=== PATIENT | male | born 1940 | race Caucasian/White ===

== ENCOUNTER 2016-06-05 12:08 | Emergency (ER) | payer MEDICARE, OTHER ==
--- NOTE | 2016-06-05 12:50 | ED ---
General Adult HPI - General Chief complaint: Extremity Injury, Lower Stated complaint: left foot pain Time Seen by Provider: 06/05/16 12:38 Source: patient, RN notes reviewed Mode of arrival: wheelchair Limitations: no limitations - History of Present Illness Initial comments: Patient 76-year-old male who presents emergency room today with a chief complaint of pain to the left foot 10 days. Sensation states pain seems come and go. He does admit that it's located in the arch of his left foot. He does admit seems to be worse when he is ambulating bearing weight. States this time is not having any pain or discomfort. Patient states tried aspirin for the pain with little relief. He denies any specific injury or trauma. States that at times has pain to the right great toe which again states not having any pain or discomfort at this time. Patient denies any other symptoms. Patient denies any recent fever, chills, shortness of breath, chest pain, back pain, abdominal pain, nausea or vomiting, numbness or tingling, dysuria or hematuria, constipation or diarrhea, headaches or visual changes, or any other complaints. - Related Data Home Medications Medication Instructions Recorded Confirmed Gemfibrozil [Lopid] 600 mg PO BID 12/30/14 06/05/16 Tamsulosin [Flomax] 0.4 mg PO DAILY 01/17/15 06/05/16 Pantoprazole Sodium [Protonix] 40 mg PO AC-BID 02/09/15 06/05/16 Ascorbic Acid [Vitamin C] 500 mg PO DAILY 06/18/15 06/05/16 Atorvastatin Calcium [Lipitor] 40 mg PO HS 11/07/15 06/05/16 Multivitamins, Thera [Multivitamin] 1 tab PO DAILY 11/07/15 06/05/16 Pioglitazone [Actos] 30 mg PO DAILY 11/07/15 06/05/16 Primidone [Mysoline] 125 mg PO BID-W/MEALS 11/07/15 06/05/16 metFORMIN HCL [Glucophage] 500 mg PO AC-BID 11/07/15 06/05/16 Lisinopril [Zestril] 2.5 mg PO QAM 01/19/16 06/05/16 Previous Rx's Medication Instructions Recorded Carvedilol [Coreg] 3.125 mg PO BID-W/MEALS #60 tab 06/21/15 Allergies Allergy/AdvReac Type Severity Reaction Status Date / Time Penicillins Allergy Nausea & Verified 06/05/16 13:36 Vomiting Review of Systems ROS Statement: Those systems with pertinent positive or pertinent negative responses have been documented in the HPI. ROS Other: All systems not noted in ROS Statement are negative. 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 , Diarrhea for the last 9 months, Back Pain, Enlarged Prostate., Has difficulty holding his head up-states it wants to fall forward- he has a brace he wears History of Any Multi-Drug Resistant Organisms: None Reported Past Surgical History: Adenoidectomy, Bowel Resection, Hernia Repair, Orthopedic Surgery, Tonsillectomy Additional Past Surgical History / Comment(s): LT CAROTID ENDARTERECTOMY, UMBILICAL HERNIA REPAIR, LEFT EYE SURGERY (industrial accident), LEFT SHOULDER RCR , Lap elder fundoplication, EXPLORATORY LAPAROTOMY/ILEOCOLECTOMY, BMA with bx, 02/15/15 port-a-cath. Past Anesthesia/Blood Transfusion Reactions: No Reported Reaction Additional Past Anesthesia/Blood Transfusion Reaction / Comment(s): HX OF BLOOD TRANSFUSION-NO REACTION. Past Psychological History: No Psychological Hx Reported Additional Psychological History / Comment(s): . Smoking Status: Former smoker Past Alcohol Use History: None Reported Additional Past Alcohol Use History / Comment(s): STARTED SMOKING IN 1950 QUIT 1970 SMOKED 2 PPD Past Drug Use History: None Reported - Past Family History Daughter(s) Family Medical History: Cancer Additional Family Medical History / Comment(s): BREAST , LIVER AND LUNG CANCER Father Family Medical History: Myocardial Infarction ([place]) Additional Family Medical History / Comment(s): Father at age 65yrs. Mother Family Medical History: Dementia Additional Family Medical History / Comment(s): Mother at about age 82yrs. Brother(s) Family Medical History: Cancer Additional Family Medical History / Comment(s): (2 BROTHERS) Sister(s) Family Medical History: Cancer General Exam - General Exam Comments Initial Comments: General: The patient is awake and alert, in no distress, and does not appear acutely ill. Neck: The neck is supple, there is no tenderness or JVD. Cardiovascular: There is a regular rate and rhythm. No murmur, rub or gallop is appreciated. Respiratory: Lungs are clear to auscultation, respirations are non-labored, breath sounds are equal. No wheezes, stridor, rales, or rhonchi. Musculoskeletal: Patient has mild swelling down to the left foot. There is no redness. No sign of infection. Tender palpation in the arch of the left foot. No specific bony tenderness on exam. Shows good range of motion. Sensations are intact pulses equal bilaterally 2+. Strength is 5/5. Neurological: A&O x 3. CN II-XII intact, There are no obvious motor or sensory deficits. Coordination appears grossly intact. Speech is normal. Skin: Skin is warm and dry and no rashes or lesions are noted. Psychiatric: Normal mood and affect. Limitations: no limitations Course Vital Signs 06/05/16 12:33 Temperature 98 F Pulse Rate 66 Respiratory 20 Rate Blood Pressure 148/66 O2 Sat by Pulse 99 Oximetry Medical Decision Making - Medical Decision Making Patient reexamined at this time shows no signs or sensory was x-ray reviewed and is unremarkable. Was discussed with patient about plaques fasciitis. Advised to follow-up with with her family doctor. Advised to perform certain exercises for her symptoms. Patient is advised to continue to ice elevate affected area use heat if needed. Advised to use Tylenol for pain. Advised return for any other concerns. Disposition Clinical Impression: Foot pain Disposition: HOME SELF-CARE Condition: Good Instructions: Plantar Fasciitis (ED) Additional Instructions: Please use Tylenol for pain as needed. Please follow-up with family doctor/ orthopedics in the next 2 days. Please use can good to roll under your foot as discussed. Please return to emergency room if the symptoms increase or worsen or for any other concerns. Time of Disposition: 13:56
--- NOTE | 2016-06-05 13:30 | XR ---
EXAMINATION TYPE: XR foot complete LT DATE OF EXAM: 06/05/2016 1:22 PM COMPARISON: NONE HISTORY: Pain TECHNIQUE: Three views are submitted. FINDINGS: The osseous structures are intact. There is no acute fracture or dislocation. There is diffuse osteo penia and arthropathy of the MTP joints. Hammertoe deformities noted. IMPRESSION: 1. No acute fracture or dislocation. If symptoms persist, follow-up exam in 7 to 10 days could be ob tained.
[2016-06-05 14:09] VITALS: BP 164/72; PULSE 63; RESP 16; TEMP 96.9
== END 2016-06-05 14:08 | disposition home or self-care (01) ==
LOC: EC 12:08
DX: M79.672 Pain in left foot (principal); E11.9 Type 2 diabetes mellitus without complications; K21.9 Gastro-esophageal reflux disease without esophagitis; M19.90 Unspecified osteoarthritis, unspecified site; E78.5 Hyperlipidemia, unspecified; I11.0 Hypertensive heart disease with heart failure; I50.9 Heart failure, unspecified; N42.9 Disorder of prostate, unspecified; Z87.891 Personal history of nicotine dependence; Z85.72 Personal history of non-Hodgkin lymphomas; Z79.84 Long term (current) use of oral hypoglycemic drugs; Z79.899 Other long term (current) drug therapy; Z88.0 Allergy status to penicillin
CPT/HCPCS: 99283

== ENCOUNTER → 2017-04-12 | Outpatient (CLI) | payer MEDICARE, OTHER ==
--- NOTE | 2017-04-12 12:08 | US ---
EXAMINATION TYPE: US abdomen complete DATE OF EXAM: 04/12/2017 COMPARISON: PET/CT August 06, 2015. CT chest abdomen and pelvis January 25, 2015 CLINICAL HISTORY: Abnormal Renal Function R94.4. EXAM MEASUREMENTS: Liver Length: 13.1 cm Gallbladder Wall: 0.2 cm CBD: 0.4 cm Spleen: 11.6 cm Right Kidney: 11.0 x 5.3 x 4.8 cm Left Kidney: 10.9 x 5.3 x 5.0 cm Extensive midline bowel gas. Pancreas: Portions visualized wnl, partially obscured by bowel gas Liver: no masses seen Gallbladder: fundal portions obscured by bowel gas, stones with no wall thickening Evidence for sonographic Haas's sign: no CBD: wnl Spleen: wnl Right Kidney: small cyst noted measuring 0.6 x 0.7 x 0.6cm Left Kidney: No hydronephrosis or masses seen Upper IVC: wnl Abd Aorta: Portions visualized wnl, partially obscured by overlying bowel gas The visualized liver is homogenous. The intrahepatic portion of the IVC and visualized abdominal aor ta are within normal limits. There is no evidence of cholelithiasis. Common bile duct is unremarkab le. The visualized portions of the pancreas are homogenous. The spleen is unremarkable. Kidneys ar e symmetric and free of hydronephrosis. No renal lesions are seen. IMPRESSION: No hydronephrosis is evident bilaterally.
== END | disposition home or self-care (01) ==
LOC: RADUSWWP 09:07
PROVIDERS: ATTEND Internal Medicine Hematology & Oncology
DX: R94.4 Abnormal results of kidney function studies (principal); Z88.0 Allergy status to penicillin
CPT/HCPCS: 76700

== ENCOUNTER → 2017-06-08 | Outpatient (CLI) | payer MEDICARE, OTHER ==
--- NOTE | 2017-06-10 10:15 | PE ---
Nuclear medicine PET/CT HISTORY: Lymphoma, C 83.33, subsequent Patient received 14.9 mCi F-18 FDG intravenously in delayed scanning was performed from the skull bas e to the mid thighs. Localization and attenuation correction CT scan was performed. Exam correlated to prior nuclear medicine PET/CT 08/06/2015 FINDINGS: Neck and chest: Unremarkable, no suspicious hypermetabolic uptake, no evident adenopathy. Emphysemato us changes are present within the lungs, no evident lung mass. The heart is enlarged. 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 There are coronary artery calcifications. Pulmonary artery is prominent, co rrelate for possible pulmonary artery hypertension Abdomen pelvis: Gallstones are present in the dependent portion of the gallbladder. Colonic interposi tion noted anterior to the liver. No retroperitoneal or abdominal adenopathy. Postop changes are note d to the bowel. Uptake along the bowel is felt likely to be physiologic. Calcification present within the mesenteric fat. No suspicious hypermetabolic uptake. Osseous structures: Stable. No suspicious hypermetabolic uptake. IMPRESSION: Recurrence is not evident. Additional findings above.
== END | disposition home or self-care (01) ==
LOC: RADPETMAIN 11:34
PROVIDERS: ATTEND Internal Medicine Hematology & Oncology
DX: C83.33 Diffuse large B-cell lymphoma, intra-abdominal lymph nodes (principal); J43.9 Emphysema, unspecified; I51.7 Cardiomegaly; I25.10 Atherosclerotic heart disease of native coronary artery without angina pectoris; I71.2 Thoracic aortic aneurysm, without rupture; K80.20 Calculus of gallbladder without cholecystitis without obstruction; Z98.890 Other specified postprocedural states
CPT/HCPCS: 78815; A9552

== ENCOUNTER 2017-07-19 15:40 | Inpatient (IN) | payer MEDICARE, OTHER ==
[2017-07-19] MEDS ORDERED: SODIUM CHLORIDE 0.9% 500 ML IV STA (16:10)
[2017-07-19] MEDS ORDERED: SODIUM CHLORIDE 0.9% 1,000 ML IV STA (16:10)
[2017-07-19 16:47] LABS: Basophils % (A) 0 %; Eosinophils # (A) 0.2 k/uL (0-0.7); Eosinophils % (A) 2 %; HGB 10.4 gm/dL (13.0-17.5); Lymphocytes # (A) 0.9 k/uL (1.0-4.8); Lymphocytes % (A) 12 %; MCH 30.6 pg (25.0-35.0); MCHC 33.5 g/dL (31.0-37.0); MCV 91.2 fL (80.0-100.0); Mean Platelet Volume 9.1; Monocytes # (A) 0.3 k/uL (0-1.0); Monocytes % (A) 4 %; Neutrophils # (A) 5.6 k/uL (1.3-7.7); Neutrophils % (A) 80 %; Platelet Count 216 k/uL (150-450); RDW 14.2 % (11.5-15.5); WBC 7.1 k/uL (3.8-10.6)
[2017-07-19 16:55] LABS: INR 1.2 (<1.2); Partial Thromboplastin Time 25.2 sec (22.0-30.0); Prothrombin Time 11.1 sec (9.0-12.0)
[2017-07-19 16:59] LABS: ALT 14 U/L (21-72); AST 15 U/L (17-59); Alkaline Phosphatase 253 U/L (38-126); Anion Gap 18 mmol/L; Blood Urea Nitrogen 22 mg/dL (9-20); Calcium 8.3 mg/dL (8.4-10.2); Carbon Dioxide 22 mmol/L (22-30); Chloride 102 mmol/L (98-107); Glucose 341 mg/dL (74-99); Magnesium 1.3 mg/dL (1.6-2.3); Phosphorus 2.7 mg/dL (2.5-4.5); Sodium 142 mmol/L (137-145); Total Bilirubin 0.3 mg/dL (0.2-1.3); Total Protein 6.3 g/dL (6.3-8.2)
--- NOTE | 2017-07-19 17:11 | ED ---
General Adult HPI - General Chief complaint: Fall Stated complaint: Confusion Time Seen by Provider: 07/19/17 15:43 Source: patient, family, RN notes reviewed, old records reviewed Mode of arrival: EMS Limitations: altered mental status, physical limitation - History of Present Illness Initial comments: This is a 77-year-old male the ER for evaluation. Patient poor historian unable to give accurate history, history obtained from family EMS and patient's chart. Patient has multiple recent falls, multiple injuries from prior fall, fall earlier in the week and hence was discharged home, symptoms have progressed since with no new acute injury - Related Data Home Medications Medication Instructions Recorded Confirmed Gemfibrozil [Lopid] 600 mg PO BID 12/30/14 07/19/17 Tamsulosin [Flomax] 0.4 mg PO DAILY 01/17/15 07/19/17 Pantoprazole Sodium [Protonix] 40 mg PO AC-BID 02/09/15 07/19/17 Atorvastatin Calcium [Lipitor] 80 mg PO HS 11/07/15 07/19/17 Multivitamins, Thera [Multivitamin] 1 tab PO DAILY 11/07/15 07/19/17 Pioglitazone [Actos] 30 mg PO DAILY 11/07/15 07/19/17 Primidone [Mysoline] 125 mg PO BID-W/MEALS 11/07/15 07/19/17 Lisinopril [Zestril] 2.5 mg PO QAM 01/19/16 07/19/17 Donepezil [Aricept] 10 mg PO HS 07/19/17 07/19/17 Ferrous Sulfate [Feosol] 325 mg PO DAILY 07/19/17 07/19/17 Gabapentin [Neurontin] 300 mg PO BID 07/19/17 07/19/17 HYDROcodone/APAP 7.5-325MG [[place] 1 tab PO Q4H PRN 07/19/17 07/19/17 7.5-325] Milk Of Magnesia Chewables 400 mg PO DAILY 07/19/17 07/19/17 Sodium Bicarbonate Tab 650 mg PO BID 07/19/17 07/19/17 metFORMIN HCL 1,000 mg PO BID 07/19/17 07/19/17 traMADol HCL [Ultram] 50 mg PO Q12H PRN 07/19/17 07/19/17 Previous Rx's Medication Instructions Recorded Carvedilol [Coreg] 3.125 mg PO BID-W/MEALS #60 tab 06/21/15 Allergies Allergy/AdvReac Type Severity Reaction Status Date / Time Penicillins Allergy Nausea & Verified 07/19/17 16:34 Vomiting Review of Systems ROS Statement: Those systems with pertinent positive or pertinent negative responses have been documented in the HPI. ROS Other: All systems not noted in ROS Statement are negative. 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 , Diarrhea for the last 9 months, Back Pain, Enlarged Prostate., Has difficulty holding his head up-states it wants to fall forward- he has a brace he wears History of Any Multi-Drug Resistant Organisms: None Reported Past Surgical History: Adenoidectomy, Bowel Resection, Hernia Repair, Orthopedic Surgery, Tonsillectomy Additional Past Surgical History / Comment(s): LT CAROTID ENDARTERECTOMY, UMBILICAL HERNIA REPAIR, LEFT EYE SURGERY (industrial accident), LEFT SHOULDER RCR , Lap elder fundoplication, EXPLORATORY LAPAROTOMY/ILEOCOLECTOMY, BMA with bx, 02/15/15 port-a-cath. Past Anesthesia/Blood Transfusion Reactions: No Reported Reaction Additional Past Anesthesia/Blood Transfusion Reaction / Comment(s): HX OF BLOOD TRANSFUSION-NO REACTION. Past Psychological History: No Psychological Hx Reported Smoking Status: Former smoker Past Alcohol Use History: None Reported Past Drug Use History: None Reported - Past Family History Daughter(s) Family Medical History: Cancer Additional Family Medical History / Comment(s): BREAST , LIVER AND LUNG CANCER Father Family Medical History: Myocardial Infarction ([place]) Additional Family Medical History / Comment(s): Father at age 65yrs. Mother Family Medical History: Dementia Additional Family Medical History / Comment(s): Mother at about age 82yrs. Brother(s) Family Medical History: Cancer Additional Family Medical History / Comment(s): (2 BROTHERS) Sister(s) Family Medical History: Cancer General Exam - General Exam Comments Initial Comments: Left arm brace and edema Limitations: altered mental status, physical limitation General appearance: alert, in no apparent distress Head exam: Present: atraumatic, normocephalic, normal inspection Eye exam: Present: normal appearance, PERRL, EOMI. Absent: scleral icterus, conjunctival injection, periorbital swelling ENT exam: Present: normal exam, mucous membranes moist Neck exam: Present: normal inspection. Absent: tenderness, meningismus, lymphadenopathy Respiratory exam: Present: normal lung sounds bilaterally. Absent: respiratory distress, wheezes, rales, rhonchi, stridor Cardiovascular Exam: Present: regular rate, normal rhythm, normal heart sounds. Absent: systolic murmur, diastolic murmur, rubs, gallop, clicks GI/Abdominal exam: Present: soft, normal bowel sounds. Absent: distended, tenderness, guarding, rebound, rigid Extremities exam: Present: normal inspection, full ROM, normal capillary refill. Absent: tenderness, pedal edema, joint swelling, calf tenderness Back exam: Present: normal inspection Neurological exam: Present: alert, oriented X3, CN II-XII intact Psychiatric exam: Present: normal affect, normal mood Skin exam: Present: warm, dry, intact, normal color. Absent: rash Course Vital Signs 07/19/17 07/19/17 07/19/17 15:56 16:30 17:30 Temperature 98.3 F Pulse Rate 92 86 91 Respiratory 20 20 20 Rate Blood Pressure 186/89 171/77 135/65 O2 Sat by Pulse 99 100 99 Oximetry - Reevaluation(s) Reevaluation #1: 07/19/17 17:50 Patient was still pain with breathing, difficulty breathing Reevaluation #2: 07/19/17 17:50 Prior ER records are reviewed EKG Findings - EKG Comments: EKG Findings:: EKG shows sinus rhythm rate of 89, NH 144, QRS 88, QTC 452 Medical Decision Making - Medical Decision Making 77 male the ER for evaluation regarding recent acute falls, patient does have left-sided rib fractures, pain breathing is worse since she's been at home, patient will be admitted for pain control - Lab Data Result diagrams: 07/19/17 16:30 07/19/17 16:30 Lab Results 07/19/17 07/19/1707/19/18 Range/Units 16:30 16:30 16:30 WBC 7.1 (3.8-10.6) k/uL RBC 3.40 L (4.30-5.90) m/uL Hgb 10.4 L (13.0-17.5) gm/dL Hct 31.0 L (39.0-53.0) % MCV 91.2 (80.0-100.0) fL MCH 30.6 (25.0-35.0) pg MCHC 33.5 (31.0-37.0) g/dL RDW 14.2 (11.5-15.5) % Plt Count 216 (150-450) k/uL Neutrophils % 80 % Lymphocytes % 12 % Monocytes % 4 % Eosinophils % 2 % Basophils % 0 % Neutrophils # 5.6 (1.3-7.7) k/uL Lymphocytes # 0.9 L (1.0-4.8) k/uL Monocytes # 0.3 (0-1.0) k/uL Eosinophils # 0.2 (0-0.7) k/uL Basophils # 0.0 (0-0.2) k/uL PT (9.0-12.0) sec INR (<1.2) APTT (22.0-30.0) sec Sodium 142 (137-145) mmol/L Potassium 4.0 (3.5-5.1) mmol/L Chloride 102 (98-107) mmol/L Carbon Dioxide 22 (22-30) mmol/L Anion Gap 18 mmol/L BUN 22 H (9-20) mg/dL Creatinine 0.90 (0.66-1.25) mg/dL Est GFR (CKD-EPI)AfAm >90 (>60 ml/min/1.73 sqM) Est GFR (CKD-EPI)NonAf 83 (>60 ml/min/1.73 sqM) Glucose 341 H (74-99) mg/dL Plasma Lactic Acid Jhon (0.7-2.0) mmol/L Calcium 8.3 L (8.4-10.2) mg/dL Phosphorus 2.7 (2.5-4.5) mg/dL Magnesium 1.3 L (1.6-2.3) mg/dL Total Bilirubin 0.3 (0.2-1.3) mg/dL AST 15 L (17-59) U/L ALT 14 L (21-72) U/L Alkaline Phosphatase 253 H (38-126) U/L Total Creatine Kinase 112 (55-170) U/L CK-MB (CK-2) 2.2 (0.0-2.4) ng/mL CK-MB (CK-2) Rel Index 2.0 Troponin I 0.016 (0.000-0.034) ng/mL Total Protein 6.3 (6.3-8.2) g/dL Albumin 4.0 (3.5-5.0) g/dL Urine Color Urine Appearance (Clear) Urine pH (5.0-8.0) Ur Specific [place] (1.001-1.035) Urine Protein (Negative) Urine Glucose (UA) (Negative) Urine Ketones (Negative) Urine Blood (Negative) Urine Nitrite (Negative) Urine Bilirubin (Negative) Urine Urobilinogen (<2.0) mg/dL Ur Leukocyte Esterase (Negative) Urine RBC (0-5) /hpf Urine WBC (0-5) /hpf Urine Bacteria (None) /hpf Urine Mucus (None) /hpf 07/19/17 07/19/17 07/19/17 Range/Units 16:30 16:30 17:15 WBC (3.8-10.6) k/uL RBC (4.30-5.90) m/uL Hgb (13.0-17.5) gm/dL Hct (39.0-53.0) % MCV (80.0-100.0) fL MCH (25.0-35.0) pg MCHC (31.0-37.0) g/dL RDW (11.5-15.5) % Plt Count (150-450) k/uL Neutrophils % % Lymphocytes % % Monocytes % % Eosinophils % % Basophils % % Neutrophils # (1.3-7.7) k/uL Lymphocytes # (1.0-4.8) k/uL Monocytes # (0-1.0) k/uL Eosinophils # (0-0.7) k/uL Basophils # (0-0.2) k/uL PT 11.1 (9.0-12.0) sec INR 1.2 H (<1.2) APTT 25.2 (22.0-30.0) sec Sodium (137-145) mmol/L Potassium (3.5-5.1) mmol/L Chloride (98-107) mmol/L Carbon Dioxide (22-30) mmol/L Anion Gap mmol/L BUN (9-20) mg/dL Creatinine (0.66-1.25) mg/dL Est GFR (CKD-EPI)AfAm (>60 ml/min/1.73 sqM) Est GFR (CKD-EPI)NonAf (>60 ml/min/1.73 sqM) Glucose (74-99) mg/dL Plasma Lactic Acid Jhon 0.9 (0.7-2.0) mmol/L Calcium (8.4-10.2) mg/dL Phosphorus (2.5-4.5) mg/dL Magnesium (1.6-2.3) mg/dL Total Bilirubin (0.2-1.3) mg/dL AST (17-59) U/L ALT (21-72) U/L Alkaline Phosphatase (38-126) U/L Total Creatine Kinase (55-170) U/L CK-MB (CK-2) (0.0-2.4) ng/mL CK-MB (CK-2) Rel Index Troponin I (0.000-0.034) ng/mL Total Protein (6.3-8.2) g/dL Albumin (3.5-5.0) g/dL Urine Color Yellow Urine Appearance Clear (Clear) Urine pH 5.5 (5.0-8.0) Ur Specific [place] 1.022 (1.001-1.035) Urine Protein 1+ H (Negative) Urine Glucose (UA) 4+ H (Negative) Urine Ketones 1+ H (Negative) Urine Blood Trace H (Negative) Urine Nitrite Negative (Negative) Urine Bilirubin Negative (Negative) Urine Urobilinogen <2.0 (<2.0) mg/dL Ur Leukocyte Esterase Negative (Negative) Urine RBC 1 (0-5) /hpf Urine WBC <1 (0-5) /hpf Urine Bacteria Rare H (None) /hpf Urine Mucus Rare H (None) /hpf - Radiology Data Radiology results: report reviewed (Chest x-ray x-ray left forearm positive fractures positive rib fractures), image reviewed Disposition Clinical Impression: Fall, Weakness generalized, Malnutrition Disposition: ADMITTED IP TO THIS HOSP Condition: Fair Is patient prescribed a controlled substance at d/c from ED?: No Referrals: Adelfo Tee MD [Primary Care Provider] - 1-2 days
[2017-07-19 17:24] LABS: Creatine Kinase MB 2.2 ng/mL (0.0-2.4); Troponin I 0.016 ng/mL (0.000-0.034)
[2017-07-19 17:36] LABS: Appearance,Urine Clear (Clear); Bacteria,Urine Rare /hpf; Bilirubin,Urine Negative (Negative); Blood,Urine Trace (Negative); Color,Urine Yellow; Glucose,Urine (UA) 4+ (Negative); Ketones,Urine 1+ (Negative); Leukocyte Esterase,Urine Negative (Negative); Mucus,Urine Rare /hpf; Nitrite,Urine Negative (Negative); PH, Urine 5.5 (5.0-8.0); Protein,Urine 1+ (Negative); RBC,Urine 1 /hpf (0-5); Specific Gravity,Urine 1.022 (1.001-1.035); Urobilinogen,Urine <2.0 mg/dL (<2.0); WBC,Urine <1 /hpf (0-5)
[2017-07-19] MEDS ORDERED: MORPHINE SULFATE 4 MG/ML SYRINGE IVP PRN (17:51)
[2017-07-19] MEDS ORDERED: MORPHINE SULFATE 4 MG/ML SYRINGE IVP STA (17:51)
--- NOTE | 2017-07-19 18:11 | XR ---
EXAMINATION: XR chest 2V DATE AND TIME: 07/19/2017 5:10 PM ORDERING PROVIDER: [employer] DO CLINICAL INDICATION: Weakness TECHNIQUE: PA and lateral COMPARISON: 06/20/2015 DESCRIPTION: The hemidiaphragms are elevated consistent with relatively low lung inflation at the mom ent of the x-ray exposure. The lungs are clear. The pleural spaces are negative. The cardiac silhouette is not enlarged. The mediastinal and pleural silhouettes are unremarkable. The skeletal structures are intact without focal findings. The soft tissues are unremarkable. IMPRESSION: NO ACUTE PROCESS.
[2017-07-19] MEDS: MAGNESIUM SULFATE-D5W PMX 1 GM in DEXTROSE/WATER 1 100ML.BAG IVPB SCH ×2 (18:20→19:16)
--- NOTE | 2017-07-19 19:23 | XR ---
PROCEDURE: XR forearm LT, 2 views DATE AND TIME: 07/19/2017 6:19 PM REFERRING PHYSICIAN: [employer] DO CLINICAL INDICATION: PH[facility], Pain TECHNIQUE: Department protocol. COMPARISON: None FINDINGS: There is no fracture or malalignment. The soft tissues are unremarkable. IMPRESSION: NO ACUTE PROCESS.
[2017-07-19] MEDS ORDERED: HYDROcodone/APAP 7.5-325MG 1 EACH TAB PO PRN (23:12)
[2017-07-19] MEDS ORDERED: DOCUSATE 100 MG CAP PO PRN (23:45)
--- NOTE | 2017-07-19 23:46 | P.HPIM ---
History of Present Illness H&P Date: 07/19/17 Chief Complaint: Left wrist pain Patient is a 77-year-old male with a known history of hypertension, diabetes type 2 [id number], GERD, hearing disorder and large B-cell lymphoma last chemotherapy in 2015 and multiple other medical problems was admitted to the hospital with complaints of pain. Patient does have a history of multiple falls and patient fell about 5 days back and fractured his rib, left wrist, currently on left wrists splint. Patient lives with his who is currently undergoing chemotherapy and unable to take care of him at home. Patient was brought to the hospital by his son for rehab evaluation. Otherwise patient is a poor historian.. no complaints of chest pain or shortness of breath. No fever no chills. No nausea vomiting or abdominal pain. No diarrhea. Left forearm x-ray showed no acute process Chest x-ray showed no acute process EKG showed sinus rhythm with PACs. Blood sugar is elevated 340 on admission Review of Systems Constitutional: Patient denies any fever or chills . No generalized weakness or weight loss. Abdomen: Patient denied nausea vomiting and diarrhea and abdominal pain. Cardiovascular: Patient denies any chest pain or short of breath no palpitations. Respiratory: patient denied any cough is from production. No shortness of breath Neurologic: Patient denied any numbness or tingling headache. Musculoskeletal: Patient denies any complaints of joint swelling or deformity. Complete review of systems could not be obtained from the patient. 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 Past Anesthesia/Blood Transfusion Reactions: No Reported Reaction Additional Past Anesthesia/Blood Transfusion Reaction / Comment(s): HX OF BLOOD TRANSFUSION-NO REACTION. Smoking Status: Former smoker - Past Family History Daughter(s) Family Medical History: Cancer Additional Family Medical History / Comment(s): BREAST , LIVER AND LUNG CANCER Father Family Medical History: Myocardial Infarction ([place]) Additional Family Medical History / Comment(s): Father at age 65yrs. Mother Family Medical History: Dementia Additional Family Medical History / Comment(s): Mother at about age 82yrs. Brother(s) Family Medical History: Cancer Additional Family Medical History / Comment(s): (2 BROTHERS) Sister(s) Family Medical History: Cancer Medications and Allergies Home Medications Medication Instructions Recorded Confirmed Type Gemfibrozil [Lopid] 600 mg PO BID 12/30/14 07/19/17 History Tamsulosin [Flomax] 0.4 mg PO DAILY 01/17/15 07/19/17 History Pantoprazole Sodium [Protonix] 40 mg PO AC-BID 02/09/15 07/19/17 History Carvedilol [Coreg] 3.125 mg PO BID-W/MEALS #60 tab 06/21/15 07/19/17 Rx Atorvastatin Calcium [Lipitor] 80 mg PO HS 11/07/15 07/19/17 History Multivitamins, Thera [Multivitamin] 1 tab PO DAILY 11/07/15 07/19/17 History Pioglitazone [Actos] 30 mg PO DAILY 11/07/15 07/19/17 History Primidone [Mysoline] 125 mg PO BID-W/MEALS 11/07/15 07/19/17 History Lisinopril [Zestril] 2.5 mg PO QAM 01/19/16 07/19/17 History Donepezil [Aricept] 10 mg PO HS 07/19/17 07/19/17 History Ferrous Sulfate [Feosol] 325 mg PO DAILY 07/19/17 07/19/17 History Gabapentin [Neurontin] 300 mg PO BID 07/19/17 07/19/17 History HYDROcodone/APAP 7.5-325MG [[place] 1 tab PO Q4H PRN 07/19/17 07/19/17 History 7.5-325] Milk Of Magnesia Chewables 400 mg PO DAILY 07/19/17 07/19/17 History Sodium Bicarbonate Tab 650 mg PO BID 07/19/17 07/19/17 History metFORMIN HCL 1,000 mg PO BID 07/19/17 07/19/17 History traMADol HCL [Ultram] 50 mg PO Q12H PRN 07/19/17 07/19/17 History Allergies Allergy/AdvReac Type Severity Reaction Status Date / Time Penicillins Allergy Nausea & Verified 07/19/17 16:34 Vomiting Physical Exam Vitals: Vital Signs Temp Pulse Pulse Resp BP BP Pulse Ox 07/19/17 22:51 80 161/74 07/19/17 21:27 98.7 F 81 16 175/74 100 07/19/17 19:00 83 20 142/66 100 07/19/17 17:30 91 20 135/65 99 07/19/17 16:30 86 20 171/77 100 07/19/17 15:56 98.3 F 92 20 186/89 99 Intake and Output 07/19/17 07/19/17 07/20/17 14:59 22:59 06:59 Intake Total 500 Balance 500 Intake: Intake, IV Titration 500 Amount Magnesium Sulfate-D5w Pmx 200 1 gm In Dextrose/Water 1 100ml.bag @ 100 mls/hr IVPB Q1H ZEE Rx#: [id number] Sodium Chloride 0.9% 1, 300 000 ml @ 100 mls/hr IV . Q10H STA Rx#:[id number] Other: Weight 74.843 kg PHYSICAL EXAMINATION: Patient is lying in the bed comfortably, no acute distress, awake alert and oriented.x1-2. HEENT: Normocephalic. Neck is supple. Pupils reactive. Nostrils clear. Oral cavity is moist. Ears reveal no drainage. Neck reveals no JVD, carotid bruits, or thyromegaly. CHEST EXAMINATION: Trachea is central. Symmetrical expansion. Bibasilar diminished air entry. No wheezing or rhonchi. CARDIAC: Normal S1, S2 with no gallops. No murmurs ABDOMEN: Soft. Bowel sounds normal. No organomegaly. No abdominal bruits. Extremities: reveal no edema. No clubbing or cyanosis Neurologically awake, alert, oriented x1-2 with well-coordinated movements. No focal deficits noted Skin: No rash or skin lesions. Psychiatric: Coperative. Nonsuicidal Musculoskeletal: Patient does have left wrist splint in place. No other joint swelling. Results CBC & Chem 7: 07/19/17 16:30 07/19/17 16:30 Labs: Abnormal Lab Results - Last 24 Hours (Table) 07/19/17 07/19/17 07/19/17 Range/Units 16:30 16:30 16:30 RBC 3.40 L (4.30-5.90) m/uL Hgb 10.4 L (13.0-17.5) gm/dL Hct 31.0 L (39.0-53.0) % Lymphocytes # 0.9 L (1.0-4.8) k/uL INR 1.2 H (<1.2) BUN 22 H (9-20) mg/dL Glucose 341 H (74-99) mg/dL Calcium 8.3 L (8.4-10.2) mg/dL Magnesium 1.3 L (1.6-2.3) mg/dL AST 15 L (17-59) U/L ALT 14 L (21-72) U/L Alkaline Phosphatase 253 H (38-126) U/L Urine Protein (Negative) Urine Glucose (UA) (Negative) Urine Ketones (Negative) Urine Blood (Negative) Urine Bacteria (None) /hpf Urine Mucus (None) /hpf 07/19/17 Range/Units 17:15 RBC (4.30-5.90) m/uL Hgb (13.0-17.5) gm/dL Hct (39.0-53.0) % Lymphocytes # (1.0-4.8) k/uL INR (<1.2) BUN (9-20) mg/dL Glucose (74-99) mg/dL Calcium (8.4-10.2) mg/dL Magnesium (1.6-2.3) mg/dL AST (17-59) U/L ALT (21-72) U/L Alkaline Phosphatase (38-126) U/L Urine Protein 1+ H (Negative) Urine Glucose (UA) 4+ H (Negative) Urine Ketones 1+ H (Negative) Urine Blood Trace H (Negative) Urine Bacteria Rare H (None) /hpf Urine Mucus Rare H (None) /hpf Thrombosis Risk Factor Assmnt - DVT/VTE Prophylaxis DVT/VTE Prophylaxis: Pharmacologic Prophylaxis ordered - Choose All That Apply Any of the Below Risk Factors Present?: No Other Risk Factors: Yes Each Risk Factor Represents 2 Points: Patient confined to bed Each Risk Factor Represents 3 Points: Age 75 years or older Thrombosis Risk Factor Assessment Total Risk Factor Score: 5 Thrombosis Risk Factor Assessment Level: High Risk Assessment and Plan Assessment: History of fall 5 days ago with a left wrist fracture History of multiple falls Hyperglycemia with uncontrolled diabetes type 2 Hypomagnesemia. Replaced Large B-cell lymphoma with history of chemotherapy and 2016 History of smoking Hearing disorder/deafness Hyperlipidemia Hypertension and osteoarthritis History of expiratory laparotomy/ileocolectomy History of Elder fundoplication DVT prophylaxis with heparin subcu Plan: Patient was started on morphine IV. Continue with home pain medications including Neurontin and [place]. Insulin sliding scale and gentle hydration. Bowel regimen. Continue the blood pressure medications and follow up closely. Further recommendations based on the clinical course. PTOT be consulted and possible transfer to rehab. Time with Patient: Greater than 30
[2017-07-20] MEDS: DONEPEZIL 10 MG TAB PO SCH ×2 (01:41→21:45)
[2017-07-20] MEDS: MAGNESIUM SULFATE-D5W PMX 1 GM in DEXTROSE/WATER 1 100ML.BAG IVPB SCH ×2 (01:41→03:51)
[2017-07-20 07:29] LABS: Basophils % (A) 0 %; Eosinophils # (A) 0.1 k/uL (0-0.7); Eosinophils % (A) 2 %; HCT 28.9 % (39.0-53.0); HGB 9.9 gm/dL (13.0-17.5); Lymphocytes # (A) 0.8 k/uL (1.0-4.8); Lymphocytes % (A) 16 %; MCH 31.4 pg (25.0-35.0); MCHC 34.1 g/dL (31.0-37.0); Mean Platelet Volume 7.6; Monocytes # (A) 0.4 k/uL (0-1.0); Monocytes % (A) 8 %; Neutrophils # (A) 3.9 k/uL (1.3-7.7); Neutrophils % (A) 73 %; Platelet Count 211 k/uL (150-450); Poikilocytosis Slight; RBC 3.15 m/uL (4.30-5.90); RDW 14.4 % (11.5-15.5); WBC 5.4 k/uL (3.8-10.6)
[2017-07-20 07:52] LABS: Anion Gap 17 mmol/L; Blood Urea Nitrogen 18 mg/dL (9-20); Calcium 8.1 mg/dL (8.4-10.2); Carbon Dioxide 18 mmol/L (22-30); Chloride 104 mmol/L (98-107); Glucose 260 mg/dL (74-99); Potassium 3.8 mmol/L (3.5-5.1); Sodium 139 mmol/L (137-145)
[2017-07-20] MEDS: SODIUM BICARBONATE TAB 650 MG TAB PO SCH ×2 (08:09→21:45)
[2017-07-20] MEDS: PANTOPRAZOLE 40 MG TABLET PO SCH ×2 (08:09→17:43)
[2017-07-20] MEDS: GABAPENTIN 300 MG CAP PO SCH ×2 (08:09→21:45)
[2017-07-20] MEDS: CARVEDILOL 3.125 MG TAB PO SCH ×2 (08:09→17:43)
[2017-07-20] MEDS: LISINOPRIL 2.5 MG TAB PO SCH (08:09)
[2017-07-20] MEDS: MULTIVITAMINS, THERA 1 EACH TAB PO SCH (08:09)
[2017-07-20] MEDS: HEPARIN SODIUM,PORCINE 5,000 UNIT/ML 1 ML VIAL SQ SCH ×2 (08:09→21:45)
[2017-07-20] MEDS: TAMSULOSIN 0.4 MG CAP.ER.24H PO SCH (08:09)
[2017-07-20] MEDS: MAGNESIUM HYDROXIDE 2,400 MG/10 ML CUP PO SCH (08:17)
[2017-07-20 12:16] LABS: Glucose,Whole Blood 371 mg/dL (75-99)
[2017-07-20] MEDS: INSULIN ASPART 100 UNIT/ML 1 ML 10 ML VIAL SQ SCH ×3 (12:46→21:51)
[2017-07-20 14:47] LABS: Hemoglobin A1C 9.6 % (4.0-6.0)
[2017-07-20 16:35] LABS: Glucose,Whole Blood 288 mg/dL (75-99)
[2017-07-20] MEDS: ATORVASTATIN 80 MG TAB PO SCH (21:45)
[2017-07-20] MEDS: metFORMIN 500 MG TAB PO SCH (21:46)
[2017-07-20 21:50] LABS: Glucose,Whole Blood 363 mg/dL (75-99)
--- NOTE | 2017-07-20 22:44 | P.PN ---
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 Patient does have a history of multiple falls and patient fell about 5 days back and fractured his rib, left wrist, currently on left wrists splint. Patient lives with his who is currently undergoing chemotherapy and unable to take care of him at home. Patient was brought to the hospital by his son for rehab evaluation. Otherwise patient is a poor historian.. no complaints of chest pain or shortness of breath. No fever no chills. No nausea vomiting or abdominal pain. No diarrhea. Left forearm x-ray showed no acute process Chest x-ray showed no acute process EKG showed sinus rhythm with PACs. Blood sugar is elevated 340 on admission 07/20/2017 Patient says that his pain is much better now. Able to tolerate oral diet. Otherwise pressure is elevated and started back on home hypoglycemic medications and insulin sliding scale. No fever no chills. PT OT and possible transfer to REHAB ON SATURDAY. All other review of systems negative except the above Current medications reviewed Objective - Vital Signs Vital signs: Vital Signs Temp 97.8 F 07/20/17 15:00 Pulse 77 07/20/17 15:00 Resp 16 07/20/17 15:00 BP 157/73 07/20/17 15:00 Pulse Ox 95 07/20/17 15:00 Intake & Output 07/19/17 07/20/17 07/20/17 18:59 06:59 18:59 Intake Total 1500 800 Output Total 675 425 Balance 825 375 Weight 74.843 kg Intake: Intake, IV Titration 1500 800 Amount Magnesium Sulfate-D5w Pmx 200 1 gm In Dextrose/Water 1 100ml.bag @ 100 mls/hr IVPB Q1H ZEE Rx#: [id number] Magnesium Sulfate-D5w Pmx 200 1 gm In Dextrose/Water 1 100ml.bag @ 100 mls/hr IVPB Q1H ZEE Rx#: [id number] Sodium Chloride 0.9% 1, 1100 800 000 ml @ 100 mls/hr IV . Q10H STA Rx#:[id number] Output: Urine 675 425 Other: # Voids 2 3 - Exam Patient is lying in the bed comfortably, no acute distress, awake alert and oriented.x1-2. HEENT: Normocephalic. Neck is supple. Pupils reactive. Nostrils clear. Oral cavity is moist. Ears reveal no drainage. Neck reveals no JVD, carotid bruits, or thyromegaly. CHEST EXAMINATION: Trachea is central. Symmetrical expansion. Bibasilar diminished air entry. No wheezing or rhonchi. CARDIAC: Normal S1, S2 with no gallops. No murmurs ABDOMEN: Soft. Bowel sounds normal. No organomegaly. No abdominal bruits. Extremities: reveal no edema. No clubbing or cyanosis Neurologically awake, alert, oriented x1-2 with well-coordinated movements. No focal deficits noted Skin: No rash or skin lesions. Psychiatric: Coperative. Nonsuicidal Musculoskeletal: Patient does have left wrist splint in place. No other joint swelling. - Labs CBC & Chem 7: 07/20/17 06:48 07/20/17 06:48 Labs: Abnormal Lab Results - Last 24 Hours (Table) 07/19/17 07/19/17 07/19/17 Range/Units 16:30 16:30 17:15 RBC (4.30-5.90) m/uL Hgb (13.0-17.5) gm/dL Hct (39.0-53.0) % Lymphocytes # (1.0-4.8) k/uL INR 1.2 H (<1.2) Carbon Dioxide (22-30) mmol/L BUN 22 H (9-20) mg/dL Glucose 341 H (74-99) mg/dL POC Glucose (mg/dL) (75-99) mg/dL Hemoglobin A1c (4.0-6.0) % Calcium 8.3 L (8.4-10.2) mg/dL Magnesium 1.3 L (1.6-2.3) mg/dL AST 15 L (17-59) U/L ALT 14 L (21-72) U/L Alkaline Phosphatase 253 H (38-126) U/L Urine Protein 1+ H (Negative) Urine Glucose (UA) 4+ H (Negative) Urine Ketones 1+ H (Negative) Urine Blood Trace H (Negative) Urine Bacteria Rare H (None) /hpf Urine Mucus Rare H (None) /hpf 07/20/17 07/20/17 07/20/17 Range/Units 06:48 06:48 06:48 RBC 3.15 L (4.30-5.90) m/uL Hgb 9.9 L (13.0-17.5) gm/dL Hct 28.9 L (39.0-53.0) % Lymphocytes # 0.8 L (1.0-4.8) k/uL INR (<1.2) Carbon Dioxide 18 L (22-30) mmol/L BUN (9-20) mg/dL Glucose 260 H (74-99) mg/dL POC Glucose (mg/dL) (75-99) mg/dL Hemoglobin A1c 9.6 H (4.0-6.0) % Calcium 8.1 L (8.4-10.2) mg/dL Magnesium (1.6-2.3) mg/dL AST (17-59) U/L ALT (21-72) U/L Alkaline Phosphatase (38-126) U/L Urine Protein (Negative) Urine Glucose (UA) (Negative) Urine Ketones (Negative) Urine Blood (Negative) Urine Bacteria (None) /hpf Urine Mucus (None) /hpf 07/20/17 07/20/17 Range/Units 12:02 16:32 RBC (4.30-5.90) m/uL Hgb (13.0-17.5) gm/dL Hct (39.0-53.0) % Lymphocytes # (1.0-4.8) k/uL INR (<1.2) Carbon Dioxide (22-30) mmol/L BUN (9-20) mg/dL Glucose (74-99) mg/dL POC Glucose (mg/dL) 371 H 288 H (75-99) mg/dL Hemoglobin A1c (4.0-6.0) % Calcium (8.4-10.2) mg/dL Magnesium (1.6-2.3) mg/dL AST (17-59) U/L ALT (21-72) U/L Alkaline Phosphatase (38-126) U/L Urine Protein (Negative) Urine Glucose (UA) (Negative) Urine Ketones (Negative) Urine Blood (Negative) Urine Bacteria (None) /hpf Urine Mucus (None) /hpf Microbiology - Last 24 Hours (Table) 07/19/17 17:15 Urine Culture - Preliminary Urine,Voided Assessment and Plan Assessment: History of fall 5 days ago with a left wrist fracture History of multiple falls Hyperglycemia with uncontrolled diabetes type 2. A1c 9.6 Hypomagnesemia. Replaced Large B-cell lymphoma with history of chemotherapy and 2016 History of smoking Hearing disorder/deafness Hyperlipidemia Hypertension and osteoarthritis History of expiratory laparotomy/ileocolectomy History of Yassine fundoplication DVT prophylaxis with heparin subcu Plan: Patient was started on morphine IV. Discontinue morphine. Continue with home pain medications including Neurontin and [place]. Insulin sliding scale and gentle hydration. Bowel regimen. Continue the blood pressure medications and follow up closely. Further recommendations based on the clinical course. PTOT be consulted and possible transfer to rehab. Time with Patient: Greater than 30
[2017-07-21 06:48] LABS: Glucose,Whole Blood 248 mg/dL (75-99)
[2017-07-21] MEDS: SODIUM BICARBONATE TAB 650 MG TAB PO SCH ×2 (08:34→20:17)
[2017-07-21] MEDS: LISINOPRIL 2.5 MG TAB PO SCH (08:34)
[2017-07-21] MEDS: PIOGLITAZONE 30 MG TAB PO SCH (08:34)
[2017-07-21] MEDS: GABAPENTIN 300 MG CAP PO SCH ×2 (08:35→20:12)
[2017-07-21] MEDS: MAGNESIUM HYDROXIDE 2,400 MG/10 ML CUP PO SCH (08:35)
[2017-07-21] MEDS: PANTOPRAZOLE 40 MG TABLET PO SCH ×2 (08:35→17:47)
[2017-07-21] MEDS: TAMSULOSIN 0.4 MG CAP.ER.24H PO SCH (08:35)
[2017-07-21] MEDS: metFORMIN 500 MG TAB PO SCH ×2 (08:35→20:12)
[2017-07-21] MEDS: CARVEDILOL 3.125 MG TAB PO SCH ×2 (08:35→17:47)
[2017-07-21] MEDS: HEPARIN SODIUM,PORCINE 5,000 UNIT/ML 1 ML VIAL SQ SCH ×2 (08:39→20:11)
[2017-07-21] MEDS: INSULIN ASPART 100 UNIT/ML 1 ML 10 ML VIAL SQ SCH ×4 (08:39→20:11)
[2017-07-21 11:56] LABS: Glucose,Whole Blood 325 mg/dL (75-99)
[2017-07-21 16:30] LABS: Glucose,Whole Blood 300 mg/dL (75-99)
[2017-07-21] MEDS: MULTIVITAMINS, THERA 1 EACH TAB PO SCH (17:47)
[2017-07-21 19:59] LABS: Glucose,Whole Blood 242 mg/dL (75-99)
[2017-07-21] MEDS: ATORVASTATIN 80 MG TAB PO SCH (20:11)
[2017-07-21] MEDS: INSULIN DETEMIR 100 UNIT/ML 10 ML VIAL SQ SCH (20:11)
[2017-07-21] MEDS: DONEPEZIL 10 MG TAB PO SCH (20:11)
--- NOTE | 2017-07-22 00:14 | P.PN ---
Subjective Progress Note Date: 07/21/17 Principal diagnosis: Multiple falls and medical debility Patient is a 77-year-old male with a known history of hypertension, diabetes type 2 [id number], GERD, hearing disorder and large B-cell lymphoma last chemotherapy in 2016 and multiple other medical problems was admitted to the hospital with complaints of pain. Patient does have a history of multiple falls and patient fell about 5 days back and fractured his rib, left wrist, currently on left wrists splint. Patient lives with his who is currently undergoing chemotherapy and unable to take care of him at home. Patient was brought to the hospital by his son for rehab evaluation. Otherwise patient is a poor historian.. no complaints of chest pain or shortness of breath. No fever no chills. No nausea vomiting or abdominal pain. No diarrhea. Left forearm x-ray showed no acute process Chest x-ray showed no acute process EKG showed sinus rhythm with PACs. Blood sugar is elevated 340 on admission 07/20/2017 Patient says that his pain is much better now. Able to tolerate oral diet. Otherwise pressure is elevated and started back on home hypoglycemic medications and insulin sliding scale. No fever no chills. PT OT and possible transfer to REHAB ON SATURDAY. 07/21/2017 Patient says that is feeling better. Part sweating in physical therapy. Otherwise blood sugar is still elevated. Patient was started on Lantus 10 units daily at bedtime along with his hypoglycemic medications. Otherwise no acute overnight issues. All other review of systems negative except the above Current medications reviewed Objective - Vital Signs Vital signs: Vital Signs Temp 98.7 F 07/21/17 07:00 Pulse 75 07/21/17 07:00 Resp 14 07/21/17 07:00 BP 157/78 07/21/17 07:00 Pulse Ox 95 07/21/17 07:00 Intake & Output 07/20/17 07/21/17 07/21/17 18:59 06:59 18:59 Intake Total 800 Output Total 425 400 Balance 375 -400 Weight 74.843 kg Intake: Intake, IV Titration 800 Amount Sodium Chloride 0.9% 1, 800 000 ml @ 100 mls/hr IV . Q10H STA Rx#:[id number] Output: Urine 425 400 Other: # Voids 3 2 3 - Exam Patient is lying in the bed comfortably, no acute distress, awake alert and oriented.x1-2. HEENT: Normocephalic. Neck is supple. Pupils reactive. Nostrils clear. Oral cavity is moist. Ears reveal no drainage. Neck reveals no JVD, carotid bruits, or thyromegaly. CHEST EXAMINATION: Trachea is central. Symmetrical expansion. Bibasilar diminished air entry. No wheezing or rhonchi. CARDIAC: Normal S1, S2 with no gallops. No murmurs ABDOMEN: Soft. Bowel sounds normal. No organomegaly. No abdominal bruits. Extremities: reveal no edema. No clubbing or cyanosis Neurologically awake, alert, oriented x1-2 with well-coordinated movements. No focal deficits noted Skin: No rash or skin lesions. Psychiatric: Coperative. Nonsuicidal Musculoskeletal: Patient does have left wrist splint in place. No other joint swelling. - Labs CBC & Chem 7: 07/20/17 06:48 07/20/17 06:48 Labs: Abnormal Lab Results - Last 24 Hours (Table) 07/20/17 07/20/17 07/20/17 Range/Units 06:48 16:32 21:48 POC Glucose (mg/dL) 288 H 363 H (75-99) mg/dL Hemoglobin A1c 9.6 H (4.0-6.0) % 07/21/17 07/21/17 Range/Units 06:46 11:52 POC Glucose (mg/dL) 248 H 325 H (75-99) mg/dL Hemoglobin A1c (4.0-6.0) % Microbiology - Last 24 Hours (Table) 07/19/17 17:15 Urine Culture - Final Urine,Voided Assessment and Plan Assessment: History of fall 5 days ago with a left wrist fracture History of multiple falls Hyperglycemia with uncontrolled diabetes type 2. A1c 9.6 Hypomagnesemia. Replaced Large B-cell lymphoma with history of chemotherapy and 2016 History of smoking Hearing disorder/deafness Hyperlipidemia Hypertension and osteoarthritis History of expiratory laparotomy/ileocolectomy History of Yassine fundoplication DVT prophylaxis with heparin subcu Plan: Patient was started on morphine IV. Discontinue morphine. Continue with home pain medications including Neurontin and [place]. Insulin sliding scale and gentle hydration. Bowel regimen. Continue the blood pressure medications and follow up closely. Further recommendations based on the clinical course. PTOT be consulted and possible transfer to rehab. Time with Patient: Greater than 30
[2017-07-22 07:02] LABS: Glucose,Whole Blood 120 mg/dL (75-99)
[2017-07-22] MEDS: INSULIN ASPART 100 UNIT/ML 1 ML 10 ML VIAL SQ SCH ×4 (08:24→20:51)
[2017-07-22] MEDS: PANTOPRAZOLE 40 MG TABLET PO SCH ×2 (10:06→17:23)
[2017-07-22] MEDS: CARVEDILOL 3.125 MG TAB PO SCH ×2 (10:06→17:23)
[2017-07-22] MEDS: HEPARIN SODIUM,PORCINE 5,000 UNIT/ML 1 ML VIAL SQ SCH ×2 (10:07→20:09)
[2017-07-22] MEDS: metFORMIN 500 MG TAB PO SCH ×2 (10:07→20:10)
[2017-07-22] MEDS: GABAPENTIN 300 MG CAP PO SCH ×2 (10:07→20:10)
[2017-07-22] MEDS: LISINOPRIL 2.5 MG TAB PO SCH (10:07)
[2017-07-22] MEDS: PIOGLITAZONE 30 MG TAB PO SCH (10:08)
[2017-07-22] MEDS: SODIUM BICARBONATE TAB 650 MG TAB PO SCH ×2 (10:08→20:10)
[2017-07-22] MEDS: TAMSULOSIN 0.4 MG CAP.ER.24H PO SCH (10:08)
[2017-07-22] MEDS: MAGNESIUM HYDROXIDE 2,400 MG/10 ML CUP PO SCH (10:12)
[2017-07-22 10:29] VITALS: BMI 24.3
[2017-07-22 11:16] LABS: Glucose,Whole Blood 218 mg/dL (75-99)
[2017-07-22] MEDS: PRIMIDONE 250 MG TAB PO SCH ×2 (13:18→17:22)
[2017-07-22] MEDS: MULTIVITAMINS, THERA 1 EACH TAB PO SCH (13:21)
[2017-07-22 16:59] LABS: Glucose,Whole Blood 191 mg/dL (75-99)
[2017-07-22] MEDS: DONEPEZIL 10 MG TAB PO SCH (20:10)
[2017-07-22 20:12] LABS: Glucose,Whole Blood 236 mg/dL (75-99)
[2017-07-22] MEDS: LOPERAMIDE 2 MG CAP PO PRN (20:16)
[2017-07-22] MEDS: ATORVASTATIN 80 MG TAB PO SCH (20:51)
[2017-07-22] MEDS: INSULIN DETEMIR 100 UNIT/ML 10 ML VIAL SQ SCH (20:52)
--- NOTE | 2017-07-23 01:26 | P.PN ---
Subjective Progress Note Date: 07/22/17 Principal diagnosis: Multiple falls and medical debility Patient is a 77-year-old male with a known history of hypertension, diabetes type 2 zwi-dnuwreh-[id number], GERD, hearing disorder and large B-cell lymphoma last chemotherapy in 2016 and multiple other medical problems was admitted to the hospital with complaints of pain. Patient does have a history of multiple falls and patient fell about 5 days back and fractured his rib, left wrist, currently on left wrists splint. Patient lives with his who is currently undergoing chemotherapy and unable to take care of him at home. Patient was brought to the hospital by his son for rehab evaluation. Otherwise patient is a poor historian.. no complaints of chest pain or shortness of breath. No fever no chills. No nausea vomiting or abdominal pain. No diarrhea. Left forearm x-ray showed no acute process Chest x-ray showed no acute process EKG showed sinus rhythm with PACs. Blood sugar is elevated 340 on admission 07/20/2017 Patient says that his pain is much better now. Able to tolerate oral diet. Otherwise pressure is elevated and started back on home hypoglycemic medications and insulin sliding scale. No fever no chills. PT OT and possible transfer to REHAB ON SATURDAY. 07/21/2017 Patient says that is feeling better. Participating in physical therapy. Otherwise blood sugar is still elevated. Patient was started on Lantus 10 units daily at bedtime along with his hypoglycemic medications. Otherwise no acute overnight issues. 07/22/2017 Patient denied any complaints of chest pain or shortness of breath. Blood sugar is better controlled now. No fever no chills. No acute overnight issues. All other review of systems negative except the above Current medications reviewed Objective - Vital Signs Vital signs: Vital Signs Temp 97.7 F 07/22/17 18:03 Pulse 71 07/22/17 18:03 Resp 16 07/22/17 18:03 BP 179/76 07/22/17 18:03 Pulse Ox 100 07/22/17 18:03 Intake & Output 07/22/17 07/22/17 07/23/17 06:59 18:59 06:59 Intake Total 987 Output Total 0 700 Balance 0 287 Weight 74.843 kg Intake: Oral 987 Output: Urine 700 Stool 0 Other: # Voids 1 1 # Bowel Movements 2 - Exam Patient is lying in the bed comfortably, no acute distress, awake alert and oriented.x1-2. HEENT: Normocephalic. Neck is supple. Pupils reactive. Nostrils clear. Oral cavity is moist. Ears reveal no drainage. Neck reveals no JVD, carotid bruits, or thyromegaly. CHEST EXAMINATION: Trachea is central. Symmetrical expansion. Bibasilar diminished air entry. No wheezing or rhonchi. CARDIAC: Normal S1, S2 with no gallops. No murmurs ABDOMEN: Soft. Bowel sounds normal. No organomegaly. No abdominal bruits. Extremities: reveal no edema. No clubbing or cyanosis Neurologically awake, alert, oriented x1-2 with well-coordinated movements. No focal deficits noted Skin: No rash or skin lesions. Psychiatric: Coperative. Nonsuicidal Musculoskeletal: Patient does have left wrist splint in place. No other joint swelling. - Labs CBC & Chem 7: 07/20/17 06:48 07/20/17 06:48 Labs: Abnormal Lab Results - Last 24 Hours (Table) 07/22/17 07/22/17 07/22/17 Range/Units 07:00 11:13 16:54 POC Glucose (mg/dL) 120 H 218 H 191 H (75-99) mg/dL 07/22/17 Range/Units 20:11 POC Glucose (mg/dL) 236 H (75-99) mg/dL Assessment and Plan Assessment: History of fall 5 days ago with a left wrist fracture. Currently on splint. History of multiple falls Hyperglycemia with uncontrolled diabetes type 2. A1c 9.6 Hypomagnesemia. Replaced Large B-cell lymphoma with history of chemotherapy and 2016 History of smoking Hearing disorder/deafness Hyperlipidemia Hypertension and osteoarthritis History of expiratory laparotomy/ileocolectomy History of Yassnie fundoplication DVT prophylaxis with heparin subcu Plan: Patient was started on morphine IV. Discontinue morphine. Continue with home pain medications including Neurontin and [place]. Insulin sliding scale and gentle hydration. Started on Lantus 10 units daily at bedtime. Bowel regimen. Continue the blood pressure medications and follow up closely. Further recommendations based on the clinical course. PTOT be consulted and possible transfer to rehab.
[2017-07-23 07:05] LABS: Glucose,Whole Blood 197 mg/dL (75-99)
[2017-07-23] MEDS: INSULIN ASPART 100 UNIT/ML 1 ML 10 ML VIAL SQ SCH ×4 (08:07→21:33)
[2017-07-23] MEDS: PANTOPRAZOLE 40 MG TABLET PO SCH ×2 (08:09→17:35)
[2017-07-23] MEDS: CARVEDILOL 3.125 MG TAB PO SCH ×2 (08:09→17:33)
[2017-07-23] MEDS: GABAPENTIN 300 MG CAP PO SCH ×2 (08:09→21:33)
[2017-07-23] MEDS: metFORMIN 500 MG TAB PO SCH ×2 (08:09→17:35)
[2017-07-23] MEDS: LISINOPRIL 2.5 MG TAB PO SCH (08:10)
[2017-07-23] MEDS: HEPARIN SODIUM,PORCINE 5,000 UNIT/ML 1 ML VIAL SQ SCH ×2 (08:10→21:33)
[2017-07-23] MEDS: TAMSULOSIN 0.4 MG CAP.ER.24H PO SCH (08:10)
[2017-07-23] MEDS: PRIMIDONE 250 MG TAB PO SCH ×2 (08:10→17:35)
[2017-07-23] MEDS: MAGNESIUM HYDROXIDE 2,400 MG/10 ML CUP PO SCH (08:11)
[2017-07-23] MEDS: PIOGLITAZONE 30 MG TAB PO SCH (08:11)
[2017-07-23] MEDS: SODIUM BICARBONATE TAB 650 MG TAB PO SCH ×2 (08:13→21:33)
[2017-07-23] MEDS: MULTIVITAMINS, THERA 1 EACH TAB PO SCH (08:14)
[2017-07-23] MEDS: LOPERAMIDE 2 MG CAP PO PRN ×3 (08:16→21:33)
[2017-07-23 10:53] LABS: Glucose,Whole Blood 215 mg/dL (75-99)
--- NOTE | 2017-07-23 12:48 | P.CNOR ---
History of Present Illness - [facility] Consult date: 07/23/17 Consult reason: other History of present illness: This is a 77-year-old male who was admitted to [facility] on 07/19/2017 with regards to increasing pain, difficulty ambulating and recent falls. Patient initially had a fall last week involving his left wrist and hand, he was evaluated by Dr. Farrell in the outpatient setting. He was diagnosed with a fracture involving the fifth metacarpal, he was placed in a splint. At the time of the fall, the patient also had multiple rib fractures. He states that he's been falling quite a bit over the last few months. Patient has a known medical history of high blood pressure, diabetes and lymphoma. Upon admission to the hospital, he mentioned a few slivers on the left hand, volar aspect near the fifth metacarpal. He states that the railing in his house he uses when going from upstairs to downstairs has given him splinters before. He states he noticed these over the last few days, he states his usually remove some for him. Internal medicine consultwith regards to the left hand, patient was seen at bedside today. Patient has no acute distress. He notes minimal discomfort involving the left hand. The wrist splint is intact. He denies any fevers or chills. He denies any drainage or open lesions on the left hand. 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 Past Anesthesia/Blood Transfusion Reactions: No Reported Reaction Additional Past Anesthesia/Blood Transfusion Reaction / Comm: HX OF BLOOD TRANSFUSION-NO REACTION. Smoking Status: Former smoker - Past Family History Daughter(s) Family Medical History: Cancer Additional Family Medical History / Comment(s): BREAST , LIVER AND LUNG CANCER Father Family Medical History: Myocardial Infarction ([place]) Additional Family Medical History / Comment(s): Father at age 65yrs. Mother Family Medical History: Dementia Additional Family Medical History / Comment(s): Mother at about age 82yrs. Brother(s) Family Medical History: Cancer Additional Family Medical History / Comment(s): (2 BROTHERS) Sister(s) Family Medical History: Cancer Medications and Allergies Home Medications Medication Instructions Recorded Confirmed Type Gemfibrozil [Lopid] 600 mg PO BID 12/30/14 07/19/17 History Tamsulosin [Flomax] 0.4 mg PO DAILY 01/17/15 07/19/17 History Pantoprazole Sodium [Protonix] 40 mg PO AC-BID 02/09/15 07/19/17 History Carvedilol [Coreg] 3.125 mg PO BID-W/MEALS #60 tab 06/21/15 07/19/17 Rx Atorvastatin Calcium [Lipitor] 80 mg PO HS 11/07/15 07/19/17 History Multivitamins, Thera [Multivitamin] 1 tab PO DAILY 11/07/15 07/19/17 History Pioglitazone [Actos] 30 mg PO DAILY 11/07/15 07/19/17 History Primidone [Mysoline] 125 mg PO BID-W/MEALS 11/07/15 07/19/17 History Lisinopril [Zestril] 2.5 mg PO QAM 01/19/16 07/19/17 History Donepezil [Aricept] 10 mg PO HS 07/19/17 07/19/17 History Ferrous Sulfate [Feosol] 325 mg PO DAILY 07/19/17 07/19/17 History Gabapentin [Neurontin] 300 mg PO BID 07/19/17 07/19/17 History HYDROcodone/APAP 7.5-325MG [Critz 1 tab PO Q4H PRN 07/19/17 07/19/17 History 7.5-325] Milk Of Magnesia Chewables 400 mg PO DAILY 07/19/17 07/19/17 History Sodium Bicarbonate Tab 650 mg PO BID 07/19/17 07/19/17 History metFORMIN HCL 1,000 mg PO BID 07/19/17 07/19/17 History traMADol HCL [Ultram] 50 mg PO Q12H PRN 07/19/17 07/19/17 History Allergies Allergy/AdvReac Type Severity Reaction Status Date / Time Penicillins Allergy Nausea & Verified 07/19/17 16:34 Vomiting Physical Examination Left upper extremity: Left wrist splint is in good position and condition Exam of the volar and dorsal aspect of the hand, there is no lesions or sores There is no significant areas of erythema or soft tissue swelling There are a few small splinters noted on the volar aspect of the left hand involving the distal aspect of the fifth metacarpal He is able to wiggle all the fingers with no difficulty His sensation to light touch is intact, his radial pulses 2+ Results - Labs Labs: Abnormal Lab Results - Last 24 Hours (Table) 07/22/17 07/22/17 07/23/17 Range/Units 16:54 20:11 07:04 POC Glucose (mg/dL) 191 H 236 H 197 H (75-99) mg/dL 07/23/17 Range/Units 10:52 POC Glucose (mg/dL) 215 H (75-99) mg/dL H & H 07/19/17 07/20/17 Range/Units 16:30 06:48 Hgb 10.4 L 9.9 L (13.0-17.5) gm/dL Hct 31.0 L 28.9 L (39.0-53.0) % Coagulation 07/19/17 Range/Units 16:30 INR 1.2 H (<1.2) Result Diagrams: 07/20/17 06:48 07/20/17 06:48 Assessment and Plan Plan: Assessment: 1. Multiple splinters volar aspect left hand 2. Recent history of left fifth metacarpal fracture 3. History of recent falls 4. Other medical comorbidities Plan: I was able to discuss the case, including physical exam findings with Dr. Farrell my attending. No orthopedic surgical intervention needed at this time. No signs of cellulitis or abscess formation I utilized a sterile suture removal kit, the tweezers were used to remove 3 small with splinters from the volar aspect of the left hand. No blood was noted during the process. Wound care instructions discussed Advised to continue use of the splint on the left hand and wrist Patient stable via the orthopedic standpoint for discharge, advised follow up with Dr. Farrell the outpatient setting Time with Patient: Less than 30
[2017-07-23 17:31] LABS: Glucose,Whole Blood 185 mg/dL (75-99)
[2017-07-23 20:10] LABS: Glucose,Whole Blood 194 mg/dL (75-99)
[2017-07-23] MEDS: DONEPEZIL 10 MG TAB PO SCH (21:33)
[2017-07-23] MEDS: ATORVASTATIN 80 MG TAB PO SCH (21:33)
[2017-07-23] MEDS: INSULIN DETEMIR 100 UNIT/ML 10 ML VIAL SQ SCH (21:33)
--- NOTE | 2017-07-23 22:06 | PN ---
PROGRESS NOTE DATE OF SERVICE: 07/23/2017. INTERVAL HISTORY: This 73-year-old woman was admitted with multiple falls, had a left wrist fracture. Patient also complaining of left-sided chest pain, possible secondary to bruise. Orthopedic Surgery is following the patient closely. No orthopedic surgical evaluation is pending at this time. No chest pain or palpitations. No fever. PHYSICAL EXAM: Alert and oriented x3. Pulse 80, blood pressure 146/70, respirations 16, temperature 97.2, pulse ox 94% on room air. HEENT: Conjunctivae normal. NECK: No jugular venous distention. CARDIOVASCULAR: S1, S2 muffled. RESPIRATORY: Breath sounds diminished in the bases. No rhonchi. No crackles. ABDOMEN: Soft. LEGS: No edema. CENTRAL NERVOUS SYSTEM: No focal deficits. ARMS: Left wrist fracture. LABS: Magnesium is 1.3. ASSESSMENT: 1. Recurrent falls. 2. Left wrist fracture in a splint. 3. Diabetes mellitus type 2, uncontrolled with hemoglobin A1c 9.6. 4. Hypomagnesemia. 5. Large B-cell lymphoma. 6. History of nicotine dependence. 7. Hyperlipidemia. RECOMMENDATIONS AND DISCUSSION: Recommend to continue current medical management and continue symptomatic treatment. Otherwise at this time, I recommend PT/OT evaluation and possible ECF rehab. Continue the rest of the medications. Repeat labs, including a repeat magnesium has been recommended. Further recommendations to follow. MMODL / IJN: [id number] /
[2017-07-24] MEDS: LOPERAMIDE 2 MG CAP PO PRN (05:59)
[2017-07-24 07:04] LABS: Glucose,Whole Blood 196 mg/dL (75-99)
[2017-07-24] MEDS: INSULIN ASPART 100 UNIT/ML 1 ML 10 ML VIAL SQ SCH ×4 (07:55→22:18)
[2017-07-24] MEDS: LISINOPRIL 2.5 MG TAB PO SCH (08:33)
[2017-07-24] MEDS: metFORMIN 500 MG TAB PO SCH ×2 (08:33→22:11)
[2017-07-24] MEDS: CARVEDILOL 3.125 MG TAB PO SCH ×2 (08:33→17:20)
[2017-07-24] MEDS: GABAPENTIN 300 MG CAP PO SCH ×2 (08:33→22:11)
[2017-07-24] MEDS: TAMSULOSIN 0.4 MG CAP.ER.24H PO SCH (08:33)
[2017-07-24] MEDS: HEPARIN SODIUM,PORCINE 5,000 UNIT/ML 1 ML VIAL SQ SCH ×2 (08:34→22:11)
[2017-07-24] MEDS: PRIMIDONE 250 MG TAB PO SCH ×2 (08:34→17:20)
[2017-07-24] MEDS: PANTOPRAZOLE 40 MG TABLET PO SCH ×2 (08:34→17:20)
[2017-07-24] MEDS: PIOGLITAZONE 30 MG TAB PO SCH (08:34)
[2017-07-24] MEDS: SODIUM BICARBONATE TAB 650 MG TAB PO SCH ×2 (08:34→22:11)
[2017-07-24] MEDS: traMADol 50 MG TAB PO PRN (08:40)
[2017-07-24] MEDS: MAGNESIUM HYDROXIDE 2,400 MG/10 ML CUP PO SCH (08:57)
[2017-07-24 09:43] LABS: Anion Gap 16 mmol/L; Blood Urea Nitrogen 12 mg/dL (9-20); Calcium 8.4 mg/dL (8.4-10.2); Carbon Dioxide 22 mmol/L (22-30); Chloride 102 mmol/L (98-107); Glucose 211 mg/dL (74-99); Magnesium 1.2 mg/dL (1.6-2.3); Potassium 3.8 mmol/L (3.5-5.1); Sodium 140 mmol/L (137-145)
[2017-07-24 09:48] LABS: Basophils % (A) 0 %; Eosinophils # (A) 0.1 k/uL (0-0.7); Eosinophils % (A) 2 %; HCT 27.5 % (39.0-53.0); HGB 9.3 gm/dL (13.0-17.5); Lymphocytes # (A) 1.8 k/uL (1.0-4.8); Lymphocytes % (A) 29 %; MCH 30.8 pg (25.0-35.0); MCV 90.5 fL (80.0-100.0); Monocytes # (A) 0.4 k/uL (0-1.0); Monocytes % (A) 6 %; Neutrophils # (A) 3.8 k/uL (1.3-7.7); Neutrophils % (A) 61 %; Platelet Count 234 k/uL (150-450); Poikilocytosis Slight; RBC 3.04 m/uL (4.30-5.90); RDW 14.4 % (11.5-15.5); WBC 6.2 k/uL (3.8-10.6)
[2017-07-24 11:08] LABS: Glucose,Whole Blood 319 mg/dL (75-99)
[2017-07-24] MEDS: MULTIVITAMINS, THERA 1 EACH TAB PO SCH (12:38)
--- NOTE | 2017-07-24 15:42 | CT ---
EXAMINATION TYPE: CT brain wo con DATE OF EXAM: 07/24/2017 HISTORY: Multiple falls with possible injury CT DLP: 1054.2 mGycm. Automated Exposure Control for Dose Reduction was Utilized. TECHNIQUE: CT scan of the head is performed without contrast. COMPARISON: None. FINDINGS: There is no acute intracranial hemorrhage or midline shift identified. There is diffuse v entricular and sulcal prominence consistent with diffuse age-related cerebral atrophy. There is low- attenuation in the periventricular white matter consistent with chronic small vessel ischemic change. Left globe prosthesis is present. Right ear hearing aid is noted. The calvarium is intact. IMPRESSION: No acute intracranial hemorrhage or midline shift. There is mild to moderate diffuse ag e-related cerebral atrophy and mild chronic small vessel ischemic change noted.
[2017-07-24] MEDS: MAGNESIUM OXIDE 400 MG TAB PO SCH (15:43)
[2017-07-24] MEDS: MAGNESIUM SULFATE-D5W PMX 1 GM in DEXTROSE/WATER 1 100ML.BAG IVPB SCH ×3 (15:43→18:36)
[2017-07-24 16:57] LABS: Glucose,Whole Blood 193 mg/dL (75-99)
--- NOTE | 2017-07-24 17:22 | PN ---
PROGRESS NOTE DATE OF SERVICE: 07/24/2017. This 73-year-old woman who was admitted with multiple falls, also had gait instability at this time. The patient also complaining of left-sided chest pain also. No chest pain. No palpitations. No fever. EXAM: Alert, and oriented x3. Pulse 69, blood pressure 155/66, respirations 16, temperature 98 degrees, pulse ox 97% on room air. HEENT: Conjunctivae normal. NECK: No jugular venous distention. CARDIOVASCULAR: S1, S2 muffled. RESPIRATORY: Breath sounds diminished in the bases. A few scattered rhonchi. ABDOMEN: Soft, nontender. LEGS: No edema. NERVOUS SYSTEM: No focal deficits. LABS: Hemoglobin 9.3. Magnesium 1.2. ASSESSMENT: 1. Recurrent falls. 2. Left wrist fracture within the splint. 3. Diabetes mellitus type 2, uncontrolled with hemoglobin A1c of 9.6. 4. Hypomagnesemia. RECOMMENDATIONS AND DISCUSSION: I recommend to continue current management and treatment. Supplement magnesium. Monitor electrolytes closely. PT/OT evaluation. CT scan of the brain. Neurology evaluation. Guarded prognosis. Further recommendations to follow. MMODL / IJN: [id number] /
[2017-07-24 20:32] LABS: Glucose,Whole Blood 244 mg/dL (75-99)
[2017-07-24] MEDS: DONEPEZIL 10 MG TAB PO SCH (22:11)
[2017-07-24] MEDS: ATORVASTATIN 80 MG TAB PO SCH (22:11)
[2017-07-24] MEDS: INSULIN DETEMIR 100 UNIT/ML 10 ML VIAL SQ SCH (22:12)
[2017-07-25 06:53] LABS: Glucose,Whole Blood 178 mg/dL (75-99)
[2017-07-25] MEDS: INSULIN ASPART 100 UNIT/ML 1 ML 10 ML VIAL SQ SCH ×3 (07:41→17:29)
[2017-07-25 08:01] VITALS: BP 130/60; PULSE 70; RESP 18; TEMP 98.1
[2017-07-25 08:04] LABS: Basophils % (A) 0 %; Eosinophils # (A) 0.2 k/uL (0-0.7); Eosinophils % (A) 3 %; HCT 24.9 % (39.0-53.0); HGB 8.3 gm/dL (13.0-17.5); Lymphocytes # (A) 1.7 k/uL (1.0-4.8); Lymphocytes % (A) 30 %; MCHC 33.4 g/dL (31.0-37.0); MCV 89.8 fL (80.0-100.0); Mean Platelet Volume 8.7; Monocytes # (A) 0.4 k/uL (0-1.0); Monocytes % (A) 7 %; Neutrophils # (A) 3.3 k/uL (1.3-7.7); Neutrophils % (A) 58 %; Platelet Count 221 k/uL (150-450); Poikilocytosis Slight; RBC 2.78 m/uL (4.30-5.90); RDW 14.6 % (11.5-15.5); WBC 5.6 k/uL (3.8-10.6)
[2017-07-25 08:14] LABS: Anion Gap 13 mmol/L; Blood Urea Nitrogen 15 mg/dL (9-20); Calcium 7.9 mg/dL (8.4-10.2); Carbon Dioxide 24 mmol/L (22-30); Chloride 102 mmol/L (98-107); Glucose 154 mg/dL (74-99); Magnesium 1.9 mg/dL (1.6-2.3); Sodium 139 mmol/L (137-145)
[2017-07-25] MEDS: CARVEDILOL 3.125 MG TAB PO SCH ×2 (08:16→17:26)
[2017-07-25] MEDS: PANTOPRAZOLE 40 MG TABLET PO SCH ×2 (08:16→17:26)
[2017-07-25] MEDS: PRIMIDONE 250 MG TAB PO SCH ×2 (08:16→17:26)
[2017-07-25] MEDS: MAGNESIUM OXIDE 400 MG TAB PO SCH ×2 (08:16→08:17)
[2017-07-25] MEDS: GABAPENTIN 300 MG CAP PO SCH (08:16)
[2017-07-25] MEDS: TAMSULOSIN 0.4 MG CAP.ER.24H PO SCH (08:17)
[2017-07-25] MEDS: HEPARIN SODIUM,PORCINE 5,000 UNIT/ML 1 ML VIAL SQ SCH (08:17)
[2017-07-25] MEDS: SODIUM BICARBONATE TAB 650 MG TAB PO SCH (08:17)
[2017-07-25] MEDS: LISINOPRIL 2.5 MG TAB PO SCH (08:17)
[2017-07-25] MEDS: metFORMIN 500 MG TAB PO SCH (08:17)
[2017-07-25] MEDS: PIOGLITAZONE 30 MG TAB PO SCH (08:17)
[2017-07-25] MEDS: traMADol 50 MG TAB PO PRN (08:26)
[2017-07-25 11:10] LABS: Glucose,Whole Blood 183 mg/dL (75-99)
[2017-07-25] MEDS: MULTIVITAMINS, THERA 1 EACH TAB PO SCH (12:55)
[2017-07-25 17:02] LABS: Glucose,Whole Blood 235 mg/dL (75-99)
--- NOTE | 2017-07-25 23:05 | DS ---
DISCHARGE SUMMARY FINAL DIAGNOSES: 1. Recurrent falls. 2. Left wrist fracture with splint. 3. Diabetes type 2, uncontrolled. Hemoglobin A1c 9.6. 4. Hypomagnesemia. DISCHARGE DISPOSITION: The patient is being discharged in stable condition with guarded prognosis. HISTORY: This 73-year-old gentleman with past medical history of multiple medical problems was admitted with recurrent falls and left wrist fracture. Treated symptomatically. Patient improved significantly. The brain CT scan did not show any acute abnormality and the patient would like to go home rather than rehab at this time. Patient will be discharged home in stable condition with guarded prognosis. PHYSICAL EXAMINATION: On exam vitals are stable. Abdomen soft. Nervous system: Mild diffuse weakness. DISCHARGE ADVICE AND MEDICATIONS: 1. Diet is cardiac diet. 2. Activity limited until follow up. 3. Follow up with Dr. Tee as mentioned. 4. Follow up with primary physician as mentioned. MEDICATIONS ARE: 1. Lipitor 80 mg q.h.s. 2. Coreg 3.1 mg p.o. b.i.d. 3. Aricept 10 mg q.h.s. 4. Iron sulfate 320 mg p.o. daily. 5. Neurontin 300 mg p.o. b.i.d. 6. Lopid 600 mg p.o. b.i.d. 7. [place] 7.5 q.4h p.r.n. 8. Levemir 10 units subcu q.h.s. 9. Zestril 2.5 mg q.a.m. 10.Magnesium oxide 400 mg p.o. daily. 11.Metformin 1000 mg p.o. b.i.d. 12.Milk of magnesia 400 daily. 13.Multivitamins 1 p.o. daily. 14.Protonix 40 mg a.c. b.i.d. 15.Actos 30 mg p.o. daily. 16.Mysoline 125 mg p.o. b.i.d. 17.Sodium bicarb 650 p.o. b.i.d. 18.Flomax 0.4 daily. 19.Ultram 50 mg p.o. b.i.d. Once again the patient is being discharged in stable condition. Guarded prognosis. MMODL / IJN: [id number] /
== END 2017-07-25 18:15 | disposition home health service (06) | DRG 641 ==
LOC: EC 15:40 → 3SUR 17:51 → OBSVTOIN 07-22 10:03 → 5MS5E 07-22 18:43
PROVIDERS: ADMIT Hospitalist; ATTEND Hospitalist
DX: E83.42 Hypomagnesemia (principal); C83.30 Diffuse large B-cell lymphoma, unspecified site; S22.42XA Multiple fractures of ribs, left side, initial encounter for closed fracture; E11.65 Type 2 diabetes mellitus with hyperglycemia; E78.5 Hyperlipidemia, unspecified; R07.89 Other chest pain; S62.307A Unspecified fracture of fifth metacarpal bone, left hand, initial encounter for closed fracture; G25.0 Essential tremor; H54.62 Unqualified visual loss, left eye, normal vision right eye; I11.0 Hypertensive heart disease with heart failure; I50.9 Heart failure, unspecified; K21.9 Gastro-esophageal reflux disease without esophagitis; M19.90 Unspecified osteoarthritis, unspecified site; N40.0 Benign prostatic hyperplasia without lower urinary tract symptoms; R29.6 Repeated falls; H91.93 Unspecified hearing loss, bilateral; R26.9 Unspecified abnormalities of gait and mobility; Z79.899 Other long term (current) drug therapy; Z79.84 Long term (current) use of oral hypoglycemic drugs; Z88.0 Allergy status to penicillin; Z87.891 Personal history of nicotine dependence; Z92.21 Personal history of antineoplastic chemotherapy; Z90.49 Acquired absence of other specified parts of digestive tract; Z80.1 Family history of malignant neoplasm of trachea, bronchus and lung; Z82.49 Family history of ischemic heart disease and other diseases of the circulatory system; Z82.0 Family history of epilepsy and other diseases of the nervous system; W19.XXXA Unspecified fall, initial encounter
CPT/HCPCS: 36415; 70450; 71046; 80048; 80053; 81001; 82550; 82553; 82607; 83036; 83605; 83735; 84100; 84443; 84484; 85025; 85610; 85730; 87086; 93005; 94760; 96361; 96374; 99285

== ENCOUNTER 2017-10-22 06:16 | Emergency (ER) | payer MEDICARE, OTHER ==
[2017-10-22] MEDS ORDERED: SODIUM CHLORIDE 0.9% 1,000 ML IV STA ×2 (06:23)
--- NOTE | 2017-10-22 06:27 | ED ---
Syncope HPI <Ryan Arriaga - Last Filed: 10/22/17 07:46> - General Source: RN notes reviewed, old records reviewed <Lesia Cutler - Last Filed: 10/22/17 08:42> - General Stated Complaint: fall Time Seen by Provider: 10/22/17 06:23 - History of Present Illness Initial Comments: This Patient is a 77-year-old male presents emergency Department via EMS. Patient had a questionable syncopal episode. Patient reports that some 30 tonight he was standing and then remembers falling on the ground hitting his head on the floor. Patient is a poor historian. Patient reports that he is currently living at home alone. He does have chronic neck pain. He called EMS this morning due to increased neck pain. His placed in a c-collar on their arrival. Patient states that he is mainly having neck pain. Denies any extremity, chest pain or shortness of breath. Denies a significant headache. Patient states that he has a history of cancer, but she is receiving chemotherapy for. 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 (Lesia Cutler) - Related Data Home Medications Medication Instructions Recorded Confirmed Gemfibrozil [Lopid] 600 mg PO BID 12/30/14 07/19/17 Tamsulosin [Flomax] 0.4 mg PO DAILY 01/17/15 07/19/17 Pantoprazole Sodium [Protonix] 40 mg PO AC-BID 02/09/15 07/19/17 Atorvastatin Calcium [Lipitor] 80 mg PO HS 11/07/15 07/19/17 Multivitamins, Thera [Multivitamin 1 tab PO DAILY 11/07/15 07/19/17 (formulary)] Pioglitazone [Actos] 30 mg PO DAILY 11/07/15 07/19/17 Primidone [Mysoline] 125 mg PO BID-W/MEALS 11/07/15 07/19/17 Lisinopril [Zestril] 2.5 mg PO QAM 01/19/16 07/19/17 Donepezil [Aricept] 10 mg PO HS 07/19/17 07/19/17 Ferrous Sulfate [Iron (65 MG 325 mg PO DAILY 07/19/17 07/19/17 Elemental)] Gabapentin [Neurontin] 300 mg PO BID 07/19/17 07/19/17 HYDROcodone/APAP 7.5-325MG [[place] 1 tab PO Q4H PRN 07/19/17 07/19/17 7.5-325] Milk Of Magnesia Chewables 400 mg PO DAILY 07/19/17 07/19/17 Sodium Bicarbonate Tab 650 mg PO BID 07/19/17 07/19/17 metFORMIN HCL 1,000 mg PO BID 07/19/17 07/19/17 traMADol HCL [Ultram] 50 mg PO Q12H PRN 07/19/17 07/19/17 Previous Rx's Medication Instructions Recorded Carvedilol [Coreg] 3.125 mg PO BID-W/MEALS #60 tab 06/21/15 Insulin Detemir [Levemir] 10 unit SQ HS #1 bottle 07/25/17 Magnesium Oxide [Mag-Ox] 400 mg PO DAILY #30 tab 07/25/17 Allergies Allergy/AdvReac Type Severity Reaction Status Date / Time Penicillins Allergy Nausea & Verified 10/22/17 06:44 Vomiting Review of Systems ROS Other: All systems not noted in ROS Statement are negative. <Ryan Arriaga - Last Filed: 10/22/17 07:46> ROS Other: All systems not noted in ROS Statement are negative. <Lesia Cutler - Last Filed: 10/22/17 08:42> ROS Statement: Those systems with pertinent positive or pertinent negative responses have been documented in the HPI. 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 Past Anesthesia/Blood Transfusion Reactions: No Reported Reaction Additional Past Anesthesia/Blood Transfusion Reaction / Comment(s): HX OF BLOOD TRANSFUSION-NO REACTION. Smoking Status: Former smoker - Past Family History Daughter(s) Family Medical History: Cancer Additional Family Medical History / Comment(s): BREAST , LIVER AND LUNG CANCER Father Family Medical History: Myocardial Infarction ([place]) Additional Family Medical History / Comment(s): Father at age 65yrs. Mother Family Medical History: Dementia Additional Family Medical History / Comment(s): Mother at about age 82yrs. Brother(s) Family Medical History: Cancer Additional Family Medical History / Comment(s): (2 BROTHERS) Sister(s) Family Medical History: Cancer <Lesia Cutler - Last Filed: 10/22/17 08:42> General Exam <Ryan Arriaga - Last Filed: 10/22/17 07:46> General appearance: alert, in no apparent distress Head exam: Present: atraumatic, normocephalic, normal inspection Eye exam: Present: normal appearance, EOMI. Absent: PERRL (Left eye is nonreactive. Patient presents that is blood within her left eye.), scleral icterus, conjunctival injection, periorbital swelling ENT exam: Present: normal exam, mucous membranes moist Neck exam: Present: normal inspection, other (Patient currently in c-collar.). Absent: tenderness, meningismus, lymphadenopathy Respiratory exam: Present: normal lung sounds bilaterally. Absent: respiratory distress, wheezes, rales, rhonchi, stridor Cardiovascular Exam: Present: regular rate, normal rhythm, normal heart sounds. Absent: systolic murmur, diastolic murmur, rubs, gallop, clicks GI/Abdominal exam: Present: soft, normal bowel sounds, other (Evidence of scar.) . Absent: distended, tenderness, guarding, rebound, rigid Extremities exam: Present: normal inspection, full ROM, normal capillary refill. Absent: tenderness, pedal edema, joint swelling, calf tenderness Back exam: Present: normal inspection Neurological exam: Present: alert, oriented X3, CN II-XII intact Psychiatric exam: Present: normal affect, normal mood Skin exam: Present: warm, dry, intact, normal color. Absent: rash <Lesia Cutler - Last Filed: 10/22/17 08:42> - General Exam Comments Initial Comments: 77-year-old male. He is alert and oriented 3. He is somewhat of a poor historian, unable to tell details of types of cancer or his medication. ( Lesia Cutler) Course <Ryan Arriaga - Last Filed: 10/22/17 07:46> <Lesia Cutler - Last Filed: 10/22/17 08:42> Vital Signs 10/22/17 10/22/17 06:41 08:06 Temperature 96.9 F L Pulse Rate 66 60 Respiratory 17 16 Rate Blood Pressure 173/87 169/74 O2 Sat by Pulse 96 99 Oximetry - Reevaluation(s) Reevaluation #1: 10/22/17 07:46 PA supervision I personally saw and examined the patient. I reviewed and agree with the PA findings including all diagnostic interpretation and treatment plans is return unless otherwise stated. He also did discuss the findings with the patient and family members who were present. Patient currently demonstrates no neurological deficits. He is somewhat of a poor historian however 10/22/17 07:47 I did discuss the case with Dr. Haas who did recommend transferred to a tertiary care center for higher level of care/neurosurgery. (Ryan Arriaga) Reevaluation #2: 10/22/17 07:49 At this time I discussed the case with physician coding specialist Dr. Portillo at [facility]. He states that he is going to talk to the spinal specialist and neurosurgery due to the nature patient's fracture. Currently waiting for their call back at this time. (Lesia Cutler) Reevaluation #3: 10/22/17 08:19 Discussed the case with Dr. Maguire from the emergency room from [facility]. They are contacting the neurosurgeon at this time. (Lesia Cutler) Reevaluation #4: 10/22/17 08:39 At this time we called the emergency department back 2-90 hearing from the neurosurgeon. Dr. Khan accepts the admission and transfer for the Patient. ( Lesia Cutler) Medical Decision Making - Lab Data Result diagrams: 10/22/17 06:39 10/22/17 06:39 <Ryan Arriaga - Last Filed: 10/22/17 07:46> - Lab Data Result diagrams: 10/22/17 06:39 10/22/17 06:39 - Radiology Data Radiology results: report reviewed <Lesia Cutler - Last Filed: 10/22/17 08:42> - Medical Decision Making This is a 77-year-old male presents emergency department today after sustaining a fall at 10:30 PM last night. He complained of increased neck pain and called EMS this morning. Patient's family states that he is not on blood thinners. Patient was placed in a c-collar and at this time has no neuro deficits in any of his extremities. Patient's lab work was obtained. Critical CT report was given to me by radiologist at 7:30 AM. Patient has evidence of the C2 fracture. We discussed the case with on-call orthopedics Dr. Wilson,who recommends transfer to a higher level of care. Patient will be remaining in a c -collar. White blood cell count 6.0. RBC 2.9. Hemoglobin 8.5. This is slightly increased compared to his last hemoglobin of 8.3 in July. BUN is 31, creatinine 1.13. Calcium is 8.0. Magnesium is 1.2. I did order magnesium sulfate 1 g replacement. Troponin is negative. Patient's case [facility] with [facility] Khan, [facility]. He accepts the transfer. He is contacting the neurosurgeon at this time. While in emergency Department Patient was given 2mg of morphine and Norflex. Pain is controlled at this time. He is resting comfortably with c-collar in place. (Lesia Cutler) - Lab Data Lab Results 10/22/17 10/22/17 10/22/17 Range/Units 06:39 06:39 06:39 WBC 6.0 (3.8-10.6) k/uL RBC 2.93 L (4.30-5.90) m/uL Hgb 8.5 L (13.0-17.5) gm/dL Hct 26.8 L (39.0-53.0) % MCV 91.3 (80.0-100.0) fL MCH 28.9 (25.0-35.0) pg MCHC 31.6 (31.0-37.0) g/dL RDW 15.2 (11.5-15.5) % Plt Count 191 (150-450) k/uL Neutrophils % 68 % Lymphocytes % 25 % Monocytes % 5 % Eosinophils % 1 % Basophils % 0 % Neutrophils # 4.1 (1.3-7.7) k/uL Lymphocytes # 1.5 (1.0-4.8) k/uL Monocytes # 0.3 (0-1.0) k/uL Eosinophils # 0.0 (0-0.7) k/uL Basophils # 0.0 (0-0.2) k/uL PT (9.0-12.0) sec INR (<1.2) APTT (22.0-30.0) sec Sodium 143 (137-145) mmol/L Potassium 4.3 (3.5-5.1) mmol/L Chloride 116 H (98-107) mmol/L Carbon Dioxide 14 L (22-30) mmol/L Anion Gap 13 mmol/L BUN 31 H (9-20) mg/dL Creatinine 1.13 (0.66-1.25) mg/dL Est GFR (CKD-EPI)AfAm 73 (>60 ml/min/1.73 sqM) Est GFR (CKD-EPI)NonAf 63 (>60 ml/min/1.73 sqM) Glucose 157 H (74-99) mg/dL Calcium 8.0 L (8.4-10.2) mg/dL Magnesium 1.2 L (1.6-2.3) mg/dL Total Bilirubin 0.2 (0.2-1.3) mg/dL AST 18 (17-59) U/L ALT 25 (21-72) U/L Alkaline Phosphatase 199 H (38-126) U/L Total Creatine Kinase 65 (55-170) U/L CK-MB (CK-2) 2.3 (0.0-2.4) ng/mL CK-MB (CK-2) Rel Index 3.5 Troponin I <0.012 (0.000-0.034) ng/mL Total Protein 6.1 L (6.3-8.2) g/dL Albumin 3.8 (3.5-5.0) g/dL 10/22/17 Range/Units 06:39 WBC (3.8-10.6) k/uL RBC (4.30-5.90) m/uL Hgb (13.0-17.5) gm/dL Hct (39.0-53.0) % MCV (80.0-100.0) fL MCH (25.0-35.0) pg MCHC (31.0-37.0) g/dL RDW (11.5-15.5) % Plt Count (150-450) k/uL Neutrophils % % Lymphocytes % % Monocytes % % Eosinophils % % Basophils % % Neutrophils # (1.3-7.7) k/uL Lymphocytes # (1.0-4.8) k/uL Monocytes # (0-1.0) k/uL Eosinophils # (0-0.7) k/uL Basophils # (0-0.2) k/uL PT 12.8 H (9.0-12.0) sec INR 1.4 H (<1.2) APTT 27.1 (22.0-30.0) sec Sodium (137-145) mmol/L Potassium (3.5-5.1) mmol/L Chloride (98-107) mmol/L Carbon Dioxide (22-30) mmol/L Anion Gap mmol/L BUN (9-20) mg/dL Creatinine (0.66-1.25) mg/dL Est GFR (CKD-EPI)AfAm (>60 ml/min/1.73 sqM) Est GFR (CKD-EPI)NonAf (>60 ml/min/1.73 sqM) Glucose (74-99) mg/dL Calcium (8.4-10.2) mg/dL Magnesium (1.6-2.3) mg/dL Total Bilirubin (0.2-1.3) mg/dL AST (17-59) U/L ALT (21-72) U/L Alkaline Phosphatase (38-126) U/L Total Creatine Kinase (55-170) U/L CK-MB (CK-2) (0.0-2.4) ng/mL CK-MB (CK-2) Rel Index Troponin I (0.000-0.034) ng/mL Total Protein (6.3-8.2) g/dL Albumin (3.5-5.0) g/dL 10/22/17 06:37 EKG shows sinus rhythm first-degree AV block. Incomplete right bundle martin block noted. Borderline EKG noted. Ventricular rate 63 bpm. WV 214 ms. QRS duration 106. QT QTc is 4:30/440 ms. No evidence of ST elevation or T-wave inversion. No evidence of atrial or ventricular arrhythmias. (Lesia Cutler) - Radiology Data CT brain shows evidence of cerebral atrophy. No acute intracranial abnormality. There is a C2 vertebral fracture of the left side pedicle and right sided lamina. Should be considered an unstable fracture. (Lesia Cutler ) Disposition <Ryan Arriaga - Last Filed: 10/22/17 07:46> Is patient prescribed a controlled substance at d/c from ED?: No Time of Disposition: 08:40 - Out of Hospital Transfer - Req. Specs Out of Hospital Transfer - Requested Specifics: Other Emergency Center ([facility]) <Lesia Cutler - Last Filed: 10/22/17 08:42> Clinical Impression: C2 cervical fracture, Hypomagnesemia, Diabetes, Fall Disposition: DC/TRNS INTERMEDIATE CARE FAC Condition: Stable Referrals: Nonstaff,Physician [REFERRING] - 1-2 days
[2017-10-22 06:54] LABS: Basophils % (A) 0 %; Eosinophils % (A) 1 %; HCT 26.8 % (39.0-53.0); HGB 8.5 gm/dL (13.0-17.5); Lymphocytes # (A) 1.5 k/uL (1.0-4.8); Lymphocytes % (A) 25 %; MCH 28.9 pg (25.0-35.0); MCHC 31.6 g/dL (31.0-37.0); MCV 91.3 fL (80.0-100.0); Mean Platelet Volume 9.2; Monocytes # (A) 0.3 k/uL (0-1.0); Monocytes % (A) 5 %; Neutrophils # (A) 4.1 k/uL (1.3-7.7); Neutrophils % (A) 68 %; Platelet Count 191 k/uL (150-450); RBC 2.93 m/uL (4.30-5.90); RDW 15.2 % (11.5-15.5)
[2017-10-22] MEDS ORDERED: MORPHINE SULFATE 2 MG/ML SYRINGE IVP ONE (07:01)
[2017-10-22] MEDS ORDERED: ORPHENADRINE 30 MG/ML 2 ML VIAL IVP STA (07:01)
[2017-10-22 07:02] LABS: INR 1.4 (<1.2); Partial Thromboplastin Time 27.1 sec (22.0-30.0); Prothrombin Time 12.8 sec (9.0-12.0)
[2017-10-22 07:09] LABS: Albumin 3.8 g/dL (3.5-5.0); Magnesium 1.2 mg/dL (1.6-2.3); Potassium 4.3 mmol/L (3.5-5.1); Total Bilirubin 0.2 mg/dL (0.2-1.3); Total Protein 6.1 g/dL (6.3-8.2)
[2017-10-22 07:28] LABS: Creatine Kinase 65 U/L (55-170)
[2017-10-22] MEDS ORDERED: MAGNESIUM SULFATE-D5W PMX 1 GM in DEXTROSE/WATER 1 100ML.BAG IVPB ONE (07:28)
--- NOTE | 2017-10-22 07:34 | CT ---
EXAMINATION TYPE: CT brain shengine wo con DATE OF EXAM: 10/22/2017 COMPARISON: CT brain 07/24/2017 HISTORY: syncopeal fall CT DLP: 1143.7 mGycm Automated exposure control for dose reduction was used. TECHNIQUE: CT scan of the head and cervical spine are performed without contrast. FINDINGS: There is mild cerebral cortical atrophy. There is no mass effect nor midline shift. There is no sign of intracranial hemorrhage. The calvarium is intact. There is left eye prosthesis. There is narrowing of the left external auditory canal. Cervical vertebra have fairly normal spacing and alignment. There is minor anterior spurring at C7-T1 . There is a nondisplaced fracture in the coronal plane through the pedicle and body of C2 vertebra on the left side. There is corresponding nondisplaced fracture of the lamina of C2 on the right side. Th e odontoid process is intact. C1 is intact. The skull base is intact. Remainder of exam is unremarkab le. IMPRESSION: Cerebral atrophy. No acute intracranial abnormality. There is C2 vertebra fracture of the left side pedicle and right-sided lamina. This should be conside red an unstable fracture. This exam was discussed with ER physician at 7:30 AM.
[2017-10-22 07:40] LABS: Creatine Kinase MB 2.3 ng/mL (0.0-2.4); Troponin I <0.012 ng/mL (0.000-0.034)
--- NOTE | 2017-10-22 08:40 | XR ---
EXAMINATION TYPE: XR chest 1V portable DATE OF EXAM: 10/22/2017 COMPARISON: Prior chest 07/19/2017 HISTORY: Syncope, cervical spine fracture TECHNIQUE: Single frontal view of the chest is obtained. FINDINGS: Patient is rotated. There is prominence of the aorticopulmonary window region, central vas cularity. No evident pneumothorax or pleural effusion. Lung volumes are low. There are overlying card iac leads. IMPRESSION: Findings may be related to technique, difficult to exclude mediastinal adenopathy. Expir atory rotated exam, correlate for possible pulmonary artery hypertension, pulmonary venous hypertensi on and early interstitial edema. Follow-up PA and lateral chest x-ray may be of benefit.
[2017-10-22 08:48] LABS: Appearance,Urine Clear (Clear); Bilirubin,Urine Negative (Negative); Blood,Urine Negative (Negative); Color,Urine Yellow; Glucose,Urine (UA) Negative (Negative); Ketones,Urine Negative (Negative); Leukocyte Esterase,Urine Negative (Negative); Mucus,Urine Rare /hpf; Nitrite,Urine Negative (Negative); PH, Urine 5.5 (5.0-8.0); Protein,Urine 1+ (Negative); RBC,Urine 1 /hpf (0-5); Specific Gravity,Urine 1.015 (1.001-1.035); Sperm,Urine Rare /hpf; Squamous Epithelial Cell,Urine <1 /hpf (0-4); Urobilinogen,Urine <2.0 mg/dL (<2.0)
[2017-10-22 08:49] VITALS: RESP 18
[2017-10-22 10:27] VITALS: BP 153/69; PULSE 58; TEMP 97.2
== END 2017-10-22 10:25 ==
LOC: EC 06:16
DX: S12.100A Unspecified displaced fracture of second cervical vertebra, initial encounter for closed fracture (principal); E83.42 Hypomagnesemia; E11.9 Type 2 diabetes mellitus without complications; I11.0 Hypertensive heart disease with heart failure; I50.9 Heart failure, unspecified; K21.9 Gastro-esophageal reflux disease without esophagitis; E78.5 Hyperlipidemia, unspecified; N40.0 Benign prostatic hyperplasia without lower urinary tract symptoms; H54.62 Unqualified visual loss, left eye, normal vision right eye; Z85.72 Personal history of non-Hodgkin lymphomas; Z92.21 Personal history of antineoplastic chemotherapy; Z87.891 Personal history of nicotine dependence; Z79.84 Long term (current) use of oral hypoglycemic drugs; Z79.899 Other long term (current) drug therapy; Z88.0 Allergy status to penicillin; W19.XXXA Unspecified fall, initial encounter; Y92.009 Unspecified place in unspecified non-institutional (private) residence as the place of occurrence of the external cause
CPT/HCPCS: 36415; 93005; 80053; 82550; 82553; 83735; 84484; 85025; 85610; 85730; 81001; 71045; 72125; 70450; 99285; 96365; 96375 ×2; 96361 ×2; J2360; J2270; J3475

== ENCOUNTER 2018-07-14 06:33 | Inpatient (IN) | payer MEDICARE, OTHER ==
[2018-07-14] MEDS ORDERED: MORPHINE SULFATE 2 MG/ML SYRINGE IVP ONE (07:08)
[2018-07-14] MEDS ORDERED: ONDANSETRON 4 MG/2 ML VIAL IVP STA (07:08)
--- NOTE | 2018-07-14 07:21 | ED ---
Fall HPI - General Chief Complaint: Fall Stated Complaint: Fall Time Seen by Provider: 07/14/18 07:03 Source: patient, EMS, RN notes reviewed Mode of arrival: EMS Limitations: no limitations - History of Present Illness Initial Comments: 78-year-old male presents emergency department via EMS chief complaint fall. Patient states that he tripped. Patient states that he fell directly onto his buttocks, slightly into his left side. Patient went to left hip pain. Denies any head injury no loss conscious. Denies any back, neck pain. Patient denies any upper extremity injury. No prior left hip surgery. Patient states that he feels shooting pain or numbness down his leg. - Related Data Home Medications Medication Instructions Recorded Confirmed Gemfibrozil [Lopid] 600 mg PO BID 12/30/14 07/14/18 Multivitamins, Thera [Multivitamin 1 tab PO DAILY 11/07/15 07/14/18 (formulary)] Primidone [Mysoline] 125 mg PO BID-W/MEALS 11/07/15 07/14/18 metFORMIN HCL 1,000 mg PO QID 07/19/17 07/14/18 Carvedilol [Coreg] 3.125 mg PO DAILY 10/22/17 07/14/18 Atorvastatin [Lipitor] 40 mg PO DAILY 07/14/18 07/14/18 Calcium Carbonate 500 mg PO DAILY 07/14/18 07/14/18 Lisinopril [Zestril] 2.5 mg PO DAILY 07/14/18 07/14/18 Magnesium Gluconate [Magonate] 500 mg PO DAILY 07/14/18 07/14/18 Pioglitazone [Actos] 15 mg PO DAILY 07/14/18 07/14/18 Sodium Bicarbonate 325 mg PO DAILY 07/14/18 07/14/18 Allergies Allergy/AdvReac Type Severity Reaction Status Date / Time Penicillins Allergy Nausea & Verified 07/14/18 09:20 Vomiting Review of Systems ROS Statement: Those systems with pertinent positive or pertinent negative responses have been documented in the HPI. ROS Other: All systems not noted in ROS Statement are negative. 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 Past Anesthesia/Blood Transfusion Reactions: No Reported Reaction Additional Past Anesthesia/Blood Transfusion Reaction / Comment(s): HX OF BLOOD TRANSFUSION-NO REACTION. Past Psychological History: No Psychological Hx Reported Smoking Status: Former smoker Past Alcohol Use History: None Reported - Past Family History Daughter(s) Family Medical History: Cancer Additional Family Medical History / Comment(s): BREAST , LIVER AND LUNG CANCER Father Family Medical History: Myocardial Infarction ([place]) Additional Family Medical History / Comment(s): Father at age 65yrs. Mother Family Medical History: Dementia Additional Family Medical History / Comment(s): Mother at about age 82yrs. Brother(s) Family Medical History: Cancer Additional Family Medical History / Comment(s): (2 BROTHERS) Sister(s) Family Medical History: Cancer General Exam Limitations: no limitations General appearance: alert, in no apparent distress Head exam: Present: atraumatic, normocephalic, normal inspection Eye exam: Present: normal appearance, PERRL, EOMI. Absent: scleral icterus, conjunctival injection, periorbital swelling ENT exam: Present: normal exam, normal oropharynx, mucous membranes moist, TM's normal bilaterally Neck exam: Present: normal inspection, full ROM. Absent: tenderness, meningismus, lymphadenopathy Respiratory exam: Present: normal lung sounds bilaterally. Absent: respiratory distress, wheezes, rales, rhonchi, stridor Cardiovascular Exam: Present: regular rate, normal rhythm, normal heart sounds. Absent: systolic murmur, diastolic murmur, rubs, gallop, clicks GI/Abdominal exam: Present: soft, normal bowel sounds. Absent: distended, tenderness, guarding, rebound, rigid Extremities exam: Present: other (Left hip there is pain with range of motion, neurovascular intact lower extremities, mild palpable tenderness to left hip no rotation noted shortening) Neurological exam: Present: alert, oriented X3, CN II-XII intact, reflexes normal. Absent: motor sensory deficit Skin exam: Present: warm, dry, intact, normal color. Absent: rash Course Vital Signs 07/14/18 06:40 Temperature 98.7 F Pulse Rate 66 Respiratory 16 Rate Blood Pressure 146/96 O2 Sat by Pulse 100 Oximetry Medical Decision Making - Medical Decision Making 78-year-old male presents emergency from for fall, left hip pain. X-ray showed possible fracture CT was obtained which shows evidence of left hip fracture. Patient case discussed with calcium orthopedics associate. Patient will be admitted. Patient does have comorbidities though given fall patient is a trauma patient will be admitted to orthopedics and consult to medicine. Disposition Clinical Impression: Fall, Closed left hip fracture Disposition: ADMITTED IP TO THIS HOSP Condition: Stable Referrals: Figueroa Tee MD [Primary Care Provider] - 1-2 days Decision Time: 09:32
--- NOTE | 2018-07-14 08:04 | XR ---
EXAMINATION TYPE: AP view pelvis and 2 views left hip DATE OF EXAM: 07/14/2018 COMPARISON: NONE HISTORY: 78-year-old male with pain after fall FINDINGS: Diffuse osteopenia. No displaced fracture seen. The femoral head neck junction appears slightly offse t is compared to the contralateral side though a discrete fracture lucency is not identified. Bowel c ontent obscures portions of the sacrum. IMPRESSION: Diffuse osteopenia limits assessment. While no discrete fracture line is seen, there is slight offset at the femoral head neck junction on the left. A subtle subcapital femoral neck fracture is difficul t to exclude. Correlate for nonweightbearing status.
[2018-07-14] MEDS ORDERED: MORPHINE SULFATE 4 MG/ML SYRINGE IVP STA (09:30)
[2018-07-14] MEDS ORDERED: NALOXONE 0.4 MG/ML 1 ML VIAL IV PRN (09:39)
[2018-07-14] MEDS ORDERED: ONDANSETRON 4 MG/2 ML VIAL IVP PRN (09:39)
--- NOTE | 2018-07-14 10:04 | CT ---
EXAMINATION TYPE: CT hip LT wo con DATE OF EXAM: 07/14/2018 COMPARISON: 07/14/2018 HISTORY: Lt hip pain CT DLP: 349.2 mGycm Automated exposure control for dose reduction was used. FINDINGS: There is a basicervical nondisplaced left hip fracture. Diffuse osseous demineralization is seen. Florian e sclerosis of the left femoral head may relate to contusion or degenerative change. Subchondral cyst s are seen of the acetabulum and femoral head with joint space narrowing. Extensive atherosclerosis i s noted. No additional fracture is seen in the left visualized hemipelvis. Small fat filled left ingu inal hernia and small hydroceles are additionally noted. Intramuscular edema surrounds the left hip f racture. IMPRESSION: ACUTE NONDISPLACED NONCOMMINUTED LEFT BASICERVICAL HIP FRACTURE WITH SURROUNDING INTRAMUSCULAR EDEMA.
--- NOTE | 2018-07-14 10:06 | XR ---
EXAMINATION TYPE: XR chest 1V DATE OF EXAM: 07/14/2018 COMPARISON: 10/22/2017 HISTORY: Pain TECHNIQUE: Single frontal view of the chest is obtained. FINDINGS: Heart is enlarged and there is hyperinflation. Arthropathy of the shoulders. No overt fail ure. Subsegmental consolidation most typical of atelectasis. IMPRESSION: 1. There is a lucency along the trachea. Recommend CT of the neck to exclude minimal mediastinum or s oft tissue emphysema. 2. Cardiomegaly with left basilar atelectasis.
[2018-07-14 10:19] LABS: Basophils % (A) 0 %; Eosinophils # (A) 0.1 k/uL (0-0.7); Eosinophils % (A) 1 %; HCT 27.7 % (39.0-53.0); Hypochromasia Slight; Lymphocytes # (A) 1.3 k/uL (1.0-4.8); Lymphocytes % (A) 15 %; MCH 31.4 pg (25.0-35.0); MCHC 32.5 g/dL (31.0-37.0); MCV 96.7 fL (80.0-100.0); Mean Platelet Volume 8.1; Monocytes # (A) 0.4 k/uL (0-1.0); Monocytes % (A) 4 %; Neutrophils # (A) 6.9 k/uL (1.3-7.7); Neutrophils % (A) 79 %; Platelet Count 191 k/uL (150-450); RBC 2.87 m/uL (4.30-5.90); RDW 14.7 % (11.5-15.5); WBC 8.8 k/uL (3.8-10.6)
[2018-07-14 10:27] LABS: INR 1.2 (<1.2); Prothrombin Time 12.1 sec (9.0-12.0)
[2018-07-14 10:31] LABS: Albumin 3.9 g/dL (3.5-5.0); Calcium 8.7 mg/dL (8.4-10.2); Potassium 5.8 mmol/L (3.5-5.1); Total Bilirubin 0.3 mg/dL (0.2-1.3); Total Protein 6.4 g/dL (6.3-8.2)
[2018-07-14 11:03] LABS: Appearance,Urine Clear (Clear); Bacteria,Urine Rare /hpf; Bilirubin,Urine Negative (Negative); Blood,Urine Trace (Negative); Color,Urine Light Yellow; Glucose,Urine (UA) 1+ (Negative); Ketones,Urine Negative (Negative); Leukocyte Esterase,Urine Negative (Negative); Mucus,Urine Rare /hpf; Nitrite,Urine Negative (Negative); PH, Urine 5.5 (5.0-8.0); Protein,Urine 1+ (Negative); RBC,Urine <1 /hpf (0-5); Specific Gravity,Urine 1.017 (1.001-1.035); Urobilinogen,Urine <2.0 mg/dL (<2.0)
[2018-07-14] MEDS ORDERED: SODIUM POLYSTYRENE SULFONATE 15 GM/60 ML BOTTLE PO STA (13:08)
--- NOTE | 2018-07-14 13:20 | P.HPIM ---
History of Present Illness H&P Date: 07/14/18 this is a 78 year old male patient of Dr. Tee. Patient reports that he tripped and fell directly onto his buttocks and immediately had left hip pain. Patient's is at bedside. Does report that patient is chronically weak but accurately tripped during this occurrence. Patient and denied any loss of consciousness or hitting of head. CT completed showing acute nondisplaced noncomminuted left basocervical hip fracture with surrounding intramuscular edema. Patient has past medical history of B-cell lymphoma in which she received chemo and in May 2015. Additional medical history includes CHF, last 2-D echo was in 2016 showing EF of 25-30%. Patient and report that he follows with cardiology services. Additional medical history includes GERD, diabetes mellitus, high disorder, hearing disorder, hyperlipidemia, essential hypertension, osteoarthritis, prostate disorder and renal disease in which he follows with Dr. diaz. EKG, chest x-ray and cardiology services consulted for preop clearance. At that time patient denies chest pain or shortness breath. Patient denies nausea vomiting or diarrhea. Patient denies any urinary burning or frequency. Patient denies any history of myocardial infarction or heart sounds. Patient denies any history of blood clots. Patient doesn't a past medical history of heart failure with low ejection fraction. 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 Diaz, BPH, has difficulty holding his head up-states it wants to fall forward- he has a brace he wears at times and currently going to PT, past L wrist fracture History of Any Multi-Drug Resistant Organisms: None Reported Past Surgical History: Adenoidectomy, Bowel Resection, Hernia Repair, Orthopedic Surgery, Tonsillectomy Additional Past Surgical History / Comment(s): LT CAROTID ENDARTERECTOMY, UMBILICAL HERNIA REPAIR, LEFT EYE ENUCLEATION/PROSTHESIS (industrial accident), LEFT SHOULDER RCR , Lap elder fundoplication, EXPLORATORY LAPAROTOMY/ILEOCO LECTOMY D/T TUMOR, BMA with bx, 02/15/15 [id number] removed. Past Anesthesia/Blood Transfusion Reactions: No Reported Reaction Additional Past Anesthesia/Blood Transfusion Reaction / Comment(s): HX OF BLOOD TRANSFUSION-NO REACTION. Smoking Status: Former smoker - Past Family History Daughter(s) Family Medical History: Cancer Additional Family Medical History / Comment(s): BREAST , LIVER AND LUNG CANCER Father Family Medical History: Myocardial Infarction ([place]) Additional Family Medical History / Comment(s): Father at age 65yrs. Mother Family Medical History: Dementia Additional Family Medical History / Comment(s): Mother at about age 82yrs. Brother(s) Family Medical History: Cancer Additional Family Medical History / Comment(s): (2 BROTHERS) Sister(s) Family Medical History: Cancer Medications and Allergies Home Medications Medication Instructions Recorded Confirmed Type Gemfibrozil [Lopid] 600 mg PO BID 12/30/14 07/14/18 History Multivitamins, Thera [Multivitamin 1 tab PO DAILY 11/07/15 07/14/18 History (formulary)] Primidone [Mysoline] 125 mg PO BID-W/MEALS 11/07/15 07/14/18 History metFORMIN HCL 1,000 mg PO QID 07/19/17 07/14/18 History Carvedilol [Coreg] 3.125 mg PO DAILY 10/22/17 07/14/18 History Atorvastatin [Lipitor] 40 mg PO DAILY 07/14/18 07/14/18 History Calcium Carbonate 500 mg PO DAILY 07/14/18 07/14/18 History Lisinopril [Zestril] 2.5 mg PO DAILY 07/14/18 07/14/18 History Magnesium Gluconate [Magonate] 500 mg PO DAILY 07/14/18 07/14/18 History Pioglitazone [Actos] 15 mg PO DAILY 07/14/18 07/14/18 History Sodium Bicarbonate 325 mg PO DAILY 07/14/18 07/14/18 History Allergies Allergy/AdvReac Type Severity Reaction Status Date / Time Penicillins Allergy Nausea & Verified 07/14/18 09:20 Vomiting Physical Exam Vitals: Vital Signs Temp Pulse Resp BP Pulse Ox 07/14/18 11:00 67 17 140/66 91 L 07/14/18 10:30 75 16 143/68 94 L 07/14/18 10:00 75 19 139/62 98 07/14/18 09:30 70 18 128/59 07/14/18 09:00 67 17 140/63 96 07/14/18 08:30 70 16 133/66 99 07/14/18 08:00 70 15 141/66 100 07/14/18 07:30 70 15 137/64 100 07/14/18 06:40 98.7 F 66 16 146/96 100 Intake and Output 07/13/18 07/14/18 07/14/18 22:59 06:59 14:59 Other: Weight 78.925 kg Head normocephalic Neck supple Lungs clear to auscultation bilaterally no wheezing or crackles Heart regular rate and rhythm S1-S2, no rub or gallop Abdomen is soft nontender nondistended positive bowel sounds no hepatosplenomegaly Extremities no edema. Left hip tender to palpation Neuro alert and orientated to 3 Results CBC & Chem 7: 07/14/18 10:02 07/14/18 10:02 Labs: Abnormal Lab Results - Last 24 Hours (Table) 07/14/18 07/14/18 07/14/18 Range/Units 10:02 10:02 10:02 RBC 2.87 L (4.30-5.90) m/uL Hgb 9.0 L (13.0-17.5) gm/dL Hct 27.7 L (39.0-53.0) % PT 12.1 H (9.0-12.0) sec INR 1.2 H (<1.2) Potassium 5.8 H (3.5-5.1) mmol/L Chloride 111 H (98-107) mmol/L Carbon Dioxide 19 L (22-30) mmol/L BUN 40 H (9-20) mg/dL Glucose 169 H (74-99) mg/dL Alkaline Phosphatase 148 H (38-126) U/L Urine Protein (Negative) Urine Glucose (UA) (Negative) Urine Blood (Negative) Urine Bacteria (None) /hpf Urine Mucus (None) /hpf 07/14/18 Range/Units 10:50 RBC (4.30-5.90) m/uL Hgb (13.0-17.5) gm/dL Hct (39.0-53.0) % PT (9.0-12.0) sec INR (<1.2) Potassium (3.5-5.1) mmol/L Chloride (98-107) mmol/L Carbon Dioxide (22-30) mmol/L BUN (9-20) mg/dL Glucose (74-99) mg/dL Alkaline Phosphatase (38-126) U/L Urine Protein 1+ H (Negative) Urine Glucose (UA) 1+ H (Negative) Urine Blood Trace H (Negative) Urine Bacteria Rare H (None) /hpf Urine Mucus Rare H (None) /hpf Thrombosis Risk Factor Assmnt - Choose All That Apply Any of the Below Risk Factors Present?: Yes Each Factor Represents 1 point: Obesity (BMI >25) Other Risk Factors: Yes Each Risk Factor Represents 2 Points: Malignancy Each Risk Factor Represents 3 Points: Age 75 years or older Other congenital or acquired thrombophilia - If yes, enter type in comment: No Each Risk Factor Represents 5 Points: Hip, pelvis, or leg fracture (< 1 month) Thrombosis Risk Factor Assessment Total Risk Factor Score: 11 Thrombosis Risk Factor Assessment Level: High Risk Assessment and Plan Assessment: 1. Left hip fracture status post fall. CT of hip completed showing acute nondisplaced noncommunicable left basocervical hip fracture with surrounding intramuscular edema. Dr. Chavez consulted 2. History of B-cell lymphoma. Patient completed chemo in May 2015 3. Chronic systolic heart failure. Last 2-D echo completed in 2015 showing an EF of 25-30%. Patient does follow with cardiology services. Cardiology services have been consulted for cardiac clearance 4. Hyperkalemia. Potassium 5.8. Patient. On hold. We will be given recheck ordered for today 5. Diabetes mellitus. Sliding scale insulin ordered 6. History of multiple falls. Will consult physical therapy for Post surgical rehab 7. History of smoking 8. History of hearing disorder 9. History of hyperlipidemia 10. History of essential hypertension. Home meds resumed. This problem hold due to hyperkalemia 11. History of Elder fundoplication 12. anemia. Iron studies ordered 13. Chronic kidney disease stage III patient reports he does follow with nephrology services thank your for this consultation we'll continue to follow patient closely throughout stay Chest x-ray, EKG and repeat potassium level ordered. Cardiology consulted for cardiac clearance Time with Patient: Greater than 30 (Greater than 60% of the total time spent in counseling and coordination of care. I performed an examination of the patient and discussed their management with the Nurse Practitioner. I have reviewed the Nurse Practitioner's notes and agree with the documented findings and plan of care)
[2018-07-14] MEDS: HYDROmorphone 1 MG/ML 1 ML SYRINGE IVP PRN ×3 (14:16→23:00)
--- NOTE | 2018-07-14 15:20 | CT ---
EXAMINATION TYPE: CT soft tissue neck wo con DATE OF EXAM: 07/14/2018 HISTORY: pre operative. COMPARISON: CT brain and C-spine dated 10/22/2017 CT DLP: 229.3 mGycm. Automated Exposure Control for Dose Reduction was Utilized. TECHNIQUE: CT scan of the neck is performed without contrast, coronal and sagittal reformatted image s are reviewed. FINDINGS: Airway: No gross abnormality seen. Parotid/submandibular glands: Symmetric likely age-related atrophy. Carotid/Vascular Structures: Atherosclerosis of the right carotid bulb is greater than the left. Osti al atherosclerosis of the great vessels is also partially visualized. Vasculature is suboptimally vis ualized without contrast. Osseous Structures: Posterior pedicular screws and fixation rods traverse the the 1 through 4 vertebr al bodies from a posterior approach with surrounding heterotopic ossification. There is reversal usua l cervical lordosis present. Multilevel anterior osteophyte are seen with uncovertebral hypertrophy a nd facet arthropathy. Slight vertebral body height loss of the C6 vertebral body is unchanged from 20 18. No prevertebral soft tissue swelling is noted. Evaluation of the spinal canal is limited on today 's CT, however no high-grade stenosis is present. Postsurgical change in the interspinous ligament an d subcutaneous soft tissues are seen at the site of prior surgical intervention. Old C2 fracture has healed in the interim. 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 Atrophy of the right masseter muscles is noted. The upper lungs demonstrate centrilobular and paraseptal emphysematous change. Although the axial images appear as a small pneumothorax this relates to paraseptal blebs on the coronal images. This is also confirm ed on sagittal images. IMPRESSION: 1. No evidence of pneumomediastinum in the superior visualized portions of the mediastinum the lucenc y surrounding the trachea on the prior chest x-ray dated 07/14/2018 represents prominent piriform sinu ses. 2. Numerous paraseptal blebs with moderate emphysematous changes of the visualized lung apices. 3. Surgical fixation of a prior C2 fracture seen in 2018. No high-grade spinal canal stenosis is note d.
[2018-07-14] MEDS ORDERED: IPRATROPIUM-ALBUTEROL 3 ML NEB INHALATION PRN (16:02)
--- NOTE | 2018-07-14 16:02 | P.CNPUL ---
History of Present Illness Consult date: 07/14/18 Requesting physician: Zunilda Tillman Reason for consult: other Chief complaint: Left hip fracture History of present illness: This is a 78-year-old white male patient of Dr. Tillman with past medical history of B cell lymphoma, chronic congestive heart failure with systolic dysfunction, with a baseline ejection fraction of 25-30%, diabetes mellitus type 2, GERD/reflux, hearing disorder, hypertension, hyperlipidemia, chronic kidney disease, that apparently has been functionally declining at home, and patient has been having issues with his gait, balance. Patient has been unsteady on his feet, weak, and apparently his knees gave out and he has been experiencing falls. On 07/14/2018 patient sustained a fall at home, he tripped and fell directly onto his buttocks and felt immediate pain in the left hip area. His was at the bedside, the patient did not experience loss of consciousness. Advanced emergency department for evaluation, and x-ray of the pelvis and left hip revealed subtle subcapital femoral neck fracture that was difficult to exclude. Left hip CT was completed, and showed acute nondisplaced non- comminuted left basocervical hip fracture with surrounding intramuscular edema. Chest x-ray showed lucency along the trachea, cardiomegaly with left basilar atelectasis. CT of the neck was completed and showed no evidence of pneumomediastinum in the superior visualized portions of the mediastinum, the lucency surrounding the trachea on the prior chest x-ray dated 07/14/2018 represent prominent. There were numerous paraseptal blebs with moderate emphysematous changes of the visualized lung apices. EKG showed sinus rhythm with occasional PACs. From pulmonary perspective patient denies any difficulty breathing, room air pulse ox is 96%, vital signs are stable, we were asked to see the patient in evaluation for pulmonary clearance for the left hip surgery Review of Systems All systems: negative Constitutional: Reports weakness, Denies chills, Denies fever Eyes: denies blurred vision, denies pain Ears, nose, mouth and throat: Denies headache, Denies sore throat Cardiovascular: Denies chest pain, Denies shortness of breath Respiratory: Denies cough Gastrointestinal: Denies abdominal pain, Denies diarrhea, Denies nausea, Denies vomiting Musculoskeletal: Denies myalgias Integumentary: Denies pruritus, Denies rash Neurological: Denies numbness, Denies weakness Psychiatric: Denies anxiety, Denies depression Endocrine: Denies fatigue, Denies weight change Past Medical History Past Medical History: Cancer, Heart Failure, Diabetes Mellitus, Eye Disorder, GERD/Reflux, Hearing Disorder / Deafness, Hyperlipidemia, Hypertension, Osteoarthritis (OA), Prostate Disorder, Renal Disease Additional Past Medical History / Comment(s): Large B-cell lymphoma- pt thinks his last chemo was in may 2015?, anemia, HX OF sacral decubs-healed, essential tremors bilateral hands, [place] bilaterally/aides, 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 Burrows, BPH, has difficulty holding his head up-states it wants to fall forward- he has a brace he wears at times and currently going to PT, past L wrist fracture History of Any Multi-Drug Resistant Organisms: None Reported Past Surgical History: Adenoidectomy, Bowel Resection, Hernia Repair, Orthopedic Surgery, Tonsillectomy Additional Past Surgical History / Comment(s): LT CAROTID ENDARTERECTOMY, UMBILICAL HERNIA REPAIR, LEFT EYE ENUCLEATION/PROSTHESIS (industrial accident), LEFT SHOULDER RCR , Lap elder fundoplication, EXPLORATORY L APAROTOMY/ILEOCOLECTOMY D/T TUMOR, BMA with bx, 02/15/15 [id number]-since removed. Past Anesthesia/Blood Transfusion Reactions: No Reported Reaction Additional Past Anesthesia/Blood Transfusion Reaction / Comment(s): HX OF BLOOD TRANSFUSION-NO REACTION. Smoking Status: Former smoker - Past Family History Daughter(s) Family Medical History: Cancer Additional Family Medical History / Comment(s): BREAST , LIVER AND LUNG CANCER Father Family Medical History: Myocardial Infarction ([place]) Additional Family Medical History / Comment(s): Father at age 65yrs. Mother Family Medical History: Dementia Additional Family Medical History / Comment(s): Mother at about age 82yrs. Brother(s) Family Medical History: Cancer Additional Family Medical History / Comment(s): (2 BROTHERS) Sister(s) Family Medical History: Cancer Medications and Allergies Home Medications Medication Instructions Recorded Confirmed Type Gemfibrozil [Lopid] 600 mg PO BID 12/30/14 07/14/18 History Multivitamins, Thera [Multivitamin 1 tab PO DAILY 11/07/15 07/14/18 History (formulary)] Primidone [Mysoline] 125 mg PO BID-W/MEALS 11/07/15 07/14/18 History metFORMIN HCL 1,000 mg PO QID 07/19/17 07/14/18 History Carvedilol [Coreg] 3.125 mg PO DAILY 10/22/17 07/14/18 History Atorvastatin [Lipitor] 40 mg PO DAILY 07/14/18 07/14/18 History Calcium Carbonate 500 mg PO DAILY 07/14/18 07/14/18 History Lisinopril [Zestril] 2.5 mg PO DAILY 07/14/18 07/14/18 History Magnesium Gluconate [Magonate] 500 mg PO DAILY 07/14/18 07/14/18 History Pioglitazone [Actos] 15 mg PO DAILY 07/14/18 07/14/18 History Sodium Bicarbonate 325 mg PO DAILY 07/14/18 07/14/18 History Allergies Allergy/AdvReac Type Severity Reaction Status Date / Time Penicillins Allergy Nausea & Verified 07/14/18 09:20 Vomiting Physical Exam Vitals: Vital Signs Temp Pulse Resp BP Pulse Ox 07/14/18 13:00 17 120/60 97 07/14/18 12:30 67 12 133/67 07/14/18 12:00 71 153/75 95 07/14/18 11:00 67 17 140/66 91 L 07/14/18 10:30 75 16 143/68 94 L 07/14/18 10:00 75 19 139/62 98 07/14/18 09:30 70 18 128/59 07/14/18 09:00 67 17 140/63 96 07/14/18 08:30 70 16 133/66 99 07/14/18 08:00 70 15 141/66 100 07/14/18 07:30 70 15 137/64 100 07/14/18 06:40 98.7 F 66 16 146/96 100 Intake and Output 07/14/18 07/14/18 07/14/18 06:59 14:59 22:59 Other: Voiding Method Urinal # Voids 0 Weight 78.925 kg GENERAL EXAM: Alert, pleasant, 78-year-old white male, who is in the moderate to severe amount of pain from his left hip, comfortable in no apparent distress. HEAD: Normocephalic/atraumatic. EYES: Normal reaction of pupils, equal size. Conjunctiva pink, sclera white. NOSE: Clear with pink turbinates. THROAT: No erythema or exudates. NECK: No masses, no JVD, no thyroid enlargement, no adenopathy. CHEST: No chest wall deformity. Symmetrical expansion. LUNGS: Equal air entry with no crackles, wheeze, rhonchi or dullness. CVS: Regular rate and rhythm, normal S1 and S2, no gallops, no murmurs, no rubs ABDOMEN: Soft, nontender. No hepatosplenomegaly, normal bowel sounds, no guarding or rigidity. EXTREMITIES: No clubbing, no edema, no cyanosis, 2+ pulses and upper and lower extremities. MUSCULOSKELETAL: Muscle strength and tone normal. Left hip pain with range of motion, neurovascular status is intact, distal pulses are intact, left hip tenderness, without rotation or shortening. SPINE: No scoliosis or deformity SKIN: No rashes CENTRAL NERVOUS SYSTEM: Alert and oriented -3. No focal deficits, tone is normal in all 4 extremities. PSYCHIATRIC: Alert and oriented -3. Appropriate affect. Intact judgment and insight. Results - Laboratory Findings CBC and BMP: 07/14/18 10:02 07/14/18 10:02 PT/INR, D-dimer PT 12.1 sec (9.0-12.0) H 07/14/18 10:02 INR 1.2 (<1.2) H 07/14/18 10:02 Abnormal lab findings: Abnormal Labs 07/14/18 07/14/18 07/14/18 10:02 10:02 10:02 RBC 2.87 L Hgb 9.0 L Hct 27.7 L PT 12.1 H INR 1.2 H Potassium 5.8 H Chloride 111 H Carbon Dioxide 19 L BUN 40 H Glucose 169 H Alkaline Phosphatase 148 H Urine Protein Urine Glucose (UA) Urine Blood Urine Bacteria Urine Mucus 07/14/18 10:50 RBC Hgb Hct PT INR Potassium Chloride Carbon Dioxide BUN Glucose Alkaline Phosphatase Urine Protein 1+ H Urine Glucose (UA) 1+ H Urine Blood Trace H Urine Bacteria Rare H Urine Mucus Rare H - Diagnostic Findings Chest x-ray: report reviewed, image reviewed Additional studies: CT of the soft tissue of the neck, hip CT results, hip/pelvis x-ray results, EKG reviewed Assessment and Plan Plan: Assessment: #1. Left hip acute nondisplaced, non-comminuted hip fracture #2. History of B-cell lymphoma, completed chemotherapy in May 2015 #3. History of chronic congestive heart failure with systolic dysfunction, with the latest echo showing EF of 25-30% #4. Diabetes mellitus #5. Generalized weakness, gait dysfunction, patient has been having multiple falls #6. History of nicotine dependence, currently in remission #7. History of hypertension, hyperlipidemia #8. Chronic kidney disease stage III #9. Recent history of left fifth metacarpal fracture Plan: From pulmonary perspective patient denies any shortness of breath, his vitals are stable, he is on room air, patient is cleared for surgery from pulmonary perspective. He is having significant amount of discomfort related to his left hip fracture. Maintain pain control. Encourage to deep breathe and cough, provide incentive spirometer, he is clear for surgery from pulmonary perspective I performed a history & physical examination of the patient and discussed their management with my nurse practitioner, Joanne Camp. I reviewed the nurse practitioner's note and agree with the documented findings and plan of care. Lung sounds are positive for clear. The findings and the impression was discussed with the patient. I attest to the documentation by the nurse practitioner. Time with Patient: Greater than 30
[2018-07-14] MEDS: PRIMIDONE 250 MG TAB PO SCH (16:08)
[2018-07-14 16:49] LABS: Glucose,Whole Blood 159 mg/dL (75-99)
--- NOTE | 2018-07-14 18:19 | P.HPOR ---
History of Present Illness H&P Date: 07/14/18 This patient is a 78-year-old male with past medical history of B-cell lymphoma, chronic CHF assist of the surgeon, diabetes mellitus type 2, GERD, hypertension, hyperlipidemia, chronic kidney disease, and self-reported weakness secondary to chemotherapy presented to the [facility] ED this morning after sustaining a ground- level fall at home. The patient states he was walking out of the bathroom, and tripped over his own feet, and landed onto his buttocks. The patient states he experienced immediate pain in the left hip after the fall, therefore his called EMS, which transported him to [facility] ED. Upon arrival to [facility] ED, x- rays were taken of the left hip and the patient was found to have a femoral neck fracture. Computed tomography scan of the left hip was obtained, which revealed an acute nondisplaced non-comminuted left basicervical fracture. The patient was admitted under the care of Dr. hCavez, with a consult placed to internal medicine for medical management. At the time of my exam, the patient states his pain is very well-controlled. Patient is accompanied by 2 family members at bedside, who state that he is ambulatory at baseline, although his brother states that he is a "shuffler". Patient states he does have a walker home, although he does not use it. Patient denies chest pain, shortness of breath, nausea, vomiting. Patient denies any additional complaints at the time of my exam. 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 Past Anesthesia/Blood Transfusion Reactions: No Reported Reaction Additional Past Anesthesia/Blood Transfusion Reaction / Comment(s): HX OF BLOOD TRANSFUSION-NO REACTION. Smoking Status: Former smoker - Past Family History Daughter(s) Family Medical History: Cancer Additional Family Medical History / Comment(s): BREAST , LIVER AND LUNG CANCER Father Family Medical History: Myocardial Infarction ([place]) Additional Family Medical History / Comment(s): Father at age 65yrs. Mother Family Medical History: Dementia Additional Family Medical History / Comment(s): Mother at about age 82yrs. Brother(s) Family Medical History: Cancer Additional Family Medical History / Comment(s): (2 BROTHERS) Sister(s) Family Medical History: Cancer Medications and Allergies Home Medications Medication Instructions Recorded Confirmed Type Gemfibrozil [Lopid] 600 mg PO BID 12/30/14 07/14/18 History Multivitamins, Thera [Multivitamin 1 tab PO DAILY 11/07/15 07/14/18 History (formulary)] Primidone [Mysoline] 125 mg PO BID-W/MEALS 11/07/15 07/14/18 History metFORMIN HCL 1,000 mg PO QID 07/19/17 07/14/18 History Carvedilol [Coreg] 3.125 mg PO DAILY 10/22/17 07/14/18 History Atorvastatin [Lipitor] 40 mg PO DAILY 07/14/18 07/14/18 History Calcium Carbonate 500 mg PO DAILY 07/14/18 07/14/18 History Lisinopril [Zestril] 2.5 mg PO DAILY 07/14/18 07/14/18 History Magnesium Gluconate [Magonate] 500 mg PO DAILY 07/14/18 07/14/18 History Pioglitazone [Actos] 15 mg PO DAILY 07/14/18 07/14/18 History Sodium Bicarbonate 325 mg PO DAILY 07/14/18 07/14/18 History Allergies Allergy/AdvReac Type Severity Reaction Status Date / Time Penicillins Allergy Nausea & Verified 07/14/18 09:20 Vomiting Physical Examination On examination, the patient is sitting up in bed in no apparent distress. Two family members at baseline. He is alert and oriented 3. His breathing appears nonlabored. His head is atraumatic and normocephalic. On inspection of the left lower extremity, there are no open wounds or lacerations. There is mild pain on palpation of the left hip. There is no pain on palpation of the left knee and the left ankle. The patient is able to plantar flex and dorsiflex the ankle, and wiggle the toes without issue. The foot is warm and well-perfused with brisk capillary refill to toes. Sensation is intact to light touch of the dorsal and plantar foot, as well as the first dorsal webspace. Neurovascular is intact of the left lower extremity. Results Left hip x-ray 07/14/18: Slight offset at the femoral neck junction on the left. Subtle fracture not able to be excluded. Left hip computed tomography scan 07/14/18: Acute nondisplaced left basicervical femoral neck fracture. - Labs Labs: Abnormal Lab Results - Last 24 Hours (Table) 07/14/18 07/14/18 07/14/18 Range/Units 10:02 10:02 10:02 RBC 2.87 L (4.30-5.90) m/uL Hgb 9.0 L (13.0-17.5) gm/dL Hct 27.7 L (39.0-53.0) % PT 12.1 H (9.0-12.0) sec INR 1.2 H (<1.2) Potassium 5.8 H (3.5-5.1) mmol/L Chloride 111 H (98-107) mmol/L Carbon Dioxide 19 L (22-30) mmol/L BUN 40 H (9-20) mg/dL Glucose 169 H (74-99) mg/dL POC Glucose (mg/dL) (75-99) mg/dL Alkaline Phosphatase 148 H (38-126) U/L Urine Protein (Negative) Urine Glucose (UA) (Negative) Urine Blood (Negative) Urine Bacteria (None) /hpf Urine Mucus (None) /hpf 07/14/18 07/14/18 07/14/18 Range/Units 10:50 16:32 17:31 RBC (4.30-5.90) m/uL Hgb (13.0-17.5) gm/dL Hct (39.0-53.0) % PT (9.0-12.0) sec INR (<1.2) Potassium 5.2 H (3.5-5.1) mmol/L Chloride (98-107) mmol/L Carbon Dioxide (22-30) mmol/L BUN (9-20) mg/dL Glucose (74-99) mg/dL POC Glucose (mg/dL) 159 H (75-99) mg/dL Alkaline Phosphatase (38-126) U/L Urine Protein 1+ H (Negative) Urine Glucose (UA) 1+ H (Negative) Urine Blood Trace H (Negative) Urine Bacteria Rare H (None) /hpf Urine Mucus Rare H (None) /hpf H & H 07/14/18 Range/Units 10:02 Hgb 9.0 L (13.0-17.5) gm/dL Hct 27.7 L (39.0-53.0) % Coagulation 07/14/18 Range/Units 10:02 INR 1.2 H (<1.2) Result Diagrams: 07/14/18 10:02 07/14/18 17:31 Assessment and Plan Assessment: Acute nondisplaced left basicervical femoral neck fracture Plan: - We will plan on a closed reduction of the left hip and insertion of a TFN nail tomorrow with Dr. Chavez, pending medical clearance and consent. - Strict non-weight bearing of the left lower extremity. Ice and elevate hip for swelling and pain control. - Appreciate internal medicine consult for medical management. - Continue current pain control regimen. - NPO diet after midnight. - Patient discussed with Dr. Chavez.
[2018-07-15] MEDS: HYDROmorphone 1 MG/ML 1 ML SYRINGE IVP PRN ×4 (03:26→21:34)
[2018-07-15] MEDS: CARVEDILOL 3.125 MG TAB PO SCH (07:43)
[2018-07-15] MEDS: PANTOPRAZOLE 40 MG TABLET PO SCH (07:43)
[2018-07-15] MEDS: PRIMIDONE 250 MG TAB PO SCH ×2 (07:44→17:05)
[2018-07-15] MEDS: CALCIUM CARBONATE 500 MG CHEWABLE PO SCH (07:45)
[2018-07-15] MEDS: SODIUM BICARBONATE TAB 650 MG TAB PO SCH (07:45)
[2018-07-15] MEDS: HYDROmorphone 0.5 MG/0.5 ML SYRINGE IVP PRN (07:56)
[2018-07-15 07:58] LABS: Basophils % (A) 0 %; Eosinophils # (A) 0.1 k/uL (0-0.7); Eosinophils % (A) 1 %; HCT 29.2 % (39.0-53.0); HGB 9.3 gm/dL (13.0-17.5); Lymphocytes # (A) 1.3 k/uL (1.0-4.8); Lymphocytes % (A) 21 %; MCH 30.4 pg (25.0-35.0); MCHC 31.7 g/dL (31.0-37.0); Mean Platelet Volume 8.4; Monocytes # (A) 0.3 k/uL (0-1.0); Monocytes % (A) 4 %; Neutrophils # (A) 4.6 k/uL (1.3-7.7); Neutrophils % (A) 72 %; Platelet Count 200 k/uL (150-450); RBC 3.04 m/uL (4.30-5.90); RDW 14.9 % (11.5-15.5); WBC 6.5 k/uL (3.8-10.6)
[2018-07-15 07:59] LABS: INR 1.7 (<1.2); Prothrombin Time 16.5 sec (9.0-12.0)
[2018-07-15 08:25] LABS: Albumin 3.9 g/dL (3.5-5.0); Calcium 8.9 mg/dL (8.4-10.2); Potassium 4.7 mmol/L (3.5-5.1); Total Bilirubin 0.4 mg/dL (0.2-1.3); Total Protein 6.5 g/dL (6.3-8.2)
--- NOTE | 2018-07-15 10:18 | P.PN ---
Subjective Progress Note Date: 07/15/18 this is a 78 year old male patient of Dr. Tee. Patient reports that he tripped and fell directly onto his buttocks and immediately had left hip pain. Patient's is at bedside. Does report that patient is chronically weak but accurately tripped during this occurrence. Patient and denied any loss of consciousness or hitting of head. CT completed showing acute nondisplaced noncomminuted left basocervical hip fracture with surrounding intramuscular edema. Patient has past medical history of B-cell lymphoma in which she received chemo and in May 2015. Additional medical history includes CHF, last 2-D echo was in 2015 showing EF of 25-30%. Patient and report that he follows with cardiology services. Additional medical history includes GERD, diabetes mellitus, high disorder, hearing disorder, hyperlipidemia, essential hypertension, osteoarthritis, prostate disorder and renal disease in which he follows with Dr. diaz. EKG, chest x-ray and cardiology services consulted for preop clearance. At that time patient denies chest pain or shortness breath. Patient denies nausea vomiting or diarrhea. Patient denies any urinary burning or frequency. Patient denies any history of myocardial infarction or heart attack . Patient denies any history of blood clots. Patient doesn't a past medical history of heart failure with low ejection fraction. Cardiology services consulted on 07/15/2018 patient is alert and oriented 3. Patient was cleared by pulmonary services for surgery. Awaiting cardiac clearance prior to approval for surgery. Patient does have history of low ejection fraction. Repeat 2-D echo has been ordered per cardiology. At this time patient is still complaining of some hip pain. Patient denies chest pain or shortness of breath. Patient denies nausea vomiting or diarrhea. Patient denies any urinary burning or frequency Objective - Vital Signs Vital signs: Vital Signs Temp 98.4 F 07/15/18 07:38 Pulse 82 07/15/18 07:38 Resp 15 07/15/18 07:38 BP 173/73 07/15/18 07:38 Pulse Ox 91 L 07/15/18 07:38 Intake & Output 07/14/18 07/15/18 07/15/18 18:59 06:59 18:59 Output Total 400 300 Balance -400 -300 Output: Urine 400 300 Other: Voiding Method Urinal # Voids 0 3 - Exam Head normocephalic Neck supple Lungs clear to auscultation bilaterally no wheezing or crackles Heart regular rate and rhythm S1-S2, no rub or gallop Abdomen is soft nontender nondistended positive bowel sounds no hepatosplenomegaly Extremities no edema. Left hip tender to palpation Neuro alert and orientated to 3 - Labs CBC & Chem 7: 07/15/18 07:02 07/15/18 07:02 Labs: Abnormal Lab Results - Last 24 Hours (Table) 07/14/18 07/14/18 07/14/18 Range/Units 10:02 10:02 10:02 RBC 2.87 L (4.30-5.90) m/uL Hgb 9.0 L (13.0-17.5) gm/dL Hct 27.7 L (39.0-53.0) % PT 12.1 H (9.0-12.0) sec INR 1.2 H (<1.2) Potassium 5.8 H (3.5-5.1) mmol/L Chloride 111 H (98-107) mmol/L Carbon Dioxide 19 L (22-30) mmol/L BUN 40 H (9-20) mg/dL Glucose 169 H (74-99) mg/dL POC Glucose (mg/dL) (75-99) mg/dL Alkaline Phosphatase 148 H (38-126) U/L Urine Protein (Negative) Urine Glucose (UA) (Negative) Urine Blood (Negative) Urine Bacteria (None) /hpf Urine Mucus (None) /hpf 07/14/18 07/14/18 07/14/18 Range/Units 10:50 16:32 17:31 RBC (4.30-5.90) m/uL Hgb (13.0-17.5) gm/dL Hct (39.0-53.0) % PT (9.0-12.0) sec INR (<1.2) Potassium 5.2 H (3.5-5.1) mmol/L Chloride (98-107) mmol/L Carbon Dioxide (22-30) mmol/L BUN (9-20) mg/dL Glucose (74-99) mg/dL POC Glucose (mg/dL) 159 H (75-99) mg/dL Alkaline Phosphatase (38-126) U/L Urine Protein 1+ H (Negative) Urine Glucose (UA) 1+ H (Negative) Urine Blood Trace H (Negative) Urine Bacteria Rare H (None) /hpf Urine Mucus Rare H (None) /hpf 07/15/18 07/15/18 07/15/18 Range/Units 07:02 07:02 07:02 RBC 3.04 L (4.30-5.90) m/uL Hgb 9.3 L (13.0-17.5) gm/dL Hct 29.2 L (39.0-53.0) % PT 16.5 H (9.0-12.0) sec INR 1.7 H (<1.2) Potassium (3.5-5.1) mmol/L Chloride 110 H (98-107) mmol/L Carbon Dioxide 19 L (22-30) mmol/L BUN 29 H (9-20) mg/dL Glucose 141 H (74-99) mg/dL POC Glucose (mg/dL) (75-99) mg/dL Alkaline Phosphatase 145 H (38-126) U/L Urine Protein (Negative) Urine Glucose (UA) (Negative) Urine Blood (Negative) Urine Bacteria (None) /hpf Urine Mucus (None) /hpf Assessment and Plan Assessment: 1. Left hip fracture status post fall. CT of hip completed showing acute nondi splaced noncommunicable left basocervical hip fracture with surrounding intramuscular edema. Dr. Chavez consulted. Per orthopedic service is planning surgery today for 2018 2. History of B-cell lymphoma. Patient completed chemo in May 2015 3. Chronic systolic heart failure. Last 2-D echo completed in 2015 showing an EF of 25-30%. Patient does follow with cardiology services. Cardiology services have been consulted for cardiac clearance repeat 2-D echo has been ordered 4. Hyperkalemia. Potassium 5.8. Lisinopril on hold. Repeat potassium 4.7 5. Diabetes mellitus. Sliding scale insulin ordered 6. History of multiple falls. Will consult physical therapy for Post surgical rehab 7. History of smoking 8. History of hearing disorder 9. History of hyperlipidemia 10. History of essential hypertension. Home meds resumed. This problem hold due to hyperkalemia 11. History of Yassine fundoplication 12. anemia. Iron studies ordered 13. Chronic kidney disease stage III patient reports he does follow with nephrology services thank your for this consultation we'll continue to follow patient closely throughout stay Patient has been cleared for surgery from pulmonary services. Awaiting final cardiac clearance prior to surgery I performed an examination of the patient and discussed their management with the Nurse Practitioner. I have reviewed the Nurse Practitioner's notes and agree with the documented findings and plan of care
--- NOTE | 2018-07-15 10:55 | ECHOF ---
Referral Reason:pre-op MEASUREMENTS -------- HEIGHT: 172.7 cm WEIGHT: 78.9 kg BP: 173/73 RVIDd: 2.9 cm (< 3.3) IVSd: 1.3 cm (0.6 - 1.1) LVIDd: 5.1 cm (3.9 - 5.3) LVPWd: 1.4 cm (0.6 - 1.1) IVSs: 1.7 cm LVIDs: 3.5 cm LVPWs: 2.3 cm LA Diam: 3.9 cm (2.7 - 3.8) Ao Diam: 3.6 cm (2.0 - 3.7) AV Cusp: 2.1 cm (1.5 - 2.6) MV EXCURSION: 20.477 mm (> 18.000) MV EF SLOPE: 105 mm/s (70 - 150) EPSS: 0.9 cm MV E Nam: 0.85 m/s MV DecT: 185 ms MV A Nam: 1.01 m/s MV E/A Ratio: 0.84 RAP: 5.00 mmHg RVSP: 57.30 mmHg FINDINGS -------- Sinus rhythm. This was a technically adequate study. The left ventricular size is normal. There is moderate concentric left ventricular hypertrophy. O verall left ventricular systolic function is normal with, an EF between 55 - 60 %. The right ventricle is normal in size. The left atrial size is normal. The right atrium is normal in size. There is mild aortic valve sclerosis. Mild mitral regurgitation is present. Mild tricuspid regurgitation present. There is severe pulmonary hypertension. The right ventricul ar systolic pressure, as measured by Doppler, is 57.30mmHg. Trace/mild (physiologic) pulmonic regurgitation. The aortic root size is normal. Normal inferior vena cava with normal inspiratory collapse consistent with estimated right atrial pre ssure of 5 mmHg. There is no pericardial effusion. CONCLUSIONS -------- 1. Sinus rhythm. 2. This was a technically adequate study. 3. The left ventricular size is normal. 4. There is moderate concentric left ventricular hypertrophy. 5. Overall left ventricular systolic function is normal with, an EF between 55 - 60 %. 6. The right ventricle is normal in size. 7. The left atrial size is normal. 8. The right atrium is normal in size. 9. There is mild aortic valve sclerosis. 10. Mild mitral regurgitation is present. 11. Mild tricuspid regurgitation present. 12. There is severe pulmonary hypertension. 13. The right ventricular systolic pressure, as measured by Doppler, is 57.30mmHg. 14. Trace/mild (physiologic) pulmonic regurgitation. 15. The aortic root size is normal. 16. Normal inferior vena cava with normal inspiratory collapse consistent with estimated right atrial pressure of 5 mmHg. 17. There is no pericardial effusion. HYDRO GENERATION MANAGER: Zoie Leon RDCS
--- NOTE | 2018-07-15 11:16 | P.CRDCN ---
History of Present Illness History of present illness: This is a pleasant 78-year-old male past medical history significant for hypertension, dyslipidemia, diabetes mellitus, Non-hodgkins lymphoma, chronic anemia, history of LV dysfunction 2016 while undergoing chemotherapy, carotid artery disease s/p endartectomy and chronic kidney disease. He presented to the hospital after suffering a mechanical trip and fall in his bedroom suffering an acute non-displaced non-comminuted left hip fracture and is scheduled to undergo surgery this afternoon. We have been asked to see him secondary to cardiac evaluation prior to surgery. He is seen and examined resting comfortably lying completely flat in bed in no acute distress. He sarah es symptoms of chest discomfort, shortness of breath, dizziness or palpitations. He complains of significant discomfort in the left hip. Echocardiogram has been requested and reveals preserved left ventricular systolic function with ejection fraction 55-60% with mild mitral regurgitation, mild tricuspid regurgitation and pulmonary hypertension with an RVSP of 57 mmHg. EKG on admission reveals sinus mechanism with flattened T-wave with no acute ST or T wave abnormalities noted. Chest x-ray reveals cardiomegaly with left basilar atelectasis. Laboratory data reviewed, WBC 6.5, hemoglobin 9.3, platelets 200, INR 1.7, potassium 4.7, sodium 139, creatinine 0.95 with a GFR 77. Current cardiac medications include atorvastatin 40 mg daily, carvedilol 3.125 mg daily, lisinopril 2.5 mg daily. Most recent stress test in the office was in 2016 with a Lexiscan stress test was negative for reversible cardiac ischemia. At the time of my exam: CONSTITUTIONAL: Denies fever. Denies chills. EYES: Denies blurred vision. Denies vision changes. Denies eye pain. EARS, NOSE, MOUTH & THROAT: Denies headache. Denies sore throat. Denies ear pain. CARDIOVASCULAR: Denies chest pain. Denies shortness of breath. Denies orthopnea. Denies PND. Denies palpitations. RESPIRATORY: Denies cough. GASTROINTESTINAL: Denies abdominal pain. Denies diarrhea. Denies constipation. Denies nausea. Denies vomiting. MUSCULOSKELETAL: Complains of pain to the left hip. INTEGUMENTARY: Denies pruitis. Denies rash. NEUROLOGIC: Denies numbness. Denies tingling. Denies weakness. PSYCHIATRIC: Denies anxiety. Denies depression. ENDOCRINE: Denies fatigue. Denies weight change. Denies polydipsia. Denies polyurina. GENITOURINARY: Denies burning, hematuria or urgency with micturation. HEMATOLOGIC: Denies history of anemia. Denies bleeding. Blood pressure 173/73 heart rate 82 afebrile maintaining oxygen saturation on room air GENERAL: This is a 78-year-old male in no apparent distress at the time of my examination. HEENT: Head is atraumatic, normocephalic. Pupils are equal, round. Sclerae anicteric. Conjunctivae are clear. Mucous membranes of the mouth are moist. Neck is supple. There is no jugular venous distention. Right carotid bruit is heard, no bruit on the left. LUNGS: Clear to auscultation no wheezes, rales or rhonchi. No chest wall tenderness is noted on palpation or with deep breathing. HEART: Regular rate and rhythm without murmurs, rubs or gallops. S1 and S2 heard. ABDOMEN: Soft, nontender. Bowel sounds are heard. No organomegaly noted. EXTREMITIES: No evidence of peripheral edema and no calf tenderness noted. VASCULAR: Radial and dorsalis pedis pulses palpated, no evidence of clubbing. NEUROLOGIC: Patient is awake, alert and oriented x3. ASSESSMENT Left hip fracture status post mechanical fall. There was no syncope or loss of consciousness. History of cardiomyopathy of unknown origin, suspect related to chemotherapy however unconfirmed. Hypertension Dyslipidemia Diabetes mellitus History of non-hodgkins lymphoma 2016 Peripheral vascular disease s/p left carotid endartectomy Chronic kidney disease History of anemia Pulmonary hypertension, RVSP 57 mmHg PLAN Clinically he is euvolemic with no evidence of heart failure. He has no symptoms of angina to suggest acute coronary syndrome. He is hemodynamically stable and an appropriate patient to undergo surgical intervention with an increased risk due to multiple co-morbid conditions. Recommend cautious fluid administration intra-operatively and optimal blood pressure control. Thank you kindly for this consultation. Nurse Practitioner note has been reviewed, I agree with a documented findings and plan of care. Patient was seen and examined. 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 Burrows, BPH, has difficulty holding his head up-states it wants to fall forward- he has a brace he wears at times and currently going to PT, past L wrist fracture History of Any Multi-Drug Resistant Organisms: None Reported Past Surgical History: Adenoidectomy, Bowel Resection, Hernia Repair, Orthopedic Surgery, Tonsillectomy Additional Past Surgical History / Comment(s): LT CAROTID ENDARTERECTOMY, UMBILICAL HERNIA REPAIR, LEFT EYE ENUCLEATION/PROSTHESIS (industrial accident), LEFT SHOULDER RCR , Lap elder fundoplication, EXPLORATORY LAPAROTOMY/ILEOCOLECTOMY D/T TUMOR, BMA with bx, 02/15/15 [id number] removed. Past Anesthesia/Blood Transfusion Reactions: No Reported Reaction Additional Past Anesthesia/Blood Transfusion Reaction / Comment(s): HX OF BLOOD TRANSFUSION-NO REACTION. Smoking Status: Former smoker - Past Family History Daughter(s) Family Medical History: Cancer Additional Family Medical History / Comment(s): BREAST , LIVER AND LUNG CANCER Father Family Medical History: Myocardial Infarction (DC) Additional Family Medical History / Comment(s): Father at age 65yrs. Mother Family Medical History: Dementia Additional Family Medical History / Comment(s): Mother at about age 82yrs. Brother(s) Family Medical History: Cancer Additional Family Medical History / Comment(s): (2 BROTHERS) Sister(s) Family Medical History: Cancer Medications and Allergies Home Medications Medication Instructions Recorded Confirmed Type Gemfibrozil [Lopid] 600 mg PO BID 12/30/14 07/14/18 History Multivitamins, Thera [Multivitamin 1 tab PO DAILY 11/07/15 07/14/18 History (formulary)] Primidone [Mysoline] 125 mg PO BID-W/MEALS 11/07/15 07/14/18 History metFORMIN HCL 1,000 mg PO QID 07/19/17 07/14/18 History Carvedilol [Coreg] 3.125 mg PO DAILY 10/22/17 07/14/18 History Atorvastatin [Lipitor] 40 mg PO DAILY 07/14/18 07/14/18 History Calcium Carbonate 500 mg PO DAILY 07/14/18 07/14/18 History Lisinopril [Zestril] 2.5 mg PO DAILY 07/14/18 07/14/18 History Magnesium Gluconate [Magonate] 500 mg PO DAILY 07/14/18 07/14/18 History Pioglitazone [Actos] 15 mg PO DAILY 07/14/18 07/14/18 History Sodium Bicarbonate 325 mg PO DAILY 07/14/18 07/14/18 History Allergies Allergy/AdvReac Type Severity Reaction Status Date / Time Penicillins Allergy Nausea & Verified 07/14/18 09:20 Vomiting Physical Exam Vitals: Vital Signs Temp Pulse Pulse Resp BP BP Pulse Ox 07/15/18 07:38 98.4 F 82 15 173/73 91 L 07/15/18 01:25 97.5 F L 77 18 138/71 92 L 07/14/18 19:25 97.7 F 78 18 134/82 94 L 07/14/18 15:00 98.1 F 81 16 152/81 96 07/14/18 13:00 17 120/60 97 07/14/18 12:30 67 12 133/67 07/14/18 12:00 71 153/75 95 07/14/18 11:00 67 17 140/66 91 L 07/14/18 10:30 75 16 143/68 94 L 07/14/18 10:00 75 19 139/62 98 07/14/18 09:30 70 18 128/59 07/14/18 09:00 67 17 140/63 96 Intake and Output 07/14/18 07/15/18 07/15/18 22:59 06:59 14:59 Output Total 400 300 Balance -400 -300 Output: Urine 400 300 Other: Voiding Method Urinal # Voids 120 3 Results 07/15/18 07:02 07/15/18 07:02 Cardiac Enzymes 07/14/18 07/15/18 Range/Units 10:02 07:02 AST 20 29 (17-59) U/L Coagulation 07/14/18 07/15/18 Range/Units 10:02 07:02 PT 12.1 H 16.5 H (9.0-12.0) sec APTT 27.0 (22.0-30.0) sec CBC 07/14/18 07/15/18 Range/Units 10:02 07:02 WBC 8.8 6.5 (3.8-10.6) k/uL RBC 2.87 L 3.04 L (4.30-5.90) m/uL Hgb 9.0 L 9.3 L (13.0-17.5) gm/dL Hct 27.7 L 29.2 L (39.0-53.0) % Plt Count 191 200 (150-450) k/uL Comprehensive Metabolic Panel 07/14/18 07/14/18 07/15/18 Range/Units 10:02 17:31 07:02 Sodium 139 139 (137-145) mmol/L Potassium 5.8 H 5.2 H 4.7 (3.5-5.1) mmol/L Chloride 111 H 110 H (98-107) mmol/L Carbon Dioxide 19 L 19 L (22-30) mmol/L BUN 40 H 29 H (9-20) mg/dL Creatinine 1.23 0.95 (0.66-1.25) mg/dL Glucose 169 H 141 H (74-99) mg/dL Calcium 8.7 8.9 (8.4-10.2) mg/dL AST 20 29 (17-59) U/L ALT 30 27 (21-72) U/L Alkaline Phosphatase 148 H 145 H (38-126) U/L Total Protein 6.4 6.5 (6.3-8.2) g/dL Albumin 3.9 3.9 (3.5-5.0) g/dL Current Medications Generic Name Dose Route Start Last Admin Trade Name Freq PRN Reason Stop Dose Admin Hydrocodone Bitart/Acetaminophen 1 each 07/14/18 09:39 [place] 5-325 PO Q4HR PRN Moderate Pain Albuterol/Ipratropium 3 ml 07/14/18 16:02 Duoneb 0.5 Mg-3 Mg/3 Ml Soln INHALATION RT-TID PRN Shortness Of Breath Or Wheezing Calcium Carbonate/Glycine 500 mg 07/15/18 09:00 07/15/18 07:45 Tums PO 500 mg DAILY ZEE Administration Carvedilol 3.125 mg 07/15/18 07:30 07/15/18 07:43 Coreg PO 3.125 mg AC-BRKFST ZEE Administration Hydromorphone HCl 0.5 mg 07/14/18 09:39 07/15/18 07:56 Dilaudid IVP 0.5 mg Q3HR PRN Administration Moderate Pain Hydromorphone HCl 1 mg 07/14/18 09:39 07/15/18 03:26 Dilaudid IVP 1 mg Q3HR PRN Administration Severe Pain Insulin Aspart 0 unit 07/15/18 12:30 Novolog SQ ACHS [facility] Protocol Multivitamins 1 each 07/15/18 12:00 Theragran PO 1200 [facility] Naloxone HCl 0.2 mg 07/14/18 09:39 Narcan IV Q2M PRN Opioid Reversal Ondansetron HCl 4 mg 07/14/18 09:39 Zofran IVP Q8HR PRN Nausea And Vomiting Pantoprazole Sodium 40 mg 07/15/18 07:30 07/15/18 07:43 Protonix PO 40 mg AC-BRKFST [facility] Administration Primidone 125 mg 07/14/18 17:30 07/15/18 07:44 Mysoline PO 125 mg BID-W/MEALS [facility] Administration Sodium Bicarbonate 325 mg 07/15/18 09:00 07/15/18 07:45 Sodium Bicarbonate Tab PO 325 mg DAILY ZEE Administration Intake and Output 07/14/18 07/15/18 07/15/18 22:59 06:59 14:59 Output Total 400 300 Balance -400 -300 Output: Urine 400 300 Other: Voiding Method Urinal # Voids 120 3 07/15/18 07:02 07/15/18 07:02
[2018-07-15] MEDS: MULTIVITAMINS, THERA 1 EACH TAB PO SCH (11:26)
[2018-07-15 11:39] LABS: Iron Saturation 6.3 (15.00-50.00)
[2018-07-15 11:49] LABS: Glucose,Whole Blood 187 mg/dL (75-99)
[2018-07-15] MEDS: INSULIN ASPART (NovoLOG) 100 UNIT/ML VIAL SQ SCH ×3 (12:10→20:05)
--- NOTE | 2018-07-15 14:01 | P.PN ---
Subjective Progress Note Date: 07/15/18 Principal diagnosis: left hip fracture This is a 78-year-old white male patient of Dr. Tillman with past medical history of B cell lymphoma, chronic congestive heart failure with systolic dysfunction, with a baseline ejection fraction of 25-30%, diabetes mellitus type 2, GERD/ref lux, hearing disorder, hypertension, hyperlipidemia, chronic kidney disease, that apparently has been functionally declining at home, and patient has been having issues with his gait, balance. Patient has been unsteady on his feet, weak, and apparently his knees gave out and he has been experiencing falls. On 07/14/2018 patient sustained a fall at home, he tripped and fell directly onto his buttocks and felt immediate pain in the left hip area. His was at the bedside, the patient did not experience loss of consciousness. Advanced emergency department for evaluation, and x-ray of the pelvis and left hip revealed subtle subcapital femoral neck fracture that was difficult to exclude. Left hip CT was completed, and showed acute nondisplaced non-comminuted left basocervical hip fracture with surrounding intramuscular edema. Chest x-ray showed lucency along the trachea, cardiomegaly with left basilar atelectasis. CT of the neck was completed and showed no evidence of pneumomediastinum in the superior visualized portions of the mediastinum, the lucency surrounding the trachea on the prior chest x-ray dated 07/14/2018 represent prominent. There were numerous paraseptal blebs with moderate emphysematous changes of the visualized lung apices. EKG showed sinus rhythm with occasional PACs. From pulmonary perspective patient denies any difficulty breathing, room air pulse ox is 96%, vital signs are stable, we were asked to see the patient in evaluation for pulmonary clearance for the left hip surgery On 07/15/2018 patient seen in follow-up on medical surgical floor. He is awake and alert, still haven't quite a bit of pain with any range of motion of the left hip. Denies any shortness of breath, he is on room air, the pulse ox of 91-94%, afebrile, respirations are even and nonlabored nonlabored, lung sounds are clear. Patient is scheduled for a closed reduction of the left hip and insertion of a TFN nail by Dr. Chavez today at 3:00 Objective - Vital Signs Vital signs: Vital Signs Temp 98.4 F 07/15/18 07:38 Pulse 82 07/15/18 07:38 Resp 15 07/15/18 07:38 BP 173/73 07/15/18 07:38 Pulse Ox 91 L 07/15/18 07:38 Intake & Output 07/14/18 07/15/18 07/15/18 18:59 06:59 18:59 Output Total 400 300 Balance -400 -300 Output: Urine 400 300 Other: Voiding Method Urinal Urinal # Voids 0 3 - Exam GENERAL EXAM: Alert, pleasant, 78-year-old white male, who is in the moderate to severe amount of pain from his left hip, comfortable in no apparent distress. HEAD: Normocephalic/atraumatic. EYES: Normal reaction of pupils, equal size. Conjunctiva pink, sclera white. NOSE: Clear with pink turbinates. THROAT: No erythema or exudates. NECK: No masses, no JVD, no thyroid enlargement, no adenopathy. CHEST: No chest wall deformity. Symmetrical expansion. LUNGS: Equal air entry with no crackles, wheeze, rhonchi or dullness. CVS: Regular rate and rhythm, normal S1 and S2, no gallops, no murmurs, no rubs ABDOMEN: Soft, nontender. No hepatosplenomegaly, normal bowel sounds, no guarding or rigidity. EXTREMITIES: No clubbing, no edema, no cyanosis, 2+ pulses and upper and lower extremities. MUSCULOSKELETAL: Muscle strength and tone normal. Left hip pain with range of motion, neurovascular status is intact, distal pulses are intact, left hip tenderness, without rotation or shortening. SPINE: No scoliosis or deformity SKIN: No rashes CENTRAL NERVOUS SYSTEM: Alert and oriented -3. No focal deficits, tone is normal in all 4 extremities. PSYCHIATRIC: Alert and oriented -3. Appropriate affect. Intact judgment and insight. - Labs CBC & Chem 7: 07/15/18 07:02 07/15/18 07:02 Labs: Abnormal Lab Results - Last 24 Hours (Table) 07/14/18 07/14/18 07/15/18 Range/Units 16:32 17:31 07:02 RBC (4.30-5.90) m/uL Hgb (13.0-17.5) gm/dL Hct (39.0-53.0) % PT (9.0-12.0) sec INR (<1.2) Potassium 5.2 H (3.5-5.1) mmol/L Chloride (98-107) mmol/L Carbon Dioxide (22-30) mmol/L BUN (9-20) mg/dL Glucose (74-99) mg/dL POC Glucose (mg/dL) 159 H (75-99) mg/dL Iron 24 L (65-175) ug/dL Iron Saturation 6.30 L (15.00-50.00) Alkaline Phosphatase (38-126) U/L 07/15/18 07/15/18 07/15/18 Range/Units 07:02 07:02 07:02 RBC 3.04 L (4.30-5.90) m/uL Hgb 9.3 L (13.0-17.5) gm/dL Hct 29.2 L (39.0-53.0) % PT 16.5 H (9.0-12.0) sec INR 1.7 H (<1.2) Potassium (3.5-5.1) mmol/L Chloride 110 H (98-107) mmol/L Carbon Dioxide 19 L (22-30) mmol/L BUN 29 H (9-20) mg/dL Glucose 141 H (74-99) mg/dL POC Glucose (mg/dL) (75-99) mg/dL Iron (65-175) ug/dL Iron Saturation (15.00-50.00) Alkaline Phosphatase 145 H (38-126) U/L 07/15/18 Range/Units 11:38 RBC (4.30-5.90) m/uL Hgb (13.0-17.5) gm/dL Hct (39.0-53.0) % PT (9.0-12.0) sec INR (<1.2) Potassium (3.5-5.1) mmol/L Chloride (98-107) mmol/L Carbon Dioxide (22-30) mmol/L BUN (9-20) mg/dL Glucose (74-99) mg/dL POC Glucose (mg/dL) 187 H (75-99) mg/dL Iron (65-175) ug/dL Iron Saturation (15.00-50.00) Alkaline Phosphatase (38-126) U/L Assessment and Plan Plan: Assessment: #1. Left hip acute nondisplaced, non-comminuted hip fracture, patient is scheduled for closed reduction of the left hip and insertion of a TFN nail today on 07/15/[address] Chavez #2. History of B-cell lymphoma, completed chemotherapy in May 2015 #3. History of chronic congestive heart failure with systolic dysfunction, with the latest echo showing EF of 25-30% #4. Diabetes mellitus #5. Generalized weakness, gait dysfunction, patient has been having multiple falls #6. History of nicotine dependence, currently in remission #7. History of hypertension, hyperlipidemia #8. Chronic kidney disease stage III #9. Recent history of left fifth metacarpal fracture Plan: Patient has been cleared for surgery from pulmonary perspective. No difficulty breathing, he is on room air, maintaining stable oxygenation. We'll continue to closely follow in the postoperative period, and deep breathing and coughing, incentive spirometry use. I performed a history & physical examination of the patient and discussed their management with my nurse practitioner, Joanne Camp. I reviewed the nurse practitioner's note and agree with the documented findings and plan of care. Lung sounds are positive for clear. The findings and the impression was discussed with the patient. I attest to the documentation by the nurse practitioner. Time with Patient: Less than 30
[2018-07-15] MEDS ORDERED: PHYTONADIONE ORAL 5 MG/5 ML ORAL.SYRG PO ONE (16:00)
[2018-07-15] MEDS ORDERED: SODIUM FERRIC GLUCONAT-SUCROSE 125 MG in SODIUM CHLORIDE 0.9% 100 ML IVPB ONE (16:00)
[2018-07-15 17:09] LABS: Glucose,Whole Blood 145 mg/dL (75-99)
--- NOTE | 2018-07-15 19:10 | P.PN ---
Subjective Progress Note Date: 07/15/18 This patient is a 78-year-old male with past medical history of B-cell lymphoma, chronic CHF, diabetes mellitus type 2, GERD, hypertension, hyperlipidemia, chronic kidney disease, and self-reported weakness secondary to chemotherapy presented to the [facility] ED this morning after sustaining a ground-level fall at home. The patient states he was walking out of the bathroom, and tripped over his own feet, and landed onto his buttocks. The patient states he experienced immediate pain in the left hip after the fall, therefore his called EMS, which transported him to [facility] ED. Upon arrival to [facility] ED, x-rays were taken of the left hip and the patient was found to have a femoral neck fracture. Computed tomography scan of the left hip was obtained, which revealed an acute nondisplaced non-comminuted left basicervical fracture. The patient was admitted under the care of Dr. Chavez, with a consult placed to internal medicine for medical management. Patient was examined bedside this morning. The patient states he is experiencing pain in the left hip currently, he is remaining strictly non-weight bearing on the left lower extremity. He denies additional complaints today. Vital signs stable. Objective - Vital Signs Vital signs: Vital Signs Temp 98.3 F 07/15/18 14:48 Pulse 79 07/15/18 14:48 Resp 18 07/15/18 14:48 BP 163/74 07/15/18 14:48 Pulse Ox 93 L 07/15/18 14:48 Intake & Output 07/14/18 07/15/18 07/15/18 18:59 06:59 18:59 Output Total 400 300 Balance -400 -300 Output: Urine 400 300 Other: Voiding Method Urinal Indwelling Catheter # Voids 0 3 4 # Bowel Movements 0 - Exam On examination, the patient is sitting up in bed in no apparent distress. He is alert and oriented 3. On inspection of the left lower extremity, there are no open wounds or lacerations. There is mild pain on palpation of the left hip. The patient is able to plantar flex and dorsiflex the ankle, and wiggle the toes without issue. The foot is warm and well-perfused with brisk capillary refill to toes. Sensation is intact to light touch of the dorsal and plantar foot, as well as the first dorsal webspace. Neurovascular is intact of the left lower extremity. - Labs CBC & Chem 7: 07/15/18 07:02 07/15/18 07:02 Labs: Abnormal Lab Results - Last 24 Hours (Table) 07/14/18 07/15/18 07/15/18 Range/Units 17:31 07:02 07:02 RBC 3.04 L (4.30-5.90) m/uL Hgb 9.3 L (13.0-17.5) gm/dL Hct 29.2 L (39.0-53.0) % PT (9.0-12.0) sec INR (<1.2) Potassium 5.2 H (3.5-5.1) mmol/L Chloride (98-107) mmol/L Carbon Dioxide (22-30) mmol/L BUN (9-20) mg/dL Glucose (74-99) mg/dL POC Glucose (mg/dL) (75-99) mg/dL Iron 24 L (65-175) ug/dL Iron Saturation 6.30 L (15.00-50.00) Alkaline Phosphatase (38-126) U/L 07/15/18 07/15/18 07/15/18 Range/Units 07:02 07:02 11:38 RBC (4.30-5.90) m/uL Hgb (13.0-17.5) gm/dL Hct (39.0-53.0) % PT 16.5 H (9.0-12.0) sec INR 1.7 H (<1.2) Potassium (3.5-5.1) mmol/L Chloride 110 H (98-107) mmol/L Carbon Dioxide 19 L (22-30) mmol/L BUN 29 H (9-20) mg/dL Glucose 141 H (74-99) mg/dL POC Glucose (mg/dL) 187 H (75-99) mg/dL Iron (65-175) ug/dL Iron Saturation (15.00-50.00) Alkaline Phosphatase 145 H (38-126) U/L Assessment and Plan Assessment: Acute nondisplaced left basicervical femoral neck fracture Plan: - Closed reduction of the left hip and insertion of a TFN nail was planned for earlier this afternoon, however the surgery was cancelled by anesthesia due to the patient's INR resulting at 1.7. The surgery will be re-scheduled for tomorrow, pending medical clearance and consent. - Discussed INR with internal medicine team, iron and vitamin K will be given and INR re-check in the AM, per IM team. - Strict non-weight bearing of the left lower extremity. Ice and elevate hip for swelling and pain control. - Appreciate internal medicine, cardiology, and pulmonology consults for medical management. - Continue current pain control regimen. - NPO diet after midnight. - Patient discussed with Dr. Chavez.
[2018-07-15 20:14] LABS: Glucose,Whole Blood 173 mg/dL (75-99)
[2018-07-16] MEDS ORDERED: LIDOCAINE 1% 20 ML VIAL (10MG/ML) FOR IV START INTRADERMA PRN (04:14)
[2018-07-16] MEDS ORDERED: DEXAMETHASONE SOD PHOSPHATE 10 MG/ML 1 ML VIAL IV ONE (04:14)
[2018-07-16] MEDS: HYDROmorphone 1 MG/ML 1 ML SYRINGE IVP PRN ×3 (04:46→23:57)
[2018-07-16] MEDS: LACTATED RINGERS 1,000 ML IV SCH ×3 (05:28→21:50)
[2018-07-16] MEDS ORDERED: SCOPOLAMINE 1.5MG/72HR PATCH TRANSDERM ONE (06:00)
[2018-07-16] MEDS ORDERED: MIDAZOLAM (PF) 2 MG/2 ML VIAL IV PRN (06:00)
[2018-07-16 06:57] LABS: Glucose,Whole Blood 174 mg/dL (75-99)
[2018-07-16] MEDS: INSULIN ASPART (NovoLOG) 100 UNIT/ML VIAL SQ SCH ×4 (06:58→21:49)
[2018-07-16] MEDS: CARVEDILOL 3.125 MG TAB PO SCH (07:39)
[2018-07-16] MEDS: PANTOPRAZOLE 40 MG TABLET PO SCH (07:39)
[2018-07-16] MEDS: SODIUM BICARBONATE TAB 650 MG TAB PO SCH (07:39)
[2018-07-16] MEDS: CALCIUM CARBONATE 500 MG CHEWABLE PO SCH (07:40)
[2018-07-16] MEDS: PRIMIDONE 250 MG TAB PO SCH ×2 (07:41→16:38)
[2018-07-16 09:07] LABS: Basophils % (A) 0 %; Eosinophils % (A) 1 %; HCT 28.3 % (39.0-53.0); HGB 9.4 gm/dL (13.0-17.5); Lymphocytes # (A) 1.3 k/uL (1.0-4.8); Lymphocytes % (A) 16 %; MCH 31.1 pg (25.0-35.0); MCHC 33.1 g/dL (31.0-37.0); MCV 94.1 fL (80.0-100.0); Mean Platelet Volume 8.2; Monocytes # (A) 0.5 k/uL (0-1.0); Monocytes % (A) 6 %; Neutrophils # (A) 6.1 k/uL (1.3-7.7); Neutrophils % (A) 75 %; Platelet Count 204 k/uL (150-450); RBC 3.01 m/uL (4.30-5.90); WBC 8.1 k/uL (3.8-10.6)
[2018-07-16 09:08] LABS: INR 1.3 (<1.2); Prothrombin Time 13.2 sec (9.0-12.0)
[2018-07-16 09:08] LABS: INR 1.3 (<1.2)
[2018-07-16 09:34] LABS: ALT 25 U/L (21-72); AST 24 U/L (17-59); Albumin 3.9 g/dL (3.5-5.0); Alkaline Phosphatase 140 U/L (38-126); Anion Gap 14 mmol/L; Blood Urea Nitrogen 25 mg/dL (9-20); Calcium 8.7 mg/dL (8.4-10.2); Carbon Dioxide 17 mmol/L (22-30); Chloride 108 mmol/L (98-107); Glucose 158 mg/dL (74-99); Potassium 4.1 mmol/L (3.5-5.1); Sodium 139 mmol/L (137-145); Total Bilirubin 0.6 mg/dL (0.2-1.3); Total Protein 6.5 g/dL (6.3-8.2)
[2018-07-16] MEDS: MULTIVITAMINS, THERA 1 EACH TAB PO SCH (11:23)
[2018-07-16] MEDS ORDERED: IV FLUID CONTINUATION 1,000 ML IV ONE (11:25)
--- NOTE | 2018-07-16 11:37 | P.PN ---
Subjective Progress Note Date: 07/16/18 this is a 78 year old male patient of Dr. Tee. Patient reports that he tripped and fell directly onto his buttocks and immediately had left hip pain. Patient's is at bedside. Does report that patient is chronically weak but accurately tripped during this occurrence. Patient and denied any loss of consciousness or hitting of head. CT completed showing acute nondisplaced noncomminuted left basocervical hip fracture with surrounding intramuscular edema. Patient has past medical history of B-cell lymphoma in which she received chemo and in May 2015. Additional medical history includes CHF, last 2-D echo was in 2015 showing EF of 25-30%. Patient and report that he follows with cardiology services. Additional medical history includes GERD, diabetes mellitus, high disorder, hearing disorder, hyperlipidemia, essential hypertension, osteoarthritis, prostate disorder and renal disease in which he follows with Dr. diaz. EKG, chest x-ray and cardiology services consulted for preop clearance. At that time patient denies chest pain or shortness breath. Patient denies nausea vomiting or diarrhea. Patient denies any urinary burning or frequency. Patient denies any history of myocardial infarction or heart attack . Patient denies any history of blood clots. Patient doesn't a past medical history of heart failure with low ejection fraction. Cardiology services consulted on 07/15/2018 patient is alert and oriented 3. Patient was cleared by pulmonary services for surgery. Awaiting cardiac clearance prior to approval for surgery. Patient does have history of low ejection fraction. Repeat 2-D echo has been ordered per cardiology. At this time patient is still complaining of some hip pain. Patient denies chest pain or shortness of breath. Patient denies nausea vomiting or diarrhea. Patient denies any urinary burning or frequency On 07/16/2018 patient is alert and oriented 3. Patient was evaluated by pulmonary and cardiac services. Repeat 2-D echo completed EF of 55-60%. INR elevated at 1.7. Patient did receive 1 mg vitamin K plus IV iron. Plans for left hip arthoplasty today. At this time patient denies chest pain or shortness breath. Patient denies nausea vomiting or diarrhea. Patient denies any urinary burning or frequency Objective - Vital Signs Vital signs: Vital Signs Temp 100 F H 07/16/18 11:14 Pulse 83 07/16/18 11:14 Resp 16 07/16/18 11:14 BP 169/77 05/01/19 11:14 Pulse Ox 94 L 07/16/18 11:14 Intake & Output 07/15/18 07/16/18 07/16/18 18:59 06:59 18:59 Intake Total 240 Output Total 1175 Balance -935 Intake: IV 100 0.9 @ 50 100 Intake, IV Titration 140 Amount Lactated Ringers 1,000 ml 140 @ 20 mls/hr IV .Q24H [facility] Rx#:[id number] Output: Urine 1175 Uretheral (Lott) 1175 Other: Voiding Method Indwelling Catheter Indwelling Catheter # Voids 4 # Bowel Movements 0 - Exam Head normocephalic Neck supple Lungs clear to auscultation bilaterally no wheezing or crackles Heart regular rate and rhythm S1-S2, no rub or gallop Abdomen is soft nontender nondistended positive bowel sounds no hepatosplenomegaly Extremities no edema. Left hip tender to palpation Neuro alert and orientated to 3 - Labs CBC & Chem 7: 07/16/18 08:02 07/16/18 08:02 Labs: Abnormal Lab Results - Last 24 Hours (Table) 07/15/18 07/15/18 07/15/18 Range/Units 07:02 11:38 17:05 RBC (4.30-5.90) m/uL Hgb (13.0-17.5) gm/dL Hct (39.0-53.0) % PT (9.0-12.0) sec INR (<1.2) Chloride (98-107) mmol/L Carbon Dioxide (22-30) mmol/L BUN (9-20) mg/dL Glucose (74-99) mg/dL POC Glucose (mg/dL) 187 H 145 H (75-99) mg/dL Iron 24 L (65-175) ug/dL Iron Saturation 6.30 L (15.00-50.00) Alkaline Phosphatase (38-126) U/L 07/15/18 07/16/18 07/16/18 Range/Units 20:03 06:55 08:02 RBC 3.01 L (4.30-5.90) m/uL Hgb 9.4 L (13.0-17.5) gm/dL Hct 28.3 L (39.0-53.0) % PT (9.0-12.0) sec INR (<1.2) Chloride (98-107) mmol/L Carbon Dioxide (22-30) mmol/L BUN (9-20) mg/dL Glucose (74-99) mg/dL POC Glucose (mg/dL) 173 H 174 H (75-99) mg/dL Iron (65-175) ug/dL Iron Saturation (15.00-50.00) Alkaline Phosphatase (38-126) U/L 07/16/18 07/16/18 07/16/18 Range/Units 08:02 08:02 08:41 RBC (4.30-5.90) m/uL Hgb (13.0-17.5) gm/dL Hct (39.0-53.0) % PT 13.2 H 13.0 H (9.0-12.0) sec INR 1.3 H 1.3 H (<1.2) Chloride 108 H (98-107) mmol/L Carbon Dioxide 17 L (22-30) mmol/L BUN 25 H (9-20) mg/dL Glucose 158 H (74-99) mg/dL POC Glucose (mg/dL) (75-99) mg/dL Iron (65-175) ug/dL Iron Saturation (15.00-50.00) Alkaline Phosphatase 140 H (38-126) U/L Assessment and Plan Assessment: 1. Left hip fracture status post fall. CT of hip completed showing acute nondisplaced noncommunicable left basocervical hip fracture with surrounding intramuscular edema. Dr. Chavez consulted. Per orthopedic service is planning surgery today for 2018 2. History of B-cell lymphoma. Patient completed chemo in May 2015 3. Chronic systolic heart failure. Last 2-D echo completed in 2015 showing an EF of 25-30%. Repeat 2-D echo completed showing EF of 55-60%. Per cardiology patient is hemodynamically stable and in appropriate patient to undergo surgical intervention with increased risk due to his multiple comorbid conditions re commend cautious fluid administration intraoperative 4. Hyperkalemia. Potassium 5.8. Lisinopril on hold. Repeat potassium 4.7 5. Diabetes mellitus. Sliding scale insulin ordered 6. History of multiple falls. Will consult physical therapy for Post surgical rehab 7. History of smoking 8. History of hearing disorder 9. History of hyperlipidemia 10. History of essential hypertension. Home meds resumed. This problem hold due to hyperkalemia 11. History of Yassine fundoplication 12. Iron deficiency anemia. received 1 dose of IV iron. Hemoglobin improving to 9.4. 13. Chronic kidney disease stage III patient reports he does follow with nephrology services 14. Elevated INR. INR 1.7. Patient received 1 g of vitamin K thank your for this consultation we'll continue to follow patient closely throughout stay I performed an examination of the patient and discussed their management with the Nurse Practitioner. I have reviewed the Nurse Practitioner's notes and agr ee with the documented findings and plan of care
[2018-07-16] MEDS ORDERED: KETAMINE 10 MG/ML 20 ML VIAL ONE (12:25)
[2018-07-16] MEDS ORDERED: MIDAZOLAM 2 MG/2 ML VIAL ONE (12:25)
[2018-07-16] MEDS ORDERED: fentaNYL (PF) 50 MCG/ML 2 ML AMP ONE (12:25)
[2018-07-16] MEDS ORDERED: ceFAZolin 1,000 MG VIAL IVPB ONE ×2 (13:05→13:10)
[2018-07-16] MEDS ORDERED: LACTATED RINGERS 1,000 ML IV ONE (13:06)
--- NOTE | 2018-07-16 14:30 | XR ---
EXAMINATION TYPE: XR Hip Complete LT DATE OF EXAM: 07/16/2018 COMPARISON: NONE HISTORY: Postop TECHNIQUE: One view submitted. FINDINGS: There is postsurgical change in near anatomic alignment. There is soft tissue edema and emphysema. IMPRESSION: 1. Postoperative change. Appears in near-anatomic alignment.
--- NOTE | 2018-07-16 14:32 | P.OP ---
Date of Procedure: 07/16/18 Preoperative Diagnosis: 1. Minimally displaced left basicervical femoral neck fracture 2. Congestive heart failure 3. Type 2 diabetes 4. Chronic kidney disease 5. Lymphoma 6. History of prior upper cervical spine fracture requiring surgery 7. Unsteady gait with multiple previous falls Postoperative Diagnosis: Same Procedure(s) Performed: Operative fixation of left basicervical hip fracture with intramedullary hip screw Implants: Short [employer]ynthes TFN nail Anesthesia: spinal Surgeon: Luis M Chavez Cdl Truck Driver #1: Faina Coyle Estimated Blood Loss (ml): 50 IV fluids (ml): 500 Pathology: none sent Condition: stable Disposition: PACU Indications for Procedure: The patient is a very pleasant 78-year-old male with multiple medical problems including congestive heart failure, type 2 diabetes, history of prior lymphoma, unsteady gait with multiple recent falls, recent upper cervical spine fracture requiring surgery, and early dementia who presented to our ER over 2 days ago following a low-energy fall. X-rays were inconclusive and a computed tomography scan showed a minimally displaced basicervical femoral neck fracture. Despite the patient having multiple medical problems the patient was admitted to orthopedics and was seen by internal medicine, cardiology, pulmonary who cleared him for surgery. The patient was scheduled for surgery yesterday but due to an INR of 1.7 his surgery was canceled by Dr. Velasquez of anesthesiology. I was available for surgery this morning at 0730, but due to issues with staffing and prioritizing surgical cases the surgical staff decided to delay the case until this afternoon delaying definitive treatment over 48-hours. I met with the patient and his prior to surgery to discuss surgical options. My recommendation was to stabilize his hip fracture with a short intramedullary hip screw to facilitate early mobilization. We had a lengthy discussion on the potential risks and Locations of surgery including but not limited to risk of anesthesia, superficial infection, deep infection, fracture nonunion, fracture malunion, intraoperative fracture, postoperative periprosthetic fracture, chronic pain, chronic swelling, and inability to regain preinjury level of function, DVT, PE, acute coronary event, other medical complications, and possibly loss of life or limb. The patient and his understands that he is at an increased risk of having a complication due to his multiple medical problems. They provided their verbal and written consent to go forward with surgery Description of Procedure: The patient was identified in preoperative holding and the correct left leg was marked with my initials. I reviewed the consent form with the patient and his . All their questions were answered. The patient was then brought back to the operating room. He was positioned on the gurney where a spinal anesthetic was administered. He was carefully transferred onto the fracture table where sedation in preoperative and biotics were administered. The patient's unaffected right leg was placed in a well leg hoang to facilitate fluoroscopic imaging. The left leg was placed into the boot on the fracture table. A perineal post was placed and the foot of the bed was removed. Prior to starting surgery timeout was performed identifying the correct patient, operative extremity, and procedure. At this point fluoroscopy was brought in to verify that adequate AP and lateral images of the hip could be obtained. The fracture was identified and found to be nondisplaced. The left proximal femur was then prepped and draped in the standard sterile fashion. I began by making a stab incision through the skin, subcutaneous tissue, and fascia proximal to the greater trochanter in line with the femur. A guidepin was then placed just medial to the tip of the greater trochanter on the AP view and in line with the femur on the lateral view. It was driven to the level of the lesser trochanter. An opening reamer and soft tissue protector were used to gain entrance to the proximal canal. A short 12 mm nail was then dispensed and attached to the targeting arm. I verified that the slots in the targeting arm and trocar lined up to the corresponding slot in the nail. The guidepin was removed and the nail was then gently tapped into place. The trocar for the helical blade was brought down to the lateral skin and incision was made through the skin, subcutaneous tissue and IT band. The trocar was brought down to the lateral cortex of the femur and a guidepin was placed up into the low center po sition in the femoral head on the AP view and centered in the femoral head on the lateral view. It measured 105 mm. The reamer was set 105 mm and a path was created for the helical blade. A fenestrated helical blade was then gently tapped into place. The set screw proximally was brought all the way down and then turned back half a turn to allow for compression. Bone cement was then pressurized to the helical blade into the femoral head to improve fixation of the helical blade in the poor quality femoral head bone. At this point the distal interlocking screw was placed. The trocar was placed through the targeting arm down the lateral skin and incision was made. A distal interlocking screw was then placed. The targeting arm was removed. Final fluoroscopic images were taken including an AP and lateral view of the hip. Both wounds were then thoroughly irrigated. The wounds were closed in layers sterile dressings were applied. The foot of the table was replaced and the legs were taken out of their holders. The patient was then transferred from the fracture table onto a gurney and brought to recovery room having tolerated the procedure well. [facility] a skilled food and beverage assistant manager for patient positioning, surgical exposure, retraction, placement of the intramedullary hip screw, closure of wounds, application of dressing. Next Plan: The patient is to receive 2 doses of postoperative antibiotics. He can weight-bear as tolerated on his left leg. He is to only get up with assistance and will require a walker. DVT prophylaxis with Lovenox 30 mg daily 4 weeks. Bone health pending. Internal medicine, pulmonology, and cardiology for perioperative medical assistance. Anticipate discharge to rehab or nursing facility.
--- NOTE | 2018-07-16 14:34 | FL ---
EXAMINATION TYPE: FL guidance operating room DATE OF EXAM: 07/16/2018 HISTORY: Flouroscopy time 42 seconds of fluoroscopy provided. IMPRESSION: 1. Fluoroscopy time.
[2018-07-16] MEDS: HYDROmorphone 1 MG/ML 1 ML SYRINGE IVP ONE ×2 (14:52→14:57)
[2018-07-16 16:56] LABS: Glucose,Whole Blood 167 mg/dL (75-99)
--- NOTE | 2018-07-16 18:55 | P.PN ---
Subjective Progress Note Date: 07/16/18 Principal diagnosis: Acute left hip nondisplaced noncommunicative hip fracture. Plan is for surgical closed reduction of the left hip today. This is a 78-year-old white male patient of Dr. Tillman with past medical history of B cell lymphoma, chronic congestive heart failure with systolic dysfunction, with a baseline ejection fraction of 25-30%, diabetes mellitus type 2, GERD/ reflux, hearing disorder, hypertension, hyperlipidemia, chronic kidney disease, that apparently has been functionally declining at home, and patient has been having issues with his gait, balance. Patient has been unsteady on his feet, weak, and apparently his knees gave out and he has been experiencing falls. On 07/14/2018 patient sustained a fall at home, he tripped and fell directly onto his buttocks and felt immediate pain in the left hip area. His was at the bedside, the patient did not experience loss of consciousness. Advanced emergency department for evaluation, and x-ray of the pelvis and left hip revealed subtle subcapital femoral neck fracture that was difficult to exclude. Left hip CT was completed, and showed acute nondisplaced non-comminuted left basocervical hip fracture with surrounding intramuscular edema. Chest x-ray showed lucency along the trachea, cardiomegaly with left basilar atelectasis. CT of the neck was completed and showed no evidence of pneumomediastinum in the superior visualized portions of the mediastinum, the lucency surrounding the trachea on the prior chest x-ray dated 07/14/2018 represent prominent. There were numerous paraseptal blebs with moderate emphysematous changes of the visualized lung apices. EKG showed sinus rhythm with occasional PACs. From pulmonary perspective patient denies any difficulty breathing, room air pulse ox is 96%, vital signs are stable, we were asked to see the patient in evaluation for pulmonary clearance for the left hip surgery On 07/15/2018 patient seen in follow-up on medical surgical floor. He is awake and alert, still haven't quite a bit of pain with any range of motion of the left hip. Denies any shortness of breath, he is on room air, the pulse ox of 91-94%, afebrile, respirations are even and nonlabored nonlabored, lung sounds are clear. Patient is scheduled for a closed reduction of the left hip and insertion of a TFN nail by Dr. Chavez today at 3:00 The patient is seen today 07/16/2018 in follow-up on the regular medical floor. The plan is for surgical repair of the left hip today. He's been maintaining good O2 saturations in the 90s on room air. Labs reveal hemoglobin 8.1. Hemoglobin 9.4. INR 1.3. Creatinine 0.88. His pain has been fairly well controlled. Plan for extended care facility post discharge for subacute rehabilitation. Objective - Vital Signs Vital signs: Vital Signs Temp 97.5 F L 07/16/18 15:12 Pulse 81 07/16/18 16:39 Resp 16 07/16/18 14:48 BP 154/70 07/16/18 16:39 Pulse Ox 98 07/16/18 15:24 Intake & Output 07/15/18 07/16/18 07/16/18 18:59 06:59 18:59 Intake Total 240 900 Output Total 1175 750 Balance -935 150 Intake: IV 100 900 0.9 @ 50 100 Intake, IV Titration 140 Amount Lactated Ringers 1,000 ml 140 @ 20 mls/hr IV .Q24H [facility] Rx#:[id number] Output: Urine 1175 700 Uretheral (Lott) 1175 Estimated Blood Loss 50 Other: Voiding Method Indwelling Catheter Indwelling Catheter # Voids 4 # Bowel Movements 0 - Exam GENERAL EXAM: Alert, pleasant, 78-year-old white male, discomfort in the left hip, comfortable in no apparent distress. HEAD: Normocephalic/atraumatic. EYES: Normal reaction of pupils, equal size. Conjunctiva pink, sclera white. NOSE: Clear with pink turbinates. THROAT: No erythema or exudates. NECK: No masses, no JVD, no thyroid enlargement, no adenopathy. CHEST: No chest wall deformity. Symmetrical expansion. LUNGS: Equal air entry with no crackles, wheeze, rhonchi or dullness. CVS: Regular rate and rhythm, normal S1 and S2, no gallops, no murmurs, no rubs ABDOMEN: Soft, nontender. No hepatosplenomegaly, normal bowel sounds, no guarding or rigidity. EXTREMITIES: No clubbing, no edema, no cyanosis, 2+ pulses and upper and lower extremities. MUSCULOSKELETAL: Muscle strength and tone normal. Left hip pain SKIN: No rashes CENTRAL NERVOUS SYSTEM: Alert and oriented -3. No focal deficits, tone is normal in all 4 extremities. PSYCHIATRIC: Alert and oriented -3. Appropriate affect. Intact judgment and insight. - Labs CBC & Chem 7: 07/16/18 08:02 07/16/18 08:02 Labs: Abnormal Lab Results - Last 24 Hours (Table) 07/15/18 07/16/18 07/16/18 Range/Units 20:03 06:55 08:02 RBC (4.30-5.90) m/uL Hgb (13.0-17.5) gm/dL Hct (39.0-53.0) % PT (9.0-12.0) sec INR (<1.2) Chloride (98-107) mmol/L Carbon Dioxide (22-30) mmol/L BUN (9-20) mg/dL Glucose (74-99) mg/dL POC Glucose (mg/dL) 173 H 174 H (75-99) mg/dL Alkaline Phosphatase (38-126) U/L Vitamin D 25-Hydroxy 16.9 L (30.0-100.0) ng/mL 07/16/18 07/16/18 07/16/18 Range/Units 08:02 08:02 08:02 RBC 3.01 L (4.30-5.90) m/uL Hgb 9.4 L (13.0-17.5) gm/dL Hct 28.3 L (39.0-53.0) % PT 13.2 H (9.0-12.0) sec INR 1.3 H (<1.2) Chloride 108 H (98-107) mmol/L Carbon Dioxide 17 L (22-30) mmol/L BUN 25 H (9-20) mg/dL Glucose 158 H (74-99) mg/dL POC Glucose (mg/dL) (75-99) mg/dL Alkaline Phosphatase 140 H (38-126) U/L Vitamin D 25-Hydroxy (30.0-100.0) ng/mL 07/16/18 07/16/18 Range/Units 08:41 16:54 RBC (4.30-5.90) m/uL Hgb (13.0-17.5) gm/dL Hct (39.0-53.0) % PT 13.0 H (9.0-12.0) sec INR 1.3 H (<1.2) Chloride (98-107) mmol/L Carbon Dioxide (22-30) mmol/L BUN (9-20) mg/dL Glucose (74-99) mg/dL POC Glucose (mg/dL) 167 H (75-99) mg/dL Alkaline Phosphatase (38-126) U/L Vitamin D 25-Hydroxy (30.0-100.0) ng/mL Assessment and Plan Assessment: Assessment: #1. Left hip acute nondisplaced, non-comminuted hip fracture, patient is scheduled for closed reduction of the left hip and insertion of a TFN nail today on 07/16/[address] Chavez #2. History of B-cell lymphoma, completed chemotherapy in May 2015 #3. History of chronic congestive heart failure with systolic dysfunction, with the latest echo showing EF of 25-30% #4. Diabetes mellitus #5. Generalized weakness, gait dysfunction, patient has been having multiple falls #6. History of nicotine dependence, currently in remission #7. History of hypertension, hyperlipidemia #8. Chronic kidney disease stage III #9. Recent history of left fifth metacarpal fracture Plan: The patient was seen and evaluated by Dr. Hoover. He is stable from the pulmonary standpoint. The plan is for subacute rehabilitation post discharge. He is again encouraged regarding increased use the incentive spirometer and cough and deep breathing exercises. We'll continue to follow. I, the cosigning physician, performed a history & physical examination of the patient. Lungs sounds are clear. Maintaining good O2 saturations in the 90s on room air. I discussed the assessment and plan of care with my nurse practitioner, Monica Powell. I attest to the above note as dictated by her.
[2018-07-16] MEDS: ceFAZolin IN SWFI 2 GM/20 ML SYRINGE IVP SCH (20:01)
[2018-07-16] MEDS: SENNOSIDES-DOCUSATE SODIUM 1 EACH TAB PO SCH (20:01)
[2018-07-16 20:32] LABS: Glucose,Whole Blood 262 mg/dL (75-99)
[2018-07-17] MEDS: LACTATED RINGERS 1,000 ML IV SCH ×2 (03:21→08:28)
[2018-07-17] MEDS: ceFAZolin IN SWFI 2 GM/20 ML SYRINGE IVP SCH (03:21)
[2018-07-17] MEDS: HYDROmorphone 1 MG/ML 1 ML SYRINGE IVP PRN ×2 (06:22→11:17)
[2018-07-17 06:57] LABS: Glucose,Whole Blood 224 mg/dL (75-99)
[2018-07-17 08:12] LABS: INR 1.3 (<1.2); Prothrombin Time 13.5 sec (9.0-12.0)
[2018-07-17 08:15] LABS: Basophils % (A) 0 %; Eosinophils # (A) 0.1 k/uL (0-0.7); Eosinophils % (A) 1 %; HCT 21.6 % (39.0-53.0); Lymphocytes % (A) 17 %; MCH 30.7 pg (25.0-35.0); MCHC 32.7 g/dL (31.0-37.0); MCV 93.8 fL (80.0-100.0); Monocytes # (A) 0.5 k/uL (0-1.0); Monocytes % (A) 9 %; Neutrophils # (A) 4.2 k/uL (1.3-7.7); Neutrophils % (A) 71 %; Platelet Count 161 k/uL (150-450); Poikilocytosis Slight; RDW 15.1 % (11.5-15.5)
[2018-07-17 08:24] LABS: HGB 7.1 gm/dL (13.0-17.5)
[2018-07-17] MEDS: ENOXAPARIN 30 MG/0.3 ML SYRINGE SQ SCH (08:26)
[2018-07-17] MEDS: INSULIN ASPART (NovoLOG) 100 UNIT/ML VIAL SQ SCH ×4 (08:26→21:55)
[2018-07-17] MEDS: HYDROcodone/APAP 5-325MG 1 EACH TAB PO PRN ×3 (08:27→17:05)
[2018-07-17] MEDS: CALCIUM CARBONATE 500 MG CHEWABLE PO SCH (08:27)
[2018-07-17] MEDS: SODIUM BICARBONATE TAB 650 MG TAB PO SCH (08:27)
[2018-07-17] MEDS: PRIMIDONE 250 MG TAB PO SCH ×2 (08:27→17:02)
[2018-07-17] MEDS: PANTOPRAZOLE 40 MG TABLET PO SCH (08:27)
[2018-07-17] MEDS: CARVEDILOL 3.125 MG TAB PO SCH (08:27)
[2018-07-17] MEDS ORDERED: ERGOCALCIFEROL 50,000 UNIT CAP PO SCH (09:00)
[2018-07-17] MEDS ORDERED: ENOXAPARIN 40 MG/0.4 ML SYRINGE SQ SCH (09:00)
[2018-07-17 09:09] LABS: Calcium 7.9 mg/dL (8.4-10.2); Potassium 3.9 mmol/L (3.5-5.1); Total Bilirubin 0.4 mg/dL (0.2-1.3); Total Protein 5.4 g/dL (6.3-8.2)
[2018-07-17] MEDS ORDERED: SODIUM FERRIC GLUCONAT-SUCROSE 125 MG in SODIUM CHLORIDE 0.9% 100 ML IVPB ONE (10:00)
[2018-07-17] MEDS: CHOLECALCIFEROL 1,000 UNIT TAB PO SCH (11:01)
--- NOTE | 2018-07-17 11:27 | P.PN ---
Subjective Progress Note Date: 07/17/18 this is a 78 year old male patient of Dr. Tee. Patient reports that he tripped and fell directly onto his buttocks and immediately had left hip pain. Patient's is at bedside. Does report that patient is chronically weak but accurately tripped during this occurrence. Patient and denied any loss of consciousness or hitting of head. CT completed showing acute nondisplaced noncomminuted left basocervical hip fracture with surrounding intramuscular edema. Patient has past medical history of B-cell lymphoma in which she received chemo and in May 2015. Additional medical history includes CHF, last 2-D echo was in 2015 showing EF of 25-30%. Patient and report that he follows with cardiology services. Additional medical history includes GERD, diabetes mellitus, high disorder, hearing disorder, hyperlipidemia, essential hypertension, osteoarthritis, prostate disorder and renal disease in which he follows with Dr. diaz. EKG, chest x-ray and cardiology services consulted for preop clearance. At that time patient denies chest pain or shortness breath. Patient denies nausea vomiting or diarrhea. Patient denies any urinary burning or frequency. Patient denies any history of myocardial infarction or heart attack . Patient denies any history of blood clots. Patient doesn't a past medical history of heart failure with low ejection fraction. Cardiology services consulted on 07/15/2018 patient is alert and oriented 3. Patient was cleared by pulmonary services for surgery. Awaiting cardiac clearance prior to approval for surgery. Patient does have history of low ejection fraction. Repeat 2-D echo has been ordered per cardiology. At this time patient is still complaining of some hip pain. Patient denies chest pain or shortness of breath. Patient denies nausea vomiting or diarrhea. Patient denies any urinary burning or frequency On 07/16/2018 patient is alert and oriented 3. Patient was evaluated by pulmonary and cardiac services. Repeat 2-D echo completed EF of 55-60%. INR elevated at 1.7. Patient did receive 1 mg vitamin K plus IV iron. Plans for left hip arthoplasty today. At this time patient denies chest pain or shortness breath. Patient denies nausea vomiting or diarrhea. Patient denies any urinary burning or frequency On 07/17/2018 patient is alert and oriented 3. Patient status post operative fixation of the left basocervical hip fracture with intramedullary hip screw with Dr. Chavez. Today patient is currently resting comfortably in chair. Patient did have a low-grade temp. Will order urinary analysis and chest x-ray. Agency with a also a 7.1. Patient has known iron deficiency anemia. We'll give 1 dose of IV iron and recheck hemoglobin. At this time patient is complaining of some pain to hip. Patient denies chest pain or shortness breath or patient denies nausea vomiting or diarrhea. Patient denies any urinary burning or frequency. Objective - Vital Signs Vital signs: Vital Signs Temp 98.4 F 07/17/18 07:12 Pulse 79 07/17/18 07:12 Resp 15 07/17/18 07:12 BP 124/62 07/17/18 07:12 Pulse Ox 93 L 07/17/18 07:12 Intake & Output 07/16/18 07/17/18 07/17/18 18:59 06:59 18:59 Intake Total 900 1600 240 Output Total 750 425 Balance 150 1175 240 Intake: IV 900 Intake, IV Titration 1600 Amount Lactated Ringers 1,000 ml 1600 @ 100 mls/hr IV .Q10H ZEE Rx#:[id number] Oral 240 Output: Urine 700 425 Uretheral (Lott) 425 Estimated Blood Loss 50 Other: Voiding Method Indwelling Catheter Indwelling Catheter Indwelling Catheter # Bowel Movements 0 - Exam Head normocephalic Neck supple Lungs clear to auscultation bilaterally no wheezing or crackles Heart regular rate and rhythm S1-S2, no rub or gallop Abdomen is soft nontender nondistended positive bowel sounds no hepatosplenom egaly Extremities no edema. Left hip tender to palpation Neuro alert and orientated to 3 - Labs CBC & Chem 7: 07/17/18 07:49 07/17/18 07:49 Labs: Abnormal Lab Results - Last 24 Hours (Table) 07/16/18 07/16/18 07/16/18 Range/Units 08:02 16:54 20:14 RBC (4.30-5.90) m/uL Hgb (13.0-17.5) gm/dL Hct (39.0-53.0) % Carbon Dioxide (22-30) mmol/L BUN (9-20) mg/dL Glucose (74-99) mg/dL POC Glucose (mg/dL) 167 H 262 H (75-99) mg/dL Calcium (8.4-10.2) mg/dL Total Protein (6.3-8.2) g/dL Albumin (3.5-5.0) g/dL Vitamin D 25-Hydroxy 16.9 L (30.0-100.0) ng/mL 07/17/18 07/17/18 07/17/18 Range/Units 06:55 07:49 07:49 RBC 2.30 L (4.30-5.90) m/uL Hgb 7.1 L D (13.0-17.5) gm/dL Hct 21.6 L (39.0-53.0) % Carbon Dioxide 19 L (22-30) mmol/L BUN 25 H (9-20) mg/dL Glucose 194 H (74-99) mg/dL POC Glucose (mg/dL) 224 H (75-99) mg/dL Calcium 7.9 L (8.4-10.2) mg/dL Total Protein 5.4 L (6.3-8.2) g/dL Albumin 3.0 L (3.5-5.0) g/dL Vitamin D 25-Hydroxy (30.0-100.0) ng/mL Assessment and Plan Assessment: 1. Status postoperative fixation of the left basocervical hip fracture with intramedullary hip screw with Dr. Chavez due to fall. CT of hip completed showing acute nondisplaced noncommunicable left basocervical hip fracture with surrounding intramuscular edema. Patient is currently postop day 1. Patient currently on Lovenox for DVT prophylaxis and pain meds per orthopedic services. 2. History of B-cell lymphoma. Patient completed chemo in May 2015 3. Chronic systolic heart failure. Last 2-D echo completed in 2015 showing an EF of 25-30%. Repeat 2-D echo completed showing EF of 55-60%. Per cardiology patient is hemodynamically stable and in appropriate patient to undergo surgical intervention with increased risk due to his multiple comorbid conditions recommend cautious fluid administration intraoperative 4. Hyperkalemia. Potassium 5.8. Lisinopril on hold. Repeat potassium 4.7 5. Diabetes mellitus. Sliding scale insulin ordered 6. History of multiple falls. Will consult physical therapy for Post surgical rehab 7. History of smoking 8. History of hearing disorder 9. History of hyperlipidemia 10. History of essential hypertension. Home meds resumed. This problem hold due to hyperkalemia 11. History of Yassine fundoplication 12. Iron deficiency anemia and expected acute blood loss anemia. received 1 dose of IV iron. Hemoglobin 7.1 will give additional dose of IV iron today recheck today at 1400 13. Chronic kidney disease stage III patient reports he does follow with nephrology services 14. Elevated INR. INR 1.7. Patient received 1 g of vitamin K. Repeat INR 1.3. 15. Febrile. Patient having low-grade temps 99.5. Will order repeat urinary analysis and chest x-ray thank your for this consultation we'll continue to follow patient closely throughout stay Physical therapy consulted. Social consulted for ECF placement upon discharge I performed an examination of the patient and discussed their management with the Nurse Practitioner. I have reviewed the Nurse Practitioner's notes and agree with the documented findings and plan of care
--- NOTE | 2018-07-17 11:33 | P.PN ---
Subjective Progress Note Date: 07/17/18 This patient is a 78-year-old male with past medical history of B-cell lymphoma, chronic CHF, diabetes mellitus type 2, GERD, hypertension, hyperlipidemia, chronic kidney disease, and self-reported weakness secondary to chemotherapy presented to the [facility] ED this morning after sustaining a ground-level fall at home. The patient states he was walking out of the bathroom, and tripped over his own feet, and landed onto his buttocks. The patient states he experienced immediate pain in the left hip after the fall, therefore his called EMS, which transported him to [facility] ED. Upon arrival to [facility] ED, x-rays were taken of the left hip and the patient was found to have a femoral neck fracture. Computed tomography scan of the left hip was obtained, which revealed an acute nondisplaced non-comminuted left basicervical fracture. The patient was admitted under the care of Dr. Chavez, with a consult placed to internal medicine for medical management. Patient underwent operative fixation of the left basicervical hip fracture with an intramedullary hip screw on 07/16/[address] Chavez. Today's postoperative day #1. The patient states he is experiencing pain in the left hip. He states he has been up with physical therapy, and with the assistance of a walker. He denies additional complaints today. He denies chest pain, shortness of breath, nausea, vomiting. Vital signs stable. Patient examined bedside with Dr. Chavez. Objective - Vital Signs Vital signs: Vital Signs Temp 98.4 F 07/17/18 07:12 Pulse 79 07/17/18 07:12 Resp 15 07/17/18 07:12 BP 124/62 07/17/18 07:12 Pulse Ox 93 L 07/17/18 07:12 Intake & Output 07/16/18 07/17/18 07/17/18 18:59 06:59 18:59 Intake Total 900 1600 240 Output Total 750 425 Balance 150 1175 240 Intake: IV 900 Intake, IV Titration 1600 Amount Lactated Ringers 1,000 ml 1600 @ 100 mls/hr IV .Q10H ZEE Rx#:[id number] Oral 240 Output: Urine 700 425 Uretheral (Lott) 425 Estimated Blood Loss 50 Other: Voiding Method Indwelling Catheter Indwelling Catheter Indwelling Catheter # Bowel Movements 0 - Exam On examination, the patient is sitting up in the bedside chair in no apparent distress. He is alert and oriented 3. Family is bedside. On inspection of the left hip, there are surgical dressings in place. Dressing is mildly saturated with blood, dressing is intact. There is mild pain on palpation of the left hip. The patient is able to plantar flex and dorsiflex the ankle, and wiggle the toes without issue. The foot is warm and well-perfused with brisk capillary refill to toes. Sensation is intact to light touch of the dorsal and plantar foot, as well as the first dorsal webspace. Neurovascular is intact of the left lower extremity. - Labs CBC & Chem 7: 07/17/18 07:49 07/17/18 07:49 Labs: Abnormal Lab Results - Last 24 Hours (Table) 07/16/18 07/16/18 07/16/18 Range/Units 08:02 16:54 20:14 RBC (4.30-5.90) m/uL Hgb (13.0-17.5) gm/dL Hct (39.0-53.0) % Carbon Dioxide (22-30) mmol/L BUN (9-20) mg/dL Glucose (74-99) mg/dL POC Glucose (mg/dL) 167 H 262 H (75-99) mg/dL Calcium (8.4-10.2) mg/dL Total Protein (6.3-8.2) g/dL Albumin (3.5-5.0) g/dL Vitamin D 25-Hydroxy 16.9 L (30.0-100.0) ng/mL 07/17/18 07/17/18 07/17/18 Range/Units 06:55 07:49 07:49 RBC 2.30 L (4.30-5.90) m/uL Hgb 7.1 L D (13.0-17.5) gm/dL Hct 21.6 L (39.0-53.0) % Carbon Dioxide 19 L (22-30) mmol/L BUN 25 H (9-20) mg/dL Glucose 194 H (74-99) mg/dL POC Glucose (mg/dL) 224 H (75-99) mg/dL Calcium 7.9 L (8.4-10.2) mg/dL Total Protein 5.4 L (6.3-8.2) g/dL Albumin 3.0 L (3.5-5.0) g/dL Vitamin D 25-Hydroxy (30.0-100.0) ng/mL Assessment and Plan Assessment: Acute nondisplaced left basicervical femoral neck fracture status-post operative fixation with intramedullary hip screw on 07/16/18. Postoperative day #1. Postoperative anemia, hemoglobin 7.1 this morning. Plan: -Weight-bearing as tolerated on the left lower extremity with assistance of a walker or cane. Up with assistance only. - Will defer postoperative anemia treatment to internal medicine team. - Ice and elevate hip for swelling and pain control. - Vitamin D resulted 16.9, patient will be supplemented with vitamin D3, vitamin D2, and calcium carbonate. - Continue current pain control regimen. - Lovenox for DVT prophylaxis. - 2 doses of postoperative antibiotics complete. - Physical therapy for gait and balance training. - Appreciate internal medicine, cardiology, and pulmonology consults for medical management. - Anticipate discharge to an extended care facility. - Patient discussed with Dr. Chavez.
[2018-07-17 11:39] LABS: Glucose,Whole Blood 286 mg/dL (75-99)
[2018-07-17 12:00] LABS: Amorphous Sediment,Urine Rare /hpf; Appearance,Urine Cloudy (Clear); Bacteria,Urine Occasional /hpf; Bilirubin,Urine Negative (Negative); Blood,Urine Small (Negative); Color,Urine Yellow; Glucose,Urine (UA) 4+ (Negative); Ketones,Urine 1+ (Negative); Leukocyte Esterase,Urine Moderate (Negative); Mucus,Urine Occasional /hpf; Nitrite,Urine Negative (Negative); PH, Urine 5.5 (5.0-8.0); Protein,Urine 1+ (Negative); RBC,Urine 8 /hpf (0-5); Specific Gravity,Urine 1.024 (1.001-1.035); Squamous Epithelial Cell,Urine 1 /hpf (0-4); Urobilinogen,Urine <2.0 mg/dL (<2.0); WBC,Urine 43 /hpf (0-5)
--- NOTE | 2018-07-17 12:50 | P.PN ---
Subjective This is a pleasant 78-year-old male past medical history significant for hypertension, dyslipidemia, diabetes mellitus, Non-hodgkins lymphoma, chronic anemia, history of LV dysfunction 2016 while undergoing chemotherapy, carotid artery disease s/p endartectomy and chronic kidney disease. He presented to the hospital after suffering a mechanical trip and fall in his bedroom suffering an acute non-displaced non-comminuted left hip fracture and is scheduled to undergo surgery this afternoon. We have been asked to see him secondary to cardiac evaluation prior to surgery. He is seen and examined resting comfortably lying completely flat in bed in no acute distress. He denies symptoms of chest discomfort, shortness of breath, dizziness or palpitations. He complains of significant discomfort in the left hip. Echocardiogram has been requested and reveals preserved left ventricular systolic function with ejection fraction 55-60% with mild mitral regurgitation, mild tricuspid regurgitation and pulmonary hypertension with an RVSP of 57 mmHg. EKG on admission reveals sinus mechanism with flattened T-wave with no acute ST or T wave abnormalities noted. Chest x-ray reveals cardiomegaly with left basilar atelectasis. Laboratory data reviewed, WBC 6.5, hemoglobin 9.3, platelets 200, INR 1.7, potassium 4.7, sodium 139, creatinine 0.95 with a GFR 77. Current cardiac medications include atorvastatin 40 mg daily, carvedilol 3.125 mg daily, lisinopril 2.5 mg daily. Most recent stress test in the office was in 2015 with a Lexiscan stress test was negative for reversible cardiac ischemia. 07/17/2018 Patient is seen and examined resting comfortably in bed. He is postoperative day #1 of intramedullary hip screw placement secondary to left hip fracture. He denies symptoms of chest discomfort, shortness of breath, dizziness or palpitations. Laboratory data reviewed, WBC 6.0, hemoglobin 7.1, platelets 161, sodium 138, potassium 4.9, creatinine 0.98. Blood pressure 124/62 heart rate 79 afebrile maintaining oxygen saturation on room air. Currently he has maintained on carvedilol 3.125 mg twice a day. Lisinopril had been held on admission for hyperkalemia. He has been having a low grade temp and is complaining of burning at his catheter site. GENERAL: This is a 78-year-old male in no apparent distress at the time of my examination. HEENT: Head is atraumatic, normocephalic. Pupils are equal, round. Sclerae anicteric. Conjunctivae are clear. Mucous membranes of the mouth are moist. Neck is supple. There is no jugular venous distention. Right carotid bruit is heard, no bruit on the left. LUNGS: Clear to auscultation no wheezes, rales or rhonchi. No chest wall tenderness is noted on palpation or with deep breathing. HEART: Regular rate and rhythm without murmurs, rubs or gallops. S1 and S2 hear d. EXTREMITIES: No evidence of peripheral edema and no calf tenderness noted. ASSESSMENT Left hip fracture status post mechanical fall. There was no syncope or loss of consciousness. POD #1 intramedullary screw placement History of cardiomyopathy of unknown origin, suspect related to chemotherapy however unconfirmed. Hypertension Dyslipidemia Diabetes mellitus History of non-hodgkins lymphoma 2016 Peripheral vascular disease s/p left carotid endartectomy Chronic kidney disease History of anemia Pulmonary hypertension, RVSP 57 mmHg PLAN Resume lisinopril 2.5 mg PO daily. Ongoing medical management per primary care team or orthopedics. Follow up with Dr. Mackay upon discharge. We will continue to follow as needed. Nurse Practitioner note has been reviewed, I agree with a documented findings and plan of care. Patient was seen and examined. Objective - Vital Signs Vital signs: Vital Signs Temp 98.4 F 07/17/18 07:12 Pulse 79 07/17/18 07:12 Resp 15 07/17/18 07:12 BP 124/62 07/17/18 07:12 Pulse Ox 93 L 07/17/18 07:12 Intake & Output 07/16/18 07/17/18 07/17/18 18:59 06:59 18:59 Intake Total 900 1600 240 Output Total 750 425 Balance 150 1175 240 Intake: IV 900 Intake, IV Titration 1600 Amount Lactated Ringers 1,000 ml 1600 @ 100 mls/hr IV .Q10H ZEE Rx#:[id number] Oral 240 Output: Urine 700 425 Uretheral (Lott) 425 Estimated Blood Loss 50 Other: Voiding Method Indwelling Catheter Indwelling Catheter Indwelling Catheter # Bowel Movements 0 - Labs CBC & Chem 7: 07/17/18 07:49 07/17/18 07:49 Labs: Abnormal Lab Results - Last 24 Hours (Table) 07/16/18 07/16/1807/16/19 Range/Units 08:02 16:54 20:14 RBC (4.30-5.90) m/uL Hgb (13.0-17.5) gm/dL Hct (39.0-53.0) % Carbon Dioxide (22-30) mmol/L BUN (9-20) mg/dL Glucose (74-99) mg/dL POC Glucose (mg/dL) 167 H 262 H (75-99) mg/dL Calcium (8.4-10.2) mg/dL Total Protein (6.3-8.2) g/dL Albumin (3.5-5.0) g/dL Vitamin D 25-Hydroxy 16.9 L (30.0-100.0) ng/mL Urine Protein (Negative) Urine Glucose (UA) (Negative) Urine Ketones (Negative) Urine Blood (Negative) Ur Leukocyte Esterase (Negative) Urine RBC (0-5) /hpf Urine WBC (0-5) /hpf Amorphous Sediment (None) /hpf Urine Bacteria (None) /hpf Urine Mucus (None) /hpf 07/17/18 07/17/18 07/17/18 Range/Units 06:55 07:49 07:49 RBC 2.30 L (4.30-5.90) m/uL Hgb 7.1 L D (13.0-17.5) gm/dL Hct 21.6 L (39.0-53.0) % Carbon Dioxide 19 L (22-30) mmol/L BUN 25 H (9-20) mg/dL Glucose 194 H (74-99) mg/dL POC Glucose (mg/dL) 224 H (75-99) mg/dL Calcium 7.9 L (8.4-10.2) mg/dL Total Protein 5.4 L (6.3-8.2) g/dL Albumin 3.0 L (3.5-5.0) g/dL Vitamin D 25-Hydroxy (30.0-100.0) ng/mL Urine Protein (Negative) Urine Glucose (UA) (Negative) Urine Ketones (Negative) Urine Blood (Negative) Ur Leukocyte Esterase (Negative) Urine RBC (0-5) /hpf Urine WBC (0-5) /hpf Amorphous Sediment (None) /hpf Urine Bacteria (None) /hpf Urine Mucus (None) /hpf 07/17/18 07/17/18 Range/Units 11:17 11:37 RBC (4.30-5.90) m/uL Hgb (13.0-17.5) gm/dL Hct (39.0-53.0) % Carbon Dioxide (22-30) mmol/L BUN (9-20) mg/dL Glucose (74-99) mg/dL POC Glucose (mg/dL) 286 H (75-99) mg/dL Calcium (8.4-10.2) mg/dL Total Protein (6.3-8.2) g/dL Albumin (3.5-5.0) g/dL Vitamin D 25-Hydroxy (30.0-100.0) ng/mL Urine Protein 1+ H (Negative) Urine Glucose (UA) 4+ H (Negative) Urine Ketones 1+ H (Negative) Urine Blood Small H (Negative) Ur Leukocyte Esterase Moderate H (Negative) Urine RBC 8 H (0-5) /hpf Urine WBC 43 H (0-5) /hpf Amorphous Sediment Rare H (None) /hpf Urine Bacteria Occasional H (None) /hpf Urine Mucus Occasional H (None) /hpf
[2018-07-17] MEDS: MULTIVITAMINS, THERA 1 EACH TAB PO SCH (13:08)
[2018-07-17] MEDS: ATORVASTATIN 40 MG TAB PO SCH (13:08)
[2018-07-17 14:28] LABS: Basophils % (A) 0 %; Eosinophils % (A) 1 %; Lymphocytes # (A) 0.8 k/uL (1.0-4.8); Lymphocytes % (A) 15 %; MCH 30.9 pg (25.0-35.0); MCHC 32.3 g/dL (31.0-37.0); MCV 95.6 fL (80.0-100.0); Mean Platelet Volume 8.4; Monocytes # (A) 0.4 k/uL (0-1.0); Monocytes % (A) 8 %; Neutrophils # (A) 4.3 k/uL (1.3-7.7); Neutrophils % (A) 75 %; Platelet Count 154 k/uL (150-450); RDW 14.6 % (11.5-15.5); WBC 5.8 k/uL (3.8-10.6)
--- NOTE | 2018-07-17 14:32 | XR ---
EXAMINATION TYPE: XR chest 2V DATE OF EXAM: 07/17/2018 COMPARISON: Prior chest x-ray dated 07/14/2018 HISTORY: Shortness of breath, abnormal chest x-ray TECHNIQUE: Frontal and lateral views of the chest are obtained. FINDINGS: There is blunting of the posterior costophrenic angles. Heart size is likely stable. No ev ident airspace disease. No evident pneumothorax. Arthropathy noted in the shoulders. IMPRESSION: Difficult to exclude small effusion, basilar atelectasis
[2018-07-17 14:37] LABS: HGB 6.5 gm/dL (13.0-17.5); INR 1.4 (<1.2); Prothrombin Time 14.4 sec (9.0-12.0)
[2018-07-17 14:38] LABS: HCT 20.1 % (39.0-53.0)
[2018-07-17 16:57] LABS: Glucose,Whole Blood 254 mg/dL (75-99)
[2018-07-17] MEDS: metFORMIN 500 MG TAB PO SCH (17:02)
[2018-07-17] MEDS: PIOGLITAZONE 15 MG TAB PO SCH (17:02)
--- NOTE | 2018-07-17 18:01 | P.PN ---
Subjective Progress Note Date: 07/17/18 Principal diagnosis: left hip fracture This is a 78-year-old white male patient of Dr. Tillman with past medical history of B cell lymphoma, chronic congestive heart failure with systolic dysfunction, with a baseline ejection fraction of 25-30%, diabetes mellitus type 2, GERD/ref lux, hearing disorder, hypertension, hyperlipidemia, chronic kidney disease, that apparently has been functionally declining at home, and patient has been having issues with his gait, balance. Patient has been unsteady on his feet, weak, and apparently his knees gave out and he has been experiencing falls. On 07/14/2018 patient sustained a fall at home, he tripped and fell directly onto his buttocks and felt immediate pain in the left hip area. His was at the bedside, the patient did not experience loss of consciousness. Advanced emergency department for evaluation, and x-ray of the pelvis and left hip revealed subtle subcapital femoral neck fracture that was difficult to exclude. Left hip CT was completed, and showed acute nondisplaced non-comminuted left basocervical hip fracture with surrounding intramuscular edema. Chest x-ray showed lucency along the trachea, cardiomegaly with left basilar atelectasis. CT of the neck was completed and showed no evidence of pneumomediastinum in the superior visualized portions of the mediastinum, the lucency surrounding the trachea on the prior chest x-ray dated 07/14/2018 represent prominent. There were numerous paraseptal blebs with moderate emphysematous changes of the visualized lung apices. EKG showed sinus rhythm with occasional PACs. From pulmonary perspective patient denies any difficulty breathing, room air pulse ox is 96%, vital signs are stable, we were asked to see the patient in evaluation for pulmonary clearance for the left hip surgery On 07/15/2018 patient seen in follow-up on medical surgical floor. He is awake and alert, still haven't quite a bit of pain with any range of motion of the left hip. Denies any shortness of breath, he is on room air, the pulse ox of 91-94%, afebrile, respirations are even and nonlabored nonlabored, lung sounds are clear. Patient is scheduled for a closed reduction of the left hip and insertion of a TFN nail by Dr. Chavez today at 3:00 On 07/17/2018 patient was seen and follow-up on medical surgical floor. He is awake and alert, he is resting comfortably in bed, his lung sounds are clear, he denies any shortness of breath, denies any chest pain, vital signs are stable, room air pulse ox is 99%, patient is afebrile, today's labs have been reviewed, and showed white blood cell count of 5.8, hemoglobin of 6.5, INR is 1.4. Left hip incision is covered with a surgical dressing, clean dry and intact, neurovascular status is intact, distal pulses are intact. Objective - Vital Signs Vital signs: Vital Signs Temp 98.7 F 07/17/18 17:19 Pulse 83 07/17/18 17:19 Resp 16 07/17/18 17:19 BP 123/65 07/17/18 17:19 Pulse Ox 99 07/17/18 17:19 Intake & Output 07/16/18 07/17/18 07/17/18 18:59 06:59 18:59 Intake Total 900 1600 1280 Output Total 750 425 Balance 150 1175 1280 Intake: IV 900 Intake, IV Titration 1600 800 Amount Lactated Ringers 1,000 ml 1600 800 @ 100 mls/hr IV .Q10H [facility] Rx#:[id number] Oral 480 Blood Product 0 Rc Pheresis 2 As3 Unit 0 [id number] Output: Urine 700 425 Uretheral (Lott) 425 Estimated Blood Loss 50 Other: Voiding Method Indwelling Catheter Indwelling Catheter Indwelling Catheter # Bowel Movements 0 - Exam GENERAL EXAM: Alert, pleasant, 78-year-old white male, comfortable in no apparent distress. HEAD: Normocephalic/atraumatic. EYES: Normal reaction of pupils, equal size. Conjunctiva pink, sclera white. NOSE: Clear with pink turbinates. THROAT: No erythema or exudates. NECK: No masses, no JVD, no thyroid enlargement, no adenopathy. CHEST: No chest wall deformity. Symmetrical expansion. LUNGS: Equal air entry with no crackles, wheeze, rhonchi or dullness. CVS: Regular rate and rhythm, normal S1 and S2, no gallops, no murmurs, no rubs ABDOMEN: Soft, nontender. No hepatosplenomegaly, normal bowel sounds, no guarding or rigidity. EXTREMITIES: No clubbing, no edema, no cyanosis, 2+ pulses and upper and lower extremities. MUSCULOSKELETAL: Muscle strength and tone normal. Left hip pain with range of motion, neurovascular status is intact, distal pulses are intact, left hip tenderness, without rotation or shortening. SPINE: No scoliosis or deformity SKIN: No rashes CENTRAL NERVOUS SYSTEM: Alert and oriented -3. No focal deficits, tone is normal in all 4 extremities. PSYCHIATRIC: Alert and oriented -3. Appropriate affect. Intact judgment and insight. - Labs CBC & Chem 7: 07/17/18 14:01 07/17/18 07:49 Labs: Abnormal Lab Results - Last 24 Hours (Table) 07/15/18 07/16/18 07/16/18 Range/Units 13:15 08:02 20:14 RBC (4.30-5.90) m/uL Hgb (13.0-17.5) gm/dL Hct (39.0-53.0) % Lymphocytes # (1.0-4.8) k/uL PT (9.0-12.0) sec INR (<1.2) Carbon Dioxide (22-30) mmol/L BUN (9-20) mg/dL Glucose (74-99) mg/dL POC Glucose (mg/dL) 262 H (75-99) mg/dL Calcium (8.4-10.2) mg/dL Total Protein (6.3-8.2) g/dL Albumin (3.5-5.0) g/dL Vitamin D 25-Hydroxy 16.9 L (30.0-100.0) ng/mL Urine Protein (Negative) Urine Glucose (UA) (Negative) Urine Ketones (Negative) Urine Blood (Negative) Ur Leukocyte Esterase (Negative) Urine RBC (0-5) /hpf Urine WBC (0-5) /hpf Amorphous Sediment (None) /hpf Urine Bacteria (None) /hpf Urine Mucus (None) /hpf Crossmatch See Detail 07/17/18 07/17/18 07/17/18 Range/Units 06:55 07:49 07:49 RBC 2.30 L (4.30-5.90) m/uL Hgb 7.1 L D (13.0-17.5) gm/dL Hct 21.6 L (39.0-53.0) % Lymphocytes # (1.0-4.8) k/uL PT (9.0-12.0) sec INR (<1.2) Carbon Dioxide 19 L (22-30) mmol/L BUN 25 H (9-20) mg/dL Glucose 194 H (74-99) mg/dL POC Glucose (mg/dL) 224 H (75-99) mg/dL Calcium 7.9 L (8.4-10.2) mg/dL Total Protein 5.4 L (6.3-8.2) g/dL Albumin 3.0 L (3.5-5.0) g/dL Vitamin D 25-Hydroxy (30.0-100.0) ng/mL Urine Protein (Negative) Urine Glucose (UA) (Negative) Urine Ketones (Negative) Urine Blood (Negative) Ur Leukocyte Esterase (Negative) Urine RBC (0-5) /hpf Urine WBC (0-5) /hpf Amorphous Sediment (None) /hpf Urine Bacteria (None) /hpf Urine Mucus (None) /hpf Crossmatch 07/17/18 07/17/18 07/17/18 Range/Units 07:49 11:17 11:37 RBC (4.30-5.90) m/uL Hgb (13.0-17.5) gm/dL Hct (39.0-53.0) % Lymphocytes # (1.0-4.8) k/uL PT 13.5 H (9.0-12.0) sec INR 1.3 H (<1.2) Carbon Dioxide (22-30) mmol/L BUN (9-20) mg/dL Glucose (74-99) mg/dL POC Glucose (mg/dL) 286 H (75-99) mg/dL Calcium (8.4-10.2) mg/dL Total Protein (6.3-8.2) g/dL Albumin (3.5-5.0) g/dL Vitamin D 25-Hydroxy (30.0-100.0) ng/mL Urine Protein 1+ H (Negative) Urine Glucose (UA) 4+ H (Negative) Urine Ketones 1+ H (Negative) Urine Blood Small H (Negative) Ur Leukocyte Esterase Moderate H (Negative) Urine RBC 8 H (0-5) /hpf Urine WBC 43 H (0-5) /hpf Amorphous Sediment Rare H (None) /hpf Urine Bacteria Occasional H (None) /hpf Urine Mucus Occasional H (None) /hpf Crossmatch 07/17/18 07/17/18 07/17/18 Range/Units 14:01 14:01 16:54 RBC 2.10 L (4.30-5.90) m/uL Hgb 6.5 L* (13.0-17.5) gm/dL Hct 20.1 L (39.0-53.0) % Lymphocytes # 0.8 L (1.0-4.8) k/uL PT 14.4 H (9.0-12.0) sec INR 1.4 H (<1.2) Carbon Dioxide (22-30) mmol/L BUN (9-20) mg/dL Glucose (74-99) mg/dL POC Glucose (mg/dL) 254 H (75-99) mg/dL Calcium (8.4-10.2) mg/dL Total Protein (6.3-8.2) g/dL Albumin (3.5-5.0) g/dL Vitamin D 25-Hydroxy (30.0-100.0) ng/mL Urine Protein (Negative) Urine Glucose (UA) (Negative) Urine Ketones (Negative) Urine Blood (Negative) Ur Leukocyte Esterase (Negative) Urine RBC (0-5) /hpf Urine WBC (0-5) /hpf Amorphous Sediment (None) /hpf Urine Bacteria (None) /hpf Urine Mucus (None) /hpf Crossmatch Assessment and Plan Plan: Assessment: #1. Left hip acute nondisplaced, non-comminuted hip fracture, patient is scheduled for closed reduction of the left hip and insertion of a TFN nail today on 07/15/[address] Chavez, postop day 2 #2. History of B-cell lymphoma, completed chemotherapy in May 2015 #3. History of chronic congestive heart failure with systolic dysfunction, with the latest echo showing EF of 25-30% #4. Diabetes mellitus #5. Generalized weakness, gait dysfunction, patient has been having multiple falls #6. History of nicotine dependence, currently in remission #7. History of hypertension, hyperlipidemia #8. Chronic kidney disease stage III #9. Recent history of left fifth metacarpal fracture #10. Postoperative blood loss anemia, an expected outcome of surgery Plan: Continue encouraging deep breathing and coughing, today's chest x-ray has been reviewed and shows a small pleural effusion, basilar atelectasis, no signs are stable, patient is maintaining good oxygenation on room air. Patient is stable from pulmonary perspective, will see on as-needed basis. I performed a history & physical examination of the patient and discussed their management with my nurse practitioner, Joanne Camp. I reviewed the nurse practitioner's note and agree with the documented findings and plan of care. Lung sounds are positive for clear. The findings and the impression was discussed with the patient. I attest to the documentation by the nurse practitioner. Time with Patient: Less than 30
[2018-07-17 20:12] LABS: Glucose,Whole Blood 212 mg/dL (75-99)
[2018-07-17 20:44] LABS: HCT 21.1 % (39.0-53.0); HGB 7.3 gm/dL (13.0-17.5); MCH 31.6 pg (25.0-35.0); MCHC 34.7 g/dL (31.0-37.0); MCV 91.1 fL (80.0-100.0); Mean Platelet Volume 8.5; Platelet Count 152 k/uL (150-450); Poikilocytosis Slight; RBC 2.32 m/uL (4.30-5.90); RDW 14.8 % (11.5-15.5); WBC 6.5 k/uL (3.8-10.6)
[2018-07-17] MEDS: SENNOSIDES-DOCUSATE SODIUM 1 EACH TAB PO SCH (21:55)
[2018-07-18] MEDS: HYDROcodone/APAP 5-325MG 1 EACH TAB PO PRN ×4 (00:43→13:41)
[2018-07-18] MEDS: LACTATED RINGERS 1,000 ML IV SCH ×4 (00:52→22:46)
[2018-07-18 06:52] LABS: Glucose,Whole Blood 224 mg/dL (75-99)
[2018-07-18] MEDS: CARVEDILOL 3.125 MG TAB PO SCH (07:09)
[2018-07-18] MEDS: SODIUM BICARBONATE TAB 650 MG TAB PO SCH (07:09)
[2018-07-18] MEDS: LISINOPRIL 2.5 MG TAB PO SCH (07:09)
[2018-07-18] MEDS: ATORVASTATIN 40 MG TAB PO SCH (07:09)
[2018-07-18] MEDS: metFORMIN 500 MG TAB PO SCH ×2 (07:10→16:50)
[2018-07-18] MEDS: PANTOPRAZOLE 40 MG TABLET PO SCH (07:10)
[2018-07-18] MEDS: PIOGLITAZONE 15 MG TAB PO SCH (07:10)
[2018-07-18] MEDS: PRIMIDONE 250 MG TAB PO SCH ×2 (07:10→16:51)
[2018-07-18] MEDS: ENOXAPARIN 30 MG/0.3 ML SYRINGE SQ SCH (07:11)
[2018-07-18] MEDS: CALCIUM CARBONATE 500 MG CHEWABLE PO SCH (07:11)
[2018-07-18] MEDS: INSULIN ASPART (NovoLOG) 100 UNIT/ML VIAL SQ SCH ×4 (07:11→21:07)
[2018-07-18 08:15] LABS: Basophils % (A) 0 %; Eosinophils # (A) 0.1 k/uL (0-0.7); Eosinophils % (A) 1 %; HCT 21.8 % (39.0-53.0); HGB 7.1 gm/dL (13.0-17.5); INR 1.2 (<1.2); Lymphocytes # (A) 0.9 k/uL (1.0-4.8); Lymphocytes % (A) 16 %; MCH 30.6 pg (25.0-35.0); MCHC 32.3 g/dL (31.0-37.0); MCV 94.8 fL (80.0-100.0); Mean Platelet Volume 8.2; Monocytes # (A) 0.4 k/uL (0-1.0); Monocytes % (A) 6 %; Neutrophils # (A) 4.3 k/uL (1.3-7.7); Neutrophils % (A) 74 %; Platelet Count 147 k/uL (150-450); Prothrombin Time 12.5 sec (9.0-12.0); WBC 5.8 k/uL (3.8-10.6)
[2018-07-18 08:17] LABS: Albumin 2.8 g/dL (3.5-5.0); Potassium 3.9 mmol/L (3.5-5.1); Total Bilirubin 0.4 mg/dL (0.2-1.3); Total Protein 5.1 g/dL (6.3-8.2)
[2018-07-18] MEDS ORDERED: CIPROFLOXACIN HCL 250 MG TAB PO SCH (09:00)
--- NOTE | 2018-07-18 10:26 | P.PN ---
Subjective Progress Note Date: 07/18/18 this is a 78 year old male patient of Dr. Tee. Patient reports that he tripped and fell directly onto his buttocks and immediately had left hip pain. Patient's is at bedside. Does report that patient is chronically weak but accurately tripped during this occurrence. Patient and denied any loss of consciousness or hitting of head. CT completed showing acute nondisplaced noncomminuted left basocervical hip fracture with surrounding intramuscular edema. Patient has past medical history of B-cell lymphoma in which she received chemo and in May 2015. Additional medical history includes CHF, last 2-D echo was in 2015 showing EF of 25-30%. Patient and report that he follows with cardiology services. Additional medical history includes GERD, diabetes mellitus, high disorder, hearing disorder, hyperlipidemia, essential hypertension, osteoarthritis, prostate disorder and renal disease in which he follows with Dr. diaz. EKG, chest x-ray and cardiology services consulted for preop clearance. At that time patient denies chest pain or shortness breath. Patient denies nausea vomiting or diarrhea. Patient denies any urinary burning or frequency. Patient denies any history of myocardial infarction or heart attack . Patient denies any history of blood clots. Patient doesn't a past medical history of heart failure with low ejection fraction. Cardiology services consulted on 07/15/2018 patient is alert and oriented 3. Patient was cleared by pulmonary services for surgery. Awaiting cardiac clearance prior to approval for surgery. Patient does have history of low ejection fraction. Repeat 2-D echo has been ordered per cardiology. At this time patient is still complaining of some hip pain. Patient denies chest pain or shortness of breath. Patient denies nausea vomiting or diarrhea. Patient denies any urinary burning or frequency On 07/16/2018 patient is alert and oriented 3. Patient was evaluated by pulmonary and cardiac services. Repeat 2-D echo completed EF of 55-60%. INR elevated at 1.7. Patient did receive 1 mg vitamin K plus IV iron. Plans for left hip arthoplasty today. At this time patient denies chest pain or shortness breath. Patient denies nausea vomiting or diarrhea. Patient denies any urinary burning or frequency On 07/17/2018 patient is alert and oriented 3. Patient status post operative fixation of the left basocervical hip fracture with intramedullary hip screw with Dr. Chavez. Today patient is currently resting comfortably in chair. Patient did have a low-grade temp. Will order urinary analysis and chest x-ray. Agency with a also a 7.1. Patient has known iron deficiency anemia. We'll give 1 dose of IV iron and recheck hemoglobin. At this time patient is complaining of some pain to hip. Patient denies chest pain or shortness breath or patient denies nausea vomiting or diarrhea. Patient denies any urinary burning or frequency. On 07/18/2018 patient is alert and oriented 3. Patient is postop day 2. Patient is currently sitting up in chair still complaining of some left hip pain. Patient did receive 1 unit of PRBCs for low hemoglobin yesterday. Patient's globin this a.m. 7.1. Will order stool for occult blood and one more unit of PRBCs. Patient also positive for urinary tract infection. Patient started on Cipro and urine culture has been ordered. At this time patient denies shortness of breath. Patient denies nausea vomiting or diarrhea. Patient denies any urinary burning or frequency. Objective - Vital Signs Vital signs: Vital Signs Temp 98.4 F 07/18/18 07:05 Pulse 78 07/18/18 07:05 Resp 16 07/18/18 07:05 BP 123/65 07/18/18 07:05 Pulse Ox 93 L 07/18/18 07:05 Intake & Output 07/17/18 07/18/18 07/18/18 18:59 06:59 18:59 Intake Total 1830 Output Total 600 Balance 1830 -600 Intake: Intake, IV Titration 800 Amount Lactated Ringers 1,000 ml 800 @ 100 mls/hr IV .[facility]10H [facility] Rx#:[id number] Oral 720 Blood Product 310 Rc Pheresis 2 As3 Unit 310 [id number] Output: Urine 600 Uretheral (Lott) 600 Other: Voiding Method Indwelling Catheter Indwelling Catheter Indwelling Catheter # Bowel Movements 0 - Exam Head normocephalic Neck supple Lungs clear to auscultation bilaterally no wheezing or crackles Heart regular rate and rhythm S1-S2, no rub or gallop Abdomen is soft nontender nondistended positive bowel sounds no hepatos plenomegaly Extremities no edema. Left hip tender to palpation Neuro alert and orientated to 3 - Labs CBC & Chem 7: 07/18/18 07:33 07/18/18 07:33 Labs: Abnormal Lab Results - Last 24 Hours (Table) 07/15/18 07/17/18 07/17/18 Range/Units 13:15 07:49 11:17 RBC (4.30-5.90) m/uL Hgb (13.0-17.5) gm/dL Hct (39.0-53.0) % Plt Count (150-450) k/uL Lymphocytes # (1.0-4.8) k/uL PT 13.5 H (9.0-12.0) sec INR 1.3 H (<1.2) Sodium (137-145) mmol/L Carbon Dioxide (22-30) mmol/L BUN (9-20) mg/dL Glucose (74-99) mg/dL POC Glucose (mg/dL) (75-99) mg/dL Calcium (8.4-10.2) mg/dL ALT (21-72) U/L Total Protein (6.3-8.2) g/dL Albumin (3.5-5.0) g/dL Urine Protein 1+ H (Negative) Urine Glucose (UA) 4+ H (Negative) Urine Ketones 1+ H (Negative) Urine Blood Small H (Negative) Ur Leukocyte Esterase Moderate H (Negative) Urine RBC 8 H (0-5) /hpf Urine WBC 43 H (0-5) /hpf Amorphous Sediment Rare H (None) /hpf Urine Bacteria Occasional H (None) /hpf Urine Mucus Occasional H (None) /hpf Crossmatch See Detail 07/17/18 07/17/18 07/17/18 Range/Units 11:37 14:01 14:01 RBC 2.10 L (4.30-5.90) m/uL Hgb 6.5 L* (13.0-17.5) gm/dL Hct 20.1 L (39.0-53.0) % Plt Count (150-450) k/uL Lymphocytes # 0.8 L (1.0-4.8) k/uL PT 14.4 H (9.0-12.0) sec INR 1.4 H (<1.2) Sodium (137-145) mmol/L Carbon Dioxide (22-30) mmol/L BUN (9-20) mg/dL Glucose (74-99) mg/dL POC Glucose (mg/dL) 286 H (75-99) mg/dL Calcium (8.4-10.2) mg/dL ALT (21-72) U/L Total Protein (6.3-8.2) g/dL Albumin (3.5-5.0) g/dL Urine Protein (Negative) Urine Glucose (UA) (Negative) Urine Ketones (Negative) Urine Blood (Negative) Ur Leukocyte Esterase (Negative) Urine RBC (0-5) /hpf Urine WBC (0-5) /hpf Amorphous Sediment (None) /hpf Urine Bacteria (None) /hpf Urine Mucus (None) /hpf Crossmatch 07/17/18 07/17/18 07/17/18 Range/Units 16:54 20:09 20:11 RBC 2.32 L (4.30-5.90) m/uL Hgb 7.3 L (13.0-17.5) gm/dL Hct 21.1 L (39.0-53.0) % Plt Count (150-450) k/uL Lymphocytes # (1.0-4.8) k/uL PT (9.0-12.0) sec INR (<1.2) Sodium (137-145) mmol/L Carbon Dioxide (22-30) mmol/L BUN (9-20) mg/dL Glucose (74-99) mg/dL POC Glucose (mg/dL) 254 H 212 H (75-99) mg/dL Calcium (8.4-10.2) mg/dL ALT (21-72) U/L Total Protein (6.3-8.2) g/dL Albumin (3.5-5.0) g/dL Urine Protein (Negative) Urine Glucose (UA) (Negative) Urine Ketones (Negative) Urine Blood (Negative) Ur Leukocyte Esterase (Negative) Urine RBC (0-5) /hpf Urine WBC (0-5) /hpf Amorphous Sediment (None) /hpf Urine Bacteria (None) /hpf Urine Mucus (None) /hpf Crossmatch 07/18/18 07/18/18 07/18/18 Range/Units 06:51 07:33 07:33 RBC 2.30 L (4.30-5.90) m/uL Hgb 7.1 L (13.0-17.5) gm/dL Hct 21.8 L (39.0-53.0) % Plt Count 147 L (150-450) k/uL Lymphocytes # 0.9 L (1.0-4.8) k/uL PT (9.0-12.0) sec INR (<1.2) Sodium 136 L (137-145) mmol/L Carbon Dioxide 21 L (22-30) mmol/L BUN 27 H (9-20) mg/dL Glucose 196 H (74-99) mg/dL POC Glucose (mg/dL) 224 H (75-99) mg/dL Calcium 8.0 L (8.4-10.2) mg/dL ALT 20 L (21-72) U/L Total Protein 5.1 L (6.3-8.2) g/dL Albumin 2.8 L (3.5-5.0) g/dL Urine Protein (Negative) Urine Glucose (UA) (Negative) Urine Ketones (Negative) Urine Blood (Negative) Ur Leukocyte Esterase (Negative) Urine RBC (0-5) /hpf Urine WBC (0-5) /hpf Amorphous Sediment (None) /hpf Urine Bacteria (None) /hpf Urine Mucus (None) /hpf Crossmatch 07/18/18 Range/Units 07:33 RBC (4.30-5.90) m/uL Hgb (13.0-17.5) gm/dL Hct (39.0-53.0) % Plt Count (150-450) k/uL Lymphocytes # (1.0-4.8) k/uL PT 12.5 H (9.0-12.0) sec INR 1.2 H (<1.2) Sodium (137-145) mmol/L Carbon Dioxide (22-30) mmol/L BUN (9-20) mg/dL Glucose (74-99) mg/dL POC Glucose (mg/dL) (75-99) mg/dL Calcium (8.4-10.2) mg/dL ALT (21-72) U/L Total Protein (6.3-8.2) g/dL Albumin (3.5-5.0) g/dL Urine Protein (Negative) Urine Glucose (UA) (Negative) Urine Ketones (Negative) Urine Blood (Negative) Ur Leukocyte Esterase (Negative) Urine RBC (0-5) /hpf Urine WBC (0-5) /hpf Amorphous Sediment (None) /hpf Urine Bacteria (None) /hpf Urine Mucus (None) /hpf Crossmatch Assessment and Plan Assessment: 1. Status postoperative fixation of the left basocervical hip fracture with in tramedullary hip screw with Dr. Chavez due to fall. CT of hip completed showing acute nondisplaced noncommunicable left basocervical hip fracture with surrounding intramuscular edema. Patient is currently postop day 2. Patient currently on Lovenox for DVT prophylaxis and pain meds per orthopedic services. 2. History of B-cell lymphoma. Patient completed chemo in May 2015 3. Chronic systolic heart failure. Last 2-D echo completed in 2015 showing an EF of 25-30%. Repeat 2-D echo completed showing EF of 55-60%. Per cardiology patient is hemodynamically stable and in appropriate patient to undergo surgical intervention with increased risk due to his multiple comorbid conditions recommend cautious fluid administration intraoperative 4. Hyperkalemia. Potassium 5.8. Lisinopril on hold. Repeat potassium 4.7 5. Diabetes mellitus. Sliding scale insulin ordered 6. History of multiple falls. Will consult physical therapy for Post surgical rehab 7. History of smoking 8. History of hearing disorder 9. History of hyperlipidemia 10. History of essential hypertension. Home meds resumed. This problem hold due to hyperkalemia 11. History of Yassine fundoplication 12. Iron deficiency anemia and expected acute blood loss anemia. received 1 dose of IV iron. Patient received 1 unit of PRBCs for hemoglobin of 6.5. Patient's overall remains low at 7.1 will given an additional 1 unit of PRBCs and order stool for occult blood 13. Chronic kidney disease stage III patient reports he does follow with nephrology services 14. Elevated INR. INR 1.7. Patient received 1 g of vitamin K. Repeat INR 1.3. 15. Urinary tract infection. Patient started on Cipro. Urine culture ordered thank your for this consultation we'll continue to follow patient closely throughout stay Physical therapy consulted. Discharge plan to [facility] when medically stable I performed an examination of the patient and discussed their management with the Nurse Practitioner. I have reviewed the Nurse Practitioner's notes and agree with the documented findings and plan of care
[2018-07-18 10:58] LABS: Glucose,Whole Blood 171 mg/dL (75-99)
[2018-07-18 11:23] LABS: Glucose,Whole Blood 263 mg/dL (75-99)
[2018-07-18] MEDS: MULTIVITAMINS, THERA 1 EACH TAB PO SCH (11:46)
[2018-07-18] MEDS: CHOLECALCIFEROL 1,000 UNIT TAB PO SCH (11:47)
[2018-07-18] MEDS: HYDROmorphone 0.5 MG/0.5 ML SYRINGE IVP PRN ×2 (14:13→21:47)
--- NOTE | 2018-07-18 15:11 | P.PN ---
Subjective Progress Note Date: 07/18/18 This patient is a 78-year-old male with past medical history of B-cell lymphoma, chronic CHF, diabetes mellitus type 2, GERD, hypertension, hyperlipidemia, chronic kidney disease, and self-reported weakness secondary to chemotherapy presented to the [facility] ED this morning after sustaining a ground-level fall at home. The patient states he was walking out of the bathroom, and tripped over his own feet, and landed onto his buttocks. The patient states he experienced immediate pain in the left hip after the fall, therefore his called EMS, which transported him to [facility] ED. Upon arrival to [facility] ED, x-rays were taken of the left hip and the patient was found to have a femoral neck fracture. Computed tomography scan of the left hip was obtained, which revealed an acute nondisplaced non-comminuted left basicervical fracture. The patient was admitted under the care of Dr. Chavez, with a consult placed to internal medicine for medical management. Patient underwent operative fixation of the left basicervical hip fracture with an intramedullary hip screw on 07/16/[address] Chavez. Today's postoperative day #2. The patient states denies current hip pain. He states he has been up with physical therapy, and with the assistance of a walker. He state he experiences pain in the hip when he ambulates. He denies additional complaints today. He denies chest pain, shortness of breath, nausea, vomiting. Vital signs stable. Objective - Vital Signs Vital signs: Vital Signs Temp 98.2 F 07/18/18 13:43 Pulse 78 07/18/18 07:05 Resp 16 07/18/18 07:05 BP 128/63 07/18/18 13:43 Pulse Ox 93 L 07/18/18 07:05 Intake & Output 07/17/18 07/18/18 07/18/18 18:59 06:59 18:59 Intake Total 1830 0 Output Total 600 Balance 1830 -600 0 Intake: Intake, IV Titration 800 Amount Lactated Ringers 1,000 ml 800 @ 100 mls/hr IV .Q10H ZEE Rx#:[id number] Oral 720 Blood Product 310 0 Rc As-3 Unit 0 [id number] Rc Pheresis 2 As3 Unit 310 [id number] Output: Urine 600 Uretheral (Lott) 600 Other: Voiding Method Indwelling Catheter Indwelling Catheter Indwelling Catheter # Voids 0 # Bowel Movements 0 0 - Exam On examination, the patient is sitting up in bed in no apparent distress. He is alert and oriented 3. On inspection of the left hip, there are surgical dressings in place. Dressing is clean, dry, intact. There is mild pain on palpation of the left hip. The patient is able to plantar flex and dorsiflex the ankle, and wiggle the toes without issue. The foot is warm and well-perfused with brisk capillary refill of toes. Sensation is intact to light touch of the dorsal and plantar foot, as well as the first dorsal webspace. Neurovascular is intact of the left lower extremity. - Labs CBC & Chem 7: 07/18/18 07:33 07/18/18 07:33 Labs: Abnormal Lab Results - Last 24 Hours (Table) 07/15/18 07/16/18 07/17/18 Range/Units 13:15 14:29 16:54 RBC (4.30-5.90) m/uL Hgb (13.0-17.5) gm/dL Hct (39.0-53.0) % Plt Count (150-450) k/uL Lymphocytes # (1.0-4.8) k/uL PT (9.0-12.0) sec INR (<1.2) Sodium (137-145) mmol/L Carbon Dioxide (22-30) mmol/L BUN (9-20) mg/dL Glucose (74-99) mg/dL POC Glucose (mg/dL) 171 H 254 H (75-99) mg/dL Calcium (8.4-10.2) mg/dL ALT (21-72) U/L Total Protein (6.3-8.2) g/dL Albumin (3.5-5.0) g/dL Crossmatch See Detail 07/17/18 07/17/18 07/18/18 Range/Units 20:09 20:11 06:51 RBC 2.32 L (4.30-5.90) m/uL Hgb 7.3 L (13.0-17.5) gm/dL Hct 21.1 L (39.0-53.0) % Plt Count (150-450) k/uL Lymphocytes # (1.0-4.8) k/uL PT (9.0-12.0) sec INR (<1.2) Sodium (137-145) mmol/L Carbon Dioxide (22-30) mmol/L BUN (9-20) mg/dL Glucose (74-99) mg/dL POC Glucose (mg/dL) 212 H 224 H (75-99) mg/dL Calcium (8.4-10.2) mg/dL ALT (21-72) U/L Total Protein (6.3-8.2) g/dL Albumin (3.5-5.0) g/dL Crossmatch 07/18/18 07/18/18 07/18/18 Range/Units 07:33 07:33 07:33 RBC 2.30 L (4.30-5.90) m/uL Hgb 7.1 L (13.0-17.5) gm/dL Hct 21.8 L (39.0-53.0) % Plt Count 147 L (150-450) k/uL Lymphocytes # 0.9 L (1.0-4.8) k/uL PT 12.5 H (9.0-12.0) sec INR 1.2 H (<1.2) Sodium 136 L (137-145) mmol/L Carbon Dioxide 21 L (22-30) mmol/L BUN 27 H (9-20) mg/dL Glucose 196 H (74-99) mg/dL POC Glucose (mg/dL) (75-99) mg/dL Calcium 8.0 L (8.4-10.2) mg/dL ALT 20 L (21-72) U/L Total Protein 5.1 L (6.3-8.2) g/dL Albumin 2.8 L (3.5-5.0) g/dL Crossmatch 07/18/18 Range/Units 11:22 RBC (4.30-5.90) m/uL Hgb (13.0-17.5) gm/dL Hct (39.0-53.0) % Plt Count (150-450) k/uL Lymphocytes # (1.0-4.8) k/uL PT (9.0-12.0) sec INR (<1.2) Sodium (137-145) mmol/L Carbon Dioxide (22-30) mmol/L BUN (9-20) mg/dL Glucose (74-99) mg/dL POC Glucose (mg/dL) 263 H (75-99) mg/dL Calcium (8.4-10.2) mg/dL ALT (21-72) U/L Total Protein (6.3-8.2) g/dL Albumin (3.5-5.0) g/dL Crossmatch Assessment and Plan Assessment: Acute nondisplaced left basicervical femoral neck fracture status-post operative fixation with intramedullary hip screw on 07/16/18. Postoperative day #2. Postoperative anemia Plan: -Weight-bearing as tolerated on the left lower extremity with assistance of a walker or cane. Up with assistance only. - Will defer postoperative anemia treatment to internal medicine team. - Ice and elevate hip for swelling and pain control. - Vitamin D resulted 16.9, patient will be supplemented with vitamin D3, vitamin D2, and calcium carbonate. - Continue current pain control regimen. - Lovenox for DVT prophylaxis. - 2 doses of postoperative antibiotics complete. - Physical therapy for gait and balance training. - Appreciate internal medicine, cardiology, and pulmonology consults for medical management. - Anticipate discharge to an extended care facility. - Patient discussed with Dr. Chavez.
[2018-07-18 16:24] LABS: Glucose,Whole Blood 214 mg/dL (75-99)
[2018-07-18 20:40] LABS: Glucose,Whole Blood 153 mg/dL (75-99)
[2018-07-18] MEDS: CIPROFLOXACIN HCL 500 MG TAB PO SCH (21:47)
[2018-07-18] MEDS: SENNOSIDES-DOCUSATE SODIUM 1 EACH TAB PO SCH (21:47)
[2018-07-19] MEDS: HYDROcodone/APAP 5-325MG 1 EACH TAB PO PRN ×4 (03:44→15:26)
[2018-07-19 07:19] LABS: Glucose,Whole Blood 192 mg/dL (75-99)
[2018-07-19] MEDS: CARVEDILOL 3.125 MG TAB PO SCH (07:21)
[2018-07-19] MEDS: PRIMIDONE 250 MG TAB PO SCH (07:22)
[2018-07-19] MEDS: PANTOPRAZOLE 40 MG TABLET PO SCH (07:22)
[2018-07-19] MEDS: metFORMIN 500 MG TAB PO SCH (07:22)
[2018-07-19] MEDS: INSULIN ASPART (NovoLOG) 100 UNIT/ML VIAL SQ SCH ×2 (07:24→12:51)
[2018-07-19 08:03] LABS: Basophils % (A) 0 %; Eosinophils # (A) 0.1 k/uL (0-0.7); Eosinophils % (A) 1 %; HCT 24.5 % (39.0-53.0); HGB 8.1 gm/dL (13.0-17.5); Lymphocytes # (A) 1.1 k/uL (1.0-4.8); Lymphocytes % (A) 21 %; MCH 31.2 pg (25.0-35.0); MCHC 33.2 g/dL (31.0-37.0); Mean Platelet Volume 8.6; Monocytes # (A) 0.4 k/uL (0-1.0); Monocytes % (A) 7 %; Neutrophils # (A) 3.7 k/uL (1.3-7.7); Neutrophils % (A) 68 %; Platelet Count 152 k/uL (150-450); RDW 14.9 % (11.5-15.5); WBC 5.5 k/uL (3.8-10.6)
[2018-07-19 08:05] LABS: INR 1.2 (<1.2); Prothrombin Time 12.2 sec (9.0-12.0)
[2018-07-19 08:15] LABS: ALT 26 U/L (21-72); AST 27 U/L (17-59); Albumin 3.1 g/dL (3.5-5.0); Alkaline Phosphatase 90 U/L (38-126); Anion Gap 11 mmol/L; Blood Urea Nitrogen 23 mg/dL (9-20); Calcium 8.2 mg/dL (8.4-10.2); Carbon Dioxide 22 mmol/L (22-30); Chloride 104 mmol/L (98-107); Glucose 175 mg/dL (74-99); Sodium 137 mmol/L (137-145); Total Bilirubin 0.6 mg/dL (0.2-1.3); Total Protein 5.6 g/dL (6.3-8.2)
--- NOTE | 2018-07-19 09:38 | P.DS ---
Providers Date of admission: 07/14/18 09:51 Expected date of discharge: 07/19/18 Attending physician: Luis M Chavez Consults: 07/14/18 09:39 Consult Physician Stat Consulting Provider: Zunilda Tillman Consult Reason/Comments: Surgical clearance Do you want consulting provider notified?: Yes 07/14/18 13:08 Consult Physician Routine Consulting Provider: Luis Enrique Leyva Consult Reason/Comments: cardiac clearance prior to surgery, current patient Do you want consulting provider notified?: Yes 07/14/18 13:33 Consult Physician Routine Consulting Provider: Rosie Hoover Consult Reason/Comments: pre op clearance, luceny along the trachea Do you want consulting provider notified?: Yes Primary care physician: Figueroa Randal - Discharge Diagnosis(es) (1) Closed left hip fracture Current Visit: Yes Status: Acute (2) Fall Current Visit: Yes Status: Acute (3) Congestive heart failure Current Visit: No Status: Acute Priority: High (4) High grade B-cell lymphoma Current Visit: No Status: Acute Priority: High (5) Hyperlipidemia LDL goal <100 Current Visit: No Status: Acute Hospital Course: The patient is a very pleasant 78-year-old male with multiple medical problems including congestive heart failure, type 2 diabetes, history of prior lymphoma, unsteady gait with multiple recent falls, recent upper cervical spine fracture requiring surgery, and early dementia who presented to our ER over 2 days ago following a low-energy fall. X-rays were inconclusive and a computed tomography scan showed a minimally displaced basicervical femoral neck fracture. Despite the patient having multiple medical problems the patient was admitted to orthopedics and was seen by internal medicine, cardiology, pulmonary who cleared him for surgery. The patient was scheduled for surgery on 07/15/2018 but due to an INR of 1.7 his surgery was canceled by Dr. Velasquez of anesthesiology. I was available for surgery this morning at 0730, but due to issues with staffing and prioritizing surgical cases the surgical staff decided to delay the case until this afternoon delaying definitive treatment over 48-hours. Dr Chavez met with the patient and his prior to surgery to discuss surgical options. Recommendation was to stabilize his hip fracture with a short intramedullary hip screw to facilitate early mobilization. There was a lengthy discussion on the potential risks and Locations of surgery including but not limited to risk of anesthesia, superficial infection, deep infection, fracture nonunion, fracture malunion, intraoperative fracture, postoperative periprosthetic fracture, chronic pain, chronic swelling, and inability to regain preinjury level of function, DVT, PE, acute coronary event, other medical complications, and possibly loss of life or limb. They provided their verbal and written consent to go forward with surgery. The procedure was performed on 07/16/2018. The patient is doing fairly well postoperatively. Vital signs and labs are stable. It is recommended that the patient be transferred to extended care facility for inpatient rehab. The patient is discharged to rehab is pending on 07/19/2018 awaiting medical clearance for discharge. Please see med rec for accurate list of home medications. Patient Condition at Discharge: Stable Plan - Discharge Summary Discharge Rx Participant: No New Discharge Prescriptions: New Enoxaparin [Lovenox] 30 mg SQ DAILY #28 syringe HYDROcodone/APAP 5-325MG [Inlet 5-325] 1 each PO Q4HR PRN #30 tab PRN Reason: Moderate Pain Sennosides-Docusate Sodium [Senokot-S] 2 each PO HS PRN #60 tab PRN Reason: Constipation No Action Gemfibrozil [Lopid] 600 mg PO BID Multivitamins, Thera [Multivitamin (formulary)] 1 tab PO DAILY Primidone [Mysoline] 125 mg PO BID-W/MEALS metFORMIN HCL 1,000 mg PO QID Carvedilol [Coreg] 3.125 mg PO DAILY Pioglitazone [Actos] 15 mg PO DAILY Magnesium Gluconate [Magonate] 500 mg PO DAILY Lisinopril [Zestril] 2.5 mg PO DAILY Calcium Carbonate 500 mg PO DAILY Atorvastatin [Lipitor] 40 mg PO DAILY Sodium Bicarbonate 325 mg PO DAILY Discharge Medication List Gemfibrozil [Lopid] 600 mg PO BID 12/30/14 [History] Multivitamins, Thera [Multivitamin (formulary)] 1 tab PO DAILY 11/07/15 [History] Primidone [Mysoline] 125 mg PO BID-W/MEALS 11/07/15 [History] metFORMIN HCL 1,000 mg PO QID 07/19/17 [History] Carvedilol [Coreg] 3.125 mg PO DAILY 10/22/17 [History] Atorvastatin [Lipitor] 40 mg PO DAILY 07/14/18 [History] Calcium Carbonate 500 mg PO DAILY 07/14/18 [History] Lisinopril [Zestril] 2.5 mg PO DAILY 07/14/18 [History] Magnesium Gluconate [Magonate] 500 mg PO DAILY 07/14/18 [History] Pioglitazone [Actos] 15 mg PO DAILY 07/14/18 [History] Sodium Bicarbonate 325 mg PO DAILY 07/14/18 [History] Enoxaparin [Lovenox] 30 mg SQ DAILY #28 syringe 07/19/18 [Rx] HYDROcodone/APAP 5-325MG [Inlet 5-325] 1 each PO Q4HR PRN #30 tab 07/19/18 [Rx] Sennosides-Docusate Sodium [Senokot-S] 2 each PO HS PRN #60 tab 07/19/18 [Rx] Follow up Appointment(s)/Referral(s): [facility], [NON-STAFF] - As Needed Figueroa Tee MD [Primary Care Provider] - 1-2 days Silvio Mackay MD [STAFF PHYSICIAN] - 4 Weeks Luis M Chavez MD [Medical Doctor] - 2 Weeks Activity/Diet/Wound Care/Special Instructions: May bear weight as tolerated with walker and assistance. May shower if no drainage from incision. Discharge Disposition: TRANSFER TO SNF/ECF
[2018-07-19] MEDS: SODIUM BICARBONATE TAB 650 MG TAB PO SCH (10:21)
[2018-07-19] MEDS: ATORVASTATIN 40 MG TAB PO SCH (10:21)
[2018-07-19] MEDS: CALCIUM CARBONATE 500 MG CHEWABLE PO SCH (10:21)
[2018-07-19] MEDS: CIPROFLOXACIN HCL 500 MG TAB PO SCH (10:22)
[2018-07-19] MEDS: ENOXAPARIN 30 MG/0.3 ML SYRINGE SQ SCH (10:22)
[2018-07-19] MEDS: PIOGLITAZONE 15 MG TAB PO SCH (10:22)
[2018-07-19] MEDS: LISINOPRIL 2.5 MG TAB PO SCH (10:22)
[2018-07-19 11:52] LABS: Glucose,Whole Blood 234 mg/dL (75-99)
[2018-07-19] MEDS ORDERED: FERROUS SULFATE 325 MG TAB PO SCH (12:30)
--- NOTE | 2018-07-19 12:42 | P.PN ---
Subjective Progress Note Date: 07/19/18 this is a 78 year old male patient of Dr. Tee. Patient reports that he tripped and fell directly onto his buttocks and immediately had left hip pain. Patient's is at bedside. Does report that patient is chronically weak but accurately tripped during this occurrence. Patient and denied any loss of consciousness or hitting of head. CT completed showing acute nondisplaced noncomminuted left basocervical hip fracture with surrounding intramuscular edema. Patient has past medical history of B-cell lymphoma in which she received chemo and in May 2015. Additional medical history includes CHF, last 2-D echo was in 2015 showing EF of 25-30%. Patient and report that he follows with cardiology services. Additional medical history includes GERD, diabetes mellitus, high disorder, hearing disorder, hyperlipidemia, essential hypertension, osteoarthritis, prostate disorder and renal disease in which he follows with Dr. diaz. EKG, chest x-ray and cardiology services consulted for preop clearance. At that time patient denies chest pain or shortness breath. Patient denies nausea vomiting or diarrhea. Patient denies any urinary burning or frequency. Patient denies any history of myocardial infarction or heart attack . Patient denies any history of blood clots. Patient doesn't a past medical history of heart failure with low ejection fraction. Cardiology services consulted on 07/15/2018 patient is alert and oriented 3. Patient was cleared by pulmonary services for surgery. Awaiting cardiac clearance prior to approval for surgery. Patient does have history of low ejection fraction. Repeat 2-D echo has been ordered per cardiology. At this time patient is still complaining of some hip pain. Patient denies chest pain or shortness of breath. Patient denies nausea vomiting or diarrhea. Patient denies any urinary burning or frequency On 07/16/2018 patient is alert and oriented 3. Patient was evaluated by pulmonary and cardiac services. Repeat 2-D echo completed EF of 55-60%. INR elevated at 1.7. Patient did receive 1 mg vitamin K plus IV iron. Plans for left hip arthoplasty today. At this time patient denies chest pain or shortness breath. Patient denies nausea vomiting or diarrhea. Patient denies any urinary burning or frequency On 07/17/2018 patient is alert and oriented 3. Patient status post operative fixation of the left basocervical hip fracture with intramedullary hip screw with Dr. Chavez. Today patient is currently resting comfortably in chair. Patient did have a low-grade temp. Will order urinary analysis and chest x-ray. Agency with a also a 7.1. Patient has known iron deficiency anemia. We'll give 1 dose of IV iron and recheck hemoglobin. At this time patient is complaining of some pain to hip. Patient denies chest pain or shortness breath or patient denies nausea vomiting or diarrhea. Patient denies any urinary burning or frequency. On 07/18/2018 patient is alert and oriented 3. Patient is postop day 2. Patient is currently sitting up in chair still complaining of some left hip pain. Patient did receive 1 unit of PRBCs for low hemoglobin yesterday. Patient's globin this a.m. 7.1. Will order stool for occult blood and one more unit of PRBCs. Patient also positive for urinary tract infection. Patient started on Cipro and urine culture has been ordered. At this time patient denies shortness of breath. Patient denies nausea vomiting or diarrhea. Patient denies any urinary burning or frequency. On 07/19/2018 patient was seen and examined on the medical floor he is alert and oriented 3 in no apparent distress he is still complaining of left hip pain otherwise there is no complaints, hemoglobin is up to 8.1 there is no fever or chills no headache or dizziness no chest pain no shortness of breath no cough no nausea or vomiting no abdominal pain no diarrhea and no urinary symptoms. Patient is scheduled to be transferred to [facility] today, there is no medical contraindication for discharge will follow at [facility] for management of his multiple medical problems. At this time continue iron pills for anemia continue antibiotic Cipro until culture results are available Objective - Vital Signs Vital signs: Vital Signs Temp 98.2 F 07/19/18 07:12 Pulse 85 07/19/18 07:12 Resp 20 07/19/18 07:12 BP 163/77 07/19/18 07:12 Pulse Ox 95 07/19/18 07:12 Intake & Output 07/18/18 07/19/18 07/19/18 18:59 06:59 18:59 Intake Total 310 100 Balance 310 100 Intake: Oral 100 Blood Product 310 Rc As-3 Unit 310 [id number] Other: Voiding Method Indwelling Catheter # Voids 0 5 # Bowel Movements 0 - Exam In general patient is alert and oriented 3 in no apparent distress Head normocephalic and atraumatic Neck supple no JVD no goiter Lungs clear to auscultation bilaterally no wheezing or crackles Heart regular rate and rhythm S1-S2, no rub or gallop Abdomen is soft nontender nondistended positive bowel sounds no hepatosplenomegaly Extremities no edema. Left hip tender to palpation Neuro no gross focal deficit - Labs CBC & Chem 7: 07/19/18 07:37 07/19/18 07:37 Labs: Abnormal Lab Results - Last 24 Hours (Table) 07/15/18 07/18/18 07/18/18 Range/Units 13:15 16:23 20:29 RBC (4.30-5.90) m/uL Hgb (13.0-17.5) gm/dL Hct (39.0-53.0) % PT (9.0-12.0) sec INR (<1.2) BUN (9-20) mg/dL Glucose (74-99) mg/dL POC Glucose (mg/dL) 214 H 153 H (75-99) mg/dL Calcium (8.4-10.2) mg/dL Total Protein (6.3-8.2) g/dL Albumin (3.5-5.0) g/dL Crossmatch See Detail 07/19/18 07/19/18 07/19/18 Range/Units 06:59 07:37 07:37 RBC 2.60 L (4.30-5.90) m/uL Hgb 8.1 L (13.0-17.5) gm/dL Hct 24.5 L (39.0-53.0) % PT 12.2 H (9.0-12.0) sec INR 1.2 H (<1.2) BUN (9-20) mg/dL Glucose (74-99) mg/dL POC Glucose (mg/dL) 192 H (75-99) mg/dL Calcium (8.4-10.2) mg/dL Total Protein (6.3-8.2) g/dL Albumin (3.5-5.0) g/dL Crossmatch 07/19/18 07/19/18 Range/Units 07:37 11:37 RBC (4.30-5.90) m/uL Hgb (13.0-17.5) gm/dL Hct (39.0-53.0) % PT (9.0-12.0) sec INR (<1.2) BUN 23 H (9-20) mg/dL Glucose 175 H (74-99) mg/dL POC Glucose (mg/dL) 234 H (75-99) mg/dL Calcium 8.2 L (8.4-10.2) mg/dL Total Protein 5.6 L (6.3-8.2) g/dL Albumin 3.1 L (3.5-5.0) g/dL Crossmatch Microbiology - Last 24 Hours (Table) 07/18/18 10:15 Urine Culture - Final Urine,Catheterized Assessment and Plan Plan: 1. Status postoperative fixation of the left basocervical hip fracture with intramedullary hip screw with Dr. Chavez due to fall. CT of hip completed showing acute nondisplaced noncommunicable left basocervical hip fracture with surrounding intramuscular edema. Patient is currently postop day 2. Patient currently on Lovenox for DVT prophylaxis and pain meds per orthopedic services. 2. History of B-cell lymphoma. Patient completed chemo in May 2015 3. Chronic systolic heart failure. Last 2-D echo completed in 2015 showing an EF of 25-30%. Repeat 2-D echo completed showing EF of 55-60%. Per cardiology patient is hemodynamically stable and in appropriate patient to undergo surgical intervention with increased risk due to his multiple comorbid conditions recommend cautious fluid administration intraoperative 4. Hyperkalemia. Potassium 5.8. Lisinopril on hold. Repeat potassium 4.7 5. Diabetes mellitus. Sliding scale insulin ordered 6. History of multiple falls. Will consult physical therapy for Post surgical rehab 7. History of smoking 8. History of hearing disorder 9. History of hyperlipidemia 10. History of essential hypertension. Home meds resumed. This problem hold due to hyperkalemia 11. History of Yassine fundoplication 12. Iron deficiency anemia and expected acute blood loss anemia. received 1 dose of IV iron. Patient received 1 unit of PRBCs for hemoglobin of 6.5. Patient's overall remains low at 7.1 will given an additional 1 unit of PRBCs a nd order stool for occult blood 13. Chronic kidney disease stage III patient reports he does follow with nephrology services 14. Elevated INR. INR 1.7. Patient received 1 g of vitamin K. Repeat INR 1.3. 15. Urinary tract infection. Patient started on Cipro. Urine culture ordered Discharge plan to [facility] today Will follow at [facility] for management of multiple medical problems
[2018-07-19] MEDS: CHOLECALCIFEROL 1,000 UNIT TAB PO SCH (12:50)
[2018-07-19] MEDS: MULTIVITAMINS, THERA 1 EACH TAB PO SCH (12:50)
[2018-07-19] MEDS: LACTATED RINGERS 1,000 ML IV SCH (15:15)
[2018-07-19 15:59] VITALS: BP 115/63; PULSE 81; RESP 16; TEMP 98.8
== END 2018-07-19 17:01 | DRG 481 ==
LOC: EC 06:33 → 4SSUR 09:51
PROVIDERS: ADMIT Orthopaedic Surgery; ATTEND Orthopaedic Surgery
PROC: 0QH706Z Insertion of Intramedullary Internal Fixation Device into Left Upper Femur, Open Approach (ICD-10-PCS; principal; 2018-07-16 11:30)
PROC: 30233N1 Transfusion of Nonautologous Red Blood Cells into Peripheral Vein, Percutaneous Approach (ICD-10-PCS; 2018-07-18)
DX: S72.045A Nondisplaced fracture of base of neck of left femur, initial encounter for closed fracture (principal); C85.10 Unspecified B-cell lymphoma, unspecified site; I50.22 Chronic systolic (congestive) heart failure; I13.0 Hypertensive heart and chronic kidney disease with heart failure and stage 1 through stage 4 chronic kidney disease, or unspecified chronic kidney disease; D62 Acute posthemorrhagic anemia; J98.11 Atelectasis; K21.9 Gastro-esophageal reflux disease without esophagitis; E78.5 Hyperlipidemia, unspecified; E11.22 Type 2 diabetes mellitus with diabetic chronic kidney disease; E87.5 Hyperkalemia; H91.90 Unspecified hearing loss, unspecified ear; N18.3 Chronic kidney disease, stage 3 (moderate); D50.9 Iron deficiency anemia, unspecified; E11.51 Type 2 diabetes mellitus with diabetic peripheral angiopathy without gangrene; G25.0 Essential tremor; I27.20 Pulmonary hypertension, unspecified; N40.0 Benign prostatic hyperplasia without lower urinary tract symptoms; F03.90 Unspecified dementia, unspecified severity, without behavioral disturbance, psychotic disturbance, mood disturbance, and anxiety; R79.1 Abnormal coagulation profile; R26.9 Unspecified abnormalities of gait and mobility; Z97.0 Presence of artificial eye; M19.90 Unspecified osteoarthritis, unspecified site; Z53.8 Procedure and treatment not carried out for other reasons; R29.6 Repeated falls; W01.0XXA Fall on same level from slipping, tripping and stumbling without subsequent striking against object, initial encounter; Y93.01 Activity, walking, marching and hiking; H54.62 Unqualified visual loss, left eye, normal vision right eye; Y92.003 Bedroom of unspecified non-institutional (private) residence as the place of occurrence of the external cause; Z79.899 Other long term (current) drug therapy; Z90.89 Acquired absence of other organs; Z91.81 History of falling; Z97.4 Presence of external hearing-aid; Z79.84 Long term (current) use of oral hypoglycemic drugs; Z88.0 Allergy status to penicillin; Z87.891 Personal history of nicotine dependence; Z82.49 Family history of ischemic heart disease and other diseases of the circulatory system; Z80.1 Family history of malignant neoplasm of trachea, bronchus and lung; Z80.3 Family history of malignant neoplasm of breast; Z80.8 Family history of malignant neoplasm of other organs or systems; Z81.8 Family history of other mental and behavioral disorders; Z87.81 Personal history of (healed) traumatic fracture; Z98.890 Other specified postprocedural states; Z90.49 Acquired absence of other specified parts of digestive tract; Z86.69 Personal history of other diseases of the nervous system and sense organs
CPT/HCPCS: 70490; 71045; 71046; 73502; 80053; 81001; 82306; 82728; 83540; 83550; 84132; 85025; 85027; 85610; 85730; 86850; 86900; 86901; 86920; 87086; 93005; 93306; 96374; 96375; 96376; 99285

== ENCOUNTER → 2018-11-11 | Outpatient (CLI) | payer MEDICARE, OTHER ==
--- NOTE | 2018-11-11 12:20 | US ---
EXAMINATION TYPE: US venous doppler duplex LE DATE OF EXAM: 11/11/2018 12:10 PM COMPARISON: NONE CLINICAL HISTORY: M79.662 pain in left lower leg, I80.9 Phlebitis. SIDE PERFORMED: TECHNIQUE: The lower extremity deep venous system is examined utilizing real time linear array sonog radha with graded compression, doppler sonography and color-flow sonography. VESSELS IMAGED: External Iliac Vein (EIV) Common Femoral Vein Deep Femoral Vein Greater Saphenous Vein * Femoral Vein Popliteal Vein Small Saphenous Vein * Proximal Calf Veins (* superficial vessels) Grayscale, color doppler, spectral doppler imaging performed of the deep veins of the lower extremiti es. There is normal flow, compressibility, vascular waveforms. Right Leg: Negative for DVT Left Leg: Negative for DVT GSV and posterior tibial veins also scanned per order. IMPRESSION: No sonographic evidence of deep venous thrombosis within either lower extremity.
== END | disposition home or self-care (01) ==
LOC: RADUSWWP 11:21
PROVIDERS: ATTEND Orthopaedic Surgery
DX: Z48.89 Encounter for other specified surgical aftercare (principal); M79.662 Pain in left lower leg; M79.661 Pain in right lower leg
CPT/HCPCS: 93970

== ENCOUNTER → 2019-01-05 | Outpatient (CLI) | payer MEDICARE, OTHER ==
--- NOTE | 2019-01-05 16:05 | CT ---
EXAMINATION TYPE: CT brain wo con DATE OF EXAM: 01/05/2019 COMPARISON: 10/22/2017 INDICATION: Tremors. DLP: 1147.4 mGycm, Automated exposure control for dose reduction was used. CONTRAST: None CT of the brain is performed utilizing 3 mm thick sections through the posterior fossa and 3 mm thick sections through the remaining calvarium. Study is performed within 24 hours of arrival to the hosp ital. No abnormal hyperdensity is present to suggest an acute intracranial hemorrhage. No mass lesion is evident. No acute infarcts are evident. Minimal periventricular white matter hypodensity is present, likely on the basis of chronic white matter ischemic change. Ventricles and sulci are appropriate for the patient age. Paranasal sinuses and mastoid air cells within the [id number] are clear. (Artifact from cervical spine fixation is evident. IMPRESSIONS: 1. No acute intracranial process.
== END | disposition home or self-care (01) ==
LOC: RADCTMAIN 13:58
PROVIDERS: ATTEND Psychiatry & Neurology Neurology
DX: G25.0 Essential tremor (principal)
CPT/HCPCS: 70450

== ENCOUNTER → 2020-02-22 | Outpatient (CLI) | payer MEDICARE, OTHER ==
[2020-02-22 13:40] LABS: Basophils % (A) 0 %; Eosinophils # (A) 0.2 k/uL (0-0.7); Eosinophils % (A) 3 %; HCT 27.5 % (39.0-53.0); HGB 9.2 gm/dL (13.0-17.5); Lymphocytes # (A) 1.6 k/uL (1.0-4.8); Lymphocytes % (A) 32 %; MCH 32.2 pg (25.0-35.0); MCHC 33.4 g/dL (31.0-37.0); MCV 96.5 fL (80.0-100.0); Mean Platelet Volume 8.3; Monocytes # (A) 0.3 k/uL (0-1.0); Monocytes % (A) 5 %; Neutrophils # (A) 2.9 k/uL (1.3-7.7); Neutrophils % (A) 57 %; Platelet Count 186 k/uL (150-450); RBC 2.84 m/uL (4.30-5.90)
[2020-02-22 20:20] LABS: Gliadin AB IgA, Deaminated NEGATIVE (NEGATIVE); Gliadin AB IgA, Unit <0.2 U/mL; Gliadin AB IgG, Deaminated NEGATIVE (NEGATIVE)
== END | disposition home or self-care (01) ==
LOC: LABWHC1 12:03
PROVIDERS: ATTEND Nurse Practitioner
DX: K52.9 Noninfective gastroenteritis and colitis, unspecified (principal)
CPT/HCPCS: 36415; 83516; 85025

== ENCOUNTER 2020-02-26 06:52 | Day surgery (SDC) | payer MEDICARE, OTHER ==
[2020-02-24 11:45] VITALS: BMI 25.8
[~2020-02-26 06:52] MED LIST: LACTATED RINGERS 1,000 ML IV SCH
[2020-02-26 07:24] VITALS: TEMP 97.8
[2020-02-26] MEDS ORDERED: LIDOCAINE 1% (10MG/ML) FOR IV START INTRADERMA ONE (07:25)
[2020-02-26] MEDS ORDERED: LACTATED RINGERS 1,000 ML IV ONE (07:25)
[2020-02-26 07:38] LABS: Glucose,Whole Blood 100 mg/dL (75-99)
[2020-02-26] MEDS ORDERED: IV FLUID CONTINUATION 1,000 ML IV ONE (07:46)
[2020-02-26] MEDS ORDERED: LIDOCAINE 1% INJ 10MG/ML (20 ML MDV) ONE (07:49)
[2020-02-26] MEDS ORDERED: PROPOFOL 10 MG/ML 20 ML VIAL IV ONE (07:49)
--- NOTE | 2020-02-26 08:09 | P.PCN ---
Date of Procedure: 02/26/20 Procedure(s) Performed: BRIEF HISTORY: Patient is a 79-year-old pleasant male scheduled for an elective colonoscopy as a part of evaluation of chronic diarrhea for the last 5 days duration. The patient had history of colon cancer and underwent colon resection in 2013 and since then has been having 3-4 loose watery bowel movements daily. However for the last few months he is having 10-15 loose watery bowel movements and hence he scheduled for repeat colonoscopy today. His last colonoscopy was 5 years ago. PROCEDURE PERFORMED: Colonoscopy random biopsy. PREOPERATIVE DIAGNOSIS: Chronic diarrhea. IV sedation per Anesthesia. PROCEDURE: After informed consent was obtained, the patient, was brought into the endoscopy unit. IV sedation was administered by Anesthesia under continuous monitoring. Digital rectal examination was normal. Initially the Olympus CF-160 flexible video colonoscope was then inserted in the rectum, gradually advanced into the ascending colon with the ileocolonic anastomosis was visualized and appeared normal. Anastomosis was widely patent. The distal ileum appeared normal. Mucosa of the ascending colon, transverse colon, descending colon, sigmoid colon, and rectum appeared normal. Random biopsies were done from ascending and descending colon to rule out microscopic/collagenous colitis. The Retroflexion was performed in the rectum and grade 2 internal hemorrhoidsere seen. The patient tolerated the procedure well. IMPRESSION: Normal-appearing colon from rectum to ascending colon with no evidence of colitis or colorectal neoplasia Small internal hemorrhoids RECOMMENDATIONS: Findings of this examination were discussed with the patient as well as his family. He was advised to follow with the biopsy results.. He'll be seen in office in 2 weeks.
[2020-02-26 08:23] VITALS: RESP 16
[2020-02-26 08:32] VITALS: BP 158/69; PULSE 70
== END 2020-02-26 09:27 ==
LOC: ORWHC2ENDO 06:52
PROVIDERS: ATTEND Internal Medicine Gastroenterology
DX: K52.9 Noninfective gastroenteritis and colitis, unspecified (principal); K64.1 Second degree hemorrhoids; Z85.038 Personal history of other malignant neoplasm of large intestine; I10 Essential (primary) hypertension; E78.5 Hyperlipidemia, unspecified; C85.90 Non-Hodgkin lymphoma, unspecified, unspecified site; E11.9 Type 2 diabetes mellitus without complications; K21.9 Gastro-esophageal reflux disease without esophagitis; Z90.49 Acquired absence of other specified parts of digestive tract; Z98.890 Other specified postprocedural states; Z88.0 Allergy status to penicillin; Z79.02 Long term (current) use of antithrombotics/antiplatelets; Z79.84 Long term (current) use of oral hypoglycemic drugs; Z79.899 Other long term (current) drug therapy
CPT/HCPCS: 88305; 45380; J2001; J2704

== ENCOUNTER 2021-04-22 10:06 | Inpatient (IN) | payer MEDICARE, OTHER ==
--- NOTE | 2021-04-22 10:37 | ED ---
Chest Pain HPI - General Chief Complaint: Chest Pain Stated Complaint: abnormal blood work,chest pain Time Seen by Provider: 04/22/21 10:20 Source: patient, RN notes reviewed Mode of arrival: ambulatory Limitations: no limitations - History of Present Illness Initial Comments: Is a 81-year-old male with a history of stage III kidney disease no prior his tory of heart disease that he is aware of who states he fell about 2 weeks ago been having left-sided chest pain since that time mostly sharp and sometimes dull in nature it does increase with movement. He had blood work done yesterday at the [facility] clinic was called he states at midnight stating that he had problems with his heart and he should go the emergency department. He arrives today with no new complaints. MD Complaint: chest pain - Related Data Home Medications Medication Instructions Recorded Confirmed gemfibroziL [Lopid] 600 mg PO BID 12/30/14 04/05/21 Multivitamins, Thera [Multivitamin 1 tab PO DAILY 11/07/15 04/05/21 (formulary)] metFORMIN HCL [Glucophage] 500 mg PO BID 07/19/17 04/05/21 carvediloL [Coreg] 6.25 mg PO DAILY 10/22/17 04/05/21 Atorvastatin [Lipitor] 40 mg PO HS 07/14/18 04/05/21 Calcium Carbonate 1,000 mg PO DAILY 07/14/18 04/05/21 lisinopriL [Zestril] 5 mg PO DAILY 07/14/18 04/05/21 Loperamide [Imodium] 2 mg PO QID PRN 02/24/20 04/05/21 Carbidopa-Levodopa 25-100 mg 1 tab PO DAILY 02/26/20 04/05/21 [Sinemet 25-100 mg] Donepezil HCl [Aricept] 10 mg PO HS 02/26/20 04/05/21 Ferrous Sulfate [Feosol] 325 mg PO BID 02/26/20 04/05/21 Gabapentin [Neurontin] 300 mg PO BID 02/26/20 04/05/21 Pantoprazole Sodium [Protonix] 40 mg PO DAILY 02/26/20 04/05/21 Tamsulosin HCl [Flomax] 1 cap PO DAILY 02/26/20 04/05/21 hydroCHLOROthiazide [Hydrodiuril] 1 cap PO DAILY 02/26/20 04/05/21 Ascorbic Acid [Vitamin C with Ludmila 500 mg PO DAILY 03/08/21 04/05/21 Hips] Cholecalciferol [Vitamin D3 (125 125 mcg PO DAILY 03/08/21 04/05/21 Mcg = 5000 Iu)] Glucosamine/MSM/Chrond/D3/Bosw 1 each PO DAILY 03/08/21 04/05/21 [Q[place]-Ygorut-Goz D3 Cplt] Magnesium Oxide [Mag-Ox] 400 mg PO DAILY 03/08/21 04/05/21 Allergies Allergy/AdvReac Type Severity Reaction Status Date / Time Penicillins Allergy Nausea & Verified 04/05/21 10:19 Vomiting Review of Systems ROS Statement: Those systems with pertinent positive or pertinent negative responses have been documented in the HPI. ROS Other: All systems not noted in ROS Statement are negative. EKG Findings - EKG Results: EKG: interpreted by YASMIN, sinus rhythm (Sinus rhythm a 66. 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 Burrows, BPH, has difficulty holding his head up-states it wants to fall forward- he has a brace he wears at times and currently going to PT, past L wrist fracture History of Any Multi-Drug Resistant Organisms: None Reported Past Surgical History: Adenoidectomy, Bowel Resection, Hernia Repair, Orthopedic Surgery, Tonsillectomy Additional Past Surgical History / Comment(s): LT CAROTID ENDARTERECTOMY, UMBILICAL HERNIA REPAIR, LEFT EYE ENUCLEATION/PROSTHESIS (industrial accident), LEFT SHOULDER RCR , Lap elder fundoplication, EXPLORATORY LAPAROTOMY/ILEOCOLECTOMY D/T TUMOR, BMA with bx, 02/15/15 [id number]-since removed. Past Anesthesia/Blood Transfusion Reactions: No Reported Reaction Additional Past Anesthesia/Blood Transfusion Reaction / Comment(s): HX OF BLOOD TRANSFUSION-NO REACTION. Past Psychological History: No Psychological Hx Reported Smoking Status: Former smoker - Past Family History Daughter(s) Family Medical History: Cancer Additional Family Medical History / Comment(s): BREAST , LIVER AND LUNG CANCER Father Family Medical History: Myocardial Infarction ([place]) Additional Family Medical History / Comment(s): Father at age 65yrs. Mother Family Medical History: Dementia Additional Family Medical History / Comment(s): Mother at about age 82yrs. Brother(s) Family Medical History: Cancer Additional Family Medical History / Comment(s): (2 BROTHERS) Sister(s) Family Medical History: Cancer General Exam - General Exam Comments Initial Comments: This is a well-developed well-nourished awake alert oriented 3 male he is somewhat hard of hearing Limitations: no limitations General appearance: alert, in no apparent distress Head exam: Present: atraumatic, normocephalic, normal inspection Eye exam: Present: normal appearance, PERRL, EOMI. Absent: scleral icterus, conjunctival injection, periorbital swelling ENT exam: Present: normal exam, mucous membranes moist, other (Urine is present) Neck exam: Present: normal inspection, full ROM, other. Absent: tenderness, meningismus, lymphadenopathy Respiratory exam: Present: normal lung sounds bilaterally, chest wall tenderness (No stridor JVD or bruits tennis palpation of left anterior lateral chest wall no step-off no crepitation no bruising seen). Absent: respiratory distress, wheezes, rales, rhonchi, stridor Cardiovascular Exam: Present: regular rate, normal rhythm, normal heart sounds. Absent: systolic murmur, diastolic murmur, rubs, gallop, clicks GI/Abdominal exam: Present: soft, normal bowel sounds. Absent: distended, tenderness, guarding, rebound, rigid Extremities exam: Present: normal inspection, full ROM, normal capillary refill. Absent: tenderness, pedal edema, joint swelling, calf tenderness Back exam: Present: normal inspection Neurological exam: Present: alert, oriented X3, CN II-XII intact Psychiatric exam: Present: normal affect, normal mood Skin exam: Present: warm, dry, intact, normal color. Absent: rash Course Vital Signs 04/22/21 04/22/21 04/22/21 10:12 10:44 11:29 Temperature 97.7 F Pulse Rate 67 65 Pulse Rate [ 69 Sitting Jewelry Polisher] Respiratory 18 18 Rate Blood Pressure 181/84 172/70 O2 Sat by Pulse 100 98 Oximetry 04/22/21 12:41 Temperature Pulse Rate 60 Pulse Rate [ Sitting Jewelry Polisher] Respiratory 18 Rate Blood Pressure 161/75 O2 Sat by Pulse 99 Oximetry Chest Pain MDM - MDM Imaging reviewed no acute findings. Patient did present with complaints of chest pain suspicious for ACS he will be admitted with cardiology consultation he believes he seen Dr. Interiano in the past. I did discuss case with Dr. Tillman who did see the patient in the ER. Disposition Clinical Impression: Chest pain due to CAD Disposition: ADMITTED IP TO THIS [facility] Condition: Stable Referrals: Figueroa Tee MD [Primary Care Provider] - 1-2 days
[2021-04-22 10:44] LABS: Basophils % (A) 1 %; Eosinophils # (A) 0.1 k/uL (0-0.7); Eosinophils % (A) 3 %; HGB 11.7 gm/dL (13.0-17.5); Hypochromasia Moderate; Lymphocytes # (A) 1.2 k/uL (1.0-4.8); Lymphocytes % (A) 35 %; MCH 32.3 pg (25.0-35.0); MCHC 31.5 g/dL (31.0-37.0); MCV 102.7 fL (80.0-100.0); Macrocytosis Moderate; Mean Platelet Volume 8.7; Monocytes # (A) 0.3 k/uL (0-1.0); Monocytes % (A) 7 %; Neutrophils # (A) 1.8 k/uL (1.3-7.7); Neutrophils % (A) 52 %; Platelet Count 187 k/uL (150-450); RDW 15.9 % (11.5-15.5); WBC 3.6 k/uL (3.8-10.6)
--- NOTE | 2021-04-22 10:56 | XR ---
EXAMINATION TYPE: XR chest 2V, XR ribs LT DATE OF EXAM: 04/22/2021 COMPARISON: Prior chest x-ray July 17, 2018 HISTORY: Chest and left-sided rib pain after fall injury. TECHNIQUE: Frontal and lateral views of the chest are obtained. A frontal and oblique images of the left-sided ribs. FINDINGS: There is mild chronic parenchymal change without suspicious focal air space opacity or pne umothorax seen. Small left pleural effusion or pleural thickening redemonstrated. The cardiac silhou ette size is upper limits of normal. The osseous structures are demineralized. Osseous structures are demineralized which is noted to lower radiographic sensitivity. No acute displ aced left-sided rib fractures are clearly seen. Overlying soft tissue is unremarkable. IMPRESSION: 1. Chronic changes with stable tiny left pleural effusion or pleural thickening. 2. No acute displaced left-sided rib fractures identified.
[2021-04-22 10:57] LABS: INR 1.2 (<1.2); Partial Thromboplastin Time 26.5 sec (22.0-30.0); Prothrombin Time 12.5 sec (9.0-12.0)
[2021-04-22 11:12] LABS: Albumin 4.3 g/dL (3.5-5.0); Calcium 9.2 mg/dL (8.4-10.2); Magnesium 1.7 mg/dL (1.6-2.3); Potassium 5.4 mmol/L (3.5-5.1); Total Bilirubin 0.6 mg/dL (0.2-1.3); Total Protein 7.1 g/dL (6.3-8.2)
[2021-04-22] MEDS ORDERED: NITROGLYCERIN SL TABS 0.4 MG TAB SUBLINGUAL PRN (13:22)
[2021-04-22] MEDS ORDERED: LOPERAMIDE 2 MG CAP PO PRN (13:24)
--- NOTE | 2021-04-22 13:46 | P.HPIM ---
History of Present Illness H&P Date: 04/22/21 Vasile Gonzalez, is an 81-year-old male who presented to [facility] was a chief complaint of left sided chest pain, patient states that he fell 2 weeks ago, and hit the left side of his chest, he also had an abrasion on his left elbow, he was having chest pain since then, he was seen yesterday at the [place] clinic for a blood test, he received a call at midnight asking him to go to emergency room because he has a bad heart on his testing. Patient came to emergency room he was evaluated by Dr. Arriaga, he was admitted to telemetry floor and cardiology consultation was requested for further evaluation. He was evaluated in the emergency room vital examination on presentation revealed a temperature of 97.7 pulse 67 respiration 18 blood pressure 181/84 pulse ox 100% on room air Laboratory data revealed a white blood count of 3.6 hemoglobin 11.7 platelet count 187 sodium 142 potassium 5.4 chloride 116 CO2 15 BUN 40 creatinine 1.37 Testing in the emergency room revealed EKG done in the emergency room revealed normal sinus rhythm with poor R-wave progression in the anterior leads, chest x- ray and x-ray of the ribs revealed small left pleural effusion and no acute displaced left sided rib fracture. Patient was admitted to medical floor for further evaluation and treatment Past medical history is significant for history of large B-cell lymphoma, with chemotherapy in 2015, history of chronic kidney disease followed by Dr. Burrows, history of benign prostatic hypertrophy, history of carotid artery stenosis with history of left carotid endarterectomy, history of congestive heart failure, followed by Dr. Interiano, history of diabetes mellitus, history of hypertension, history of hyperlipidemia, history of osteoarthritis. 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 Burrows, BPH, has difficulty holding his head up-states it wants to fall forward- he has a brace he wears at times and currently going to PT, past L wrist fracture History of Any Multi-Drug Resistant Organisms: None Reported Past Surgical History: Adenoidectomy, Bowel Resection, Hernia Repair, Orthopedic Surgery, Tonsillectomy Additional Past Surgical History / Comment(s): LT CAROTID ENDARTERECTOMY, UMBILICAL HERNIA REPAIR, LEFT EYE ENUCLEATION/PROSTHESIS (industrial accident), LEFT SHOULDER RCR , Lap elder fundoplication, EXPLORATORY LAPAROTOMY/ILEOCOLECTOMY D/T TUMOR, BMA with bx, 02/15/15 [id number]-since removed. Past Anesthesia/Blood Transfusion Reactions: No Reported Reaction Additional Past Anesthesia/Blood Transfusion Reaction / Comment(s): HX OF BLOOD TRANSFUSION-NO REACTION. Past Psychological History: No Psychological Hx Reported Smoking Status: Former smoker - Past Family History Daughter(s) Family Medical History: Cancer Additional Family Medical History / Comment(s): BREAST , LIVER AND LUNG CANCER Father Family Medical History: Myocardial Infarction ([place]) Additional Family Medical History / Comment(s): Father at age 65yrs. Mother Family Medical History: Dementia Additional Family Medical History / Comment(s): Mother at about age 82yrs. Brother(s) Family Medical History: Cancer Additional Family Medical History / Comment(s): (2 BROTHERS) Sister(s) Family Medical History: Cancer Medications and Allergies Home Medications Medication Instructions Recorded Confirmed Type gemfibroziL [Lopid] 600 mg PO BID 12/30/14 04/05/21 History Multivitamins, Thera [Multivitamin 1 tab PO DAILY 11/07/15 04/05/21 History (formulary)] metFORMIN HCL [Glucophage] 500 mg PO BID 07/19/17 04/05/21 History carvediloL [Coreg] 6.25 mg PO DAILY 10/22/17 04/05/21 History Atorvastatin [Lipitor] 40 mg PO HS 07/14/18 04/05/21 History Calcium Carbonate 1,000 mg PO DAILY 07/14/18 04/05/21 History lisinopriL [Zestril] 5 mg PO DAILY 07/14/18 04/05/21 History Loperamide [Imodium] 2 mg PO QID PRN 02/24/20 04/05/21 History Carbidopa-Levodopa 25-100 mg 1 tab PO DAILY 02/26/20 04/05/21 History [Sinemet 25-100 mg] Donepezil HCl [Aricept] 10 mg PO HS 02/26/20 04/05/21 History Ferrous Sulfate [Feosol] 325 mg PO BID 02/26/20 04/05/21 History Gabapentin [Neurontin] 300 mg PO BID 02/26/20 04/05/21 History Pantoprazole Sodium [Protonix] 40 mg PO DAILY 02/26/20 04/05/21 History Tamsulosin HCl [Flomax] 1 cap PO DAILY 02/26/20 04/05/21 History hydroCHLOROthiazide [Hydrodiuril] 1 cap PO DAILY 02/26/20 04/05/21 History Ascorbic Acid [Vitamin C with Ludmila 500 mg PO DAILY 03/08/21 04/05/21 History Hips] Cholecalciferol [Vitamin D3 (125 125 mcg PO DAILY 03/08/21 04/05/21 History Mcg = 5000 Iu)] Glucosamine/MSM/Chrond/D3/Bosw 1 each PO DAILY 03/08/21 04/05/21 History [Tanuknxaspc-Dvldaf-Spi D3 Cplt] Magnesium Oxide [Mag-Ox] 400 mg PO DAILY 03/08/21 04/05/21 History Allergies Allergy/AdvReac Type Severity Reaction Status Date / Time Penicillins Allergy Nausea & Verified 04/05/21 10:19 Vomiting Physical Exam Vitals: Vital Signs Temp Pulse Pulse Resp BP Pulse Ox 04/22/21 12:41 60 18 161/75 99 04/22/21 11:29 65 18 172/70 98 04/22/21 10:44 69 04/22/21 10:12 97.7 F 67 18 181/84 100 Intake and Output 04/21/21 04/22/21 04/22/21 22:59 06:59 14:59 Other: Weight 80.286 kg In general patient is alert and oriented x 3 in no distress HEENT head normocephalic and atraumatic Neck is supple no JVD no goiter no lymphadenopathy no carotid bruit Chest examination is clear to auscultation no crackles no wheezing Cardiac exam reveals regular heart sounds S1 and S2 no gallops no murmurs Abdomen is soft nontender no organomegaly with normal bowel sounds Extremity exam reveals no edema no cyanosis or clubbing Neurological examination reveals no gross focal deficits Results CBC & Chem 7: 04/22/21 10:35 04/22/21 10:35 Labs: Abnormal Lab Results - Last 24 Hours (Table) 04/22/21 04/22/21 04/22/21 Range/Units 10:35 10:35 10:35 WBC 3.6 L (3.8-10.6) k/uL RBC 3.60 L (4.30-5.90) m/uL Hgb 11.7 L (13.0-17.5) gm/dL Hct 37.0 L (39.0-53.0) % MCV 102.7 H (80.0-100.0) fL RDW 15.9 H (11.5-15.5) % PT 12.5 H (9.0-12.0) sec INR 1.2 H (<1.2) Potassium 5.4 H (3.5-5.1) mmol/L Chloride 116 H (98-107) mmol/L Carbon Dioxide 15 L (22-30) mmol/L BUN 40 H (9-20) mg/dL Creatinine 1.37 H (0.66-1.25) mg/dL Glucose 122 H (74-99) mg/dL Alkaline Phosphatase 192 H (38-126) U/L Assessment and Plan Plan: Chest pain, left sided likely related to trauma 2 weeks ago, no evidence of rib fractures, there is evidence of small left sided pleural effusion on chest x-ray Abnormal labs at [facility], triggering call at night requesting from patient to go to emergency room, will try to obtain labs Underlying history of diabetes mellitus Underlying history of hypertension Underlying history of hyperlipidemia Underlying history of congestive heart failure followed by Dr. Interiano, will obtain echocardiogram Underlying history of chronic kidney disease Underlying history of benign prostatic hypertrophy At this time patient is admitted to telemetry floor Serial EKG and cardiac enzymes are ordered Echocardiogram ordered, cardiology consultation was requested Follow in a.m.
[2021-04-22] MEDS: SODIUM CHLORIDE 0.9% 1,000 ML IV SCH (13:52)
[2021-04-22 17:37] LABS: Glucose,Whole Blood 152 mg/dL (75-99)
[2021-04-22] MEDS: metFORMIN 500 MG TAB PO SCH (17:38)
[2021-04-22 20:41] LABS: Glucose,Whole Blood 218 mg/dL (75-99)
[2021-04-22] MEDS: GABAPENTIN 300 MG CAP PO SCH (20:56)
[2021-04-22] MEDS: ATORVASTATIN 40 MG TAB PO SCH (20:56)
[2021-04-22] MEDS: FERROUS SULFATE 325 MG TAB PO SCH (20:56)
[2021-04-22] MEDS: DONEPEZIL 10 MG TAB PO SCH (20:56)
[2021-04-23 07:10] LABS: Glucose,Whole Blood 129 mg/dL (75-99)
[2021-04-23] MEDS: MAGNESIUM OXIDE 400 MG TAB PO SCH (08:45)
[2021-04-23] MEDS: CHOLECALCIFEROL 125 MCG (5000 IU) TABLET PO SCH (08:45)
[2021-04-23] MEDS: FERROUS SULFATE 325 MG TAB PO SCH ×2 (08:45→20:41)
[2021-04-23] MEDS: ASCORBIC ACID 500 MG TAB PO SCH (08:45)
[2021-04-23] MEDS: MULTIVITAMINS, THERA 1 EACH TAB PO SCH (08:45)
[2021-04-23] MEDS: TAMSULOSIN 0.4 MG CAP.ER.24H PO SCH (08:45)
[2021-04-23] MEDS: CALCIUM CARBONATE 500 MG CHEWABLE PO SCH (08:45)
[2021-04-23] MEDS: PANTOPRAZOLE 40 MG TABLET PO SCH (08:45)
[2021-04-23] MEDS: metFORMIN 500 MG TAB PO SCH ×2 (08:45→17:20)
[2021-04-23] MEDS: GABAPENTIN 300 MG CAP PO SCH ×2 (08:45→20:41)
[2021-04-23] MEDS: FENOFIBRATE 160 MG TAB PO SCH (08:46)
[2021-04-23] MEDS: CARBIDOPA-LEVODOPA 25-100 MG 1 EACH TAB PO SCH (08:46)
[2021-04-23] MEDS: hydroCHLOROthiazide 12.5 MG CAP PO SCH (08:48)
[2021-04-23] MEDS ORDERED: ASPIRIN 325 MG TAB PO SCH (09:00)
[2021-04-23] MEDS ORDERED: carvediloL 6.25 MG TAB PO SCH (09:00)
[2021-04-23 09:25] LABS: Chol/HDL Ratio 2.69 Ratio; LDL Cholesterol,Calculated 29.9 mg/dL (0.0-131.0)
[2021-04-23 09:31] LABS: ALT 15 U/L (4-49); AST 21 U/L (17-59); African American GFR (CKD) 60 (>60 ml/min/1.73 sqM); Albumin 3.4 g/dL (3.5-5.0); Albumin/Globulin Ratio 1.3; Alkaline Phosphatase 161 U/L (38-126); Anion Gap 5 mmol/L; Blood Urea Nitrogen 37 mg/dL (9-20); Calcium 8.9 mg/dL (8.4-10.2); Carbon Dioxide 18 mmol/L (22-30); Chloride 117 mmol/L (98-107); Globulin 2.6 g/dL; Glucose 129 mg/dL (74-99); Non-African American GFR(CKD) 52 (>60 ml/min/1.73 sqM); Potassium 5.1 mmol/L (3.5-5.1); Sodium 140 mmol/L (137-145); Total Bilirubin 0.6 mg/dL (0.2-1.3)
[2021-04-23 09:37] LABS: Basophils % (A) 0 %; Eosinophils # (A) 0.1 k/uL (0-0.7); Eosinophils % (A) 2 %; HCT 34.9 % (39.0-53.0); HGB 10.9 gm/dL (13.0-17.5); Hypochromasia Moderate; Lymphocytes # (A) 1.5 k/uL (1.0-4.8); Lymphocytes % (A) 35 %; MCH 32.2 pg (25.0-35.0); MCHC 31.3 g/dL (31.0-37.0); MCV 102.7 fL (80.0-100.0); Macrocytosis Slight; Mean Platelet Volume 9.3; Monocytes # (A) 0.3 k/uL (0-1.0); Monocytes % (A) 7 %; Neutrophils # (A) 2.2 k/uL (1.3-7.7); Neutrophils % (A) 53 %; Platelet Count 195 k/uL (150-450); RDW 15.6 % (11.5-15.5); WBC 4.2 k/uL (3.8-10.6)
--- NOTE | 2021-04-23 09:58 | P.PN ---
Subjective Progress Note Date: 04/23/21 Vasile Gonzalez, is an 81-year-old male who presented to [facility] was a chief complaint of left sided chest pain, patient states that he fell 2 weeks ago, and hit the left side of his chest, he also had an abrasion on his left elbow, he was having chest pain since then, he was seen yesterday at the [place] clinic for a blood test, he received a call at midnight asking him to go to emergency room because he has a bad heart on his testing. Patient came to emergency room he was evaluated by Dr. Arriaga, he was admitted to telemetry floor and cardiology consultation was requested for further evaluation. He was evaluated in the emergency room vital examination on presentation revealed a temperature of 97.7 pulse 67 respiration 18 blood pressure 181/84 pulse ox 100% on room air Laboratory data revealed a white blood count of 3.6 hemoglobin 11.7 platelet count 187 sodium 142 potassium 5.4 chloride 116 CO2 15 BUN 40 creatinine 1.37 Testing in the emergency room revealed EKG done in the emergency room revealed normal sinus rhythm with poor R-wave progression in the anterior leads, chest x- ray and x-ray of the ribs revealed small left pleural effusion and no acute displaced left sided rib fracture. Patient was admitted to medical floor for further evaluation and treatment Past medical history is significant for history of large B-cell lymphoma, with chemotherapy in 2016, history of chronic kidney disease followed by Dr. Burrows, history of benign prostatic hypertrophy, history of carotid artery stenosis with history of left carotid endarterectomy, history of congestive heart failure, followed by Dr. Interiano, history of diabetes mellitus, history of hypertension, history of hyperlipidemia, history of osteoarthritis. 04/23/2021 patient's alert and oriented 3. Creatinine slightly improving to 1.29 bun 37 and potassium 5.1. Awaiting cardiology input. At this time patient denies chest pain or shortness breath. Patient denies nausea vomiting or diarrhea. Patient denies any urinary burning or frequency Objective - Vital Signs Vital signs: Vital Signs Temp 97.8 F 04/23/21 07:25 Pulse 67 04/23/21 07:25 Resp 17 04/23/21 07:25 BP 161/76 04/23/21 07:25 Pulse Ox 99 04/23/21 07:25 Intake & Output 04/22/21 04/23/21 04/23/21 18:59 06:59 18:59 Intake Total 118 Balance 118 Weight 80.286 kg Intake: Oral 118 Other: # Voids 1 4 - Exam In general patient is alert and oriented x 3 in no distress HEENT head normocephalic and atraumatic Neck is supple no JVD no goiter no lymphadenopathy no carotid bruit Chest examination is clear to auscultation no crackles no wheezing Cardiac exam reveals regular heart sounds S1 and S2 no gallops no murmurs Abdomen is soft nontender no organomegaly with normal bowel sounds Extremity exam reveals no edema no cyanosis or clubbing Neurological examination reveals no gross focal deficits - Labs CBC & Chem 7: 04/23/21 05:58 04/23/21 05:58 Labs: Abnormal Lab Results - Last 24 Hours (Table) 04/22/21 04/22/21 04/22/21 Range/Units 10:35 10:35 10:35 WBC 3.6 L (3.8-10.6) k/uL RBC 3.60 L (4.30-5.90) m/uL Hgb 11.7 L (13.0-17.5) gm/dL Hct 37.0 L (39.0-53.0) % MCV 102.7 H (80.0-100.0) fL RDW 15.9 H (11.5-15.5) % PT 12.5 H (9.0-12.0) sec INR 1.2 H (<1.2) Potassium 5.4 H (3.5-5.1) mmol/L Chloride 116 H (98-107) mmol/L Carbon Dioxide 15 L (22-30) mmol/L BUN 40 H (9-20) mg/dL Creatinine 1.37 H (0.66-1.25) mg/dL Glucose 122 H (74-99) mg/dL POC Glucose (mg/dL) (75-99) mg/dL Alkaline Phosphatase 192 H (38-126) U/L Total Protein (6.3-8.2) g/dL Albumin (3.5-5.0) g/dL HDL Cholesterol (40.00-60.00) mg/dL 04/22/21 04/22/21 04/23/21 Range/Units 17:36 20:39 05:58 WBC (3.8-10.6) k/uL RBC (4.30-5.90) m/uL Hgb (13.0-17.5) gm/dL Hct (39.0-53.0) % MCV (80.0-100.0) fL RDW (11.5-15.5) % PT (9.0-12.0) sec INR (<1.2) Potassium (3.5-5.1) mmol/L Chloride (98-107) mmol/L Carbon Dioxide (22-30) mmol/L BUN (9-20) mg/dL Creatinine (0.66-1.25) mg/dL Glucose (74-99) mg/dL POC Glucose (mg/dL) 152 H 218 H (75-99) mg/dL Alkaline Phosphatase (38-126) U/L Total Protein (6.3-8.2) g/dL Albumin (3.5-5.0) g/dL HDL Cholesterol 30.10 L (40.00-60.00) mg/dL 04/23/21 04/23/21 04/23/21 Range/Units 05:58 05:58 07:09 WBC (3.8-10.6) k/uL RBC 3.40 L (4.30-5.90) m/uL Hgb 10.9 L (13.0-17.5) gm/dL Hct 34.9 L (39.0-53.0) % MCV 102.7 H (80.0-100.0) fL RDW 15.6 H (11.5-15.5) % PT (9.0-12.0) sec INR (<1.2) Potassium (3.5-5.1) mmol/L Chloride 117 H (98-107) mmol/L Carbon Dioxide 18 L (22-30) mmol/L BUN 37 H (9-20) mg/dL Creatinine 1.29 H (0.66-1.25) mg/dL Glucose 129 H (74-99) mg/dL POC Glucose (mg/dL) 129 H (75-99) mg/dL Alkaline Phosphatase 161 H (38-126) U/L Total Protein 6.0 L (6.3-8.2) g/dL Albumin 3.4 L (3.5-5.0) g/dL HDL Cholesterol (40.00-60.00) mg/dL Assessment and Plan Plan: Chest pain, left sided likely related to trauma 2 weeks ago, no evidence of rib fractures, there is evidence of small left sided pleural effusion on chest x-ray Abnormal labs at [facility], triggering call at night requesting from patient to go to emergency room, will try to obtain labs Underlying history of diabetes mellitus Underlying history of hypertension Underlying history of hyperlipidemia Underlying history of congestive heart failure followed by Dr. Interiano, will obtain echocardiogram Underlying history of chronic kidney disease Underlying history of benign prostatic hypertrophy At this time patient is admitted to telemetry floor Serial EKG and cardiac enzymes are ordered Echocardiogram ordered, cardiology consultation was requested Follow in a.m.
[2021-04-23 12:08] LABS: Glucose,Whole Blood 213 mg/dL (75-99)
--- NOTE | 2021-04-23 12:49 | P.CRDCN ---
History of Present Illness Consult date: 04/23/21 Requesting physician: Zunilda Tillman Reason for Consult (text): chest pain Chief complaint: abnormal labs History of present illness: This is a pleasant 81-year-old gentleman with a past medical history of hypertension, diabetes, dyslipidemia, left carotid endarterectomy, Parkinson's, lymphoma for which she underwent chemotherapy, history of cardiomyopathy diagnosed in 2016 has resolved since completion of chemotherapy. He presented to the emergency department after being called at midnight yesterday morning in regards to some abnormal labs done by the [facility]. he's also been complaining of some left-sided chest discomfort since a fall he had 2 weeks ago. The discomfort is on the left side of the chest and typically with certain movements, blowing his nose and significant tenderness with palpation. He typically does not have chest pain. Since his fall he is also been finding it little more difficult to breathe with activity although he is activity is quite limited due to his shuffling gait and frequent falls at home. He says he falls at least once a week. EKG on admission read as sinus rhythm however upon review appears patient was in an atrial tachycardia versus atrial flutter. Laboratory values showed a potassium of 5.4 which is [facility] Chest x-ray on admission showed chronic changes with stable tiny left pleural effusion or pleural thickening, no acute displaced left-sided rib fractures identified. His blood pressure has mostly been elevated since admission. He's had heart rates dropping into the 30s while sleeping and his carvedilol has been discontinued. He is currently in atrial flutter. At home he is currently on gemfibrozil, atorvastatin 40 mg by mouth daily, metformin, lisinopril 5 mg by mouth daily, hydrochlorothiazide 12.5 mg by mouth daily, Flomax, Actos, naproxen as needed, Feosol, Aricept, Sinemet, Protonix, Neurontin and calcium. Upon examination the patient is resting comfortably in bed. Comp lains of chest discomfort only with certain movements and palpation. He does not seem to feel the arrhythmia. 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 Past Anesthesia/Blood Transfusion Reactions: No Reported Reaction Additional Past Anesthesia/Blood Transfusion Reaction / Comment(s): HX OF BLOOD TRANSFUSION-NO REACTION. Past Psychological History: No Psychological Hx Reported Additional Psychological History / Comment(s): Pt resides with his spouse. He has a cane/walker but not currently using them. He drives very little. Smoking Status: Former smoker Past Alcohol Use History: None Reported Additional Past Alcohol Use History / Comment(s): STARTED SMOKING IN 1950 QUIT 1970 SMOKED 2 PPD Past Drug Use History: None Reported - Past Family History Daughter(s) Family Medical History: Cancer Additional Family Medical History / Comment(s): BREAST , LIVER AND LUNG CANCER Father Family Medical History: Myocardial Infarction (OR) Additional Family Medical History / Comment(s): Father at age 65yrs. Mother Family Medical History: Dementia Additional Family Medical History / Comment(s): Mother at about age 82yrs. Brother(s) Family Medical History: Cancer Additional Family Medical History / Comment(s): (2 BROTHERS) Sister(s) Family Medical History: Cancer Medications and Allergies Home Medications Medication Instructions Recorded Confirmed Type gemfibroziL [Lopid] 600 mg PO BID 12/30/14 04/22/21 History Multivitamins, Thera [Multivitamin 1 tab PO DAILY 11/07/15 04/22/21 History (formulary)] Loperamide [Imodium] 4 mg PO QID PRN 02/24/20 04/22/21 History Carbidopa-Levodopa 25-100 mg 1 tab PO BID 02/26/20 04/22/21 History [Sinemet 25-100 mg] Donepezil HCl [Aricept] 10 mg PO HS 02/26/20 04/22/21 History Ferrous Sulfate [Feosol] 325 mg PO BID 02/26/20 04/22/21 History Gabapentin [Neurontin] 300 mg PO BID 02/26/20 04/22/21 History Pantoprazole Sodium [Protonix] 40 mg PO DAILY 02/26/20 04/22/21 History Tamsulosin HCl [Flomax] 0.4 mg PO DAILY 02/26/20 04/22/21 History hydroCHLOROthiazide [Hydrodiuril] 12.5 mg PO DAILY 02/26/20 04/22/21 History Glucosamine/MSM/Chrond/D3/Bosw 1 tab PO DAILY 03/08/21 04/22/21 History [Ocajeajhjvx-Nveowy-Fce D3 Cplt] Magnesium Oxide [Mag-Ox] 400 mg PO DAILY 03/08/21 04/22/21 History Atorvastatin Calcium [Lipitor] 40 mg PO DAILY 04/22/21 04/22/21 History Calcium Carbonate [Calcium] 1,200 mg PO DAILY 04/22/21 04/22/21 History Ergocalciferol (Vitamin D2) 1,250 mcg PO WEEKLY 04/22/21 04/22/21 History [Drisdol (50,000 Iu)] Naproxen 375 mg PO BID 04/22/21 04/22/21 History Pioglitazone [Actos] 15 mg PO DAILY 04/22/21 04/22/21 History lisinopriL [Zestril] 5 mg PO DAILY 04/22/21 04/22/21 History metFORMIN HCL 1,000 mg PO BID 04/22/21 04/22/21 History Allergies Allergy/AdvReac Type Severity Reaction Status Date / Time Penicillins Allergy Nausea & Verified 04/22/21 13:49 Vomiting Physical Exam Vitals: Vital Signs Temp Pulse Pulse Pulse Resp BP BP 04/23/21 07:25 97.8 F 67 17 04/23/21 02:25 98.2 F 64 18 04/22/21 19:25 98.2 F 67 18 04/22/21 17:24 63 04/22/21 14:25 97.6 F 67 17 206/80 04/22/21 14:03 65 18 170/90 04/22/21 12:41 60 18 161/75 04/22/21 11:29 65 18 172/70 04/22/21 10:44 69 04/22/21 10:12 97.7 F 67 18 181/84 BP Pulse Ox 04/23/21 07:25 161/76 99 04/23/21 02:25 120/54 97 04/22/21 19:25 157/76 100 04/22/21 17:24 147/72 100 04/22/21 14:25 100 04/22/21 14:03 96 04/22/21 12:41 99 04/22/21 11:29 98 04/22/21 10:44 04/22/21 10:12 100 Intake and Output 04/22/21 04/23/21 04/23/21 22:59 06:59 14:59 Intake Total 118 Balance 118 Intake: Oral 118 Other: # Voids 1 4 PHYSICAL EXAMINATION: This is a 81-year-old gentleman in no apparent distress at the time of my examination. VITAL SIGNS: Blood pressure 161/76, heart rate 67, respirations 17, temp 97.8F. Patient is 99 % on room air. HEENT: Head is atraumatic, normocephalic. Mucous membranes of the mouth are moist. Neck is supple. There is no elevated jugular venous pressure. No carotid bruit is heard. CHEST EXAMINATION: Clear to auscultation bilaterally. No wheezes rales or rhonchi. Respirations even and nonlabored. HEART EXAMINATION: Heart irregular rate and rhythm, positive S1 and S2. No S3. No S4. With a soft systolic murmur ABDOMEN: Soft, nontender. Bowel sounds are heard. No organomegaly noted. EXTREMITIES: 2+ peripheral pulses with no evidence of peripheral edema and no calf tenderness noted. NEUROLOGIC EXAMINATION: Patient is awake, alert and oriented x3. Results 04/23/21 05:58 04/23/21 05:58 Cardiac Enzymes 04/22/21 04/22/21 04/22/21 Range/Units 10:35 10:35 15:36 AST 25 (17-59) U/L Troponin I 0.012 <0.012 (0.000-0.034) ng/mL 04/22/21 Range/Units 18:30 AST (17-59) U/L Troponin I <0.012 (0.000-0.034) ng/mL Coagulation 04/22/21 Range/Units 10:35 PT 12.5 H (9.0-12.0) sec APTT 26.5 (22.0-30.0) sec Lipids 04/23/21 Range/Units 05:58 Triglycerides 105.00 (0.00-149.00) mg/dL Cholesterol 81.00 (0.00-200.00) mg/dL HDL Cholesterol 30.10 L (40.00-60.00) mg/dL Cholesterol/HDL Ratio 2.69 Ratio CBC 04/22/21 Range/Units 10:35 WBC 3.6 L (3.8-10.6) k/uL RBC 3.60 L (4.30-5.90) m/uL Hgb 11.7 L (13.0-17.5) gm/dL Hct 37.0 L (39.0-53.0) % Plt Count 187 (150-450) k/uL Comprehensive Metabolic Panel 04/22/21 Range/Units 10:35 Sodium 142 (137-145) mmol/L Potassium 5.4 H (3.5-5.1) mmol/L Chloride 116 H (98-107) mmol/L Carbon Dioxide 15 L (22-30) mmol/L BUN 40 H (9-20) mg/dL Creatinine 1.37 H (0.66-1.25) mg/dL Glucose 122 H (74-99) mg/dL Calcium 9.2 (8.4-10.2) mg/dL AST 25 (17-59) U/L ALT 16 (4-49) U/L Alkaline Phosphatase 192 H (38-126) U/L Total Protein 7.1 (6.3-8.2) g/dL Albumin 4.3 (3.5-5.0) g/dL Current Medications Generic Name Dose Route Start Last Admin Trade Name Freq PRN Reason Stop Dose Admin Ascorbic Acid 500 mg 04/23/21 09:00 04/23/21 08:45 Ascorbic Acid 500 Mg Tab PO 500 mg DAILY ZEE Administration Aspirin 325 mg 04/23/21 09:00 04/23/21 08:45 Aspirin 325 Mg Tab PO 325 mg DAILY ZEE Administration Atorvastatin Calcium 40 mg 04/22/21 21:00 04/22/21 20:56 Atorvastatin 40 Mg Tab PO 40 mg HS ZEE Administration Calcium Carbonate/Glycine 1,000 mg 04/23/21 09:00 04/23/21 08:45 Calcium Carbonate 500 Mg Chewable PO 1,000 mg DAILY ZEE Administration Carbidopa/Levodopa 1 each 04/23/21 09:00 04/23/21 08:46 Carbidopa-Levodopa 25-100 Mg 1 Each Tab PO 1 each DAILY ZEE Administration Cholecalciferol 125 mcg 04/23/21 09:00 04/23/21 08:45 Cholecalciferol 125 Mcg (5000 Iu) Tablet PO 125 mcg DAILY ZEE Administration Donepezil HCl 10 mg 04/22/21 21:00 04/22/21 20:56 Donepezil 10 Mg Tab PO 10 mg HS ZEE Administration Fenofibrate 160 mg 04/23/21 09:00 04/23/21 08:46 Fenofibrate 160 Mg Tab PO 160 mg DAILY ZEE Administration Ferrous Sulfate 325 mg 04/22/21 21:00 04/23/21 08:45 Ferrous Sulfate 325 Mg Tab PO 325 mg BID ZEE Administration Gabapentin 300 mg 04/22/21 21:00 04/23/21 08:45 Gabapentin 300 Mg Cap PO 300 mg BID ZEE Administration Hydrochlorothiazide 12.5 mg 04/23/21 09:00 04/23/21 08:48 Hydrochlorothiazide 12.5 Mg Cap PO 12.5 mg DAILY ZEE Administration Sodium Chloride 1,000 mls @ 20 mls/hr 04/22/21 13:30 04/22/21 13:52 Saline 0.9% IV 20 mls/hr .Q24H ZEE Administration Lisinopril 5 mg 04/23/21 09:00 Lisinopril 5 Mg Tab PO DAILY [facility] Loperamide HCl 2 mg 04/22/21 13:24 Loperamide 2 Mg Cap PO QID PRN Diarrhea Magnesium Oxide 400 mg 04/23/21 09:00 04/23/21 08:45 Magnesium Oxide 400 Mg Tab PO 400 mg DAILY ZEE Administration Metformin HCl 500 mg 04/22/21 17:30 04/23/21 08:45 Metformin 500 Mg Tab PO 500 mg BID-W/MEALS ZEE Administration Multivitamins 1 each 04/23/21 09:00 04/23/21 08:45 Multivitamins, Thera 1 Each Tab PO 1 each DAILY ZEE Administration Nitroglycerin 0.4 mg 04/22/21 13:22 Nitroglycerin Sl Tabs 0.4 Mg Tab SUBLINGUAL Q5M PRN Chest Pain Pantoprazole Sodium 40 mg 04/23/21 07:30 04/23/21 08:45 Pantoprazole 40 Mg Tablet PO 40 mg AC-[id number] ZEE Administration Tamsulosin HCl 0.4 mg 04/23/21 09:00 04/23/21 08:45 Tamsulosin 0.4 Mg Cap.Er.24h PO 0.4 mg DAILY ZEE Administration Intake and Output 04/22/21 04/23/21 04/23/21 22:59 06:59 14:59 Intake Total 118 Balance 118 Intake: Oral 118 Other: # Voids 1 4 04/22/21 10:35 04/22/21 10:35 Assessment and Plan Assessment: #1 chest pain, likely musculoskeletal as a result of a fall 2 weeks ago #2 atrial flutter, not previously diagnosed #3 hypertension #4 hyperlipidemia #5 diabetes #6 frequent falls #7 Parkinson's #8 history of chemotherapy induced cardiomyopathy, resolved, most recent available echocardiogram from 2019 showed a normal LV systolic function Plan: From cardiology's perspective will obtain a 2-D echo with Doppler studies to assess cardiac structure and function. The patient's CHADS VASC is 5. We will add Eliquis 5mg BID. Continue to monitor the heart rates. We'll check a TSH. We'll add amlodipine for better blood pressure control, continue lisinopril 5 mg by mouth daily. We'll continue to follow the patient provide further recommendations accordingly. STATE AUDITOR note has been reviewed, I agree with a documented findings and plan of care. Patient was seen and examined.
[2021-04-23] MEDS: lisinopriL 5 MG TAB PO SCH (13:14)
[2021-04-23] MEDS: APIXABAN 5 MG TAB PO SCH ×2 (13:14→20:40)
[2021-04-23] MEDS: amLODIPine 5 MG TAB PO SCH (13:14)
[2021-04-23] MEDS: SODIUM CHLORIDE 0.9% 1,000 ML IV SCH (13:48)
[2021-04-23] MEDS: ATORVASTATIN 40 MG TAB PO SCH (20:40)
[2021-04-23] MEDS: DONEPEZIL 10 MG TAB PO SCH (20:41)
[2021-04-24 07:02] LABS: ALT 10 U/L (4-49); AST 20 U/L (17-59); African American GFR (CKD) 42 (>60 ml/min/1.73 sqM); Albumin 3.4 g/dL (3.5-5.0); Albumin/Globulin Ratio 1.4; Alkaline Phosphatase 160 U/L (38-126); Anion Gap 7 mmol/L; Blood Urea Nitrogen 50 mg/dL (9-20); Calcium 8.7 mg/dL (8.4-10.2); Carbon Dioxide 17 mmol/L (22-30); Chloride 115 mmol/L (98-107); Globulin 2.5 g/dL; Glucose 155 mg/dL (74-99); Non-African American GFR(CKD) 36 (>60 ml/min/1.73 sqM); Potassium 5.3 mmol/L (3.5-5.1); Sodium 139 mmol/L (137-145); Total Bilirubin 0.6 mg/dL (0.2-1.3); Total Protein 5.9 g/dL (6.3-8.2)
[2021-04-24 07:45] LABS: Glucose,Whole Blood 134 mg/dL (75-99)
[2021-04-24] MEDS: PANTOPRAZOLE 40 MG TABLET PO SCH (07:47)
[2021-04-24] MEDS: lisinopriL 5 MG TAB PO SCH (07:48)
[2021-04-24] MEDS: amLODIPine 5 MG TAB PO SCH (07:48)
[2021-04-24] MEDS: ASPIRIN 81 MG PO SCH (07:48)
[2021-04-24] MEDS: FERROUS SULFATE 325 MG TAB PO SCH ×2 (07:48→19:33)
[2021-04-24] MEDS: FENOFIBRATE 160 MG TAB PO SCH (07:48)
[2021-04-24] MEDS: hydroCHLOROthiazide 12.5 MG CAP PO SCH (07:48)
[2021-04-24] MEDS: CHOLECALCIFEROL 125 MCG (5000 IU) TABLET PO SCH (07:48)
[2021-04-24] MEDS: TAMSULOSIN 0.4 MG CAP.ER.24H PO SCH (07:48)
[2021-04-24] MEDS: GABAPENTIN 300 MG CAP PO SCH ×2 (07:48→19:33)
[2021-04-24] MEDS: APIXABAN 5 MG TAB PO SCH ×2 (07:48→19:33)
[2021-04-24] MEDS: MULTIVITAMINS, THERA 1 EACH TAB PO SCH (07:48)
[2021-04-24] MEDS: ASCORBIC ACID 500 MG TAB PO SCH (07:48)
[2021-04-24] MEDS: CARBIDOPA-LEVODOPA 25-100 MG 1 EACH TAB PO SCH (07:49)
[2021-04-24] MEDS: CALCIUM CARBONATE 500 MG CHEWABLE PO SCH (07:49)
[2021-04-24] MEDS: MAGNESIUM OXIDE 400 MG TAB PO SCH (07:49)
[2021-04-24] MEDS: metFORMIN 500 MG TAB PO SCH ×2 (07:49→17:18)
--- NOTE | 2021-04-24 10:11 | P.PN ---
Subjective Progress Note Date: 04/24/21 HISTORY OF PRESENT ILLNESS: This is a pleasant 81-year-old gentleman with a past medical history of hypertension, diabetes, dyslipidemia, left carotid endarterectomy, Parkinson's, lymphoma for which she underwent chemotherapy, history of cardiomyopathy diagnosed in 2016 has resolved since completion of chemotherapy. He presented to the emergency department after being called at midnight yesterday morning in regards to some abnormal labs done by the [facility]. he's also been complaining of some left-sided chest discomfort since a fall he had 2 weeks ago. The discomfort is on the left side of the chest and typically with certain movements, blowing his nose and significant tenderness with palpation. He typically does not have chest pain. Since his fall he is also been finding it little more difficult to breathe with activity although he is activity is quite limited due to his shuffling gait and frequent falls at home. He says he falls at least once a week. EKG on admission read as sinus rhythm however upon review appears patient was in an atrial tachycardia versus atrial flutter. Laboratory values showed a potassium of 5.4 which is likely [facility] Chest x-ray on admission showed chronic changes with stable tiny left pleural effusion or pleural thickening, no acute displaced left-sided rib fractures identified. His blood pressure has mostly been elevated since admission. He's had heart rates dropping into the 30s while sleeping and his carvedilol has been discontinued. He is currently in atrial flutter. At home he is currently on gemfibrozil, atorvastatin 40 mg by mouth daily, metformin, lisinopril 5 mg by mouth daily, hydrochlorothiazide 12.5 mg by mouth daily, Flomax, Actos, naproxen as needed, Feosol, Aricept, Sinemet, Protonix, Neurontin and calcium. Upon examination the patient is resting comfortably in bed. Complains of chest discomfort only with certain movements and palpation. He does not seem to feel the arrhythmia. 04/24/2021 Patient examined this morning at the bedside. Patient is sitting on the side of the bed eating breakfast. Patient denies any shortness of breath. He denies any more episodes of chest pain. He does report some chest discomfort with deep inspiration. Telemetry reveals atrial fibrillation with controlled ventricular rate. Patient's blood pressure is stable with a systolic in the 120s. Potassium today 5.3. Creatinine today increased to 1.74, up from 1.29 yesterday. PHYSICAL EXAM: VITAL SIGNS: Reviewed. GENERAL: Well-developed in no acute distress. NECK: Supple. No JVD or thyromegaly LUNGS: Respirations even and unlabored. Lungs essentially clear to auscultation bilaterally. HEART: Irregular rate and rhythm. S1 and S2 heard. Systolic murmur noted. EXTREMITIES: Normal range of motion. No clubbing or cyanosis. Peripheral pulses intact. No lower extremity edema ASSESSMENT: #1 chest pain, likely musculoskeletal as a result of a fall 2 weeks ago #2 atrial flutter, not previously diagnosed #3 hypertension #4 hyperlipidemia #5 diabetes #6 frequent falls #7 Parkinson's #8 history of chemotherapy induced cardiomyopathy, resolved, most recent available echocardiogram from 2019 showed a normal LV systolic function #9 acute kidney injury #10 hyperkalemia PLAN: Continue telemetry monitoring Continue anticoagulation with Eliquis Decrease lisinopril to 2.5 mg daily secondary to acute kidney injury Monitor kidney function 2-D echo ordered. Await results Further recommendations pending patient's course Nurse practitioner note has been reviewed by physician. Signing provider agrees with the documented findings, assessment, and plan of care. Objective - Vital Signs Vital signs: Vital Signs Temp 97.8 F 04/24/21 07:00 Pulse 66 04/24/21 07:00 Resp 16 04/24/21 07:00 BP 128/62 04/24/21 07:00 Pulse Ox 96 04/24/21 07:00 Intake & Output 04/23/21 04/24/21 04/24/21 18:59 06:59 18:59 Intake Total 400 Balance 400 Intake: Oral 400 Other: # Voids 1 1 - Labs CBC & Chem 7: 04/23/21 05:58 04/24/21 06:21 Labs: Abnormal Lab Results - Last 24 Hours (Table) 04/23/21 04/24/21 04/24/21 Range/Units 12:07 06:21 07:43 Potassium 5.3 H (3.5-5.1) mmol/L Chloride 115 H (98-107) mmol/L Carbon Dioxide 17 L (22-30) mmol/L BUN 50 H (9-20) mg/dL Creatinine 1.74 H (0.66-1.25) mg/dL Glucose 155 H (74-99) mg/dL POC Glucose (mg/dL) 213 H 134 H (75-99) mg/dL Alkaline Phosphatase 160 H (38-126) U/L Total Protein 5.9 L (6.3-8.2) g/dL Albumin 3.4 L (3.5-5.0) g/dL
[2021-04-24] MEDS: SODIUM CHLORIDE 0.9% 1,000 ML IV SCH (11:28)
--- NOTE | 2021-04-24 11:38 | ECHOF ---
Referral Reason:a flutter MEASUREMENTS -------- HEIGHT: 172.7 cm WEIGHT: 80.3 kg BP: RVIDd: 2.6 cm (< 3.3) IVSd: 1.1 cm (0.6 - 1.1) LVIDd: 5.6 cm (3.9 - 5.3) LVPWd: 1.1 cm (0.6 - 1.1) IVSs: 1.9 cm LVIDs: 3.0 cm LVPWs: 2.2 cm LAESV Index (A-L): 30.46 ml/m Ao Diam: 3.4 cm (2.0 - 3.7) AV Cusp: 2.2 cm (1.5 - 2.6) LA Diam: 3.4 cm (2.7 - 3.8) MV EXCURSION: 14.230 mm (> 18.000) MV EF SLOPE: 142 mm/s (70 - 150) EPSS: 0.8 cm MV E Nam: 1.13 m/s MV DecT: 199 ms MV A Nam: 0.53 m/s MV E/A Ratio: 2.11 RAP: 5.00 mmHg RVSP: 27.59 mmHg FINDINGS -------- This was a technically good study. The left ventricular size is normal. Left ventricular wall thickness is normal. Overall left vent ricular systolic function is normal with, an EF between 55 - 60 %. The diastolic filling pattern is normal for the age of the patient 12.54. The right ventricle is normal in size. The left atrial size is normal. Normal LA size by volume 22+/-6 ml/m2. The right atrial size is normal. Aortic valve is trileaflet and is mildly thickened. The mitral valve is normal. Mild mitral regurgitation is present. The tricuspid valve appears structurally normal. Mild tricuspid regurgitation present. Right vent ricular systolic pressure is normal at < 35 mmHg. There is no pulmonic regurgitation present. The aortic root size is normal. Normal inferior vena cava with normal inspiratory collapse consistent with estimated right atrial pre ssure of 5 mmHg. There is a small, generalized pericardial effusion present. CONCLUSIONS -------- 1. The left ventricular size is normal. 2. Left ventricular wall thickness is normal. 3. Overall left ventricular systolic function is normal with, an EF between 55 - 60 %. 4. The diastolic filling pattern is normal for the age of the patient 12.54 5. Aortic valve is trileaflet and is mildly thickened. 6. Mild mitral regurgitation is present. 7. Mild tricuspid regurgitation present. 8. There is a small, generalized pericardial effusion present. ELECTRICAL AND INSTRUMENT MECHANIC: Annamaria Pacheco RDCS
[2021-04-24 12:10] LABS: Basophils # (A) 0.01 X 10*3/uL (0.00-0.10); Basophils % (A) 0.2 %; Eosinophils # (A) 0.14 X 10*3/uL (0.04-0.35); Eosinophils % (A) 2.4 %; HCT 32.9 % (39.6-50.0); Immature Grans, Automated 0.3 %; Lymphocytes # (A) 2.08 X 10*3/uL (0.90-5.00); Lymphocytes % (A) 35.6 %; MCHC 30.4 g/dL (32.0-37.0); MCV 101.9 fL (80.0-97.0); Mean Platelet Volume 12.1 fL (9.5-12.2); Monocytes # (A) 0.69 X 10*3/uL (0.20-1.00); Monocytes % (A) 11.8 %; NRBC Per 100 WBC 0 /100 WBCS (0.0-0.0); Neutrophils % (A) 49.7 %; Platelet Count 178 X 10*3/uL (140-440); RBC 3.23 X 10*6/uL (4.40-5.60); RDW 15.9 % (11.5-14.5); WBC 5.84 X 10*3/uL (4.50-10.00)
[2021-04-24 12:41] LABS: Glucose,Whole Blood 175 mg/dL (75-99)
[2021-04-24 17:22] LABS: Glucose,Whole Blood 202 mg/dL (75-99)
--- NOTE | 2021-04-24 18:14 | P.PN ---
Subjective Progress Note Date: 04/24/21 Vasile Gonzalez, is an 81-year-old male who presented to [facility] was a chief complaint of left sided chest pain, patient states that he fell 2 weeks ago, and hit the left side of his chest, he also had an abrasion on his left elbow, he was having chest pain since then, he was [facility] for [facility] test, he received a call at midnight asking him to go to emergency room because he has a bad heart on his testing. Patient came to emergency room he was evaluated by Dr. Arriaga, he was admitted to telemetry floor and cardiology consultation was requested for further evaluation. He was evaluated in the emergency room vital examination on presentation revealed a temperature of 97.7 pulse 67 respiration 18 blood pressure 181/84 pulse ox 100% on room air Laboratory data revealed a white blood count of 3.6 hemoglobin 11.7 platelet count 187 sodium 142 potassium 5.4 chloride 116 CO2 15 BUN 40 creatinine 1.37 Testing in the emergency room revealed EKG done in the emergency room revealed normal sinus rhythm with poor R-wave progression in the anterior leads, chest x- ray and x-ray of the ribs revealed small left pleural effusion and no acute displaced left sided rib fracture. Patient was admitted to medical floor for further evaluation and treatment Past medical history is significant for history of large B-cell lymphoma, with chemotherapy in 2016, history of chronic kidney disease followed by Dr. Burrows, history of benign prostatic hypertrophy, history of carotid artery stenosis with history of left carotid endarterectomy, history of congestive heart failure, followed by Dr. Interiano, history of diabetes mellitus, history of hypertension, history of hyperlipidemia, history of osteoarthritis. 04/23/2021 patient's alert and oriented 3. Creatinine slightly improving to 1.29 bun 37 and potassium 5.1. Awaiting cardiology input. At this time patient denies chest pain or shortness breath. Patient denies nausea vomiting or diarrhea. Patient denies any urinary burning or frequency 04/24/2021 patient was seen and examined on the medical floor, he is alert and oriented 3. kidney function worsened significantly since yesterday, Awaiting cardiology input. At this time patient denies chest pain or shortness breath. Patient denies nausea vomiting or diarrhea. Patient denies any urinary burning or frequency Objective - Vital Signs Vital signs: Vital Signs Temp 97.8 F 04/24/21 07:00 Pulse 66 04/24/21 07:00 Resp 16 04/24/21 07:00 BP 128/62 04/24/21 07:00 Pulse Ox 96 04/24/21 07:00 Intake & Output 04/23/21 04/24/21 04/24/21 18:59 06:59 18:59 Intake Total 400 Balance 400 Intake: Oral 400 Other: # Voids 1 1 - Exam In general patient is alert and oriented x 3 in no distress HEENT head normocephalic and atraumatic Neck is supple no JVD no goiter no lymphadenopathy no carotid bruit Chest examination is clear to auscultation no crackles no wheezing Cardiac exam reveals regular heart sounds S1 and S2 no gallops no murmurs Abdomen is soft nontender no organomegaly with normal bowel sounds Extremity exam reveals no edema no cyanosis or clubbing Neurological examination reveals no gross focal deficits - Labs CBC & Chem 7: 04/24/21 06:21 04/24/21 06:21 Labs: Abnormal Lab Results - Last 24 Hours (Table) 04/24/21 04/24/21 04/24/21 Range/Units 06:21 06:21 07:43 RBC 3.23 L (4.40-5.60) X 10*6/uL Hgb 10.0 L (13.0-17.0) g/dL Hct 32.9 L (39.6-50.0) % MCV 101.9 H (80.0-97.0) fL MCHC 30.4 L (32.0-37.0) g/dL RDW 15.9 H (11.5-14.5) % Potassium 5.3 H (3.5-5.1) mmol/L Chloride 115 H (98-107) mmol/L Carbon Dioxide 17 L (22-30) mmol/L BUN 50 H (9-20) mg/dL Creatinine 1.74 H (0.66-1.25) mg/dL Glucose 155 H (74-99) mg/dL POC Glucose (mg/dL) 134 H (75-99) mg/dL Alkaline Phosphatase 160 H (38-126) U/L Total Protein 5.9 L (6.3-8.2) g/dL Albumin 3.4 L (3.5-5.0) g/dL Assessment and Plan Plan: Chest pain, left sided likely related to trauma 2 weeks ago, no evidence of rib fractures, there is evidence of small left sided pleural effusion on chest x-ray Abnormal labs at [facility], triggering call at night requesting from patient to go to emergency room, will try to obtain labs Underlying history of diabetes mellitus Underlying history of hypertension Underlying history of hyperlipidemia Underlying history of congestive heart failure followed by Dr. Interiano, will obtain echocardiogram Underlying history of chronic kidney disease, MELVIN with worsening BUN and CR, check kidney US, D/C Metformin and HCTZ, recheck kidney function in am Underlying history of benign prostatic hypertrophy At this time patient is admitted to telemetry floor Serial EKG and cardiac enzymes are ordered Echocardiogram ordered, cardiology consultation was requested Follow in a.m.
--- NOTE | 2021-04-24 19:27 | US ---
EXAMINATION TYPE: US kidneys/renal and bladder DATE OF EXAM: 04/24/2021 COMPARISON: US Abd 2018 CLINICAL HISTORY: MELVIN. HX colon cancer and surgery 6 years ago. EXAM MEASUREMENTS: Right Kidney: 10.4 x 5.2 x 5.4 cm Left Kidney: 10.8 x 4.8 x 4.4 cm Right Kidney: Cystic area located medially 0.8 x 0.4 x 0.8 cm Left Kidney: No hydronephrosis or masses seen Bladder: Not distended; heterogenous material bladder area Bilateral Jets seen: No There is no evidence for hydronephrosis at this point in time. No nephrolithiasis is seen. No brandy s are identified. The urinary bladder is anechoic. Bilateral ureteral jets are seen. IMPRESSION: No evidence of obstructive uropathy. Debris within the urinary bladder correlate with urinalysis for cystitis.
[2021-04-24] MEDS: ATORVASTATIN 40 MG TAB PO SCH (19:33)
[2021-04-24] MEDS: DONEPEZIL 10 MG TAB PO SCH (19:34)
[2021-04-24 20:32] LABS: Glucose,Whole Blood 189 mg/dL (75-99)
[2021-04-25] MEDS: MULTIVITAMINS, THERA 1 EACH TAB PO SCH (07:23)
[2021-04-25] MEDS: FERROUS SULFATE 325 MG TAB PO SCH ×2 (07:23→21:01)
[2021-04-25] MEDS: amLODIPine 5 MG TAB PO SCH (07:23)
[2021-04-25] MEDS: ASPIRIN 81 MG PO SCH (07:23)
[2021-04-25] MEDS: TAMSULOSIN 0.4 MG CAP.ER.24H PO SCH (07:23)
[2021-04-25] MEDS: PANTOPRAZOLE 40 MG TABLET PO SCH (07:23)
[2021-04-25] MEDS: CARBIDOPA-LEVODOPA 25-100 MG 1 EACH TAB PO SCH (07:23)
[2021-04-25] MEDS: CALCIUM CARBONATE 500 MG CHEWABLE PO SCH (07:23)
[2021-04-25] MEDS: APIXABAN 5 MG TAB PO SCH ×2 (07:23→21:01)
[2021-04-25] MEDS: FENOFIBRATE 160 MG TAB PO SCH (07:24)
[2021-04-25] MEDS: GABAPENTIN 300 MG CAP PO SCH ×2 (07:24→21:01)
[2021-04-25] MEDS: CHOLECALCIFEROL 125 MCG (5000 IU) TABLET PO SCH (07:24)
[2021-04-25] MEDS: ASCORBIC ACID 500 MG TAB PO SCH (07:24)
[2021-04-25] MEDS: MAGNESIUM OXIDE 400 MG TAB PO SCH (07:24)
[2021-04-25 08:00] LABS: Glucose,Whole Blood 132 mg/dL (75-99)
[2021-04-25 09:58] LABS: Basophils # (A) 0.02 X 10*3/uL (0.00-0.10); Basophils % (A) 0.4 %; Eosinophils # (A) 0.14 X 10*3/uL (0.04-0.35); Eosinophils % (A) 2.9 %; HCT 33.4 % (39.6-50.0); Immature Grans, Automated 0.4 %; Lymphocytes % (A) 28.9 %; MCH 30.5 pg (27.0-32.0); MCHC 29.9 g/dL (32.0-37.0); MCV 101.8 fL (80.0-97.0); Mean Platelet Volume 12.3 fL (9.5-12.2); Monocytes # (A) 0.68 X 10*3/uL (0.20-1.00); NRBC Per 100 WBC 0 /100 WBCS (0.0-0.0); Neutrophils # (A) 2.58 X 10*3/uL (1.80-7.70); Neutrophils % (A) 53.4 %; Platelet Count 182 X 10*3/uL (140-440); RBC 3.28 X 10*6/uL (4.40-5.60); RDW 15.8 % (11.5-14.5); WBC 4.84 X 10*3/uL (4.50-10.00)
[2021-04-25 10:07] LABS: African American GFR (CKD) 46.5 (60.0-200.0); Albumin 3.9 g/dL (3.8-4.9); Albumin/Globulin Ratio 2.05 (1.60-3.17); Anion Gap 10.7 mmol/L (10.00-18.00); BUN/Creat Ratio 31.75 Ratio (12.00-20.00); Blood Urea Nitrogen 50.8 mg/dL (9.0-27.0); Calcium 8.7 mg/dL (8.7-10.3); Carbon Dioxide 16.3 mmol/L (20.0-27.5); Globulin 1.9 g/dL (1.6-3.3); Non-African American GFR(CKD) 40.1 (60.0-200.0); Potassium 5.6 mmol/L (3.5-5.5); Total Bilirubin 0.2 mg/dL (0.30-1.20); Total Protein 5.8 g/dL (6.2-8.2)
--- NOTE | 2021-04-25 10:46 | P.PN ---
Subjective Progress Note Date: 04/25/21 HISTORY OF PRESENT ILLNESS: This is a pleasant 81-year-old gentleman with a past medical history of hypertension, diabetes, dyslipidemia, left carotid endarterectomy, Parkinson's, lymphoma for which she underwent chemotherapy, history of cardiomyopathy diagnosed in 2016 has resolved since completion of chemotherapy. He presented to the emergency department after being called at midnight yesterday morning in regards to some abnormal labs done by the [facility]. he's also been complaining of some left-sided chest discomfort since a fall he had 2 weeks ago. The discomfort is on the left side of the chest and typically with certain movements, blowing his nose and significant tenderness with palpation. He typically does not have chest pain. Since his fall he is also been finding it little more difficult to breathe with activity although he is activity is quite limited due to his shuffling gait and frequent falls at home. He says he falls at least once a week. EKG on admission read as sinus rhythm however upon review appears patient was in an atrial tachycardia versus atrial flutter. Laboratory values showed a potassium of 5.4 which is [facility] Chest x-ray on admission showed chronic changes with stable tiny left pleural effusion or pleural thickening, no acute displaced left-sided rib fractures identified. His blood pressure has mostly been elevated since admission. He's had heart rates dropping into the 30s while sleeping and his carvedilol has been discontinued. He is currently in atrial flutter. At home he is currently on gemfibrozil, atorvastatin 40 mg by mouth daily, metformin, lisinopril 5 mg by mouth daily, hydrochlorothiazide 12.5 mg by mouth daily, Flomax, Actos, naproxen as needed, Feosol, Aricept, Sinemet, Protonix, Neurontin and calcium. Upon examination the patient is resting comfortably in bed. Complains of chest discomfort only with certain movements and palpation. He does not seem to feel the arrhythmia. 04/24/2021 Patient examined this morning at the bedside. Patient is sitting on the side of the bed eating breakfast. Patient denies any shortness of breath. He denies any more episodes of chest pain. He does report some chest discomfort with deep inspiration. Telemetry reveals atrial fibrillation with controlled ventricular rate. Patient's blood pressure is stable with a systolic in the 120s. Potassium today 5.3. Creatinine today increased to 1.74, up from 1.29 yesterday. 04/25/2021 Patient examined this morning at the bedside. Patient denies chest pain or pressure. Denies SOB. Patients heart rate controlled. Blood pressure 141/56. Echocardiogram completed revealing ejection fraction 55-60%, mild mitral regurgitation, mild tricuspid regurgitation, and small generalized pericardial effusion. PHYSICAL EXAM: VITAL SIGNS: Reviewed. GENERAL: Well-developed in no acute distress. NECK: Supple. No JVD or thyromegaly LUNGS: Respirations even and unlabored. Lungs essentially clear to auscultation bilaterally. HEART: Irregular rate and rhythm. S1 and S2 heard. Systolic murmur noted. EXTREMITIES: Normal range of motion. No clubbing or cyanosis. Peripheral pulses intact. No lower extremity edema ASSESSMENT: #1 chest pain, likely musculoskeletal as a result of a fall 2 weeks ago #2 atrial flutter, not previously diagnosed #3 hypertension #4 hyperlipidemia #5 diabetes #6 frequent falls #7 Parkinson's #8 history of chemotherapy induced cardiomyopathy, resolved, most recent available echocardiogram from 2019 showed a normal LV systolic function #9 acute kidney injury #10 hyperkalemia PLAN: Continue current cardiac medications No further inpatient recommendations from a cardiac standpoint We will sign off. Please reconsult if needed. Nurse practitioner note has been reviewed by physician. Signing provider agrees with the documented findings, assessment, and plan of care. Objective - Vital Signs Vital signs: Vital Signs Temp 98.3 F 04/25/21 06:52 Pulse 52 L 04/25/21 06:52 Resp 20 04/25/21 06:52 BP 141/56 04/25/21 06:52 Pulse Ox 97 04/25/21 06:52 Intake & Output 04/24/21 04/25/21 04/25/21 18:59 06:59 18:59 Intake Total 240 Balance 240 Intake: Oral 240 Other: # Voids 3 2 - Labs CBC & Chem 7: 04/25/21 05:33 04/25/21 05:33 Labs: Abnormal Lab Results - Last 24 Hours (Table) 04/24/21 04/24/21 04/24/21 Range/Units 06:21 12:39 17:21 RBC 3.23 L (4.40-5.60) X 10*6/uL Hgb 10.0 L (13.0-17.0) g/dL Hct 32.9 L (39.6-50.0) % MCV 101.9 H (80.0-97.0) fL MCHC 30.4 L (32.0-37.0) g/dL RDW 15.9 H (11.5-14.5) % MPV (9.5-12.2) fL Potassium (3.5-5.5) mmol/L Chloride (96-109) mmol/L Carbon Dioxide (20.0-27.5) mmol/L BUN (9.0-27.0) mg/dL Creatinine (0.6-1.5) mg/dL Est GFR (CKD-EPI)AfAm (60.0-200.0) Est GFR (CKD-EPI)NonAf (60.0-200.0) BUN/Creatinine Ratio (12.00-20.00) Ratio Glucose (70-110) mg/dL POC Glucose (mg/dL) 175 H 202 H (75-99) mg/dL Total Bilirubin (0.30-1.20) mg/dL ALT (10-49) U/L Alkaline Phosphatase (41-126) U/L Total Protein (6.2-8.2) g/dL 04/24/21 04/25/21 04/25/21 Range/Units 20:30 05:33 05:33 RBC 3.28 L (4.40-5.60) X 10*6/uL Hgb 10.0 L (13.0-17.0) g/dL Hct 33.4 L (39.6-50.0) % MCV 101.8 H (80.0-97.0) fL MCHC 29.9 L (32.0-37.0) g/dL RDW 15.8 H (11.5-14.5) % MPV 12.3 H (9.5-12.2) fL Potassium 5.6 H (3.5-5.5) mmol/L Chloride 112 H (96-109) mmol/L Carbon Dioxide 16.3 L (20.0-27.5) mmol/L BUN 50.8 H (9.0-27.0) mg/dL Creatinine 1.6 H (0.6-1.5) mg/dL Est GFR (CKD-EPI)AfAm 46.5 L (60.0-200.0) Est GFR (CKD-EPI)NonAf 40.1 L (60.0-200.0) BUN/Creatinine Ratio 31.75 H (12.00-20.00) Ratio Glucose 151 H (70-110) mg/dL POC Glucose (mg/dL) 189 H (75-99) mg/dL Total Bilirubin 0.20 L (0.30-1.20) mg/dL ALT 8 L (10-49) U/L Alkaline Phosphatase 186 H (41-126) U/L Total Protein 5.8 L (6.2-8.2) g/dL 04/25/21 Range/Units 07:58 RBC (4.40-5.60) X 10*6/uL Hgb (13.0-17.0) g/dL Hct (39.6-50.0) % MCV (80.0-97.0) fL MCHC (32.0-37.0) g/dL RDW (11.5-14.5) % MPV (9.5-12.2) fL Potassium (3.5-5.5) mmol/L Chloride (96-109) mmol/L Carbon Dioxide (20.0-27.5) mmol/L BUN (9.0-27.0) mg/dL Creatinine (0.6-1.5) mg/dL Est GFR (CKD-EPI)AfAm (60.0-200.0) Est GFR (CKD-EPI)NonAf (60.0-200.0) BUN/Creatinine Ratio (12.00-20.00) Ratio Glucose (70-110) mg/dL POC Glucose (mg/dL) 132 H (75-99) mg/dL Total Bilirubin (0.30-1.20) mg/dL ALT (10-49) U/L Alkaline Phosphatase (41-126) U/L Total Protein (6.2-8.2) g/dL
[2021-04-25] MEDS: DEXTROSE 5% IN WATER 1,000 ML with SODIUM BICARB (1 MEQ/ML) 150 ML IV SCH (11:17)
[2021-04-25] MEDS ORDERED: SODIUM ZIRCONIUM CYCLOSILICATE 10 GM PACKET PO ONE (11:30)
[2021-04-25] MEDS ORDERED: SODIUM POLYSTYRENE SULFONATE 15 GM/60 ML BOTTLE PO ONE (12:30)
[2021-04-25 12:31] LABS: Glucose,Whole Blood 192 mg/dL (75-99)
--- NOTE | 2021-04-25 15:04 | CDI ---
Documentation Clarification Form Date: 04/25/2021 02:04:12 PM From: Madelin Mcgowan RN, CCDS Admit Date: 04/24/2021 01:33:00 PM Patient Name: Vasile Gonzalez Visit Number: [id number] Discharge Date: ATTENTION: The Clinical Documentation Specialists (CDI) and [facility] Coding Staff appreciate your assistance in clarifying documentation. Please respond to the clarification below the line at the bottom and electronically sign. The CDI & [facility] Coding staff will review the response and follow-up if needed. Please note: Queries are made part of the Legal Health Record. If you have any questions, please contact the author of this message via ITS. Dr. Luis Enrique Leyva Atrial Flutter is documented in the consult on 04/23/2021 and subsequent progress notes. Additional clarification regarding the type of Atrial Flutter is requested. History/Risk factors: Chronic kidney disease, Diabetes mellitus, Hypertension, Heart Failure Clinical Indicators: [id number] male present with abnormal labs done by the [facility] and complaining of some left-sided chest discomfort since a fall he had 2 weeks ago. 04/24 Vital signs: 128/62 66 16 96 % RA 04/24 EKG/telemetry: atrial flutter with 3:1 AV conduction vent rate 67 bpm Treatment: Telemetry Monitoring ECHO: EF 55-60 %, mild mitral regurgitation, mild tricuspid regurgitation, and small generalized pericardial effusion. Eliquis 5 MG PO BID Amlodipine 5MG PO Daily Lisinopril 5 MG PO Daily ASA 81 MG PO Daily Please clarify the type of Atrial Flutter, if known: [ x ] Typical/Type I [ ] Atypical/Type II [ ] Other, please specify [ ] Unable to determine (Template Last Revised: May 2020) MTDD
--- NOTE | 2021-04-25 16:39 | P.NPCON ---
History of Present Illness - Reason for Consult acute renal failure - History of Present Illness Patient is a 81-year-old male with history of chronic kidney disease, NKF stage II previous creatinine about 1.1-0.9 mg/dL. Patient was admitted to the hospital with complaints of repeated falls. He had been week. She also complained of chest pain. Lab work was noted to be abnormal at the OR and therefore patient was advised admission. serum creatinine increased from 1.29 on 04/23/2021 to 1.74 yesterday and today it is at 1.6. [place] patient has been voiding fairly okay. Blood pressure has been on the lower side. No nausea vomiting diarrhea or fevers or chills noted at this time. Potassium was elevated at 5.6 today. 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 Past Anesthesia/Blood Transfusion Reactions: No Reported Reaction Additional Past Anesthesia/Blood Transfusion Reaction / Comment(s): HX OF BLOOD TRANSFUSION-NO REACTION. Past Psychological History: No Psychological Hx Reported Additional Psychological History / Comment(s): Pt resides with his spouse. He has a cane/walker but not currently using them. He drives very little. Smoking Status: Former smoker Past Alcohol Use History: None Reported Additional Past Alcohol Use History / Comment(s): STARTED SMOKING IN 1950 QUIT 1971 SMOKED 2 PPD Past Drug Use History: None Reported - Past Family History Daughter(s) Family Medical History: Cancer Additional Family Medical History / Comment(s): BREAST , LIVER AND LUNG CANCER Father Family Medical History: Myocardial Infarction ([place]) Additional Family Medical History / Comment(s): Father at age 65yrs. Mother Family Medical History: Dementia Additional Family Medical History / Comment(s): Mother at about age 82yrs. Brother(s) Family Medical History: Cancer Additional Family Medical History / Comment(s): (2 BROTHERS) Sister(s) Family Medical History: Cancer Medications and Allergies Home Medications Medication Instructions Recorded Confirmed Type gemfibroziL [Lopid] 600 mg PO BID 12/30/14 04/22/21 History Multivitamins, Thera [Multivitamin 1 tab PO DAILY 11/07/15 04/22/21 History (formulary)] Loperamide [Imodium] 4 mg PO QID PRN 02/24/20 04/22/21 History Carbidopa-Levodopa 25-100 mg 1 tab PO BID 02/26/20 04/22/21 History [Sinemet 25-100 mg] Donepezil HCl [Aricept] 10 mg PO HS 02/26/20 04/22/21 History Ferrous Sulfate [Feosol] 325 mg PO BID 02/26/20 04/22/21 History Gabapentin [Neurontin] 300 mg PO BID 02/26/20 04/22/21 History Pantoprazole Sodium [Protonix] 40 mg PO DAILY 02/26/20 04/22/21 History Tamsulosin HCl [Flomax] 0.4 mg PO DAILY 02/26/20 04/22/21 History hydroCHLOROthiazide [Hydrodiuril] 12.5 mg PO DAILY 02/26/20 04/22/21 History Glucosamine/MSM/Chrond/D3/Bosw 1 tab PO DAILY 03/08/21 04/22/21 History [Wkwsozzqydl-Uzaipj-Oon D3 Cplt] Magnesium Oxide [Mag-Ox] 400 mg PO DAILY 03/08/21 04/22/21 History Atorvastatin Calcium [Lipitor] 40 mg PO DAILY 04/22/21 04/22/21 History Calcium Carbonate [Calcium] 1,200 mg PO DAILY 04/22/21 04/22/21 History Ergocalciferol (Vitamin D2) 1,250 mcg PO WEEKLY 04/22/21 04/22/21 History [Drisdol (50,000 Iu)] Naproxen 375 mg PO BID 04/22/21 04/22/21 History Pioglitazone [Actos] 15 mg PO DAILY 04/22/21 04/22/21 History lisinopriL [Zestril] 5 mg PO DAILY 04/22/21 04/22/21 History metFORMIN HCL 1,000 mg PO BID 04/22/21 04/22/21 History Allergies Allergy/AdvReac Type Severity Reaction Status Date / Time Penicillins Allergy Nausea & Verified 04/22/21 13:49 Vomiting Physical Exam Vitals: Vital Signs Temp Pulse Resp BP Pulse Ox 04/25/21 15:35 97.6 F 51 L 16 119/56 98 04/25/21 13:00 97 04/25/21 11:14 97.3 F L 60 20 127/62 98 04/25/21 10:40 52 L 20 04/25/21 06:52 98.3 F 52 L 20 141/56 97 04/25/21 01:58 98.0 F 69 18 106/61 99 04/24/21 20:14 97.5 F L 64 14 156/75 100 04/24/21 20:00 64 Intake and Output 04/25/21 04/25/21 04/25/21 06:59 14:59 22:59 Other: Voiding Method Toilet # Voids 2 1 And is awake comfortable, alert and oriented 3. Examination of the heart S1 and S2 Examination of the lungs bilateral breath sounds are heard Abdomen is soft nontender Examination of lower extremities shows no evidence of edema. [employer] exam grossly intact Results - Lab Results Most recent lab results Calcium 8.7 mg/dL (8.7-10.3) 04/25/21 05:33 Magnesium 1.7 mg/dL (1.6-2.3) 04/22/21 10:35 04/25/21 05:33 04/25/21 05:33 Assessment and Plan Assessment: . Acute kidney injury, mostly prerenal, blood pressure has been on the lower side. Patient was also on royal inhibitors currently decreased. 2. Chronic kidney disease NKF stage II secondary to nephrosclerosis, previous creatinine as low as 0.9-1.1 mg/dL. Previous UA showed 1+ protein. 3. Hyperkalemia associated with acute kidney injury in the setting of use of ROYAL inhibitor's [place] 4. Metabolic acidosis associated with acute kidney injury 5. Chest pain, mostly musculoskeletal 6. History of CHF, echocardiogram has been ordered Plan: Start IV fluids. Check urine analysis Repeat labs in a.m. DC lisinopril Encourage increased oral intake Thank you for the consultation we will continue to follow the patient with you during his hospitalization
[2021-04-25 17:23] LABS: Glucose,Whole Blood 230 mg/dL (75-99)
[2021-04-25 18:20] LABS: Appearance,Urine Clear (Clear); Bilirubin,Urine Negative (Negative); Blood,Urine Negative (Negative); Color,Urine Yellow; Glucose,Urine (UA) Negative (Negative); Ketones,Urine Negative (Negative); Leukocyte Esterase,Urine Negative (Negative); Nitrite,Urine Negative (Negative); PH, Urine 5.5 (5.0-8.0); Protein,Urine 1+ (Negative); RBC,Urine 23 /hpf (0-5); Specific Gravity,Urine 1.021 (1.001-1.035); Squamous Epithelial Cell,Urine <1 /hpf (0-4); Urobilinogen,Urine <2.0 mg/dL (<2.0); WBC,Urine 3 /hpf (0-5)
--- NOTE | 2021-04-25 19:35 | P.PN ---
Subjective Progress Note Date: 04/25/21 Vasile Gonzalez, is an 81-year-old male who presented to [facility] was a chief complaint of left sided chest pain, patient states that he fell 2 weeks ago, and hit the left side of his chest, he also had an abrasion on his left elbow, he was having chest pain since then, he was seen yesterday at the [place] clinic for a blood test, he received a call at midnight asking him to go to emergency room because he has a bad heart on his testing. Patient came to emergency room he was evaluated by Dr. Arriaga, he was admitted to telemetry floor and cardiology consultation was requested for further evaluation. He was evaluated in the emergency room vital examination on presentation revealed a temperature of 97.7 pulse 67 respiration 18 blood pressure 181/84 pulse ox 100% on room air Laboratory data revealed a white blood count of 3.6 hemoglobin 11.7 platelet count 187 sodium 142 potassium 5.4 chloride 116 CO2 15 BUN 40 creatinine 1.37 Testing in the emergency room revealed EKG done in the emergency room revealed normal sinus rhythm with poor R-wave progression in the anterior leads, chest x- ray and x-ray of the ribs revealed small left pleural effusion and no acute displaced left sided rib fracture. Patient was admitted to medical floor for further evaluation and treatment Past medical history is significant for history of large B-cell lymphoma, with chemotherapy in 2016, history of chronic kidney disease followed by Dr. Burrows, history of benign prostatic hypertrophy, history of carotid artery stenosis with history of left carotid endarterectomy, history of congestive heart failure, followed by Dr. Interiano, history of diabetes mellitus, history of hypertension, history of hyperlipidemia, history of osteoarthritis. 04/23/2021 patient's alert and oriented 3. Creatinine slightly improving to 1.29 bun 37 and potassium 5.1. Awaiting cardiology input. At this time patient denies chest pain or shortness breath. Patient denies nausea vomiting or diarrhea. Patient denies any urinary burning or frequency 04/24/2021 patient was seen and examined on the medical floor, he is alert and oriented 3. kidney function worsened significantly since yesterday, Awaiting cardiology input. At this time patient denies chest pain or shortness breath. Patient denies nausea vomiting or diarrhea. Patient denies any urinary burning or frequency On 04/25/2021 patient is alert and oriented in no apparent distress, today potassium is worse at 5.6 BUN is 50.8 creatinine 1.6 at this time will give a dose of Kayexalate nephrology consultation requested awaiting input there is no fever or chills no headache or dizziness no chest pain no shortness of breath no cough no nausea or vomiting no abdominal pain no diarrhea and no urinary symptoms Objective - Vital Signs Vital signs: Vital Signs Temp 97.3 F L 04/25/21 11:14 Pulse 60 04/25/21 11:14 Resp 20 04/25/21 11:14 BP 127/62 04/25/21 11:14 Pulse Ox 98 04/25/21 11:14 Intake & Output 04/24/21 04/25/21 04/25/21 18:59 06:59 18:59 Intake Total 240 Balance 240 Intake: Oral 240 Other: Voiding Method Toilet # Voids 3 2 - Exam In general patient is alert and oriented x 3 in no distress HEENT head normocephalic and atraumatic Neck is supple no JVD no goiter no lymphadenopathy no carotid bruit Chest examination is clear to auscultation no crackles no wheezing Cardiac exam reveals regular heart sounds S1 and S2 no gallops no murmurs Abdomen is soft nontender no organomegaly with normal bowel sounds Extremity exam reveals no edema no cyanosis or clubbing Neurological examination reveals no gross focal deficits - Labs CBC & Chem 7: 04/25/21 05:33 04/25/21 05:33 Labs: Abnormal Lab Results - Last 24 Hours (Table) 04/24/21 04/24/21 04/24/21 Range/Units 06:21 12:39 17:21 RBC 3.23 L (4.40-5.60) X 10*6/uL Hgb 10.0 L (13.0-17.0) g/dL Hct 32.9 L (39.6-50.0) % MCV 101.9 H (80.0-97.0) fL MCHC 30.4 L (32.0-37.0) g/dL RDW 15.9 H (11.5-14.5) % MPV (9.5-12.2) fL Potassium (3.5-5.5) mmol/L Chloride (96-109) mmol/L Carbon Dioxide (20.0-27.5) mmol/L BUN (9.0-27.0) mg/dL Creatinine (0.6-1.5) mg/dL Est GFR (CKD-EPI)AfAm (60.0-200.0) Est GFR (CKD-EPI)NonAf (60.0-200.0) BUN/Creatinine Ratio (12.00-20.00) Ratio Glucose (70-110) mg/dL POC Glucose (mg/dL) 175 H 202 H (75-99) mg/dL Total Bilirubin (0.30-1.20) mg/dL ALT (10-49) U/L Alkaline Phosphatase (41-126) U/L Total Protein (6.2-8.2) g/dL 04/24/21 04/25/21 04/25/21 Range/Units 20:30 05:33 05:33 RBC 3.28 L (4.40-5.60) X 10*6/uL Hgb 10.0 L (13.0-17.0) g/dL Hct 33.4 L (39.6-50.0) % MCV 101.8 H (80.0-97.0) fL MCHC 29.9 L (32.0-37.0) g/dL RDW 15.8 H (11.5-14.5) % MPV 12.3 H (9.5-12.2) fL Potassium 5.6 H (3.5-5.5) mmol/L Chloride 112 H (96-109) mmol/L Carbon Dioxide 16.3 L (20.0-27.5) mmol/L BUN 50.8 H (9.0-27.0) mg/dL Creatinine 1.6 H (0.6-1.5) mg/dL Est GFR (CKD-EPI)AfAm 46.5 L (60.0-200.0) Est GFR (CKD-EPI)NonAf 40.1 L (60.0-200.0) BUN/Creatinine Ratio 31.75 H (12.00-20.00) Ratio Glucose 151 H (70-110) mg/dL POC Glucose (mg/dL) 189 H (75-99) mg/dL Total Bilirubin 0.20 L (0.30-1.20) mg/dL ALT 8 L (10-49) U/L Alkaline Phosphatase 186 H (41-126) U/L Total Protein 5.8 L (6.2-8.2) g/dL 04/25/21 Range/Units 07:58 RBC (4.40-5.60) X 10*6/uL Hgb (13.0-17.0) g/dL Hct (39.6-50.0) % MCV (80.0-97.0) fL MCHC (32.0-37.0) g/dL RDW (11.5-14.5) % MPV (9.5-12.2) fL Potassium (3.5-5.5) mmol/L Chloride (96-109) mmol/L Carbon Dioxide (20.0-27.5) mmol/L BUN (9.0-27.0) mg/dL Creatinine (0.6-1.5) mg/dL Est GFR (CKD-EPI)AfAm (60.0-200.0) Est GFR (CKD-EPI)NonAf (60.0-200.0) BUN/Creatinine Ratio (12.00-20.00) Ratio Glucose (70-110) mg/dL POC Glucose (mg/dL) 132 H (75-99) mg/dL Total Bilirubin (0.30-1.20) mg/dL ALT (10-49) U/L Alkaline Phosphatase (41-126) U/L Total Protein (6.2-8.2) g/dL Assessment and Plan Plan: Chest pain, left sided likely related to trauma 2 weeks ago, no evidence of rib fractures, there is evidence of small left sided pleural effusion on chest x-ray Abnormal labs at [facility], triggering call at night requesting from patient to go to emergency room, will try to obtain labs Underlying history of diabetes mellitus Underlying history of hypertension Underlying history of hyperlipidemia Underlying history of congestive heart failure followed by Dr. Interiano, will obtain echocardiogram Underlying history of chronic kidney disease, MELVIN with worsening BUN and CR, check kidney US, D/C Metformin and HCTZ, recheck kidney function in am Underlying history of benign prostatic hypertrophy At this time patient is admitted to telemetry floor Serial EKG and cardiac enzymes are ordered Echocardiogram ordered, cardiology consultation was requested Follow in a.m.
[2021-04-25] MEDS: DONEPEZIL 10 MG TAB PO SCH (21:00)
[2021-04-25] MEDS: ATORVASTATIN 40 MG TAB PO SCH (21:01)
[2021-04-25 21:08] LABS: Glucose,Whole Blood 193 mg/dL (75-99)
[2021-04-26] MEDS: DEXTROSE 5% IN WATER 1,000 ML with SODIUM BICARB (1 MEQ/ML) 150 ML IV SCH (00:33)
[2021-04-26 06:33] VITALS: RESP 20
[2021-04-26 07:13] LABS: Glucose,Whole Blood 159 mg/dL (75-99)
[2021-04-26] MEDS: PANTOPRAZOLE 40 MG TABLET PO SCH (08:08)
[2021-04-26] MEDS: APIXABAN 5 MG TAB PO SCH (08:08)
[2021-04-26] MEDS: amLODIPine 5 MG TAB PO SCH (08:08)
[2021-04-26] MEDS: ASPIRIN 81 MG PO SCH (08:09)
[2021-04-26] MEDS: ASCORBIC ACID 500 MG TAB PO SCH (08:09)
[2021-04-26] MEDS: CALCIUM CARBONATE 500 MG CHEWABLE PO SCH (08:09)
[2021-04-26] MEDS: TAMSULOSIN 0.4 MG CAP.ER.24H PO SCH (08:10)
[2021-04-26] MEDS: FENOFIBRATE 160 MG TAB PO SCH (08:10)
[2021-04-26] MEDS: CHOLECALCIFEROL 125 MCG (5000 IU) TABLET PO SCH (08:10)
[2021-04-26] MEDS: MAGNESIUM OXIDE 400 MG TAB PO SCH (08:10)
[2021-04-26] MEDS: CARBIDOPA-LEVODOPA 25-100 MG 1 EACH TAB PO SCH (08:10)
[2021-04-26] MEDS: GABAPENTIN 300 MG CAP PO SCH (08:10)
[2021-04-26] MEDS: MULTIVITAMINS, THERA 1 EACH TAB PO SCH (08:10)
[2021-04-26] MEDS: FERROUS SULFATE 325 MG TAB PO SCH (08:10)
[2021-04-26 10:13] LABS: Basophils # (A) 0.01 X 10*3/uL (0.00-0.10); Basophils % (A) 0.2 %; Eosinophils # (A) 0.13 X 10*3/uL (0.04-0.35); Eosinophils % (A) 2.5 %; HCT 29.4 % (39.6-50.0); HGB 9.3 g/dL (13.0-17.0); Immature Grans, Automated 0.2 %; Lymphocytes # (A) 1.76 X 10*3/uL (0.90-5.00); Lymphocytes % (A) 34.5 %; MCH 31.1 pg (27.0-32.0); MCHC 31.6 g/dL (32.0-37.0); MCV 98.3 fL (80.0-97.0); Mean Platelet Volume 12.1 fL (9.5-12.2); Monocytes # (A) 0.55 X 10*3/uL (0.20-1.00); Monocytes % (A) 10.8 %; NRBC Per 100 WBC 0 /100 WBCS (0.0-0.0); Neutrophils # (A) 2.64 X 10*3/uL (1.80-7.70); Neutrophils % (A) 51.8 %; Platelet Count 168 X 10*3/uL (140-440); RBC 2.99 X 10*6/uL (4.40-5.60); RDW 15.6 % (11.5-14.5)
[2021-04-26 10:26] LABS: African American GFR (CKD) 46.5 (60.0-200.0); Albumin 3.8 g/dL (3.8-4.9); Albumin/Globulin Ratio 2.38 (1.60-3.17); Anion Gap 9.6 mmol/L (10.00-18.00); BUN/Creat Ratio 30.44 Ratio (12.00-20.00); Blood Urea Nitrogen 48.7 mg/dL (9.0-27.0); Calcium 8.4 mg/dL (8.7-10.3); Carbon Dioxide 22.4 mmol/L (20.0-27.5); Globulin 1.6 g/dL (1.6-3.3); Non-African American GFR(CKD) 40.1 (60.0-200.0); Potassium 5.3 mmol/L (3.5-5.5); Total Bilirubin 0.2 mg/dL (0.30-1.20); Total Protein 5.4 g/dL (6.2-8.2)
[2021-04-26 10:56] VITALS: PULSE 70; TEMP 97.4
[2021-04-26 10:57] VITALS: BP 130/73
--- NOTE | 2021-04-26 12:37 | P.DS ---
Providers Date of admission: 04/24/21 13:33 Expected date of discharge: 04/26/21 Attending physician: Zunilda Tillman Consults: 04/24/21 18:09 Consult Physician Routine Consulting Provider: Aiyana Burrows Consult Reason/Comments: MELVIN Do you want consulting provider notified?: Yes Primary care physician: Figueroa Tee [facility] Course: Discharge diagnosis Chest pain, left sided likely related to trauma 2 weeks ago, no evidence of rib fractures, there is evidence of small left sided pleural effusion on chest x-ray Abnormal labs at [facility], triggering call at night requesting from patient to go to emergency room, will try to obtain labs Underlying history of diabetes mellitus Underlying history of hypertension Underlying history of hyperlipidemia Underlying history of congestive heart failure followed by Dr. Interiano, will obtain echocardiogram Underlying history of chronic kidney disease, MELVIN with worsening BUN and CR, check kidney US, D/C Metformin and HCTZ, recheck kidney function in am Underlying history of benign prostatic hypertrophy Atrial flutter newly diagnosed. Patient started on eliquis. Discussed with case management patient will receive one month free from [place] Hospital course Vasile Gonzalez, is an 81-year-old male who presented to [facility] was a chief complaint of left sided chest pain, patient states that he fell 2 weeks ago, and hit the left side of his chest, he also had an abrasion on his left elbow, he was having chest pain since then, he was seen yesterday at the [facility] for a blood test, he received a call at midnight asking him to go to emergency room because he has a bad heart on his testing. Patient came to emergency room he was evaluated by Dr. Arriaga, he was admitted to telemetry floor and cardiology consultation was requested for further evaluation. He was evaluated in the emergency room vital examination on presentation revealed a temperature of 97.7 pulse 67 respiration 18 blood pressure 181/84 pulse ox 100% on room air Laboratory data revealed a white blood count of 3.6 hemoglobin 11.7 platelet count 187 sodium 142 potassium 5.4 chloride 116 CO2 15 BUN 40 creatinine 1.37 Testing in the emergency room revealed EKG done in the emergency room revealed normal sinus rhythm with poor R-wave progression in the anterior leads, chest x- ray and x-ray of the ribs revealed small left pleural effusion and no acute displaced left sided rib fracture. Patient was admitted to medical floor for further evaluation and treatment Past medical history is significant for history of large B-cell lymphoma, with chemotherapy in 2016, history of chronic kidney disease followed by Dr. Burrows, history of benign prostatic hypertrophy, history of carotid artery stenosis with history of left carotid endarterectomy, history of congestive heart failure, followed by Dr. Interiano, history of diabetes mellitus, history of hypertension, history of hyperlipidemia, history of osteoarthritis. 04/23/2021 patient's alert and oriented 3. Creatinine slightly improving to 1.29 bun 37 and potassium 5.1. Awaiting cardiology input. At this time patient denies chest pain or shortness breath. Patient denies nausea vomiting or diarrhea. Patient denies any urinary burning or frequency 04/24/2021 patient was seen and examined on the medical floor, he is alert and o riented 3. kidney function worsened significantly since yesterday, Awaiting cardiology input. At this time patient denies chest pain or shortness breath. Patient denies nausea vomiting or diarrhea. Patient denies any urinary burning or frequency On 04/25/2021 patient is alert and oriented in no apparent distress, today potassium is worse at 5.6 BUN is 50.8 creatinine 1.6 at this time will give a dose of Kayexalate nephrology consultation requested awaiting input there is no fever or chills no headache or dizziness no chest pain no shortness of breath no cough no nausea or vomiting no abdominal pain no diarrhea and no urinary symptoms On 04/26/2021 patient's alert and oriented 3. Per nursing staff patient has been cleared for discharge from nephrology services. Lisinopril and hydr ochlorothiazide DC'd. Patient also taken off metformin. Patient will need follow-up for chronic conditions. Patient also started on eliquis for atrial flutter per cardiology. Discussed with case management prescription will be sent to [facility] the patient will receive a month free from [place]. This time patient denies chest pain or shortness breath. Patient denies nausea vomiting or diarrhea. Patient denies any urinary burning or frequency Patient Condition at Discharge: Stable Plan - Discharge Summary Discharge Rx Participant: No New Discharge Prescriptions: New Aspirin 81 mg PO DAILY 30 Days #30 tab amLODIPine [Norvasc] 5 mg PO DAILY 30 Days #30 tab Apixaban [Eliquis] 5 mg PO BID 30 Days #60 tab Continue gemfibroziL [Lopid] 600 mg PO BID Multivitamins, Thera [Multivitamin (formulary)] 1 tab PO DAILY Loperamide [Imodium] 4 mg PO QID PRN PRN Reason: Diarrhea Ferrous Sulfate [Feosol] 325 mg PO BID Gabapentin [Neurontin] 300 mg PO BID Tamsulosin HCl [Flomax] 0.4 mg PO DAILY Pantoprazole Sodium [Protonix] 40 mg PO DAILY Carbidopa-Levodopa 25-100 mg [Sinemet 25-100 mg] 1 tab PO BID Donepezil HCl [Aricept] 10 mg PO HS Magnesium Oxide [Mag-Ox] 400 mg PO DAILY Glucosamine/MSM/Chrond/D3/Bosw [Jkjbhnlybmh-Nabhce-Mrv D3 Cplt] 1 tab PO DAILY Atorvastatin Calcium [Lipitor] 40 mg PO DAILY Calcium Carbonate [Calcium] 1,200 mg PO DAILY Pioglitazone [Actos] 15 mg PO DAILY Ergocalciferol (Vitamin D2) [Drisdol (50,000 Iu)] 1,250 mcg PO WEEKLY Discontinued hydroCHLOROthiazide [Hydrodiuril] 12.5 mg PO DAILY metFORMIN HCL 1,000 mg PO BID lisinopriL [Zestril] 5 mg PO DAILY Naproxen 375 mg PO BID Discharge Medication List gemfibroziL [Lopid] 600 mg PO BID 12/30/14 [History] Multivitamins, Thera [Multivitamin (formulary)] 1 tab PO DAILY 11/07/15 [Hi story] Loperamide [Imodium] 4 mg PO QID PRN 02/24/20 [History] Carbidopa-Levodopa 25-100 mg [Sinemet 25-100 mg] 1 tab PO BID 02/26/20 [History] Donepezil HCl [Aricept] 10 mg PO HS 02/26/20 [History] Ferrous Sulfate [Feosol] 325 mg PO BID 02/26/20 [History] Gabapentin [Neurontin] 300 mg PO BID 02/26/20 [History] Pantoprazole Sodium [Protonix] 40 mg PO DAILY 02/26/20 [History] Tamsulosin HCl [Flomax] 0.4 mg PO DAILY 02/26/20 [History] Glucosamine/MSM/Chrond/D3/Bosw [Mnoadviqhef-Deycou-Kvh D3 Cplt] 1 tab PO DAILY 03/08/21 [History] Magnesium Oxide [Mag-Ox] 400 mg PO DAILY 03/08/21 [History] Atorvastatin Calcium [Lipitor] 40 mg PO DAILY 04/22/21 [History] Calcium Carbonate [Calcium] 1,200 mg PO DAILY 04/22/21 [History] Ergocalciferol (Vitamin D2) [Drisdol (50,000 Iu)] 1,250 mcg PO WEEKLY 04/22/21 [History] Pioglitazone [Actos] 15 mg PO DAILY 04/22/21 [History] Apixaban [Eliquis] 5 mg PO BID 30 Days #60 tab 04/26/21 [Rx] Aspirin 81 mg PO DAILY 30 Days #30 tab 04/26/21 [Rx] amLODIPine [Norvasc] 5 mg PO DAILY 30 Days #30 tab 04/26/21 [Rx] Follow up Appointment(s)/Referral(s): Luis Enrique Leyva MD [STAFF PHYSICIAN] - 1 Week Figueroa Tee MD [Primary Care Provider] - 1-2 days [facility] [REFERRING] - 1 Week Aiyana Burrows MD [STAFF PHYSICIAN] - 1 Week Ambulatory/Diagnostic Orders: Comprehensive Metabolic Panel [LAB.AMB] Location: None Selected Comprehensive Metabolic Panel [LAB.AMB] Time Frame: 2 Days, Location: None Selected Activity/Diet/Wound Care/Special Instructions: Activity as tolerated Diet heart healthy Discharge Disposition: HOME SELF-CARE
[2021-04-26 13:12] LABS: Glucose,Whole Blood 217 mg/dL (75-99)
--- NOTE | 2021-04-26 16:09 | P.PN ---
Subjective Patient is seen for follow-up for hyperkalemia acute kidney injury on top of chronic kidney disease. Patient has been maintained on IV fluids. Metabolic acidosis has improved with improvement in potassium as well. Serum creatinine however staying at about 1.6 mg/dL Patient has been voiding well. There is no evidence of hydronephrosis noted on his ultrasound. ROYAL inhibitor's currently on hold. Blood pressure still remains on the lower side. Patient wants to go home today Objective - Vital Signs Vital signs: Vital Signs Temp 97.4 F L 04/26/21 10:55 Pulse 70 04/26/21 10:55 Resp 20 04/26/21 10:55 BP 130/73 04/26/21 10:55 Pulse Ox 98 04/26/21 10:55 Intake & Output 04/25/21 04/26/21 04/26/21 18:59 06:59 18:59 Other: Voiding Method Toilet Toilet # Voids 1 3 3 # Bowel Movements 0 - Exam Patient is awake comfortable. He is not in any acute distress. Examination of the heart S1 and S2 Examination lungs bilateral breath sounds are heard Examination of lower extremities shows no evidence of edema. 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 - Labs CBC & Chem 7: 04/26/21 07:12 04/26/21 07:12 Labs: Abnormal Lab Results - Last 24 Hours (Table) 04/25/21 04/25/21 04/25/21 Range/Units 17:08 17:21 21:07 RBC (4.40-5.60) X 10*6/uL Hgb (13.0-17.0) g/dL Hct (39.6-50.0) % MCV (80.0-97.0) fL MCHC (32.0-37.0) g/dL RDW (11.5-14.5) % Anion Gap (10.00-18.00) mmol/L BUN (9.0-27.0) mg/dL Creatinine (0.6-1.5) mg/dL Est GFR (CKD-EPI)AfAm (60.0-200.0) Est GFR (CKD-EPI)NonAf (60.0-200.0) BUN/Creatinine Ratio (12.00-20.00) Ratio Glucose (70-110) mg/dL POC Glucose (mg/dL) 230 H 193 H (75-99) mg/dL Calcium (8.7-10.3) mg/dL Total Bilirubin (0.30-1.20) mg/dL Alkaline Phosphatase (41-126) U/L Total Protein (6.2-8.2) g/dL Urine Protein 1+ H (Negative) Urine RBC 23 H (0-5) /hpf 04/26/21 04/26/21 04/26/21 Range/Units 07:11 07:12 07:12 RBC 2.99 L (4.40-5.60) X 10*6/uL Hgb 9.3 L (13.0-17.0) g/dL Hct 29.4 L (39.6-50.0) % MCV 98.3 H (80.0-97.0) fL MCHC 31.6 L (32.0-37.0) g/dL RDW 15.6 H (11.5-14.5) % Anion Gap 9.60 L (10.00-18.00) mmol/L BUN 48.7 H (9.0-27.0) mg/dL Creatinine 1.6 H (0.6-1.5) mg/dL Est GFR (CKD-EPI)AfAm 46.5 L (60.0-200.0) Est GFR (CKD-EPI)NonAf 40.1 L (60.0-200.0) BUN/Creatinine Ratio 30.44 H (12.00-20.00) Ratio Glucose 168 H (70-110) mg/dL POC Glucose (mg/dL) 159 H (75-99) mg/dL Calcium 8.4 L (8.7-10.3) mg/dL Total Bilirubin 0.20 L (0.30-1.20) mg/dL Alkaline Phosphatase 172 H (41-126) U/L Total Protein 5.4 L (6.2-8.2) g/dL Urine Protein (Negative) Urine RBC (0-5) /hpf 04/26/21 Range/Units 13:11 RBC (4.40-5.60) X 10*6/uL Hgb (13.0-17.0) g/dL Hct (39.6-50.0) % MCV (80.0-97.0) fL MCHC (32.0-37.0) g/dL RDW (11.5-14.5) % Anion Gap (10.00-18.00) mmol/L BUN (9.0-27.0) mg/dL Creatinine (0.6-1.5) mg/dL Est GFR (CKD-EPI)AfAm (60.0-200.0) Est GFR (CKD-EPI)NonAf (60.0-200.0) BUN/Creatinine Ratio (12.00-20.00) Ratio Glucose (70-110) mg/dL POC Glucose (mg/dL) 217 H (75-99) mg/dL Calcium (8.7-10.3) mg/dL Total Bilirubin (0.30-1.20) mg/dL Alkaline Phosphatase (41-126) U/L Total Protein (6.2-8.2) g/dL Urine Protein (Negative) Urine RBC (0-5) /hpf Assessment and Plan Assessment: 1. Acute kidney injury, mostly prerenal, blood pressure has been on the lower side. Patient was also on royal inhibitors currently decreased. 2. Chronic kidney disease NKF stage II secondary to nephrosclerosis, previous creatinine as low as 0.9-1.1 mg/dL. UA showed 1+ protein. 3. Hyperkalemia associated with acute kidney injury in the setting of use of ROYAL inhibitor's [place] 4. Metabolic acidosis associated with acute kidney injury 5. Chest pain, mostly musculoskeletal 6. History of CHF, echocardiogram shows ejection fraction 55-60% Plan: Patient can be discharged home today. He will continued off of ROYAL inhibitor's for now. And we will see him back for follow-up in the office in about 1-2 weeks' period
== END 2021-04-26 14:30 | disposition home or self-care (01) | DRG 313 ==
LOC: EC 10:06 → 6NMEDSUR 13:22 → OBSVTOIN 04-24 13:33
PROVIDERS: ADMIT Internal Medicine; ATTEND Internal Medicine
DX: R07.89 Other chest pain (principal); I13.0 Hypertensive heart and chronic kidney disease with heart failure and stage 1 through stage 4 chronic kidney disease, or unspecified chronic kidney disease; I48.3 Typical atrial flutter; N17.9 Acute kidney failure, unspecified; E87.2 Acidosis; I31.3 Pericardial effusion (noninflammatory); I42.7 Cardiomyopathy due to drug and external agent; I50.9 Heart failure, unspecified; Z20.822 Contact with and (suspected) exposure to COVID-19; I48.91 Unspecified atrial fibrillation; G20 Parkinson's disease; N18.2 Chronic kidney disease, stage 2 (mild); I08.1 Rheumatic disorders of both mitral and tricuspid valves; D64.9 Anemia, unspecified; R29.6 Repeated falls; E11.22 Type 2 diabetes mellitus with diabetic chronic kidney disease; G25.0 Essential tremor; Z79.01 Long term (current) use of anticoagulants; M19.90 Unspecified osteoarthritis, unspecified site; E78.5 Hyperlipidemia, unspecified; E87.5 Hyperkalemia; H54.62 Unqualified visual loss, left eye, normal vision right eye; N40.0 Benign prostatic hyperplasia without lower urinary tract symptoms; S50.312A Abrasion of left elbow, initial encounter; Z79.84 Long term (current) use of oral hypoglycemic drugs; Z79.899 Other long term (current) drug therapy; Z80.1 Family history of malignant neoplasm of trachea, bronchus and lung; Z82.49 Family history of ischemic heart disease and other diseases of the circulatory system; Z85.72 Personal history of non-Hodgkin lymphomas; Z87.891 Personal history of nicotine dependence; Z92.21 Personal history of antineoplastic chemotherapy; Z88.0 Allergy status to penicillin; Z91.81 History of falling; Z87.19 Personal history of other diseases of the digestive system; Z86.79 Personal history of other diseases of the circulatory system; Z87.81 Personal history of (healed) traumatic fracture
CPT/HCPCS: 36415; 71046; 76770; 80053; 80061; 81001; 83690; 83735; 83880; 84443; 84484; 85025; 85379; 85610; 85730; 87635; 93005; 93306; 99285

== ENCOUNTER 2021-05-09 18:26 | Emergency (ER) | payer MEDICARE, OTHER ==
[2021-05-09 18:32] VITALS: BP 161/62; PULSE 67; RESP 16; TEMP 98.1
--- NOTE | 2021-05-09 19:25 | ED ---
General Adult HPI - General Chief complaint: Urogenital Stated complaint: bleeding from penis Time Seen by Provider: 05/09/21 19:05 Source: patient, family, RN notes reviewed, old records reviewed Mode of arrival: ambulatory Limitations: no limitations - History of Present Illness Initial comments: 81-year-old male presenting with left flank pain, hematuria. Patient states she's had intermittent flank pain for the past one week. Today he noted some sand-like debris in his urine as well as when he believes was blood. He denies fever. Denies vomiting. He is not on any anticoagulation. - Related Data Home Medications Medication Instructions Recorded Confirmed Multivitamins, Thera [Multivitamin 1 tab PO DAILY 11/07/15 05/09/21 (formulary)] Loperamide [Imodium] 4 mg PO QID PRN 02/24/20 05/09/21 Carbidopa-Levodopa 25-100 mg 1 tab PO BID 02/26/20 05/09/21 [Sinemet 25-100 mg] Donepezil HCl [Aricept] 10 mg PO HS 02/26/20 05/09/21 Ferrous Sulfate [Feosol] 325 mg PO BID 02/26/20 05/09/21 Gabapentin [Neurontin] 300 mg PO BID 02/26/20 05/09/21 Pantoprazole Sodium [Protonix] 40 mg PO DAILY 02/26/20 05/09/21 Tamsulosin HCl [Flomax] 0.4 mg PO DAILY 02/26/20 05/09/21 Glucosamine/MSM/Chrond/D3/Bosw 1 tab PO DAILY 03/08/21 05/09/21 [Zjimrxetyam-Ttmxpj-Lqi D3 Cplt] Magnesium Oxide [Mag-Ox] 400 mg PO DAILY 03/08/21 05/09/21 Atorvastatin Calcium [Lipitor] 40 mg PO DAILY 04/22/21 05/09/21 Calcium Carbonate [Calcium] 1,200 mg PO DAILY 04/22/21 05/09/21 Ergocalciferol (Vitamin D2) 1,250 mcg PO TH 04/22/21 05/09/21 [Drisdol (50,000 Iu)] Pioglitazone [Actos] 15 mg PO DAILY 04/22/21 05/09/21 Previous Rx's Medication Instructions Recorded Apixaban [Eliquis] 5 mg PO BID 30 Days #60 tab 04/26/21 Allergies Allergy/AdvReac Type Severity Reaction Status Date / Time Penicillins Allergy Nausea & Verified 05/09/21 21:35 Vomiting Review of Systems ROS Statement: Those systems with pertinent positive or pertinent negative responses have been documented in the HPI. ROS Other: All systems not noted in ROS Statement are negative. 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 Past Anesthesia/Blood Transfusion Reactions: No Reported Reaction Additional Past Anesthesia/Blood Transfusion Reaction / Comment(s): HX OF BLOOD TRANSFUSION-NO REACTION. Past Psychological History: No Psychological Hx Reported Smoking Status: Former smoker Past Alcohol Use History: None Reported Past Drug Use History: None Reported - Past Family History Daughter(s) Family Medical History: Cancer Additional Family Medical History / Comment(s): BREAST , LIVER AND LUNG CANCER Father Family Medical History: Myocardial Infarction (DE) Additional Family Medical History / Comment(s): Father at age 65yrs. Mother Family Medical History: Dementia Additional Family Medical History / Comment(s): Mother at about age 82yrs. Brother(s) Family Medical History: Cancer Additional Family Medical History / Comment(s): (2 BROTHERS) Sister(s) Family Medical History: Cancer General Exam Limitations: no limitations General appearance: alert, in no apparent distress Head exam: Present: atraumatic, normocephalic Eye exam: Present: normal appearance, PERRL ENT exam: Present: normal exam Neck exam: Present: normal inspection. Absent: tenderness, meningismus Respiratory exam: Present: normal lung sounds bilaterally. Absent: respiratory distress, wheezes Cardiovascular Exam: Present: regular rate, normal rhythm GI/Abdominal exam: Present: soft, tenderness (Mild suprapubic tenderness). Absent: distended exam: Present: normal inspection. Absent: testicular tenderness, urethral discharge, scrotal swelling Extremities exam: Present: normal inspection, normal capillary refill Back exam: Present: CVA tenderness (L) Neurological exam: Present: alert, oriented X3, CN II-XII intact. Absent: motor sensory deficit Psychiatric exam: Present: normal affect, normal mood Skin exam: Present: warm, dry, intact. Absent: cyanosis, diaphoretic Course Vital Signs 05/09/21 18:29 Temperature 98.1 F Pulse Rate 67 Respiratory 16 Rate Blood Pressure 161/62 O2 Sat by Pulse 99 Oximetry Medical Decision Making - Medical Decision Making 81-year-old male presenting with flank pain, hematuria and questionable passage of kidney stone. Patient is well-appearing with stable vitals. He has not been vomiting. His been no fever. Did initiate workup which reveals CT showing le ft perinephric fat stranding and mild hydronephrosis. There is no radiopaque obstructing stone. This does correlate with history. Patient may have passed a stone prior to arrival. His white blood cell count is 10.1 with hemoglobin is improved at 10.8. He has chronic kidney disease with creatinine of 3.08. His urine is greater than 182 red cells. Normal electrolytes. We did discuss hydration and return parameters including worsening pain, persistent hematuria, fever or vomiting. Patient will be given urology follow-up. He has an appointment with nephrology in the next one week. He will drink plenty of fluids in the meantime. - Lab Data Result diagrams: 05/09/21 21:22 05/09/21 21: Lab Results 05/09/21 05/09/21 05/09/21 Range/Units 19:02 : 21:22 WBC 10.1 (3.8-10.6) k/uL RBC 3.29 L (4.30-5.90) m/uL Hgb 10.8 L (13.0-17.5) gm/dL Hct 32.9 L (39.0-53.0) % MCV 99.9 (80.0-100.0) fL MCH 32.8 (25.0-35.0) pg MCHC 32.8 (31.0-37.0) g/dL RDW 15.6 H (11.5-15.5) % Plt Count 244 (150-450) k/uL MPV 8.6 Neutrophils % 81 % Lymphocytes % 13 % Monocytes % 5 % Eosinophils % 1 % Basophils % 0 % Neutrophils # 8.1 H (1.3-7.7) k/uL Lymphocytes # 1.3 (1.0-4.8) k/uL Monocytes # 0.5 (0-1.0) k/uL Eosinophils # 0.1 (0-0.7) k/uL Basophils # 0.0 (0-0.2) k/uL Macrocytosis Slight Sodium 134 L (137-145) mmol/L Potassium 4.4 (3.5-5.1) mmol/L Chloride 98 (98-107) mmol/L Carbon Dioxide 20 L (22-30) mmol/L Anion Gap 16 mmol/L BUN 78 H (9-20) mg/dL Creatinine 3.08 H (0.66-1.25) mg/dL Est GFR (CKD-EPI)AfAm 21 (>60 ml/min/1.73 sqM) Est GFR (CKD-EPI)NonAf 18 (>60 ml/min/1.73 sqM) Glucose 258 H (74-99) mg/dL Calcium 9.0 (8.4-10.2) mg/dL Urine Color Light Red Urine Appearance Cloudy (Clear) Urine pH 5.5 (5.0-8.0) Ur Specific [place] 1.015 (1.001-1.035) Urine Protein 1+ H (Negative) Urine Glucose (UA) 1+ H (Negative) Urine Ketones Negative (Negative) Urine Blood Large H (Negative) Urine Nitrite Negative (Negative) Urine Bilirubin Negative (Negative) Urine Urobilinogen <2.0 (<2.0) mg/dL Ur Leukocyte Esterase Trace H (Negative) Urine RBC >182 H (0-5) /hpf Urine WBC 1 (0-5) /hpf Disposition Clinical Impression: Hematuria, Hydronephrosis Disposition: HOME SELF-CARE Condition: Fair Instructions (If sedation given, give patient instructions): Hematuria (ED), Kidney Stones (ED) Is patient prescribed a controlled substance at d/c from ED?: No Referrals: Figueroa Tee MD [Primary Care Provider] - 1-2 days Nikita Melchor MD [STAFF PHYSICIAN] - 1-2 days Time of Disposition: 22:32
[2021-05-09 19:51] LABS: Appearance,Urine Cloudy (Clear); Bilirubin,Urine Negative (Negative); Blood,Urine Large (Negative); Color,Urine Light Red; Glucose,Urine (UA) 1+ (Negative); Ketones,Urine Negative (Negative); Leukocyte Esterase,Urine Trace (Negative); Nitrite,Urine Negative (Negative); PH, Urine 5.5 (5.0-8.0); Protein,Urine 1+ (Negative); RBC,Urine >182 /hpf (0-5); Specific Gravity,Urine 1.015 (1.001-1.035); Urobilinogen,Urine <2.0 mg/dL (<2.0); WBC,Urine 1 /hpf (0-5)
--- NOTE | 2021-05-09 19:59 | CT ---
EXAMINATION TYPE: CT abdomen pelvis wo con CT DLP: 607.8 mGycm, Automated exposure control for dose reduction was used. DATE OF EXAM: 05/09/2021 7:48 PM COMPARISON: November the to 10/04/2021. CT abdomen pelvis most recent from CT hip 07/14/2018. CLINICAL INDICATION:Male, 81 years old with history of flank pain; flank pain TECHNIQUE: Standard CT of the abdomen and pelvis without IV or oral contrast. Lack of IV or oral co ntrast limits evaluation of solid and hollow organ viscera. Coronal and sagittal reformats were perfo rmed. FINDINGS: LOWER CHEST: Unremarkable ABDOMEN LIVER: Unremarkable GALLBLADDER AND BILE DUCTS: Layering increased densities within the lumen consistent with gallstones are present. PANCREAS: Unremarkable. SPLEEN: Unremarkable. ADRENAL GLANDS: Unremarkable. KIDNEYS AND URETERS: There is asymmetric left perinephric fat stranding changes with mild hydronephro sis. Hyperemia of the urothelium is also suggested. No radiopaque obstructing calculus identified on the left. Right is without hydronephrosis or evidence of renal calculus. PELVIS BLADDER: Unremarkable REPRODUCTIVE: Unremarkable. ABDOMEN & PELVIS STOMACH AND BOWEL: Surgical changes to the right colon. No evidence of bowel obstruction. PERITONEUM: No evidence of pneumoperitoneum or free fluid. VASCULATURE: Mild atherosclerotic calcifications are present throughout the abdominal aorta and its b ranches. MUSCULOSKELETAL: Mild disc degeneration changes are present throughout the thoracolumbar spine. Hip a rthroplasty changes. Hardware appears in appropriate position and intact. No stenosis of the sacroili ac joints. LYMPH NODES: No gross evidence for lymphadenopathy. Nonenlarged lymph nodes are seen in the right casi al sinus measuring up to 8 mm in short axis. SOFT TISSUE/ABDOMINAL WALL: Left fat filled inguinal hernia. IMPRESSION: 1. Asymmetric left perinephric fat stranding changes and mild hydronephrosis without evidence of obs tructing radiopaque calculus. This could represent recently passed stone, correlate for pyelonephriti s/pyelitis and recently passed calculus. 2. Cholelithiasis. 3. Colonic diverticulosis.
[2021-05-09 21:34] LABS: Basophils % (A) 0 %; Eosinophils # (A) 0.1 k/uL (0-0.7); Eosinophils % (A) 1 %; HCT 32.9 % (39.0-53.0); HGB 10.8 gm/dL (13.0-17.5); Lymphocytes # (A) 1.3 k/uL (1.0-4.8); Lymphocytes % (A) 13 %; MCH 32.8 pg (25.0-35.0); MCHC 32.8 g/dL (31.0-37.0); MCV 99.9 fL (80.0-100.0); Macrocytosis Slight; Mean Platelet Volume 8.6; Monocytes # (A) 0.5 k/uL (0-1.0); Monocytes % (A) 5 %; Neutrophils # (A) 8.1 k/uL (1.3-7.7); Neutrophils % (A) 81 %; Platelet Count 244 k/uL (150-450); RBC 3.29 m/uL (4.30-5.90); RDW 15.6 % (11.5-15.5); WBC 10.1 k/uL (3.8-10.6)
[2021-05-09 22:17] LABS: Potassium 4.4 mmol/L (3.5-5.1)
== END 2021-05-09 22:45 | disposition home or self-care (01) ==
LOC: EC 18:26
DX: R31.9 Hematuria, unspecified (principal); N13.30 Unspecified hydronephrosis; I13.0 Hypertensive heart and chronic kidney disease with heart failure and stage 1 through stage 4 chronic kidney disease, or unspecified chronic kidney disease; E11.22 Type 2 diabetes mellitus with diabetic chronic kidney disease; I50.9 Heart failure, unspecified; N18.9 Chronic kidney disease, unspecified; K21.9 Gastro-esophageal reflux disease without esophagitis; E78.5 Hyperlipidemia, unspecified; M19.90 Unspecified osteoarthritis, unspecified site; Z79.01 Long term (current) use of anticoagulants; Z88.0 Allergy status to penicillin; Z87.891 Personal history of nicotine dependence
CPT/HCPCS: 36415; 74176; 80048; 81001; 85025; 99284

== ENCOUNTER → 2021-05-17 | Outpatient (CLI) | payer MEDICARE, OTHER ==
[2021-05-17 19:49] LABS: ALT 10 U/L (10-49); AST 17 U/L (14-35); African American GFR (CKD) 22.1 (60.0-200.0); Albumin 3.8 g/dL (3.8-4.9); Albumin/Globulin Ratio 1.42 (1.60-3.17); Alkaline Phosphatase 132 U/L (41-126); BUN/Creat Ratio 27.84 Ratio (12.00-20.00); Blood Urea Nitrogen 82.4 mg/dL (9.0-27.0); Calcium 8.9 mg/dL (8.7-10.3); Carbon Dioxide 17.4 mmol/L (20.0-27.5); Chloride 104 mmol/L (96-109); Chol/HDL Ratio 2.87 Ratio; Globulin 2.7 g/dL (1.6-3.3); Glucose 275 mg/dL (70-110); LDL Cholesterol,Calculated 30.5 mg/dL (0.0-131.0); Non-African American GFR(CKD) 19.1 (60.0-200.0); Potassium 4.6 mmol/L (3.5-5.5); Sodium 137 mmol/L (135-145); Total Bilirubin <0.15 mg/dL (0.30-1.20); Total Protein 6.4 g/dL (6.2-8.2)
== END | disposition home or self-care (01) ==
LOC: LABWHC1 10:41
PROVIDERS: ATTEND Internal Medicine Interventional Cardiology
DX: E78.2 Mixed hyperlipidemia (principal)
CPT/HCPCS: 36415; 80053; 80061; 82728; 83540; 83550

== ENCOUNTER 2021-10-12 06:03 | Day surgery (SDC) | payer MEDICARE, OTHER ==
[2021-10-11 09:52] VITALS: BMI 25.8
[~2021-10-12 06:03] MED LIST changes: +ALPRAZolam 0.25 MG TAB PO PRN; +ALPRAZolam 0.5 MG TAB PO PRN; +ASPIRIN 325 MG TAB PO STA; +ATORVASTATIN 80 MG TAB PO STA; +HEPARIN SODIUM,PORCINE 10,000 UNIT in SODIUM CHLORIDE 0.9% 1,000 ML IRRIGATION PRN; +HEPARIN SODIUM,PORCINE 2,500 UNIT in SODIUM CHLORIDE 0.9% 250 ML IRRIGATION PRN; -LACTATED RINGERS 1,000 ML IV SCH; +NITROGLYCERIN SL TABS 0.4 MG TAB SUBLINGUAL PRN; +SODIUM CHLORIDE 0.9% 1,000 ML in EMPTY BAG 1 BAG IV SCH
[2021-10-12] MEDS ORDERED: SODIUM CHLORIDE 0.9% 1,000 ML IV ONE (06:13)
[2021-10-12 06:49] LABS: Glucose,Whole Blood 230 mg/dL (70-110)
[2021-10-12] MEDS ORDERED: amLODIPine 5 MG TAB ONE (06:55)
[2021-10-12 06:57] LABS: Basophils % (A) 0 %; Eosinophils # (A) 0.2 k/uL (0-0.7); Eosinophils % (A) 3 %; HCT 35.5 % (39.0-53.0); HGB 11.3 gm/dL (13.0-17.5); Lymphocytes # (A) 1.7 k/uL (1.0-4.8); Lymphocytes % (A) 26 %; MCHC 31.9 g/dL (31.0-37.0); MCV 90.7 fL (80.0-100.0); Mean Platelet Volume 8.7; Monocytes # (A) 0.5 k/uL (0-1.0); Monocytes % (A) 7 %; Neutrophils # (A) 4.1 k/uL (1.3-7.7); Neutrophils % (A) 62 %; Platelet Count 175 k/uL (150-450); RBC 3.92 m/uL (4.30-5.90); RDW 15.1 % (11.5-15.5); WBC 6.7 k/uL (3.8-10.6)
[2021-10-12] MEDS ORDERED: INSULIN ASPART (NovoLOG) 100 UNIT/ML VIAL SQ ONE (06:57)
[2021-10-12 07:12] LABS: Calcium 8.7 mg/dL (8.4-10.2); Potassium 4.3 mmol/L (3.5-5.1)
[2021-10-12] MEDS ORDERED: HEPARIN SODIUM 1,000 UN/ML (10ML VL) ONE (07:18)
[2021-10-12] MEDS ORDERED: VERAPAMIL 2.5 MG/ML 2 ML AMP ONE (07:18)
[2021-10-12] MEDS ORDERED: fentaNYL (PF) 50 MCG/ML 2 ML AMP ONE (07:41)
[2021-10-12] MEDS ORDERED: fentaNYL (PF) 50 MCG/ML 2 ML AMP IV ONE (07:43)
[2021-10-12] MEDS ORDERED: LIDOCAINE 1% INJ 10MG/ML (5 ML VIAL-PF) SQ ONE (07:45)
[2021-10-12] MEDS ORDERED: VERAPAMIL SYRINGE (5 MG/10 ML) INTRAARTER ONE (07:47)
[2021-10-12] MEDS: HEPARIN SODIUM 1,000 UN/ML (10ML VL) IV ONE ×2 (07:58→08:05)
[2021-10-12] MEDS ORDERED: CLOPIDOGREL 75 MG TAB ONE (08:05)
[2021-10-12] MEDS ORDERED: CLOPIDOGREL 75 MG TAB PO ONE (08:07)
[2021-10-12] MEDS ORDERED: NITROGLYCERIN 1000MCG/10ML SYRINGE INTRACORON ONE (08:19)
[2021-10-12] MEDS ORDERED: IOPAMIDOL-370 125ML BTL INJ ONE (08:20)
[2021-10-12] MEDS ORDERED: IOPAMIDOL-370 100ML BTL INJ ONE (08:35)
[2021-10-12] MEDS ORDERED: MAG HYDROX/AL HYDROX/SIMETH 30 ML CUP PO PRN (08:45)
[2021-10-12] MEDS ORDERED: NITROGLYCERIN SL TABS 0.4 MG TAB SUBLINGUAL PRN (08:45)
[2021-10-12] MEDS ORDERED: ATROPINE SULFATE 0.1 MG/ML 10ML SYRINGE IV PRN (08:45)
[2021-10-12] MEDS ORDERED: ZOLPIDEM 5 MG TAB PO PRN (08:45)
[2021-10-12] MEDS ORDERED: RX INFO: IV CONTRAST WAS GIVEN 1 EACH MISC MISCELLANE PRN (08:45)
[2021-10-12] MEDS ORDERED: SODIUM CHLORIDE 0.9% 1,000 ML in EMPTY BAG 1 BAG IV SCH (08:45)
[2021-10-12] MEDS ORDERED: LOPERAMIDE 2 MG CAP PO PRN (08:47)
--- NOTE | 2021-10-12 09:01 | P.CARDCATH ---
Date of Procedure: 10/12/21 Description of Procedure: Cardiac Catheterization: The patient is an 81-year-old male with a known history of hypertension, hyperlipidemia, diabetes, atrial fibrillation who recently had an abnormal MPI. Recommendations were made regarding cardiac catheterization, the risks and the complications were discussed with the patient who is in full understanding and agreement. 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 Using Xylocaine Anesthesia and Seldinger technique, a 6-Slovenian sheath was introduced in the right radial artery . Subsequently, selective coronary angiography was performed using a 5-Slovenian 5 bend right and 3.5 bend left Kahlil catheter. Multiple views of the coronary artery including hemiaxial views were obtained. The right Kahlil catheter was used to cross the aortic valve and LVEDP was calculated. Following that and after obtaining images a 6-Slovenian CLS 3.5 guiding catheter with introduced in the system and after cannulating the left main a 0.014 BMW J-wire was introduced in the LAD and positioned distally. Following that the 2.5 x 12 mm NC Treck balloon was advanced and multiple inflations up to 14 luis enrique were done. Attempts to advance a 2.5 x 23 mm Xience princess point stent were unsuccessful, the stent was removed and a 6-Slovenian guide liner catheter was advanced and the stent was advanced, deployed and dilated at 16 luis enrique. Following that, catheter and sheath were removed. Hemostasis was obtained with deployment of TR band . There was no immediate complication. Patient was returned to room in stable condition. Of note, the patient received a total of 6000 units of intravenous heparin as well as intra-arterial verapamil. He received a loading dose of clopidogrel. His ACT was followed. He had chest discomfort and EKG changes that resolved at the end of the procedure. Findings: Fluoroscopy reveals severe calcification involving the proximal LAD Left main: This is a large size vessel, trifurcating into LAD, ramus intermedius and left circumflex, the left main has no high-grade stenosis LAD: This vessel is heavily calcified proximally the proximal segment has a 95% eccentric lesion with long tubular lesion until the mid area the rest of the vessel has no high-grade stenosis. Left circumflex: This is a nondominant vessel giving rise to 2 obtuse marginal branch, the second obtuse marginal branch has a tubular 70-80% stenosis, the first obtuse marginal branch has a 60% stenosis. RCA: This is a large dominant vessel, bifurcating into PDA and PLV, the RCA has 20-30% diffuse intimal disease. Ramus intermedius this is a small to moderately sized vessel that has a 90% stenosis in the proximal segment. Left Ventriculogram: Not performed Hemodynamics: There was no gradient across the aortic valve, LVEDP was 16-20 mmHg Conclusion: 1. Calcified coronary arteries 2. Critical stenosis involving the proximal LAD 3. Critical stenosis in the small to moderate ramus intermedius 4. Moderate severe disease in the first and second obtuse marginal branch 5. Mild disease in the RCA 6. Successful stenting of the proximal LAD with reduction of the stenosis from 95% to 0% Recommendations: The patient will be continued on dual antiplatelet treatment with aspirin and clopidogrel for 6 months in addition to aggressive coronary risks modifications. Depending on his progress further evaluation and need to undergo revascularization of his left circumflex and ramus intermedius will be assessed. The findings and the recommendations were discussed with the patient and the family and they were in full understanding and agreement. Duration of sedation is 50 minutes.
[2021-10-12] MEDS: Empagliflozin [Jardiance] PO SCH (09:11)
[2021-10-12] MEDS: MAGNESIUM OXIDE 400 MG TAB PO SCH (09:28)
[2021-10-12] MEDS: ASPIRIN 81 MG PO SCH (09:28)
[2021-10-12] MEDS: TAMSULOSIN 0.4 MG CAP.ER.24H PO SCH ×2 (09:28→09:29)
[2021-10-12] MEDS: MULTIVITAMINS, THERA 1 EACH TAB PO SCH (09:29)
[2021-10-12] MEDS: amLODIPine 5 MG TAB PO SCH (09:29)
[2021-10-12] MEDS: PANTOPRAZOLE 40 MG TABLET PO SCH (09:29)
[2021-10-12] MEDS: GABAPENTIN 300 MG CAP PO SCH ×2 (09:29→20:46)
[2021-10-12] MEDS: PREGABALIN 50 MG CAP PO SCH ×3 (09:29→20:56)
[2021-10-12] MEDS: CARBIDOPA-LEVODOPA 25-100 MG 1 EACH TAB PO SCH ×2 (09:33→20:46)
[2021-10-12] MEDS: PIOGLITAZONE 15 MG TAB PO SCH ×2 (09:33→20:46)
[2021-10-12 12:11] LABS: Glucose,Whole Blood 207 mg/dL (70-110)
[2021-10-12 16:45] LABS: Glucose,Whole Blood 308 mg/dL (70-110)
[2021-10-12] MEDS: INSULIN ASPART (NovoLOG) 100 UNIT/ML VIAL SQ SCH ×2 (18:14→20:53)
[2021-10-12 20:53] LABS: Glucose,Whole Blood 240 mg/dL (70-110)
[2021-10-12] MEDS ORDERED: DONEPEZIL 10 MG TAB PO SCH (21:00)
[2021-10-12] MEDS ORDERED: ATORVASTATIN 80 MG TAB PO SCH (21:00)
[2021-10-13 07:02] LABS: African American GFR (CKD) 53 (>60 ml/min/1.73 sqM); Anion Gap 4 mmol/L; Blood Urea Nitrogen 29 mg/dL (9-20); Calcium 8.2 mg/dL (8.4-10.2); Carbon Dioxide 23 mmol/L (22-30); Chloride 111 mmol/L (98-107); Glucose 152 mg/dL (74-99); Non-African American GFR(CKD) 46 (>60 ml/min/1.73 sqM); Potassium 4.4 mmol/L (3.5-5.1); Sodium 138 mmol/L (137-145)
[2021-10-13 07:25] LABS: Glucose,Whole Blood 180 mg/dL (70-110)
--- NOTE | 2021-10-13 07:26 | P.PN ---
Subjective Progress Note Date: 10/13/21 PROGRESS NOTE The patient is an 81-year-old male who presented with symptoms of dyspnea and an abnormal MPI. He underwent cardiac catheterization, was found to have severe stenosis involving the proximal calcified LAD with moderate severe stenosis involving the left circumflex and ramus intermedius. He underwent stenting of his LAD. He's feeling better today, he denies any chest discomfort, dizziness or palpitations. He denies any PND or orthopnea. Medications: Aspirin 81 mg daily, Plavix 75 mg daily, Lipitor 80 mg daily, Flomax, Actos. PHYSICAL EXAMINATION: Blood pressure 131/69 heart rate 59 LUNGS: [Clear to auscultation] HEART: [Regular rate and rhythm, S1, S2. No S3. systolic ejection murmur] ABDOMEN: [Soft, nontender, no organomegaly] EXTREMETIES: [No edema, right radial pulse intact] LAB: EKG shows sinus mechanism with no acute ST segment changes, BUN 29, creatinine 1.43 IMPRESSION: 1. Status post stenting of the LAD and the calcified segment 2. 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 Paroxysmal atrial fibrillation 4. Chronic kidney disease PLAN: 1. Discharged home today 2. Resume anticoagulation and stop aspirin and one week 3. Follow up in one week 4. Follow her renal functions as outpatient Objective - Vital Signs Vital signs: Vital Signs Temp 98.7 F 10/13/21 02:00 Pulse 59 L 10/13/21 02:00 Resp 16 10/13/21 02:00 BP 148/64 10/13/21 02:00 Pulse Ox 98 10/13/21 02:00 FiO2 Intake & Output 10/12/21 10/13/21 10/13/21 18:59 06:59 18:59 Intake Total 218 Output Total 320 275 Balance -102 -275 Weight 77.111 kg Intake: IV 100 Oral 118 Output: Urine 320 275 Other: Voiding Method Urinal # Voids 1 - Labs CBC & Chem 7: 10/12/21 06:10 10/13/21 06:20 Labs: Abnormal Lab Results - Last 24 Hours (Table) 10/12/21 10/12/21 10/12/21 Range/Units 12:09 16:43 20:51 Chloride (98-107) mmol/L BUN (9-20) mg/dL Creatinine (0.66-1.25) mg/dL Glucose (74-99) mg/dL POC Glucose (mg/dL) 207 H 308 H 240 H (70-110) mg/dL Calcium (8.4-10.2) mg/dL 10/13/21 Range/Units 06:20 Chloride 111 H (98-107) mmol/L BUN 29 H (9-20) mg/dL Creatinine 1.43 H (0.66-1.25) mg/dL Glucose 152 H (74-99) mg/dL POC Glucose (mg/dL) (70-110) mg/dL Calcium 8.2 L (8.4-10.2) mg/dL
[2021-10-13 07:49] VITALS: BP 153/66; PULSE 63; RESP 18; TEMP 98.3
[2021-10-13] MEDS: PANTOPRAZOLE 40 MG TABLET PO SCH (07:53)
[2021-10-13] MEDS: amLODIPine 5 MG TAB PO SCH (07:53)
[2021-10-13] MEDS: TAMSULOSIN 0.4 MG CAP.ER.24H PO SCH (07:53)
[2021-10-13] MEDS: INSULIN ASPART (NovoLOG) 100 UNIT/ML VIAL SQ SCH (07:53)
[2021-10-13] MEDS: MULTIVITAMINS, THERA 1 EACH TAB PO SCH (07:53)
[2021-10-13] MEDS: ASPIRIN 81 MG PO SCH (07:54)
[2021-10-13] MEDS: GABAPENTIN 300 MG CAP PO SCH (07:54)
[2021-10-13] MEDS: MAGNESIUM OXIDE 400 MG TAB PO SCH (07:54)
[2021-10-13] MEDS: PIOGLITAZONE 15 MG TAB PO SCH (07:54)
[2021-10-13] MEDS: PREGABALIN 50 MG CAP PO SCH (07:59)
[2021-10-13] MEDS: Empagliflozin [Jardiance] PO SCH (08:01)
[2021-10-13] MEDS: CARBIDOPA-LEVODOPA 25-100 MG 1 EACH TAB PO SCH (08:01)
[2021-10-13] MEDS ORDERED: CLOPIDOGREL 75 MG TAB PO SCH (09:00)
== END 2021-10-13 10:55 | disposition home or self-care (01) ==
LOC: CATHCVL 06:03 → 6NMEDSUR 09:01 → CATHCVL 10-13 10:55
PROVIDERS: ATTEND Internal Medicine Interventional Cardiology
DX: I25.10 Atherosclerotic heart disease of native coronary artery without angina pectoris (principal); I25.83 Coronary atherosclerosis due to lipid rich plaque; I10 Essential (primary) hypertension; E78.5 Hyperlipidemia, unspecified; E11.9 Type 2 diabetes mellitus without complications; I48.91 Unspecified atrial fibrillation; Z20.822 Contact with and (suspected) exposure to COVID-19
CPT/HCPCS: 93458; 80048 ×2; 85025; 87635; C9600; C1769 ×2; C1887 ×2; C1894; C1725; C1874; J2001; J3010; J1644; Q9967 ×2

== ENCOUNTER 2022-09-04 13:38 | Emergency (ER) | payer MEDICARE, OTHER ==
[2022-09-04] MEDS ORDERED: SULFAMETHOX-TMP 800-160MG 1 EACH TAB PO STA (15:42)
[2022-09-04] MEDS ORDERED: CEPHALEXIN 500 MG CAP PO STA (15:42)
[2022-09-04] MEDS ORDERED: BACITRACIN OINT 1 EACH PACKET TOPICAL ONE ×2 (15:43→16:58)
--- NOTE | 2022-09-04 17:10 | ED ---
Fall HPI - General Chief Complaint: Fall Stated Complaint: Fall Time Seen by Provider: 09/04/22 15:25 Source: patient Mode of arrival: ambulatory - History of Present Illness Initial Comments: This patient is an 82-year-old man who presents to have evaluation of his lower legs in relation to a fall. Patient states that he had ground level fall and struck the richard of both legs 2 days ago. He states the EMS was called and came out and evaluated him. He states that they dressed the injuries to his legs, encouraged him to be seen in the emergency, and then when he declined they left him at home. The patient states that he has been able to stand and walk since the fall. His main concern was about what appear to be some drainage. He has not had fever or chills. 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 Place Fall Occurred: home Prolonged Down Time?: no Location - Extremities: Left: Leg, Right: Leg Severity: mild Quality: burning Context: history of frequent falls - Related Data Home Medications Medication Instructions Recorded Confirmed Multivitamins, Thera [Multivitamin 1 tab PO DAILY 11/07/15 09/04/22 (formulary)] Carbidopa-Levodopa 25-100 mg 1 tab PO BID 02/26/20 09/04/22 [Sinemet 25-100 mg] Donepezil HCl [Aricept] 10 mg PO HS 02/26/20 09/04/22 Ferrous Sulfate [Feosol] 325 mg PO BID 02/26/20 09/04/22 Pantoprazole Sodium [Protonix] 40 mg PO DAILY 02/26/20 09/04/22 Tamsulosin HCl [Flomax] 0.4 mg PO DAILY 02/26/20 09/04/22 Atorvastatin Calcium [Lipitor] 40 mg PO HS 04/22/21 09/04/22 Ergocalciferol (Vitamin D2) 1,250 mcg PO Q7D 04/22/21 09/04/22 [Drisdol (50,000 Iu)] Empagliflozin [Jardiance] 25 mg PO DAILY 10/09/21 09/04/22 Pregabalin [Lyrica] 50 mg PO TID 10/09/21 09/04/22 amLODIPine [Norvasc] 5 mg PO DAILY 10/09/21 09/04/22 Calcium Citrate/Vitamin D3 1 tab PO DAILY 09/04/22 09/04/22 [Citracal + D Maximum Caplet] Furosemide [Lasix] 20 mg PO DAILY 09/04/22 09/04/22 Magnesium Oxide 420mg 420 mg PO DAILY 09/04/22 09/04/22 Pioglitazone [Actos] 30 mg PO DAILY 09/04/22 09/04/22 Sodium Bicarbonate Tab 650 mg PO QID 09/04/22 09/04/22 Previous Rx's Medication Instructions Recorded Apixaban [Eliquis] 5 mg PO BID 30 Days #60 tab 04/26/21 Cephalexin [Keflex] 500 mg PO Q6HR #28 cap 09/04/22 Sulfamethox-Tmp 800-160Mg [Bactrim 1 each PO Q12HR #14 tab 09/04/22 Ds] Allergies Allergy/AdvReac Type Severity Reaction Status Date / Time Penicillins AdvReac Nausea & Verified 09/04/22 17:34 Vomiting Review of Systems ROS Statement: Those systems with pertinent positive or pertinent negative responses have been documented in the HPI. ROS Other: All systems not noted in ROS Statement are negative. Constitutional: Denies: fever, chills Respiratory: Denies: cough, dyspnea Cardiovascular: Denies: chest pain, syncope Gastrointestinal: Denies: abdominal pain, vomiting Genitourinary: Denies: dysuria Skin: Reports: as per HPI, lesions Neurological: Denies: headache, weakness, numbness Hematological/Lymphatic: Denies: easy bleeding Past Medical History Past Medical History: Cancer, Heart Failure, Diabetes Mellitus, Eye Disorder, GERD/Reflux, Hearing Disorder / Deafness, Hyperlipidemia, Hypertension, Osteoarthritis (OA), Prostate Disorder, Renal Disease, Syncope Additional Past Medical History / Comment(s): unsteady gait-states "falls all the time-uses a cane or walker but my legs give out",hx Large B-cell lymphoma- pt thinks his last chemo was in may 2015?, anemia, HX OF sacral decubs-healed, essential tremors bilateral hands, [place] bilaterally/aides, 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 Past Anesthesia/Blood Transfusion Reactions: No Reported Reaction Additional Past Anesthesia/Blood Transfusion Reaction / Comment(s): HX OF BLOOD TRANSFUSION-NO REACTION. Past Psychological History: No Psychological Hx Reported Smoking Status: Former smoker Past Alcohol Use History: None Reported Past Drug Use History: None Reported - Past Family History Daughter(s) Family Medical History: Cancer Additional Family Medical History / Comment(s): BREAST , LIVER AND LUNG CANCER Father Family Medical History: Myocardial Infarction ([place]) Additional Family Medical History / Comment(s): Father at age 65yrs. Mother Family Medical History: Dementia Additional Family Medical History / Comment(s): Mother at about age 82yrs. Brother(s) Family Medical History: Cancer Additional Family Medical History / Comment(s): (2 BROTHERS) Sister(s) Family Medical History: Cancer General Exam Limitations: no limitations General appearance: alert, in no apparent distress Head exam: Present: atraumatic, normocephalic Eye exam: Present: normal appearance. Absent: scleral icterus, conjunctival in jection Neck exam: Present: normal inspection. Absent: tenderness Respiratory exam: Present: normal lung sounds bilaterally. Absent: respiratory distress, wheezes, rales, rhonchi, chest wall tenderness Cardiovascular Exam: Present: regular rate, normal rhythm, normal heart sounds. Absent: systolic murmur, diastolic murmur, rubs, gallop GI/Abdominal exam: Present: soft. Absent: distended, tenderness, guarding Extremities exam: Present: normal capillary refill. Absent: tenderness, pedal edema Back exam: Present: normal inspection. Absent: vertebral tenderness Neurological exam: Present: alert Skin exam: Present: warm, dry, erythema, abrasion (The patient has abrasions to the bilateral pretibial areas, larger area on the left than right. The left leg does have some adjacent erythema and warmth.) Course Vital Signs 09/04/22 09/04/22 09/04/22 13:57 16:42 17:32 Temperature 98.3 F 97.9 F Pulse Rate 65 50 L 55 L Respiratory 18 16 18 Rate Blood Pressure 154/63 179/71 191/84 O2 Sat by Pulse 99 100 100 Oximetry Medical Decision Making - Medical Decision Making This patient is an 82-year-old man presenting with some pain and drainage from his legs. The patient does have cellulitis on the exam. There is no skull fracture cellulitis and the patient does request to try course of outpatient antibiotics. He seems stable for this. We discussed appropriate further care and return parameters. Was pt. sent in by a medical professional or institution ([facility], PANEL RAISER OPERATOR, urgent care, hospital, or halfway...) When possible be specific @ -[No] Did you speak to anyone other than the patient for history (EMS, parent, family, police, friend...)? What history was obtained from this source @ -[No] Did you review nursing and triage notes (agree or disagree)? Why? @ -[I reviewed and agree with nursing and triage notes] Were old charts reviewed (outside hosp., previous admission, EMS record, old EKG, old radiological studies, urgent care reports/EKG's, halfway records)? Report findings @ -[No old charts were reviewed] Differential Diagnosis (chest pain, altered mental status, abdominal pain women, abdominal pain men, vaginal bleeding, weakness, fever, dyspnea, syncope, headache, dizziness, GI bleed, back pain, seizure, CVA, palpatations, mental health, musculoskeletal)? @ -[The differential diagnosis for the patient's condition includes cellulitis and other leg infections, DVT, bony injury, muscle strain, congestive heart failure, poor lymphatic drainage, chronic venous stasis amongst other conditions EKG interpreted by me (3pts min.). @ -[As above] X-rays interpreted by me (1pt min.). @ -[None done] CT interpreted by me (1pt min.). @ -[None done] U/S interpreted by me (1pt. min.). @ -[None done] What testing was considered but not performed or refused? (CT, X-rays, U/S, labs)? Why? @ -[None] What meds were considered but not given or refused? Why? @ -[None] Did you discuss the management of the patient with other professionals (professionals i.e. , PA, PANEL RAISER OPERATOR, lab, RT, psych nurse, social security specialist, oxygen tank filler, teacher, anti air warfare operations officer, outsole caser)? Give summary @ -[No] Was smoking cessation discussed for >3mins.? @ -[No] Was critical care preformed (if so, how long)? @ -[No] Were there social determinants of health that impacted care today? How? (Homelessness, low income, unemployed, alcoholism, drug addiction, transportation, low edu. Level, literacy, decrease access to med. care, prison, rehab)? @ -[No] Was there de-escalation of care discussed even if they declined (Discuss DNR or withdrawal of care, Hospice)? DNR status @ -[No] What co-morbidities impacted this encounter? (DM, HTN, Smoking, COPD, CAD, Cancer, CVA, ARF, Chemo, Hep., AIDS, mental health diagnosis, sleep apnea, morbid obesity)? @ -[None] Was patient admitted / discharged? Hospital course, mention meds given and route, prescriptions, significant lab abnormalities, going to OR and other pertinent info. @ -[Discharged with close follow-up Undiagnosed new problem with uncertain prognosis? @ -[No] Drug Therapy requiring intensive monitoring for toxicity (Heparin, Nitro, Insulin, Cardizem)? @ -[No] Were any procedures done? @ -[No] Diagnosis/symptom? @ -[Acute lower extremity cellulitis Acute, or Chronic, or Acute on Chronic? @ -[default] Uncomplicated (without systemic symptoms) or Complicated (systemic symptoms)? @ -[Uncomplicated Side effects of treatment? @ -[No] Exacerbation, Progression, or Severe Exacerbation? @ -[No] Poses a threat to life or bodily function? How? (Chest pain, [place], [place], pneumonia, PE, COPD, DKA, ARF, appy, cholecystitis, CVA, Diverticulitis, Homicidal, Suicidal, threat to staff... and all critical care pts) @ -[No] Disposition Clinical Impression: Cellulitis Disposition: HOME SELF-CARE Condition: Good Instructions (If sedation given, give patient instructions): Cellulitis (ED), Fall Prevention for Older Adults (ED) Prescriptions: Sulfamethox-Tmp 800-160Mg [Bactrim Ds] 1 each PO Q12HR #14 tab Cephalexin [Keflex] 500 mg PO Q6HR #28 cap Is patient prescribed a controlled substance at d/c from ED?: No Referrals: Figueroa Tee MD [STAFF PHYSICIAN] - 1-2 days
[2022-09-04 17:34] VITALS: BP 191/84; PULSE 55; RESP 18; TEMP 97.9
== END 2022-09-04 17:49 | disposition home or self-care (01) ==
LOC: EC 13:38
DX: S80.812A Abrasion, left lower leg, initial encounter (principal); S80.811A Abrasion, right lower leg, initial encounter; L03.116 Cellulitis of left lower limb; L03.115 Cellulitis of right lower limb; I13.0 Hypertensive heart and chronic kidney disease with heart failure and stage 1 through stage 4 chronic kidney disease, or unspecified chronic kidney disease; E11.22 Type 2 diabetes mellitus with diabetic chronic kidney disease; I50.9 Heart failure, unspecified; N18.9 Chronic kidney disease, unspecified; E78.5 Hyperlipidemia, unspecified; K21.9 Gastro-esophageal reflux disease without esophagitis; N40.0 Benign prostatic hyperplasia without lower urinary tract symptoms; Z87.891 Personal history of nicotine dependence; Z79.84 Long term (current) use of oral hypoglycemic drugs; Z79.899 Other long term (current) drug therapy; Z88.0 Allergy status to penicillin; W18.30XA Fall on same level, unspecified, initial encounter; Y92.009 Unspecified place in unspecified non-institutional (private) residence as the place of occurrence of the external cause
CPT/HCPCS: 99283

== ENCOUNTER 2023-04-17 16:03 | Inpatient (IN) | payer MEDICARE, OTHER ==
--- NOTE | 2023-04-17 18:02 | ED ---
General Adult HPI - General Source: patient, RN notes reviewed Mode of arrival: ambulatory <Susan Li - Last Filed: 04/23/23 17:08> - General Source: RN notes reviewed, old records reviewed Mode of arrival: ambulatory Limitations: no limitations - History of Present Illness -: days(s) (3) Consistency: constant Improves with: none Worsens with: none Associated Symptoms: confusion Treatments Prior to Arrival: none <Toy Painting - Last Filed: 04/24/23 11:51> - General Chief complaint: Weakness Stated complaint: ABN LABS SENT BY DR Sands Seen by Provider: 04/17/23 17:58 - History of Present Illness Initial comments: 83 year old male presents to the emergency department for evaluation of increased confusion x3 days. Patient states that he had an episode where he blacked out for a second 3 days ago. His family reports that since then he has been more confused and acting off. Son states that he is acting as his usual self at this time. (Susan Li) This is a 83-year-old male to the ER for evaluation of some confusion for the last 3 days. Patient also has an episode where he lost vision in his right eye while playing cards. Family notes that patient is more confused than normal, patient does appear to be able to answer all questions here in the ER h and he is able to provide all history (Toy Painting) - Related Data Home Medications Medication Instructions Recorded Confirmed Multivitamins, Thera [Multivitamin 1 tab PO DAILY 11/07/15 04/17/23 (formulary)] Donepezil HCl [Aricept] 10 mg PO HS 02/26/20 04/17/23 Ferrous Sulfate [Feosol] 325 mg PO BID 02/26/20 04/17/23 Pantoprazole Sodium [Protonix] 40 mg PO DAILY 02/26/20 04/17/23 Tamsulosin HCl [Flomax] 0.4 mg PO DAILY 02/26/20 04/17/23 Atorvastatin Calcium [Lipitor] 40 mg PO HS 04/22/21 04/17/23 Ergocalciferol (Vitamin D2) 1,250 mcg PO TH 04/22/21 04/17/23 [Drisdol (50,000 Iu)] Empagliflozin [Jardiance] 25 mg PO DAILY 10/09/21 04/17/23 Pregabalin [Lyrica] 50 mg PO TID 10/09/21 04/17/23 amLODIPine [Norvasc] 5 mg PO DAILY 10/09/21 04/17/23 Calcium Citrate/Vitamin D3 1 tab PO DAILY 09/04/22 04/17/23 [Citracal + D Maximum Caplet] Furosemide [Lasix] 20 mg PO DAILY 09/04/22 04/17/23 Magnesium Oxide 420mg 420 mg PO DAILY 09/04/22 04/17/23 Sodium Bicarbonate Tab 650 mg PO QID 09/04/22 04/17/23 Apixaban [Eliquis] 2.5 mg PO BID 04/17/23 04/17/23 Carbidopa/Levodopa 1 tab PO BID 04/17/23 04/17/23 [Carbidopa-Levodopa 25-100 Tab] Insulin Glargine-Yfgn 32 units SQ DAILY 04/17/23 04/17/23 Loperamide [Imodium] 4 mg PO QID PRN 04/17/23 04/17/23 Pioglitazone [Actos] 15 mg PO DAILY 04/17/23 04/17/23 Previous Rx's Medication Instructions Recorded Aspirin 325 mg PO DAILY tab 04/21/23 Allergies Allergy/AdvReac Type Severity Reaction Status Date / Time Penicillins AdvReac Nausea & Verified 04/17/23 22:25 Vomiting Review of Systems ROS Other: All systems not noted in ROS Statement are negative. <Susan Li - Last Filed: 04/23/23 17:08> ROS Other: All systems not noted in ROS Statement are negative. <Toy Painting - Last Filed: 04/24/23 11:51> ROS Statement: Those systems with pertinent positive or pertinent negative responses have been documented in the HPI. 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 Past Anesthesia/Blood Transfusion Reactions: No Reported Reaction Additional Past Anesthesia/Blood Transfusion Reaction / Comment(s): HX OF BLOOD TRANSFUSION-NO REACTION. Past Psychological History: No Psychological Hx Reported Smoking Status: Former smoker Past Alcohol Use History: None Reported Past Drug Use History: None Reported - Past Family History Daughter(s) Family Medical History: Cancer Additional Family Medical History / Comment(s): BREAST , LIVER AND LUNG CANCER Father Family Medical History: Myocardial Infarction (NM) Additional Family Medical History / Comment(s): Father at age 65yrs. Mother Family Medical History: Dementia Additional Family Medical History / Comment(s): Mother at about age 82yrs. Brother(s) Family Medical History: Cancer Additional Family Medical History / Comment(s): (2 BROTHERS) Sister(s) Family Medical History: Cancer <Susan Li - Last Filed: 04/23/23 17:08> General Exam <Susan Li - Last Filed: 04/23/23 17:08> General appearance: alert, in no apparent distress, anxious Head exam: Present: atraumatic, normocephalic, normal inspection Eye exam: Present: normal appearance, PERRL, EOMI. Absent: scleral icterus, conjunctival injection, periorbital swelling ENT exam: Present: normal exam, mucous membranes moist Neck exam: Present: normal inspection. Absent: tenderness, meningismus, lymphadenopathy Respiratory exam: Present: normal lung sounds bilaterally. Absent: respiratory distress, wheezes, rales, rhonchi, stridor Cardiovascular Exam: Present: normal rhythm, bradycardia, normal heart sounds. Absent: systolic murmur, diastolic murmur, rubs, gallop, clicks GI/Abdominal exam: Present: soft, normal bowel sounds. Absent: distended, tenderness, guarding, rebound, rigid Extremities exam: Present: normal inspection, full ROM, normal capillary refill. Absent: tenderness, pedal edema, joint swelling, calf tenderness Back exam: Present: normal inspection Neurological exam: Present: alert, oriented X3, CN II-XII intact Psychiatric exam: Present: normal affect, normal mood Skin exam: Present: warm, dry, intact, normal color. Absent: rash <Toy Painting Filed: 04/24/23 11:51> - General Exam Comments Initial Comments: Visual Physical Exam Vital signs reviewed General: Well-appearing, nontoxic, no acute distress. Head: Normocephalic, atraumatic Eyes: PERRLA, EOMI ENT: Airway patent Chest: Nonlabored breathing Skin: No visual rash, normal skin tone Neuro: Alert and oriented 3 Musculoskeletal: No gross abnormalities (Kulka,Susan) Course <Toy Painting Filed: 04/24/23 11:51> Vital Signs 04/17/23 04/17/23 04/17/23 17:50 19:55 20:18 Temperature 97.8 F Pulse Rate 55 L 57 L Pulse Rate [ 34 L Operations Support Coordinator ] Respiratory 18 18 Rate Blood Pressure 129/58 160/72 O2 Sat by Pulse 99 99 Oximetry 04/17/23 04/17/23 04/17/23 20:30 20:40 20:47 Temperature Pulse Rate 52 L 35 L 49 L Pulse Rate [ Operations Support Coordinator ] Respiratory 18 15 12 Rate Blood Pressure 160/72 121/54 121/54 O2 Sat by Pulse 97 98 98 Oximetry 04/17/23 04/17/23 04/17/23 21:00 22:00 23:00 Temperature Pulse Rate 56 L 58 L 52 L Pulse Rate [ Operations Support Coordinator ] Respiratory 19 18 12 Rate Blood Pressure 131/51 150/71 166/57 O2 Sat by Pulse 89 L 96 97 Oximetry 02/01/24 02/01/24 02/01/24 00:00 01:00 02:00 Temperature 97.9 F Pulse Rate 55 L 59 L Pulse Rate [ Operations Support Coordinator ] Respiratory 15 12 Rate Blood Pressure 133/57 160/65 154/62 O2 Sat by Pulse 96 98 Oximetry 04/18/23 04/18/23 04/18/23 03:00 08:48 16:37 Temperature 98.0 F Pulse Rate 33 L 45 L 55 L Pulse Rate [ Operations Support Coordinator ] Respiratory 5 L 14 16 Rate Blood Pressure 154/74 179/74 O2 Sat by Pulse 97 97 95 Oximetry 04/18/23 21:05 Temperature Pulse Rate 60 Pulse Rate [ Operations Support Coordinator ] Respiratory 16 Rate Blood Pressure 175/77 O2 Sat by Pulse 98 Oximetry - Reevaluation(s) Reevaluation #1: 04/17/23 20:24 Medical records reviewed (Toy Painting) Reevaluation #2: 04/17/23 20:25 The patient has no change in symptoms. The ER (Toy Painting) Reevaluation #3: 04/17/23 20:25 Patient informed of results and questions answered (Toy Painting) Reevaluation #4: 04/17/23 20:25 Was pt. sent in by a medical professional or institution ([employer], TYPE SOLDERING MACHINE TENDER, urgent care, hospital, or fpc...) When possible be specific @ -no Did you speak to anyone other than the patient for history (EMS, parent, family, police, friend...)? What history was obtained from this source @ -no Did you review nursing and triage notes (agree or disagree)? Why? @ -agree Are old charts reviewed (outside hosp., previous admission, EMS record, old EKG, old radiological studies, urgent care reports/EKG's, fpc records)? Report findings @ -yes Differential Diagnosis (chest pain, altered mental status, abdominal pain women, abdominal pain men, vaginal bleeding, weakness, fever, dyspnea, syncope, headache, dizziness, GI bleed, back pain, seizure, CVA, palpatations, mental health, musculoskeletal)? @ -prior EKG interpreted by me (3pts min.). @ -yes X-rays interpreted by me (1pt min.). @ -yes negative for acute disease CT interpreted by me (1pt min.). @ -Yes negative for acute disease U/S interpreted by me (1pt. min.). @ -no What testing was considered but not performed or refused? (CT, X-rays, U/S, labs)? Why? @ -none What meds were considered but not given or refused? Why? @ -none Did you discuss the management of the patient with other professionals (professionals i.e. DrTayo, PA, TYPE SOLDERING MACHINE TENDER, lab, RT, psych nurse, dialysis social worker, commonwealth attorney, teacher, cash management officer, case folder)? Give summary @ -no Was smoking cessation discussed for >3mins.? @ -no Was critical care preformed (if so, how long)? @ -no Were there social determinants of health that impacted care today? How? (Homelessness, low income, unemployed, alcoholism, drug addiction, transportation, low edu. Level, literacy, decrease access to med. care, penitentiary, rehab)? @ -none Was there de-escalation of care discussed even if they declined (Discuss DNR or withdrawal of care, Hospice)? DNR status @ -no What co-morbidities impacted this encounter? (DM, HTN, Smoking, COPD, CAD, Cancer, CVA, ARF, Chemo, Hep., AIDS, mental health diagnosis, sleep apnea, morbi d obesity)? @ -none Was patient admitted / discharged? Hospital course, mention meds given and rout e, prescriptions, significant lab abnormalities, going to OR and other pertinent info. @ - 83 male to ER with right eye vision loss TIA will admit for TIA symptoms patient is profoundly bradycardic here in the ER will consult cardiology regarding bradycardia patient will be admitted for neurology evaluation Admitted Undiagnosed new problem with uncertain prognosis? @ -no Drug Therapy requiring intensive monitoring for toxicity (Heparin, Nitro, Insulin, Cardizem)? @ -no Were any procedures done? @ -no Diagnosis/symptom? @ -Bradycardia, vision loss, TIA and CVA Acute, or Chronic, or Acute on Chronic? @ -Acute Uncomplicated (without systemic symptoms) or Complicated (systemic symptoms)? @ -Complicated Side effects of treatment? @ -no Exacerbation, Progression, or Severe Exacerbation? @ -exacerbation Poses a threat to life or bodily function? How? (Chest pain, USA, NM, pneumonia, PE, COPD, DKA, ARF, appy, cholecystitis, CVA, Diverticulitis, Homicidal, Suic idal, threat to staff... and all critical care pts) @ -yes significant bradycardia extremes of age (Toy Painting) Reevaluation #5: 04/17/23 20:25 Differential CVA Ischemic stroke, hemorrhagic stroke, brain tumor, atypical migraine, Wernicke's encephalopathy, seizure, multiple sclerosis, meningitis, encephalitis, hypoglycemia, Guillain-Aiken, electrolytes disturbance, myasthenia gravis.... This is not meant to be an all-inclusive list (Toy Painting) - Consultations Consultation #1: Spoke with [facility] who agrees to admit this patient (Toy Painting) EKG Findings - EKG Comments: EKG Findings:: EKG is sinus bradycardia 51, NM 168 QRS 80 QTc 402 - EKG Results: EKG: interpreted by ERMD <Toy Painting - Last Filed: 04/24/23 11:51> Medical Decision Making - Lab Data Result diagrams: 04/21/23 10:01 04/21/23 10:01 <Susan Li - Last Filed: 04/23/23 17:08> - Lab Data Result diagrams: 04/21/23 10:01 04/21/23 10:01 - EKG Data -: EKG Interpreted by Mo - Radiology Data Radiology results: report reviewed (CT brain and chest x-ray are negative for acute disease), image reviewed <Toy Painting - Last Filed: 04/24/23 11:51> - Medical Decision Making Quick note preformed by Susan Li PA-C (Susan Li) 83 male to ER with right eye vision loss TIA will admit for TIA symptoms patient is profoundly bradycardic here in the ER will consult cardiology regarding bradycardia patient will be admitted for neurology evaluation (Toy Painting) - Lab Data Lab Results 04/17/23 04/17/23 04/17/23 Range/Units 18:05 18:05 18:05 WBC 8.2 (3.8-10.6) k/uL RBC 3.92 L (4.30-5.90) m/uL Hgb 12.4 L (13.0-17.5) gm/dL Hct 36.4 L (39.0-53.0) % MCV 92.7 (80.0-100.0) fL MCH 31.6 (25.0-35.0) pg MCHC 34.1 (31.0-37.0) g/dL RDW 13.8 (11.5-15.5) % Plt Count 177 (150-450) k/uL MPV 8.2 Neutrophils % 76 % Lymphocytes % 15 % Monocytes % 5 % Eosinophils % 2 % Basophils % 0 % Neutrophils # 6.2 (1.3-7.7) k/uL Lymphocytes # 1.3 (1.0-4.8) k/uL Monocytes # 0.4 (0-1.0) k/uL Eosinophils # 0.2 (0-0.7) k/uL Basophils # 0.0 (0-0.2) k/uL PT 11.7 (10.0-12.5) sec INR 1.1 (<1.2) APTT 29.1 (22.0-30.0) sec Sodium 136 L (137-145) mmol/L Potassium 4.6 (3.5-5.1) mmol/L Chloride 103 (98-107) mmol/L Carbon Dioxide 25 (22-30) mmol/L Anion Gap 8 mmol/L BUN 46 H (9-20) mg/dL Creatinine 1.83 H (0.66-1.25) mg/dL Est GFR (CKD-EPI)AfAm 39 (>60 ml/min/1.73 sqM) Est GFR (CKD-EPI)NonAf 34 (>60 ml/min/1.73 sqM) Glucose 171 H (74-99) mg/dL POC Glucose (mg/dL) (70-110) mg/dL POC Glu Customer Service Assistant ID Calcium 8.6 (8.4-10.2) mg/dL Magnesium 2.4 H (1.6-2.3) mg/dL Total Bilirubin 0.8 (0.2-1.3) mg/dL AST 26 (17-59) U/L ALT 14 (4-49) U/L Alkaline Phosphatase 125 (38-126) U/L Ammonia (<30) umol/L Total Protein 6.4 (6.3-8.2) g/dL Albumin 3.9 (3.5-5.0) g/dL Triglycerides (0.00-149.00) mg/dL Cholesterol (0.00-200.00) mg/dL LDL Cholesterol, Calc (0.0-131.0) mg/dL VLDL Cholesterol, Calc (5.00-40.00) mg/dL HDL Cholesterol (40.00-60.00) mg/dL Cholesterol/HDL Ratio Ratio Vitamin B12 (200.0-944.0) pg/mL Folate (4.40-31.00) ng/mL TSH (0.465-4.680) mIU/L Urine Color Urine Appearance (Clear) Urine pH (5.0-8.0) Ur Specific [place] (1.001-1.035) Urine Protein (Negative) Urine Glucose (UA) (Negative) Urine Ketones (Negative) Urine Blood (Negative) Urine Nitrite (Negative) Urine Bilirubin (Negative) Urine Urobilinogen (<2.0) mg/dL Ur Leukocyte Esterase (Negative) Urine RBC (0-5) /hpf Urine WBC (0-5) /hpf Ur Squamous Epith Cells (0-4) /hpf Urine Mucus (None) /hpf 04/18/23 04/18/23 04/18/23 Range/Units 06:25 12:47 16:06 WBC (3.8-10.6) k/uL RBC (4.30-5.90) m/uL Hgb (13.0-17.5) gm/dL Hct (39.0-53.0) % MCV (80.0-100.0) fL MCH (25.0-35.0) pg MCHC (31.0-37.0) g/dL RDW (11.5-15.5) % Plt Count (150-450) k/uL MPV Neutrophils % % Lymphocytes % % Monocytes % % Eosinophils % % Basophils % % Neutrophils # (1.3-7.7) k/uL Lymphocytes # (1.0-4.8) k/uL Monocytes # (0-1.0) k/uL Eosinophils # (0-0.7) k/uL Basophils # (0-0.2) k/uL PT (10.0-12.5) sec INR (<1.2) APTT (22.0-30.0) sec Sodium (137-145) mmol/L Potassium (3.5-5.1) mmol/L Chloride (98-107) mmol/L Carbon Dioxide (22-30) mmol/L Anion Gap mmol/L BUN (9-20) mg/dL Creatinine (0.66-1.25) mg/dL Est GFR (CKD-EPI)AfAm (>60 ml/min/1.73 sqM) Est GFR (CKD-EPI)NonAf (>60 ml/min/1.73 sqM) Glucose (74-99) mg/dL POC Glucose (mg/dL) (70-110) mg/dL POC Glu Customer Service Assistant ID Calcium (8.4-10.2) mg/dL Magnesium (1.6-2.3) mg/dL Total Bilirubin (0.2-1.3) mg/dL AST (17-59) U/L ALT (4-49) U/L Alkaline Phosphatase (38-126) U/L Ammonia (<30) umol/L Total Protein (6.3-8.2) g/dL Albumin (3.5-5.0) g/dL Triglycerides 77.20 (0.00-149.00) mg/dL Cholesterol 57.00 (0.00-200.00) mg/dL LDL Cholesterol, Calc 8.7 (0.0-131.0) mg/dL VLDL Cholesterol, Calc 15.44 (5.00-40.00) mg/dL HDL Cholesterol 32.90 L (40.00-60.00) mg/dL Cholesterol/HDL Ratio 1.73 Ratio Vitamin B12 (200.0-944.0) pg/mL Folate (4.40-31.00) ng/mL TSH 1.460 (0.465-4.680) mIU/L Urine Color Light Yellow Urine Appearance Clear (Clear) Urine pH 5.5 (5.0-8.0) Ur Specific [place] 1.015 (1.001-1.035) Urine Protein 1+ H (Negative) Urine Glucose (UA) 4+ H (Negative) Urine Ketones Negative (Negative) Urine Blood Negative (Negative) Urine Nitrite Negative (Negative) Urine Bilirubin Negative (Negative) Urine Urobilinogen <2.0 (<2.0) mg/dL Ur Leukocyte Esterase Negative (Negative) Urine RBC 1 (0-5) /hpf Urine WBC <1 (0-5) /hpf Ur Squamous Epith Cells <1 (0-4) /hpf Urine Mucus Rare H (None) /hpf 04/18/23 04/18/23 04/18/23 Range/Units 17:19 17:19 17:19 WBC (3.8-10.6) k/uL RBC (4.30-5.90) m/uL Hgb (13.0-17.5) gm/dL Hct (39.0-53.0) % MCV (80.0-100.0) fL MCH (25.0-35.0) pg MCHC (31.0-37.0) g/dL RDW (11.5-15.5) % Plt Count (150-450) k/uL MPV Neutrophils % % Lymphocytes % % Monocytes % % Eosinophils % % Basophils % % Neutrophils # (1.3-7.7) k/uL Lymphocytes # (1.0-4.8) k/uL Monocytes # (0-1.0) k/uL Eosinophils # (0-0.7) k/uL Basophils # (0-0.2) k/uL PT (10.0-12.5) sec INR (<1.2) APTT (22.0-30.0) sec Sodium (137-145) mmol/L Potassium (3.5-5.1) mmol/L Chloride (98-107) mmol/L Carbon Dioxide (22-30) mmol/L Anion Gap mmol/L BUN (9-20) mg/dL Creatinine (0.66-1.25) mg/dL Est GFR (CKD-EPI)AfAm (>60 ml/min/1.73 sqM) Est GFR (CKD-EPI)NonAf (>60 ml/min/1.73 sqM) Glucose (74-99) mg/dL POC Glucose (mg/dL) (70-110) mg/dL POC Glu Customer Service Assistant ID Calcium (8.4-10.2) mg/dL Magnesium (1.6-2.3) mg/dL Total Bilirubin (0.2-1.3) mg/dL AST (17-59) U/L ALT (4-49) U/L Alkaline Phosphatase (38-126) U/L Ammonia <9 (<30) umol/L Total Protein (6.3-8.2) g/dL Albumin (3.5-5.0) g/dL Triglycerides (0.00-149.00) mg/dL Cholesterol (0.00-200.00) mg/dL LDL Cholesterol, Calc (0.0-131.0) mg/dL VLDL Cholesterol, Calc (5.00-40.00) mg/dL HDL Cholesterol (40.00-60.00) mg/dL Cholesterol/HDL Ratio Ratio Vitamin B12 440.0 (200.0-944.0) pg/mL Folate 24.10 (4.40-31.00) ng/mL TSH (0.465-4.680) mIU/L Urine Color Urine Appearance (Clear) Urine pH (5.0-8.0) Ur Specific [place] (1.001-1.035) Urine Protein (Negative) Urine Glucose (UA) (Negative) Urine Ketones (Negative) Urine Blood (Negative) Urine Nitrite (Negative) Urine Bilirubin (Negative) Urine Urobilinogen (<2.0) mg/dL Ur Leukocyte Esterase (Negative) Urine RBC (0-5) /hpf Urine WBC (0-5) /hpf Ur Squamous Epith Cells (0-4) /hpf Urine Mucus (None) /hpf 04/18/23 04/19/23 Range/Units 19:09 06:04 WBC (3.8-10.6) k/uL RBC (4.30-5.90) m/uL Hgb (13.0-17.5) gm/dL Hct (39.0-53.0) % MCV (80.0-100.0) fL MCH (25.0-35.0) pg MCHC (31.0-37.0) g/dL RDW (11.5-15.5) % Plt Count (150-450) k/uL MPV Neutrophils % % Lymphocytes % % Monocytes % % Eosinophils % % Basophils % % Neutrophils # (1.3-7.7) k/uL Lymphocytes # (1.0-4.8) k/uL Monocytes # (0-1.0) k/uL Eosinophils # (0-0.7) k/uL Basophils # (0-0.2) k/uL PT (10.0-12.5) sec INR (<1.2) APTT (22.0-30.0) sec Sodium (137-145) mmol/L Potassium (3.5-5.1) mmol/L Chloride (98-107) mmol/L Carbon Dioxide (22-30) mmol/L Anion Gap mmol/L BUN (9-20) mg/dL Creatinine (0.66-1.25) mg/dL Est GFR (CKD-EPI)AfAm (>60 ml/min/1.73 sqM) Est GFR (CKD-EPI)NonAf (>60 ml/min/1.73 sqM) Glucose (74-99) mg/dL POC Glucose (mg/dL) 101 72 (70-110) mg/dL POC Glu Customer Service Assistant ID Josselyn Cisneros Kayla Calcium (8.4-10.2) mg/dL Magnesium (1.6-2.3) mg/dL Total Bilirubin (0.2-1.3) mg/dL AST (17-59) U/L ALT (4-49) U/L Alkaline Phosphatase (38-126) U/L Ammonia (<30) umol/L Total Protein (6.3-8.2) g/dL Albumin (3.5-5.0) g/dL Triglycerides (0.00-149.00) mg/dL Cholesterol (0.00-200.00) mg/dL LDL Cholesterol, Calc (0.0-131.0) mg/dL VLDL Cholesterol, Calc (5.00-40.00) mg/dL HDL Cholesterol (40.00-60.00) mg/dL Cholesterol/HDL Ratio Ratio Vitamin B12 (200.0-944.0) pg/mL Folate (4.40-31.00) ng/mL TSH (0.465-4.680) mIU/L Urine Color Urine Appearance (Clear) Urine pH (5.0-8.0) Ur Specific [place] (1.001-1.035) Urine Protein (Negative) Urine Glucose (UA) (Negative) Urine Ketones (Negative) Urine Blood (Negative) Urine Nitrite (Negative) Urine Bilirubin (Negative) Urine Urobilinogen (<2.0) mg/dL Ur Leukocyte Esterase (Negative) Urine RBC (0-5) /hpf Urine WBC (0-5) /hpf Ur Squamous Epith Cells (0-4) /hpf Urine Mucus (None) /hpf Disposition Is patient prescribed a controlled substance at d/c from ED?: No <Susan Li - Last Filed: 04/23/23 17:08> Is patient prescribed a controlled substance at d/c from ED?: No Time of Disposition: 20:00 <Toy Painting - Last Filed: 04/24/23 11:51> Clinical Impression: TIA (transient ischemic attack), Heat exhaustion, Weakness generalized, Symptomatic bradycardia, Bradycardia Disposition: ADMITTED IP TO THIS HOSP Condition: Serious
[2023-04-17 18:20] LABS: Basophils % (A) 0 %; Eosinophils # (A) 0.2 k/uL (0-0.7); Eosinophils % (A) 2 %; HCT 36.4 % (39.0-53.0); HGB 12.4 gm/dL (13.0-17.5); Lymphocytes # (A) 1.3 k/uL (1.0-4.8); Lymphocytes % (A) 15 %; MCH 31.6 pg (25.0-35.0); MCHC 34.1 g/dL (31.0-37.0); MCV 92.7 fL (80.0-100.0); Mean Platelet Volume 8.2; Monocytes # (A) 0.4 k/uL (0-1.0); Monocytes % (A) 5 %; Neutrophils # (A) 6.2 k/uL (1.3-7.7); Neutrophils % (A) 76 %; Platelet Count 177 k/uL (150-450); RBC 3.92 m/uL (4.30-5.90); RDW 13.8 % (11.5-15.5); WBC 8.2 k/uL (3.8-10.6)
[2023-04-17 18:38] LABS: ALT 14 U/L (4-49); AST 26 U/L (17-59); African American GFR (CKD) 39 (>60 ml/min/1.73 sqM); Albumin 3.9 g/dL (3.5-5.0); Alkaline Phosphatase 125 U/L (38-126); Anion Gap 8 mmol/L; Blood Urea Nitrogen 46 mg/dL (9-20); Calcium 8.6 mg/dL (8.4-10.2); Carbon Dioxide 25 mmol/L (22-30); Chloride 103 mmol/L (98-107); Glucose 171 mg/dL (74-99); Magnesium 2.4 mg/dL (1.6-2.3); Non-African American GFR(CKD) 34 (>60 ml/min/1.73 sqM); Potassium 4.6 mmol/L (3.5-5.1); Sodium 136 mmol/L (137-145); Total Bilirubin 0.8 mg/dL (0.2-1.3); Total Protein 6.4 g/dL (6.3-8.2)
[2023-04-17 18:46] LABS: INR 1.1 (<1.2)
[2023-04-17 18:47] LABS: Partial Thromboplastin Time 29.1 sec (22.0-30.0); Prothrombin Time 11.7 sec (10.0-12.5)
--- NOTE | 2023-04-17 19:28 | CT ---
EXAMINATION TYPE: CT brain wo con CT DLP: 1122.4 mGycm, Automated exposure control for dose reduction was used. DATE OF EXAM: 04/17/2023 6:55 PM COMPARISON: 01/05/2019. CLINICAL INDICATION:Male, 83 years old with history of confusion, lethargic and slurring of speech xf ew days TECHNIQUE: Brain: Axial CT images of the brain were obtained with coronal and sagittal reformats created and rev iewed. Contrast used: None. Oral contrast used: None. FINDINGS: Brain: Extra-axial spaces: No abnormal extra-axial fluid collections. Ventricular system: Dilatation in proportion to cerebral atrophy. Cerebral parenchyma: Cerebral atrophy. No acute intraparenchymal hemorrhage or mass effect. The kaur -white junction is well differentiated. Scattered hypoattenuating areas are seen within the white mat ter. Cerebellum: Unremarkable. Mass effect: No evidence of midline shift. Intracranial vasculature: Atherosclerotic calcifications of the intracranial vessels. Soft tissues: Normal. Calvarium/osseous structures: No depressed skull fracture. Paranasal sinuses and mastoid air cells: Mild scattered paranasal sinus disease. Postsurgical changes to left globe. Visualized orbits: Orbital contents are intact. Postsurgical changes of the spine partially visualized visualized portions appear intact. IMPRESSION: 1. No acute intracranial process. 2. Nonspecific white matter changes, likely secondary to chronic small vessel ischemic disease.
--- NOTE | 2023-04-17 19:39 | XR ---
EXAMINATION TYPE: XR chest 2V DATE OF EXAM: 04/17/2023 6:58 PM CLINICAL INDICATION:Male, 83 years old with history of Weakness; COMPARISON: Chest radiographs from 04/22/2021 TECHNIQUE: XR chest 2V Frontal and lateral views of the chest. FINDINGS: Lungs/Pleura: There is no evidence of pleural effusion, focal consolidation, or pneumothorax. Pulmonary vascularity: Pulmonary vascular congestion. Heart/mediastinum: Cardiomediastinal silhouette is prominent in size. Musculoskeletal: No acute osseous pathology. IMPRESSION: No acute cardiopulmonary disease/process.
[2023-04-17] MEDS ORDERED: ASPIRIN 325 MG TAB PO STA (20:18)
[2023-04-17] MEDS: SODIUM CHLORIDE 0.9% 1,000 ML IV SCH (20:52)
[2023-04-18] MEDS: SODIUM CHLORIDE 0.9% 1,000 ML IV SCH ×2 (07:00→18:50)
[2023-04-18] MEDS: ASPIRIN 325 MG TAB PO SCH (08:44)
[2023-04-18 11:19] LABS: Chol/HDL Ratio 1.73 Ratio; LDL Cholesterol,Calculated 8.7 mg/dL (0.0-131.0); VLDL Calculation 15.44 mg/dL (5.00-40.00)
--- NOTE | 2023-04-18 12:12 | P.CRDCN ---
History of Present Illness Consult date: 04/18/23 Consult reason: other (bradycarida) Chief complaint: confusion History of present illness: History of present illness: Patient is a pleasant 83-year-old male with significant past medical history of diabetes, Parkinson's, dementia, atrial fibrillation, lymphoma, left CEA who presented with confusion, right eye vision loss, and bradycardia. He does follow with Dr. Leyva in the office. Patient does presently have some confusion and is hard of hearing and is unable to provide clear history. No family present at bedside. He reports that he is feeling fine today, denies any chest pain or pressure. He denies any shortness of breath, dizziness, syncope. Telemetry reviewed and heart rates have been in the 30s. He is not on any AV jazz blocking agents. Head CT was negative for any acute findings. Chest x-ra y with no acute findings. Creatinine 1.8, potassium 4.6, sodium 136. REVIEW OF SYSTEMS: No fever or chills. No cough or expectoration. No diaphoresis. Patient denies headache, dizziness, blurred vision, double vision. Patient denies any stomach discomfort. No nausea, vomiting. No hematochezia. No hematemesis. Denies any black stools or blood in his stools. Denies dysuria or hematuria. No muscle weakness or numbness. No chest pain or pressure. Some confusion. PHYSICAL EXAMINATION: This is a 83 year-old male in no apparent distress at the time of my examination. HEENT: Head is atraumatic, normocephalic. Pupils are equal, round. Sclerae anicteric. Conjunctivae are clear. Mucous membranes of the mouth are moist. Neck is supple. There is no jugular venous distention. No carotid bruit is heard. CHEST EXAMINATION: Lungs are clear to auscultation. No chest wall tenderness is noted on palpation or with deep breathing. HEART EXAMINATION: Heart rate bradycardic. S1, S2 heard. No murmurs, gallops or rub. ABDOMEN: Soft, nontender. Bowel sounds are heard. EXTREMITIES: 2+ peripheral pulses with no evidence of peripheral edema and no calf tenderness noted. NEUROLOGIC EXAMINATION: Patient is awake, alert and oriented x3. IMPRESSION AND PLAN: Atrial fibrillation, paroxysmal Dementia Bradycardia Diabetes type 2 History of left CEA Concern for possible TIA PLAN: We will check echocardiogram to evaluate heart function and structure. Check EKG. Patient will likely need pacemaker placement. Hold Eliquis. Check TSH. Avoid AV jazz blocking agents. Will discuss plan of care further with family members as patient with confusion presently. We will follow. I am dictating on behalf of Dr. Bobby Coelho's history/physical and assessment/plan. 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 Burrows, BPH, has difficulty holding his head up-states it wants to fall forward- he has a brace he wears at times-zachary neuropathy zachary feet-still driving states "unable to to tell if foot is on the break or gas pedal" History of Any Multi-Drug Resistant Organisms: None Reported Past Surgical History: Adenoidectomy, Bowel Resection, Hernia Repair, Orthopedic Surgery, Tonsillectomy Additional Past Surgical History / Comment(s): LT CAROTID ENDARTERECTOMY, UMBILICAL HERNIA REPAIR, LEFT EYE ENUCLEATION/PROSTHESIS (industrial accident), LEFT SHOULDER RCR , Lap elder fundoplication, EXPLORATORY LAPAROTOMY/ILEOCOLECTOMY D/T TUMOR, BMA with bx, 02/15/15 aysl-[id number]-since removed. Past Anesthesia/Blood Transfusion Reactions: No Reported Reaction Additional Past Anesthesia/Blood Transfusion Reaction / Comment(s): HX OF BLOOD TRANSFUSION-NO REACTION. Past Psychological History: No Psychological Hx Reported Smoking Status: Former smoker Past Alcohol Use History: None Reported Past Drug Use History: None Reported - Past Family History Daughter(s) Family Medical History: Cancer Additional Family Medical History / Comment(s): BREAST , LIVER AND LUNG CANCER Father Family Medical History: Myocardial Infarction ([place]) Additional Family Medical History / Comment(s): Father at age 65yrs. Mother Family Medical History: Dementia Additional Family Medical History / Comment(s): Mother at about age 82yrs. Brother(s) Family Medical History: Cancer Additional Family Medical History / Comment(s): (2 BROTHERS) Sister(s) Family Medical History: Cancer Medications and Allergies Home Medications Medication Instructions Recorded Confirmed Type Multivitamins, Thera [Multivitamin 1 tab PO DAILY 11/07/15 04/17/23 History (formulary)] Donepezil HCl [Aricept] 10 mg PO HS 02/26/20 04/17/23 History Ferrous Sulfate [Feosol] 325 mg PO BID 02/26/20 04/17/23 History Pantoprazole Sodium [Protonix] 40 mg PO DAILY 02/26/20 04/17/23 History Tamsulosin HCl [Flomax] 0.4 mg PO DAILY 02/26/20 04/17/23 History Atorvastatin Calcium [Lipitor] 40 mg PO HS 04/22/21 04/17/23 History Ergocalciferol (Vitamin D2) 1,250 mcg PO TH 04/22/21 04/17/23 History [Drisdol (50,000 Iu)] Empagliflozin [Jardiance] 25 mg PO DAILY 10/09/21 04/17/23 History Pregabalin [Lyrica] 50 mg PO TID 10/09/21 04/17/23 History amLODIPine [Norvasc] 5 mg PO DAILY 10/09/21 04/17/23 History Calcium Citrate/Vitamin D3 1 tab PO DAILY 09/04/22 04/17/23 History [Citracal + D Maximum Caplet] Furosemide [Lasix] 20 mg PO DAILY 09/04/22 04/17/23 History Magnesium Oxide 420mg 420 mg PO DAILY 09/04/22 04/17/23 History Sodium Bicarbonate Tab 650 mg PO QID 09/04/22 04/17/23 History Apixaban [Eliquis] 2.5 mg PO BID 04/17/23 04/17/23 History Carbidopa/Levodopa 1 tab PO BID 04/17/23 04/17/23 History [Carbidopa-Levodopa 25-100 Tab] Insulin Glargine-Yfgn 32 units SQ DAILY 04/17/23 04/17/23 History Loperamide [Imodium] 4 mg PO QID PRN 04/17/23 04/17/23 History Pioglitazone [Actos] 15 mg PO DAILY 04/17/23 04/17/23 History Allergies Allergy/AdvReac Type Severity Reaction Status Date / Time Penicillins AdvReac Nausea & Verified 04/17/23 22:25 Vomiting Physical Exam Vitals: Vital Signs Temp Pulse Pulse Resp BP Pulse Ox 04/18/23 08:48 45 L 14 154/74 97 04/18/23 00:00 97.9 F 35 L 16 129/58 98 04/17/23 20:40 35 L 15 121/54 98 04/17/23 20:30 52 L 18 160/72 97 04/17/23 20:18 34 L 04/17/23 19:55 57 L 18 160/72 99 04/17/23 17:50 97.8 F 55 L 18 129/58 99 Intake and Output 04/17/23 04/18/23 04/18/23 22:59 06:59 14:59 Other: Weight 79.832 kg Results 04/17/23 18:05 04/17/23 18:05 Cardiac Enzymes 04/17/23 Range/Units 18:05 AST 26 (17-59) U/L Coagulation 04/17/23 Range/Units 18:05 PT 11.7 (10.0-12.5) sec APTT 29.1 (22.0-30.0) sec CBC 04/17/23 Range/Units 18:05 WBC 8.2 (3.8-10.6) k/uL RBC 3.92 L (4.30-5.90) m/uL Hgb 12.4 L (13.0-17.5) gm/dL Hct 36.4 L (39.0-53.0) % Plt Count 177 (150-450) k/uL Comprehensive Metabolic Panel 04/17/23 Range/Units 18:05 Sodium 136 L (137-145) mmol/L Potassium 4.6 (3.5-5.1) mmol/L Chloride 103 (98-107) mmol/L Carbon Dioxide 25 (22-30) mmol/L BUN 46 H (9-20) mg/dL Creatinine 1.83 H (0.66-1.25) mg/dL Glucose 171 H (74-99) mg/dL Calcium 8.6 (8.4-10.2) mg/dL AST 26 (17-59) U/L ALT 14 (4-49) U/L Alkaline Phosphatase 125 (38-126) U/L Total Protein 6.4 (6.3-8.2) g/dL Albumin 3.9 (3.5-5.0) g/dL Current Medications Generic Name Dose Route Start Last Admin Trade Name Freq PRN Reason Stop Dose Admin Aspirin 325 mg 04/18/23 09:00 04/18/23 08:44 Aspirin 325 Mg Tab PO 325 mg DAILY ZEE Administration Sodium Chloride 1,000 mls @ 100 mls/hr 04/17/23 20:30 04/17/23 20:52 Saline 0.9% IV 100 mls/hr .Q10H ZEE Administration Intake and Output 04/17/23 04/18/23 04/18/23 22:59 06:59 14:59 Other: Weight 79.832 kg 04/17/23 18:05 04/17/23 18:05
[2023-04-18] MEDS ORDERED: LOPERAMIDE 2 MG CAP PO PRN (12:27)
--- NOTE | 2023-04-18 12:36 | P.HPIM ---
History of Present Illness This is a pleasant 83 years old male with past medical history of multiple medical problems including diabetes mellitus, hypertension, chronic kidney disease stage III, dementia, Parkinson disease, benign prostatic hypertrophy, history of unsteady gait, chronic heart failure and other medical problems. He presents because of transient period of loss of vision in the right eye. Patient refused to talk about his chief complaint stating had this pain resolved now. As he indicates it appears to his right eye. On reviewing the records it's mentioned that patient some flashes of light and has had dark vision. Pulses been lethargic with the possible little slurred speech. Patient however denies chest pain or dyspnea. No abdominal pain or vomiting or dysuria. Patient states he has chronic diarrhea. No new weakness or numbness in extremities, no dizziness. No smoking alcohol or illicit tracts. There is slightly elevated 154/74. Restoril vitals are stable and patient is afebrile. In our, BMP and graft were unremarkable except for mildly elevated creatinine 1.8 which is on the high side of the baseline 1.4-1.8. Chest x-rays negative for acute process CT of her brain is negative for acute process. Patient is started on aspirin 325 mg Review of Systems Review of systems CONSTITUTIONAL: No fever, no malaise, no fatigue. HEENT: No recent visual problems or hearing problems. Denied any sore throat. CARDIOVASCULAR: No orthopnea, PND, no palpitations, no syncope. PULMONARY: No shortness of breath, no cough, no hemoptysis. GASTROINTESTINAL: No diarrhea, no nausea, no vomiting, no abdominal pain. Normoactive bowel sounds. NEUROLOGICAL: No headaches, no weakness, no numbness. HEMATOLOGICAL: Denies any bleeding or petechiae. GENITOURINARY: Denies any burning micturition, frequency, or urgency. MUSCULOSKELETAL/RHEUMATOLOGICAL: Denies any joint pain, swelling, or any muscle pain. ENDOCRINE: Denies any polyuria or polydipsia. 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 Burrows, BPH, has difficulty holding his head up-states it wants to fall forward- he has a brace he wears at times-zachary neuropathy zachary feet-still driving states "unable to to tell if foot is on the break or gas pedal" History of Any Multi-Drug Resistant Organisms: None Reported Past Surgical History: Adenoidectomy, Bowel Resection, Hernia Repair, Orthopedic Surgery, Tonsillectomy Additional Past Surgical History / Comment(s): LT CAROTID ENDARTERECTOMY, UMBILICAL HERNIA REPAIR, LEFT EYE ENUCLEATION/PROSTHESIS (industrial accident), LEFT SHOULDER RCR , Lap elder fundoplication, EXPLORATORY LAPAROTOMY/ILEOCOLECTOMY D/T TUMOR, BMA with bx, 02/15/15 vjcp-g-[id number]-since steve soheila. Past Anesthesia/Blood Transfusion Reactions: No Reported Reaction Additional Past Anesthesia/Blood Transfusion Reaction / Comment(s): HX OF BLOOD TRANSFUSION-NO REACTION. Past Psychological History: No Psychological Hx Reported Smoking Status: Former smoker Past Alcohol Use History: None Reported Past Drug Use History: None Reported - Past Family History Daughter(s) Family Medical History: Cancer Additional Family Medical History / Comment(s): BREAST , LIVER AND LUNG CANCER Father Family Medical History: Myocardial Infarction ([place]) Additional Family Medical History / Comment(s): Father at age 65yrs. Mother Family Medical History: Dementia Additional Family Medical History / Comment(s): Mother at about age 82yrs. Brother(s) Family Medical History: Cancer Additional Family Medical History / Comment(s): (2 BROTHERS) Sister(s) Family Medical History: Cancer Medications and Allergies Home Medications Medication Instructions Recorded Confirmed Type Multivitamins, Thera [Multivitamin 1 tab PO DAILY 11/07/15 04/17/23 History (formulary)] Donepezil HCl [Aricept] 10 mg PO HS 02/26/20 04/17/23 History Ferrous Sulfate [Feosol] 325 mg PO BID 02/26/20 04/17/23 History Pantoprazole Sodium [Protonix] 40 mg PO DAILY 02/26/20 04/17/23 History Tamsulosin HCl [Flomax] 0.4 mg PO DAILY 02/26/20 04/17/23 History Atorvastatin Calcium [Lipitor] 40 mg PO HS 04/22/21 04/17/23 History Ergocalciferol (Vitamin D2) 1,250 mcg PO TH 04/22/21 04/17/23 History [Drisdol (50,000 Iu)] Empagliflozin [Jardiance] 25 mg PO DAILY 10/09/21 04/17/23 History Pregabalin [Lyrica] 50 mg PO TID 10/09/21 04/17/23 History amLODIPine [Norvasc] 5 mg PO DAILY 10/09/21 04/17/23 History Calcium Citrate/Vitamin D3 1 tab PO DAILY 09/04/22 04/17/23 History [Citracal + D Maximum Caplet] Furosemide [Lasix] 20 mg PO DAILY 09/04/22 04/17/23 History Magnesium Oxide 420mg 420 mg PO DAILY 09/04/22 04/17/23 History Sodium Bicarbonate Tab 650 mg PO QID 09/04/22 04/17/23 History Apixaban [Eliquis] 2.5 mg PO BID 04/17/23 04/17/23 History Carbidopa/Levodopa 1 tab PO BID 04/17/23 04/17/23 History [Carbidopa-Levodopa 25-100 Tab] Insulin Glargine-Yfgn 32 units SQ DAILY 04/17/23 04/17/23 History Loperamide [Imodium] 4 mg PO QID PRN 04/17/23 04/17/23 History Pioglitazone [Actos] 15 mg PO DAILY 04/17/23 04/17/23 History Allergies Allergy/AdvReac Type Severity Reaction Status Date / Time Penicillins AdvReac Nausea & Verified 04/17/23 22:25 Vomiting Physical Exam Vitals: Vital Signs Temp Pulse Pulse Resp BP Pulse Ox 04/18/23 08:48 45 L 14 154/74 97 04/18/23 00:00 97.9 F 35 L 16 129/58 98 04/17/23 20:40 35 L 15 121/54 98 04/17/23 20:30 52 L 18 160/72 97 04/17/23 20:18 34 L 04/17/23 19:55 57 L 18 160/72 99 04/17/23 17:50 97.8 F 55 L 18 129/58 99 Intake and Output 04/17/23 04/18/23 04/18/23 22:59 06:59 14:59 Other: Weight 79.832 kg GENERAL: The patient is alert and oriented x3, not in any acute distress. Well developed, well nourished. HEENT: Pupils are round and equally reacting to light. EOMI. No scleral icterus. No conjunctival pallor. Normocephalic, atraumatic. No pharyngeal erythema. No thyromegaly. CARDIOVASCULAR: S1 and S2 present. No murmurs, rubs, or gallops. PULMONARY: Chest is clear to auscultation, no wheezing , no crackles. ABDOMEN: Soft, nontender, nondistended, normoactive bowel sounds. No palpable organomegaly. MUSCULOSKELETAL: No joint swelling or deformity. EXTREMITIES: No cyanosis, clubbing, or pedal edema. NEUROLOGICAL: Gross neurological examination did not reveal any focal deficits. SKIN: No rashes. no petechiae. Results CBC & Chem 7: 04/17/23 18:05 04/17/23 18:05 Labs: Abnormal Lab Results - Last 24 Hours (Table) 04/17/23 04/17/23 04/18/23 Range/Units 18:05 18:05 06:25 RBC 3.92 L (4.30-5.90) m/uL Hgb 12.4 L (13.0-17.5) gm/dL Hct 36.4 L (39.0-53.0) % Sodium 136 L (137-145) mmol/L BUN 46 H (9-20) mg/dL Creatinine 1.83 H (0.66-1.25) mg/dL Glucose 171 H (74-99) mg/dL Magnesium 2.4 H (1.6-2.3) mg/dL HDL Cholesterol 32.90 L (40.00-60.00) mg/dL Assessment and Plan Assessment: Transient loss of vision in the right eye suspicious for TIA Permissive hypertension Paroxysmal atrial fibrillation Chronic kidney disease stage III Hyperlipidemia Benign prostatic hypertrophy Parkinson disease Dementia Chronic heart failure without decubitus exacerbation Hearing difficulty History of osteoarthritis History of syncope Artificial eye on the left side Plan: Continue with aspirin and blood thinner Continue with statin Neurology and cardiology consult ophthalmology consut Follow-up echocardiogram Follow-up MRI of the brain and carotid duplex Labs and medication were reviewed.. Continue same treatment. Continue with symptomatic treatment. Resume home medication. Monitor labs and vitals. DVT and GI prophylaxis. Further recommendations as per clinical course of the patient DVT prophylaxis: eliquis GI Prophylaxis: Pepcid PT/OT: Pending Prognosis is guarded
--- NOTE | 2023-04-18 12:57 | US ---
EXAMINATION TYPE: US carotid duplex BILAT DATE OF EXAM: 04/18/2023 COMPARISON: NONE CLINICAL INDICATION: Male, 83 years old with history of stroke; stroke, patient very confused and did not cooperate well TECHNIQUE: Carotid duplex ultrasound examination. Indirect Doppler criteria was utilized. FINDINGS: EXAM MEASUREMENTS: RIGHT: Peak Systolic Velocity (PSV) cm/sec ----- Right CCA: 183 ----- Right ICA: 129 ----- Right ECA: 116 ICA/CCA ratio: 0.7 RIGHT: End Diastole cm/sec ----- Right CCA: 16.4 ----- Right ICA: 11.2 ----- Right ECA: 5.4 LEFT: Peak Systolic Velocity (PSV) cm/sec ----- Left CCA: 71.4 ----- Left ICA: 60.4 ----- Left ECA: 56.0 ICA/CCA ratio: 0.9 LEFT: End Diastole cm/sec ----- Left CCA: 16.1 ----- Left ICA: 13.6 ----- Left ECA: 8.3 VERTEBRALS (direction of flow): Right Vertebral: Antegrade Left Vertebral: unable to visualize - patient not cooperative Rhythm: Normal ANIMAL HERDER NOTES: Heterogeneous plaque seen bilaterally with no stenosis seen IMPRESSION: * 50-69% stenosis of the right carotid bifurcation. * Less than 50% stenosis and left carotid bifurcation.. Criteria for Assigning % of Stenosis / Diameter reduction (Estimation based on the indirect measurements of the internal carotid artery velocities (ICA PSV). 1. Normal (no stenosis)=ICA PSV < 125 cm/s: ratio < 2.0: ICA EDV<40 cm/s. 2. Less than 50% stenosis=ICA PSV < 125 cm/s: ratio < 2.0: ICA EDV<40 cm/s. 3. 50 to 69% stenosis=ICA PSV of 125 to 230 cm/s: ration 2.0 ? 4.0: ICA EDV 40-100 cm/s. 4. Greater than 70% stenosis to near occlusion= ICA PSV > 230 cm/s: ratio > 4.0: ICA EDV > 100 cm/s. 5. Near occlusion= ICA PSV velocities may be low or undetectable: variable ratio and ICA EDV. 6. Total occlusion=unable to detect flow.
[2023-04-18] MEDS: SODIUM BICARBONATE TAB 650 MG TAB PO SCH ×3 (13:50→21:11)
[2023-04-18 16:24] LABS: Appearance,Urine Clear (Clear); Bilirubin,Urine Negative (Negative); Blood,Urine Negative (Negative); Color,Urine Light Yellow; Glucose,Urine (UA) 4+ (Negative); Ketones,Urine Negative (Negative); Leukocyte Esterase,Urine Negative (Negative); Mucus,Urine Rare /hpf; Nitrite,Urine Negative (Negative); PH, Urine 5.5 (5.0-8.0); Protein,Urine 1+ (Negative); RBC,Urine 1 /hpf (0-5); Specific Gravity,Urine 1.015 (1.001-1.035); Squamous Epithelial Cell,Urine <1 /hpf (0-4); Urobilinogen,Urine <2.0 mg/dL (<2.0); WBC,Urine <1 /hpf (0-5)
[2023-04-18] MEDS: PREGABALIN 50 MG CAP PO SCH ×2 (16:35→21:11)
--- NOTE | 2023-04-18 17:00 | P.CNNES ---
History of Present Illness Consult date: 04/18/23 Requesting physician: [employer] Reason for Consult: tia History of Present Illness: This is an 83-year-old gentleman who presented emergency department because of confusion going on for 3 days prior to present the hospital. Neurologist team is consulted for TIA. Patient is not a reliable history and he stated that he does not know what he is doing the hospital. Per the ED note it is mentioned the patient had blacked out for second 3 days ago prior to present the hospital and seems that he's been more confused per family members and acting off. Seems that he had an episode where he lost vision over the right eye while playing cards. Per the ED team is seems the patient has been at an able to answer all questions here in the ED. According to patient he has history of left left vision loss over the left eye from an accident in the old. He has underlying history of carotid endarterectomy, essential tremor heart failure, diabetes, he is very hard of hearing, syncopal episode with unsteady gait history of large B-cell lymphoma and received chemotherapy, chronic kidney insufficiency bilateral neuropathy of the feet. On reviewing the patient's home medication is seems the patient is also on Sinemet 25 mg101 tablet twice a day, Aricept 10 mg daily at bedtime. He is also on Eliquis 2.5 mg twice a day. Do not see any diagnosis of Parkinson's disease diagnosis on medical records but do see essential tremor. I assume the patient follows up with a neurologist especially with multiple neurological issues. Some of the workup during his hospital visit consisted of: She has episodes of heart rate in the 30s Glucose is 171, magnesium 2.4, sodium is 136 Calcium is 8.6, creatinine is 1.83. Lipid panel is triglycerides 77, cholesterol 57, LDLs A.7 and HDL [address] of the head is reported as no acute intracranial process. Nonspecific white matter changes, likely secondary to chronic small vessel ischemic disease. I pressure review the CT and I agree there is no acute or subacute ischemia. Review of Systems Limited but the positive and negative as per HPI. 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 Burrows, BPH, has difficulty holding his head up-states it wants to fall forward- he has a brace he wears at times-zachary neuropathy zachary feet-still driving states "unable to to tell if foot is on the break or gas pedal" History of Any Multi-Drug Resistant Organisms: None Reported Past Surgical History: Adenoidectomy, Bowel Resection, Hernia Repair, Orthopedic Surgery, Tonsillectomy Additional Past Surgical History / Comment(s): LT CAROTID ENDARTERECTOMY, UMBILICAL HERNIA REPAIR, LEFT EYE ENUCLEATION/PROSTHESIS (industrial accident), LEFT SHOULDER RCR , Lap elder fundoplication, EXPLORATORY LAPAROTOMY/ILEOCOLECTOMY D/T TUMOR, BMA with bx, 02/15/15 evct-e-bfvp-since removed. Past Anesthesia/Blood Transfusion Reactions: No Reported Reaction Additional Past Anesthesia/Blood Transfusion Reaction / Comment(s): HX OF BLOOD TRANSFUSION-NO REACTION. Past Psychological History: No Psychological Hx Reported Smoking Status: Former smoker Past Alcohol Use History: None Reported Past Drug Use History: None Reported - Past Family History Daughter(s) Family Medical History: Cancer Additional Family Medical History / Comment(s): BREAST , LIVER AND LUNG CANCER Father Family Medical History: Myocardial Infarction ([place]) Additional Family Medical History / Comment(s): Father at age 65yrs. Mother Family Medical History: Dementia Additional Family Medical History / Comment(s): Mother at about age 82yrs. Brother(s) Family Medical History: Cancer Additional Family Medical History / Comment(s): (2 BROTHERS) Sister(s) Family Medical History: Cancer Medications and Allergies Home Medications Medication Instructions Recorded Confirmed Type Multivitamins, Thera [Multivitamin 1 tab PO DAILY 11/07/15 04/17/23 History (formulary)] Donepezil HCl [Aricept] 10 mg PO HS 02/26/20 04/17/23 History Ferrous Sulfate [Feosol] 325 mg PO BID 02/26/20 04/17/23 History Pantoprazole Sodium [Protonix] 40 mg PO DAILY 02/26/20 04/17/23 History Tamsulosin HCl [Flomax] 0.4 mg PO DAILY 02/26/20 04/17/23 History Atorvastatin Calcium [Lipitor] 40 mg PO HS 04/22/21 04/17/23 History Ergocalciferol (Vitamin D2) 1,250 mcg PO TH 04/22/21 04/17/23 History [Drisdol (50,000 Iu)] Empagliflozin [Jardiance] 25 mg PO DAILY 10/09/21 04/17/23 History Pregabalin [Lyrica] 50 mg PO TID 10/09/21 04/17/23 History amLODIPine [Norvasc] 5 mg PO DAILY 10/09/21 04/17/23 History Calcium Citrate/Vitamin D3 1 tab PO DAILY 09/04/22 04/17/23 History [Citracal + D Maximum Caplet] Furosemide [Lasix] 20 mg PO DAILY 09/04/22 04/17/23 History Magnesium Oxide 420mg 420 mg PO DAILY 09/04/22 04/17/23 History Sodium Bicarbonate Tab 650 mg PO QID 09/04/22 04/17/23 History Apixaban [Eliquis] 2.5 mg PO BID 04/17/23 04/17/23 History Carbidopa/Levodopa 1 tab PO BID 04/17/23 04/17/23 History [Carbidopa-Levodopa 25-100 Tab] Insulin Glargine-Yfgn 32 units SQ DAILY 04/17/23 04/17/23 History Loperamide [Imodium] 4 mg PO QID PRN 04/17/23 04/17/23 History Pioglitazone [Actos] 15 mg PO DAILY 04/17/23 04/17/23 History Allergies Allergy/AdvReac Type Severity Reaction Status Date / Time Penicillins AdvReac Nausea & Verified 04/17/23 22:25 Vomiting Physical Examination - Vital Signs Vital Signs: Vital Signs Temp Pulse Pulse Resp BP Pulse Ox 04/18/23 16:37 98.0 F 55 L 16 179/74 95 04/18/23 08:48 45 L 14 154/74 97 04/18/23 00:00 97.9 F 35 L 16 129/58 98 04/17/23 20:40 35 L 15 121/54 98 04/17/23 20:30 52 L 18 160/72 97 04/17/23 20:18 34 L 04/17/23 19:55 57 L 18 160/72 99 04/17/23 17:50 97.8 F 55 L 18 129/58 99 GENERAL: The patient is lying in bed and is not in acute distress. NEUROLOGICAL: Higher mental function: The patient is awake, alert, oriented to self, place and time. Patient is following commands. No aphasia and no neglect. 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 The pupil for the right eye is about 3 mm and reactive to light. Visual field over the right eye is full to competition. Extraocular movement to the right eye is normal no nystagmus is noted. No facial weakness. No dysarthria. Motor: The strength is 5 over 5 throughout. Normal tone and bulk. Cerebellum: Normal finger to nose bilaterally. Sensation: Sensation is normal to touch throughout. Reflexes (right/left):2+ throughout except ankles are 1+. Plantars are downgoing bilaterally. Results - Laboratory Findings CBC and BMP: 04/17/23 18:05 04/17/23 18:05 Abnormal Lab Findings: Abnormal Labs 04/17/23 04/17/23 04/18/23 18:05 18:05 06:25 RBC 3.92 L Hgb 12.4 L Hct 36.4 L Sodium 136 L BUN 46 H Creatinine 1.83 H Glucose 171 H Magnesium 2.4 H HDL Cholesterol 32.90 L Urine Protein Urine Glucose (UA) Urine Mucus 04/18/23 16:06 RBC Hgb Hct Sodium BUN Creatinine Glucose Magnesium HDL Cholesterol Urine Protein 1+ H Urine Glucose (UA) 4+ H Urine Mucus Rare H Assessment and Plan Assessment: This is an 83-year-old gentleman who presented emergency department because of worsening of his baseline confusion for 3 days prior to present the hospital and seems she blacked out for second/seconds 3 days ago per the ED note. Upon presented to the hospital he is responding appropriately to the ED team. Patient heart rate is in the 30s. Syncopal episodes seems likely due to bradycardia as low as 30s. Worsening confusion and unsure if due to above. Reported vision loss for the ED team rule out TIA History of memory loss and he is on home Aricept. 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 Ophthalmology is consulted by the ED team. Regarding the ED report of vision loss unsure if patient is having any new visual disturbance he is legally blind over the left eye and he denies any vision loss over the right eye [employer] to get more information from family members. Patient is on eliquis 2.5 mg twice a day his home dose and then the ED start him on aspirin 325mg daily. He is on Lipitor 40 mg daily at bedtime. I feel the patient is on polypharmacy. It is mentioned in the medical record that the patient has essential tremor but he is on Sinemet and I'll not sure if patient has underlying history of Parkinson's disease. I think the patient likely is following up with a neurologist especially with the multiple neurological issues and that the medication he is on but it is not recommended the patient to follow-up with a neurologist as an outpatient within 2 weeks. Cardiology is consulted and ordered 2-D echo PT OT is consulted Continue neuro checks Cardiac monitoring We'll defer the rest of the medical measure the primary and other specialists For DVT prophylaxis the patient is on Eliquis Thank you for the consultation Time with Patient: Greater than 30
[2023-04-18 19:11] LABS: Glucose,Whole Blood 101 mg/dL (70-110)
[2023-04-18] MEDS ORDERED: HEPARIN SODIUM,PORCINE 5,000 UNIT/ML 1 ML VIAL SQ SCH (21:00)
[2023-04-18] MEDS ORDERED: ATORVASTATIN 40 MG TAB PO SCH (21:00)
[2023-04-18] MEDS: APIXABAN 2.5 MG TABLET PO SCH (21:09)
[2023-04-18] MEDS: ATORVASTATIN 40 MG TAB PO SCH (21:10)
[2023-04-18] MEDS: CARBIDOPA-LEVODOPA 25-100 MG 1 EACH TAB PO SCH (21:10)
[2023-04-18] MEDS: DONEPEZIL 10 MG TAB PO SCH (21:11)
[2023-04-19] MEDS: SODIUM CHLORIDE 0.9% 1,000 ML IV SCH ×6 (02:16→23:53)
[2023-04-19 06:05] LABS: Glucose,Whole Blood 72 mg/dL (70-110)
[2023-04-19] MEDS: PANTOPRAZOLE 40 MG TABLET PO SCH (06:14)
[2023-04-19] MEDS: PREGABALIN 50 MG CAP PO SCH ×3 (08:23→22:34)
[2023-04-19] MEDS: TAMSULOSIN 0.4 MG CAP.ER.24H PO SCH (08:24)
[2023-04-19] MEDS: amLODIPine 5 MG TAB PO SCH (08:24)
[2023-04-19] MEDS: CARBIDOPA-LEVODOPA 25-100 MG 1 EACH TAB PO SCH ×2 (08:24→22:34)
[2023-04-19] MEDS: SODIUM BICARBONATE TAB 650 MG TAB PO SCH ×4 (08:24→22:34)
[2023-04-19] MEDS: APIXABAN 2.5 MG TABLET PO SCH ×2 (08:24→19:40)
[2023-04-19] MEDS: ASPIRIN 325 MG TAB PO SCH (08:24)
[2023-04-19 11:44] LABS: Glucose,Whole Blood 175 mg/dL (70-110)
--- NOTE | 2023-04-19 12:57 | CA ---
Transthoracic Echo Report Name: Vasile Gonzalez Age: 83 Gender: M : 1940 Exam Date: 04/18/2023 15:31 Exam Location: [facility] Ht (in): 68 Wt (lb): 176 Ordering Physician: Bobby Coelho DO ([email or web address]) Attending/Referring Phys: [employer] Deandre Smith RD Procedure CPT: Indications: re: bradycardia Cardiac Hx: Technical Quality: Fair Contrast 1: Total Dose (mL): Contrast 2: Total Dose (mL): MEASUREMENTS (Male / Female) Normal Values 2D ECHO LV Diastolic Diameter PLAX 5.3 cm 4.2 - 5.9 / 3.9 - 5.3 cm LV Systolic Diameter PLAX 3.5 cm IVS Diastolic Thickness 1.2 cm 0.6 - 1.0 / 0.6 - 0.9 cm LVPW Diastolic Thickness 1.2 cm 0.6 - 1.0 / 0.6 - 0.9 cm LV Relative Wall Thickness 0.4 RV Internal Dim ED PLAX 4.2 cm LVOT Diameter 2.0 cm Aortic Root Diameter 3.1 cm LA Systolic Diameter LX 3.1 cm 3.0 - 4.0 / 2.7 - 3.8 cm LV Diastolic Volume MOD BP 41.9 cm??? 67 - 155 / 56 - 104 cm??? LV Systolic Volume MOD BP 21.6 cm??? 22 - 58 / 19 - 49 cm??? LV Ejection Fraction MOD BP 48.4 % >= 55 % LV Cardiac Index MOD BP 658.0 cm???/min???m??? LV Diastolic Volume MOD 4C 50.6 cm??? LV Systolic Volume MOD 4C 27.5 cm??? LV Ejection Fraction MOD 4C 45.7 % LV Cardiac Index MOD 4C 750.6 cm???/min???m??? LV Diastolic Length 4C 6.6 cm LV Systolic Length 4C 5.6 cm LV Diastolic Volume MOD 2C 32.0 cm??? LV Systolic Volume MOD 2C 16.3 cm??? LV Ejection Fraction MOD 2C 48.9 % LV Cardiac Index MOD 2C 508.4 cm???/min???m??? LV Diastolic Length 2C 6.1 cm LV Systolic Length 2C 5.4 cm LA Volume 51.5 cm??? 18 - 58 / 22 - 52 cm??? LA Volume Index 26.1 cm???/m??? 16 - 28 cm???/m??? DOPPLER AV Peak Velocity 135.8 cm/s AV Peak Gradient 7.4 mmHg LVOT Peak Velocity 87.9 cm/s LVOT Peak Gradient 3.1 mmHg LVOT Velocity Time Integral 20.2 cm LVOT Stroke Volume 62.4 cm??? LVOT Stroke Volume Index 32.3 ml/m??? LVOT Cardiac Index 2027.1 cm???/min???m??? AV Area Cont Eq pk 2.0 cm??? MV Peak Velocity 139.9 cm/s MV Peak Gradient 7.8 mmHg MV Mean Velocity 62.0 cm/s MV Mean Gradient 2.0 mmHg MV Velocity Time Integral 44.8 cm MR Peak Velocity 336.0 cm/s MR Peak Gradient 45.2 mmHg Mitral E Point Velocity 112.5 cm/s Mitral A Point Velocity 64.5 cm/s Mitral E to A Ratio 1.7 MV Deceleration Time 165.4 ms MV E' Velocity 10.5 cm/s Mitral E to MV E' Ratio 10.7 TR Peak Velocity 297.3 cm/s TR Peak Gradient 35.3 mmHg Right Ventricular Systolic Press 40.3 mmHg PV Peak Velocity 142.2 cm/s PV Peak Gradient 8.1 mmHg FINDINGS Left Ventricle Normal LV size and wall thickness. Left ventricular ejection fraction is estimated at 55-60 %. Right Ventricle Mild right ventricular dilatation. RSVP= 40mmHg. Right Atrium Normal right atrial size. Left Atrium Mild left atrial dilatation. LA volume index= 26ml/m2 Mitral Valve Mild anterior leaflet thickening. Mild MR. Aortic Valve Trileaflet aortic valve. Mild AV calcification/sclerosis. No aortic regurgitation. No aortic stenosis. Tricuspid Valve Structurally normal tricuspid valve. Mild to moderate TR. Pulmonic Valve Pulmonic valve not well visualized. No pulmonic regurgitation. Pericardium Normal pericardium. Aorta Normal size aortic root. CONCLUSIONS Normal LV size and systolic function. LVEF estimated at 55% No significant valvular abnormality No significant wall motion abnormality Mild left atrial dilatation dilatation mild RV dilatation with RVSP 40 mmHg Previewed by: Dr Rudolph Dickinson (Electronically Signed) Final Date: 19 April 2023 12:56
--- NOTE | 2023-04-19 14:40 | P.GSCN ---
History of Present Illness Consult date: 04/19/23 Reason for Consult: Carotid stenosis Requesting physician: Ric Barreto History of present illness: This is a pleasant 83-year-old male with history of Parkinson's, dementia, atrial fibrillation, hard of hearing, left eye vision loss, heart failure, diabetes mellitus, GERD, hyperlipidemia, hypertension, renal disease, syncope, gait disturbance, and large B-cell lymphoma. He was brought into the hospital for altered mental status changes and confusion. He had a CT of the brain with no acute intracranial process. Patient was also bradycardic. He has a history of a left carotid endarterectomy done with Dr. Bernal many years ago. He currently denies any focal deficits. States he does have issues with gait and balance. He is alert and oriented. Answering questions appropriately. He he was seen by neurology who ordered a carotid duplex, vascular surgery was consulted for right carotid stenosis. Review of Systems A 14 point review systems was completed all pertinent positives and negatives as stated in the HPI. 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 Burrows, BPH, has difficulty holding his head up-states it wants to fall forward- he has a brace he wears at times-zachary neuropathy zachary feet-still driving states "unable to to tell if foot is on the break or gas pedal" History of Any Multi-Drug Resistant Organisms: None Reported Past Surgical History: Adenoidectomy, Bowel Resection, Hernia Repair, Orthopedic Surgery, Tonsillectomy Additional Past Surgical History / Comment(s): LT CAROTID ENDARTERECTOMY, UMBILICAL HERNIA REPAIR, LEFT EYE ENUCLEATION/PROSTHESIS (industrial accident), LEFT SHOULDER RCR , Lap elder fundoplication, EXPLORATORY LAPAROTOMY/ILEOCOLECTOMY D/T TUMOR, BMA with bx, 12/1/15 zpdq-a-[id number]-since removed. Past Anesthesia/Blood Transfusion Reactions: No Reported Reaction Additional Past Anesthesia/Blood Transfusion Reaction / Comm: HX OF BLOOD TRANSFUSION-NO REACTION. Past Psychological History: No Psychological Hx Reported Additional Psychological History / Comment(s): Pt resides with his spouse. He drives very little. Smoking Status: Former smoker Past Alcohol Use History: None Reported Additional Past Alcohol Use History / Comment(s): STARTED SMOKING IN 1950 QUIT 1970 SMOKED 2 PPD Past Drug Use History: None Reported - Past Family History Daughter(s) Family Medical History: Cancer Additional Family Medical History / Comment(s): BREAST , LIVER AND LUNG CANCER Father Family Medical History: Myocardial Infarction ([place]) Additional Family Medical History / Comment(s): Father at age 65yrs. Mother Family Medical History: Dementia Additional Family Medical History / Comment(s): Mother at about age 82yrs. Brother(s) Family Medical History: Cancer Additional Family Medical History / Comment(s): (2 BROTHERS) Sister(s) Family Medical History: Cancer Medications and Allergies Home Medications Medication Instructions Recorded Confirmed Type Multivitamins, Thera [Multivitamin 1 tab PO DAILY 11/07/15 04/17/23 History (formulary)] Donepezil HCl [Aricept] 10 mg PO HS 02/26/20 04/17/23 History Ferrous Sulfate [Feosol] 325 mg PO BID 02/26/20 04/17/23 History Pantoprazole Sodium [Protonix] 40 mg PO DAILY 02/26/20 04/17/23 History Tamsulosin HCl [Flomax] 0.4 mg PO DAILY 02/26/20 04/17/23 History Atorvastatin Calcium [Lipitor] 40 mg PO HS 04/22/21 04/17/23 History Ergocalciferol (Vitamin D2) 1,250 mcg PO TH 04/22/21 04/17/23 History [Drisdol (50,000 Iu)] Empagliflozin [Jardiance] 25 mg PO DAILY 10/09/21 04/17/23 History Pregabalin [Lyrica] 50 mg PO TID 10/09/21 04/17/23 History amLODIPine [Norvasc] 5 mg PO DAILY 10/09/21 04/17/23 History Calcium Citrate/Vitamin D3 1 tab PO DAILY 09/04/22 04/17/23 History [Citracal + D Maximum Caplet] Furosemide [Lasix] 20 mg PO DAILY 09/04/22 04/17/23 History Magnesium Oxide 420mg 420 mg PO DAILY 09/04/22 04/17/23 History Sodium Bicarbonate Tab 650 mg PO QID 09/04/22 04/17/23 History Apixaban [Eliquis] 2.5 mg PO BID 04/17/23 04/17/23 History Carbidopa/Levodopa 1 tab PO BID 04/17/23 04/17/23 History [Carbidopa-Levodopa 25-100 Tab] Insulin Glargine-Yfgn 32 units SQ DAILY 04/17/23 04/17/23 History Loperamide [Imodium] 4 mg PO QID PRN 04/17/23 04/17/23 History Pioglitazone [Actos] 15 mg PO DAILY 04/17/23 04/17/23 History Allergies Allergy/AdvReac Type Severity Reaction Status Date / Time Penicillins AdvReac Nausea & Verified 04/17/23 22:25 Vomiting Surgical - Exam Vital Signs Temp Pulse Resp BP Pulse Ox 97.8 F 55 L 18 129/58 99 04/17/23 17:50 04/17/23 17:50 04/17/23 17:50 04/17/23 17:50 04/17/23 17:50 General appearance: The patient is alert, oriented, appears in no acute d istress. HET: Head is normocephalic and atraumatic. Legally blind in the left eye. Neck: Supple. No carotid bruit. Heart: Regular. Lungs: Equal expansion, normal respiratory effort. Abdomen: Soft, nontender, nondistended. Extremities: Venous dermatitis, venous stasis. Nonpalpable DP pulses. Neurological: Alert and oriented, patient answers questions appropriately and follows commands. Equal tone and strength.. Results - Labs 04/17/23 18:05 04/17/23 18:05 Abnormal Lab Results - Last 24 Hours (Table) 04/18/23 04/18/23 Range/Units 06:25 16:06 HDL Cholesterol 32.90 L (40.00-60.00) mg/dL Urine Protein 1+ H (Negative) Urine Glucose (UA) 4+ H (Negative) Urine Mucus Rare H (None) /hpf Diabetes panel 04/18/23 Range/Units 06:25 Triglycerides 77.20 (0.00-149.00) mg/dL HDL Cholesterol 32.90 L (40.00-60.00) mg/dL Thyroid panel 04/18/23 Range/Units 12:47 TSH 1.460 (0.465-4.680) mIU/L Pituitary panel 04/18/23 Range/Units 12:47 TSH 1.460 (0.465-4.680) mIU/L - Imaging Comments: Carotid Doppler right ICA PSV 129, ICA/CCA ratio 0.7 left ICA's PSV 60.4 ICA/CCA ratio 0.9. Impression reports 50 to 69% stenosis of the right carotid bifurcation. Less than 50% stenosis of the left carotid bifurcation. Echocardiogram: Normal LV size and systolic function. EF 55%. No significant valvular abnormality. No significant wall motion abnormality. Mild left atrial dilation. Mild RV dilation with RVSP [address] no acute intracranial process. Nonspecific white matter changes, likely secondary to chronic small vessel ischemic disease Assessment and Plan Assessment: 1. Altered mental status changes 2. Bradycardia 3. Syncope 4. Asymptomatic carotid stenosis, approximately 50% on the right ICA and less than 50% on the left ICA 5. History of previous left carotid endarterectomy 6. Hard of hearing 7. Dementia 8. Blindness left eye 9. History of atrial fibrillation Plan: Carotid duplex reviewed by Dr. Schneider. Following the new guidelines patient's right ICA PSV of 129 is approximately 50% stenosis, and left ICA is less than 50%. There is no indication for any vascular surgical intervention. Continue with recommendations from neurology and primary medical team. Patient can certainly follow-up outpatient for carotid surveillance. Thank you for this consultation, we will sign off at this time. The impression and plan of care has been dictated as directed. I performed a history and examination of this patient, discussed the same with the dictator. I agree with the dictator's note ,documented as a scribe. Any additional findings or plans will be noted.
--- NOTE | 2023-04-19 15:52 | P.PN ---
Subjective Progress Note Date: 04/19/23 I am following-up with patient and he feels he back to baseline. He is accompanied by his who states patient on Saturday had episode where he was playing cards and all sudden complained of sudden onset right vision loss, lasting few seconds. No weakness of upper or lower, numbness. No headache. Denies stroke in past. No passing out per family members that they are aware of. He is on ASA at home. Objective - Vital Signs Vital signs: Vital Signs Temp 97.7 F 04/19/23 08:00 Pulse 51 L 04/19/23 11:41 Resp 18 04/19/23 11:41 BP 159/61 04/19/23 11:41 Pulse Ox 99 04/19/23 11:41 FiO2 21 04/19/23 09:13 Intake & Output 04/18/23 04/19/23 04/19/23 18:59 06:59 18:59 Intake Total 360 Balance 360 Weight 79.832 kg Intake: Oral 360 Other: Voiding Method Toilet Toilet # Voids 2 1 - Exam GENERAL: The patient is sitting in a recliner chair and is not in acute distress. NEUROLOGICAL: Higher mental function: The patient is awake, alert, oriented to self, place and time. Patient is following commands. No aphasia and no neglect. 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 The pupil for the right eye is about 3 mm and reactive to light. Visual field over the right eye is full to competition. Extraocular movement to the right eye is normal no nystagmus is noted. No facial weakness. No dysarthria. Motor: The strength is 5 over 5 throughout. Normal tone and bulk. Cerebellum: Normal finger to nose bilaterally. Sensation: Sensation is normal to touch throughout. Reflexes (right/left):2+ throughout except ankles are 1+. Plantars are downgoing bilaterally. Some of the workup during his hospital visit consisted of: Bradycardia as low as 30's. Glucose is 171, magnesium 2.4, sodium is 136 Calcium is 8.6, creatinine is 1.83. Lipid panel is triglycerides 77, cholesterol 57, LDLs A.7 and HDL 32 TSH is 1.460. Ammonia <9 Vitamin B12: 440 Folate: 24.1 CT of the head is reported as no acute intracranial process. Nonspecific white matter changes, likely secondary to chronic small vessel ischemic disease. I pressure review the CT and I agree there is no acute or subacute ischemia. Carotid duplex: 50-69% stenosis of the right carotid bifurcation. Less than 50% stenosis left carotid bifurcation. 2D echo: Reported as Normal LV size and systolic funciton. EF 55%. No significant valvular abnormality. No significant wall motion abnormality. - Labs CBC & Chem 7: 04/17/23 18:05 04/17/23 18:05 Labs: Abnormal Lab Results - Last 24 Hours (Table) 04/18/23 04/19/23 Range/Units 16:06 11:34 POC Glucose (mg/dL) 175 H (70-110) mg/dL Urine Protein 1+ H (Negative) Urine Glucose (UA) 4+ H (Negative) Urine Mucus Rare H (None) /hpf Assessment and Plan Assessment: This is an 83-year-old gentleman who presented emergency department because of worsening of his baseline confusion for 3 days prior to present the hospital and seems she blacked out for second/seconds 3 days ago per the ED note. Upon presented to the hospital he is responding appropriately to the ED team. Patient heart rate is in the 30s. Today per this past Saturday he has sudden right vision loss that last few seconds. They don't recall him passing out. Amaurosis fugax right: Unsure exact etiology if TIA vs due to significant bradycardia leading to hypotension Right ICA stenosis of 50-69% per carotid duplex reported. Vascular surgery team felt 50% stenosis. Possible reported Syncopal episodes seems likely due to bradycardia as low as 30s. 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 Preliminary routine EEG: Normal. I ordered ESR and CRP. Patient denies of headache. I consulted vascular surgery team for right ICA stenosis. They felt about 50% stenosis and no surgical intervention. Ophthalmology is consulted by the ED team. Patient is on eliquis 2.5 mg twice a day his home dose and then the ED start him on aspirin 325mg daily. He is on Lipitor 40 mg daily at bedtime. Patient has tremor and is on Sinemet started by his neurologist Dr. Mao (neurologist) per patient. I feel the patient is on pharmacy. I feel he needs to have his medication if possible modified since on many and will defer to his PCP and other specialist as outpatient. Cardiology is consulted. They are considering pacemaker for his bradycardia PT OT is consulted Continue neuro checks Cardiac monitoring We'll defer the rest of the medical measure the primary and other specialists For DVT prophylaxis the patient is on Eliquis Upon discharge, recommend patient to follow-up with his neurologist (Dr. Gastelum) as outpatient within 2 weeks. The plan is discussed with patient, his who is at bedside. Time with Patient: Less than 30
[2023-04-19 16:22] LABS: Glucose,Whole Blood 221 mg/dL (70-110)
[2023-04-19] MEDS ORDERED: DEXTROSE 50% SYRINGE 50 ML IVP PRN ×2 (16:26)
--- NOTE | 2023-04-19 16:38 | P.PN ---
Subjective Progress Note Date: 04/19/23 Consult reason: other (bradycarida) Chief complaint: confusion History of present illness: History of present illness: Patient is a pleasant 83-year-old male with significant past medical history of diabetes, Parkinson's, dementia, atrial fibrillation, lymphoma, left CEA who presented with confusion, right eye vision loss, and bradycardia. He does follow with Dr. Leyva in the office. Patient does presently have some confus ion and is hard of hearing and is unable to provide clear history. No family present at bedside. He reports that he is feeling fine today, denies any chest pain or pressure. He denies any shortness of breath, dizziness, syncope. Telemetry reviewed and heart rates have been in the 30s. He is not on any AV jazz blocking agents. Head CT was negative for any acute findings. Chest x- ray with no acute findings. Creatinine 1.8, potassium 4.6, sodium 136. 2/2 Telemetry has been atrial flutter and bradycardia. Patient has been off Eliquis in anticipation of pacemaker implantation. Patient is scheduled for MRI which is going to be delayed until this weekend. Discussed with the patient and family the need for pacemaker implantation and they are in agreement. Will plan to do this once MRI is completed. Blood pressure 148/55, heart rate is in the 40s. Echocardiogram reveals EF of 55%. No significant valvular abnormality. RVSP 48 mmHg. PHYSICAL EXAMINATION: This is a 83 year-old male in no apparent distress at the time of my examination. HEENT: Head is atraumatic, normocephalic. Pupils are equal, round. Sclerae anicteric. Conjunctivae are clear. Mucous membranes of the mouth are moist. Neck is supple. There is no jugular venous distention. No carotid bruit is heard. CHEST EXAMINATION: Lungs are clear to auscultation. No chest wall tenderness is noted on palpation or with deep breathing. HEART EXAMINATION: Heart rate bradycardic. S1, S2 heard. No murmurs, gallops or rub. ABDOMEN: Soft, nontender. Bowel sounds are heard. EXTREMITIES: 2+ peripheral pulses with no evidence of peripheral edema and no calf tenderness noted. NEUROLOGIC EXAMINATION: Patient is awake, alert and oriented x3. IMPRESSION AND PLAN: Atrial fibrillation, paroxysmal Dementia Bradycardia Diabetes type 2 History of left CEA Concern for possible TIA PLAN: Patient will likely need pacemaker placement. Hold Eliquis. Avoid AV jazz blocking agents. N.p.o. after midnight for possible pacemaker tomorrow. Nurse practitioner note has been reviewed, I agree with documented findings and plan of care. Patient was seen and examined. Objective - Vital Signs Vital signs: Vital Signs Temp 97.7 F 04/19/23 08:00 Pulse 51 L 04/19/23 08:00 Resp 18 04/19/23 08:00 BP 137/70 04/19/23 08:00 Pulse Ox 96 04/19/23 09:13 FiO2 21 04/19/23 09:13 Intake & Output 04/18/23 04/19/23 04/19/23 18:59 06:59 18:59 Intake Total 360 Balance 360 Weight 79.832 kg Intake: Oral 360 Other: Voiding Method Toilet Toilet # Voids 2 - Labs CBC & Chem 7: 04/17/23 18:05 04/17/23 18:05 Labs: Abnormal Lab Results - Last 24 Hours (Table) 04/18/23 04/18/23 Range/Units 06:25 16:06 HDL Cholesterol 32.90 L (40.00-60.00) mg/dL Urine Protein 1+ H (Negative) Urine Glucose (UA) 4+ H (Negative) Urine Mucus Rare H (None) /hpf
[2023-04-19 20:15] LABS: Glucose,Whole Blood 220 mg/dL (70-110)
[2023-04-19] MEDS: ATORVASTATIN 40 MG TAB PO SCH (22:33)
[2023-04-19] MEDS: DONEPEZIL 10 MG TAB PO SCH (22:34)
[2023-04-19] MEDS: INSULIN ASPART (NovoLOG) 100 UNIT/ML VIAL SQ SCH (22:35)
--- NOTE | 2023-04-20 01:43 | EEG ---
ELECTROENCEPHALOGRAM REPORT CLINICAL HISTORY: This is an 83-year-old gentleman with syncopal episodes. Video EEG is obtained to evaluate for seizure epileptiform activity. RELEVANT MEDICATION: He is on Lyrica. EEG TYPE: This is a routine 21-channel EEG with video using the 10/20 electrode placement system. DESCRIPTION: Most of the study, the patient is in a drowsy state. With brief wakefulness, the background consists of 9 Hz activity. Otherwise, as I stated earlier, the patient is in drowsy state. There is no physiological stage II sleep architecture. There is no focal slowing. Interictal and ictal, none. ACTIVATION PROCEDURE: Photic stimulation did not evoke a posterior driving response. There is no abnormality during the photic stimulation. Hyperventilation is not performed. CLINICAL INTERPRETATION: This is a normal routine EEG. There is no focal slowing, epileptiform discharge, or seizure on the EEG. Clinical correlation is recommended. MANDY / NEIL: [id number] / MTDD
[2023-04-20 06:09] LABS: Glucose,Whole Blood 98 mg/dL (70-110)
[2023-04-20] MEDS: INSULIN ASPART (NovoLOG) 100 UNIT/ML VIAL SQ SCH ×4 (06:15→21:42)
[2023-04-20] MEDS: APIXABAN 2.5 MG TABLET PO SCH ×2 (06:15→21:42)
[2023-04-20] MEDS: ASPIRIN 325 MG TAB PO SCH (06:20)
[2023-04-20] MEDS: PANTOPRAZOLE 40 MG TABLET PO SCH (06:20)
[2023-04-20] MEDS: amLODIPine 5 MG TAB PO SCH (06:20)
[2023-04-20] MEDS: PREGABALIN 50 MG CAP PO SCH ×3 (06:20→21:42)
[2023-04-20] MEDS: SODIUM BICARBONATE TAB 650 MG TAB PO SCH ×4 (06:20→21:42)
[2023-04-20] MEDS: TAMSULOSIN 0.4 MG CAP.ER.24H PO SCH (06:20)
[2023-04-20] MEDS: CARBIDOPA-LEVODOPA 25-100 MG 1 EACH TAB PO SCH ×2 (06:20→21:42)
[2023-04-20] MEDS: SODIUM CHLORIDE 0.9% 1,000 ML IV SCH ×4 (06:22→21:43)
[2023-04-20 09:44] VITALS: RESP 18
--- NOTE | 2023-04-20 10:12 | MR ---
EXAMINATION TYPE: MR brain wo con DATE OF EXAM: 04/20/2023 9:51 AM COMPARISON: NONE HISTORY: Stroke, vision loss FINDINGS: The ventricles, basal cisterns and sulci overlying the cerebral convexities are mildly enlarged. There is evidence of mild periventricular white matter ischemic demyelination. Remote deep white matter insults are also noted. On diffusion-weighted imaging there areas of linear increased signal left and right parietal-occipita l regions which are likely artifactual in nature. Correlate clinically. There is no evidence for midline shift or mass effect. Acute intracranial hemorrhage or extra-axial collection is not evident. The paranasal sinuses and mastoid air cells are well-aerated. IMPRESSION: 1. Age-related atrophic and chronic small vessel ischemic change. 2.On diffusion-weighted imaging there areas of linear increased signal left and right parietal-occipi hilda regions which are likely artifactual in nature. Correlate clinically.
--- NOTE | 2023-04-20 11:41 | P.PN ---
Subjective Progress Note Date: 04/20/23 Consult reason: other (bradycarida) Chief complaint: confusion History of present illness: History of present illness: Patient is a pleasant 83-year-old male with significant past medical history of diabetes, Parkinson's, dementia, atrial fibrillation, lymphoma, left CEA who presented with confusion, right eye vision loss, and bradycardia. He does follow with Dr. Leyva in the office. Patient does presently have some confus ion and is hard of hearing and is unable to provide clear history. No family present at bedside. He reports that he is feeling fine today, denies any chest pain or pressure. He denies any shortness of breath, dizziness, syncope. Telemetry reviewed and heart rates have been in the 30s. He is not on any AV jazz blocking agents. Head CT was negative for any acute findings. Chest x- ray with no acute findings. Creatinine 1.8, potassium 4.6, sodium 136. 2/2 Telemetry has been atrial flutter and bradycardia. Patient has been off Eliquis in anticipation of pacemaker implantation. Patient is scheduled for MRI which is going to be delayed until this weekend. Discussed with the patient and family the need for pacemaker implantation and they are in agreement. Will plan to do this once MRI is completed. Blood pressure 148/55, heart rate is in the 40s. Echocardiogram reveals EF of 55%. No significant valvular abnormality. RVSP 48 mmHg. 04/20 MRI was completed and reveals age-related changes, artifact. Patient is currently n.p.o. patient is agreeable to undergo pacemaker implantation later today. Heart rate is in the 40s to 60s, blood pressure 180/75, pulse ox 90% on room air. PHYSICAL EXAMINATION: This is a 83 year-old male in no apparent distress at the time of my examination. HEENT: Head is atraumatic, normocephalic. Pupils are equal, round. Sclerae anicteric. Conjunctivae are clear. Mucous membranes of the mouth are moist. Neck is supple. There is no jugular venous distention. No carotid bruit is heard. CHEST EXAMINATION: Lungs are clear to auscultation. No chest wall tenderness is noted on palpation or with deep breathing. HEART EXAMINATION: Heart rate bradycardic. S1, S2 heard. No murmurs, gallops or rub. ABDOMEN: Soft, nontender. Bowel sounds are heard. EXTREMITIES: 2+ peripheral pulses with no evidence of peripheral edema and no calf tenderness noted. NEUROLOGIC EXAMINATION: Patient is awake, alert and oriented x3. IMPRESSION AND PLAN: Atrial fibrillation, paroxysmal Dementia Bradycardia Diabetes type 2 History of left CEA Concern for possible TIA PLAN: Hold Eliquis. Avoid AV jazz blocking agents. N.p.o. for pacemaker this afternoon. Nurse practitioner note has been reviewed, I agree with documented findings and plan of care. Patient was seen and examined. Objective - Vital Signs Vital signs: Vital Signs Temp 97.5 F L 04/20/23 08:00 Pulse 46 L 04/20/23 08:00 Resp 18 04/20/23 08:00 BP 180/75 04/20/23 08:00 Pulse Ox 98 04/20/23 08:00 FiO2 21 04/19/23 09:13 Intake & Output 04/19/23 04/20/23 04/20/23 18:59 06:59 18:59 Intake Total 360 Balance 360 Weight 79.7 kg Intake: Oral 360 Other: Voiding Method Toilet Toilet # Voids 1 1 - Labs CBC & Chem 7: 04/17/23 18:05 04/17/23 18:05 Labs: Abnormal Lab Results - Last 24 Hours (Table) 04/19/23 04/19/23 04/19/23 Range/Units 11:34 16:15 16:20 POC Glucose (mg/dL) 175 H 221 H (70-110) mg/dL C-Reactive Protein 1.6 H (<1.0) mg/dL 04/19/23 Range/Units 20:14 POC Glucose (mg/dL) 220 H (70-110) mg/dL C-Reactive Protein (<1.0) mg/dL
[2023-04-20 11:46] LABS: Glucose,Whole Blood 96 mg/dL (70-110)
[2023-04-20] MEDS ORDERED: CLINDAMYCIN 600 MG/50 ML-D5W 600 MG in DEXTROSE/WATER 1 50ML.BAG IVPB STA (15:12)
[2023-04-20] MEDS ORDERED: CLINDAMYCIN 600 MG in SODIUM CHLORIDE 0.9% IRRIG BTL 250 ML IRRIGATION ONE (15:12)
[2023-04-20] MEDS ORDERED: IV FLUID CONTINUATION 1,000 ML IV ONE (15:56)
[2023-04-20] MEDS ORDERED: LIDOCAINE 1% INJ 10MG/ML (20 ML MDV) ONE ×2 (15:59→16:29)
[2023-04-20] MEDS ORDERED: LIDOCAINE 1% INJ 10MG/ML (20 ML MDV) SQ ONE ×2 (16:27→16:30)
--- NOTE | 2023-04-20 18:07 | P.PN ---
Subjective Progress Note Date: 04/19/23 83 years old male with past medical history of multiple medical problems including diabetes mellitus, hypertension, chronic kidney disease stage III, dementia, Parkinson disease, benign prostatic hypertrophy, history of unsteady gait, chronic heart failure and other medical problems. He presents because of transient period of loss of vision in the right eye. Patient refused to talk about his chief complaint stating had this pain resolved now. As he indicates it appears to his right eye. On reviewing the records it's mentioned that patient some flashes of light and has had dark vision. Pulses been lethargic with the possible little slurred speech. Patient however denies chest pain or dyspnea. No abdominal pain or vomiting or dysuria. Patient states he has chronic diarrhea. No new weakness or numbness in extremities, no dizziness. No smoking alcohol or illicit tracts. There is slightly elevated 154/74. Restoril vitals are stable and patient is afebrile. In our, BMP and graft were unremarkable except for mildly elevated creatinine 1.8 which is on the high side of the baseline 1.4-1.8. Chest x-rays negative for acute process CT of her brain is negative for acute process. Patient is started on aspirin 325 mg Objective - Vital Signs Vital signs: Vital Signs Temp 97.7 F 04/19/23 08:00 Pulse 51 L 04/19/23 08:00 Resp 18 04/19/23 08:00 BP 137/70 04/19/23 08:00 Pulse Ox 96 04/19/23 09:13 FiO2 21 04/19/23 09:13 Intake & Output 04/18/23 04/19/23 04/19/23 18:59 06:59 18:59 Weight 79.832 kg Other: Voiding Method Toilet Toilet # Voids 2 - Exam GENERAL: The patient is alert and oriented x3, not in any acute distress. Well developed, well nourished. HEENT: Pupils are round and equally reacting to light. EOMI. No scleral icterus. No conjunctival pallor. Normocephalic, atraumatic. No pharyngeal erythema. No thyromegaly. CARDIOVASCULAR: S1 and S2 present. No murmurs, rubs, or gallops. PULMONARY: Chest is clear to auscultation, no wheezing , no crackles. ABDOMEN: Soft, nontender, nondistended, normoactive bowel sounds. No palpable organomegaly. MUSCULOSKELETAL: No joint swelling or deformity. EXTREMITIES: No cyanosis, clubbing, or pedal edema. NEUROLOGICAL: Gross neurological examination did not reveal any focal deficits. SKIN: No rashes. no petechiae. - Labs CBC & Chem 7: 04/17/23 18:05 04/17/23 18:05 Labs: Abnormal Lab Results - Last 24 Hours (Table) 04/18/23 04/18/23 Range/Units 06:25 16:06 HDL Cholesterol 32.90 L (40.00-60.00) mg/dL Urine Protein 1+ H (Negative) Urine Glucose (UA) 4+ H (Negative) Urine Mucus Rare H (None) /hpf Assessment and Plan Assessment: Transient loss of vision in the right eye suspicious for TIA Permissive hypertension Paroxysmal atrial fibrillation Chronic kidney disease stage III Hyperlipidemia Benign prostatic hypertrophy Parkinson disease Dementia Chronic heart failure without decubitus exacerbation Hearing difficulty History of osteoarthritis History of syncope Artificial eye on the left side Continue with aspirin and blood thinner Continue with statin Neurology and cardiology consult ophthalmology consut Follow-up echocardiogram Follow-up MRI of the brain and carotid duplex Labs and medication were reviewed.. Continue same treatment. Continue with symptomatic treatment. Resume home medication. Monitor labs and vitals. DVT and GI prophylaxis. Further recommendations as per clinical course of the patient DVT prophylaxis: eliquis GI Prophylaxis: Pepcid PT/OT: Pending Prognosis is guarded
--- NOTE | 2023-04-20 18:11 | P.PN ---
Subjective Progress Note Date: 04/20/23 83 years old male with past medical history of multiple medical problems including diabetes mellitus, hypertension, chronic kidney disease stage III, dementia, Parkinson disease, benign prostatic hypertrophy, history of unsteady gait, chronic heart failure and other medical problems. He presents because of transient period of loss of vision in the right eye. Patient refused to talk about his chief complaint stating had this pain resolved now. As he indicates it appears to his right eye. On reviewing the records it's mentioned that patient some flashes of light and has had dark vision. Pulses been lethargic with the possible little slurred speech. Patient however denies chest pain or dyspnea. No abdominal pain or vomiting or dysuria. Patient states he has chronic diarrhea. No new weakness or numbness in extremities, no dizziness. No smoking alcohol or illicit tracts. There is slightly elevated 154/74. Restoril vitals are stable and patient is afebrile. In our, BMP and graft were unremarkable except for mildly elevated creatinine 1.8 which is on the high side of the baseline 1.4-1.8. Chest x-rays negative for acute process CT of her brain is negative for acute process. Patient is started on aspirin 325 mg 04/20/2023 Patient is seen and evaluated in room at bedside Blood pressure 148/55, heart rate is in the 40s. Echocardiogram reveals EF of 55%. No significant valvular abnormality. RVSP 48 mmHg. MRI is completed and is unremarkable; carotid Doppler is completed and reveals 50 to 69% stenosis of the right carotid bifurcation; patient has been evaluated by vascular surgery and no surgical intervention is recommended at this time --Patient continues to have episodes of bradycardia with heart rate dropping down in 40s -Cardiology on board; patient is scheduled for pacemaker placement this afternoon Objective - Vital Signs Vital signs: Vital Signs Temp 97.5 F L 04/20/23 08:00 Pulse 46 L 04/20/23 08:00 Resp 18 04/20/23 08:00 BP 180/75 04/20/23 08:00 Pulse Ox 98 04/20/23 08:00 FiO2 21 04/19/23 09:13 Intake & Output 04/19/23 04/20/23 04/20/23 18:59 06:59 18:59 Intake Total 360 Balance 360 Weight 79.7 kg Intake: Oral 360 Other: Voiding Method Toilet Toilet # Voids 1 1 - Exam GENERAL: The patient is alert and oriented x3, not in any acute distress. Well developed, well nourished. HEENT: Pupils are round and equally reacting to light. EOMI. No scleral icterus. No conjunctival pallor. Normocephalic, atraumatic. No pharyngeal erythema. No thyromegaly. CARDIOVASCULAR: S1 and S2 present. No murmurs, rubs, or gallops. PULMONARY: Chest is clear to auscultation, no wheezing , no crackles. ABDOMEN: Soft, nontender, nondistended, normoactive bowel sounds. No palpable organomegaly. MUSCULOSKELETAL: No joint swelling or deformity. EXTREMITIES: No cyanosis, clubbing, or pedal edema. NEUROLOGICAL: Gross neurological examination did not reveal any focal deficits. SKIN: No rashes. no petechiae. - Labs CBC & Chem 7: 04/17/23 18:05 04/17/23 18:05 Labs: Abnormal Lab Results - Last 24 Hours (Table) 04/19/23 04/19/23 04/19/23 Range/Units 11:34 16:15 16:20 POC Glucose (mg/dL) 175 H 221 H (70-110) mg/dL C-Reactive Protein 1.6 H (<1.0) mg/dL 04/19/23 Range/Units 20:14 POC Glucose (mg/dL) 220 H (70-110) mg/dL C-Reactive Protein (<1.0) mg/dL Assessment and Plan Assessment: Transient loss of vision in the right eye suspicious for TIA Permissive hypertension Paroxysmal atrial fibrillation Chronic kidney disease stage III Hyperlipidemia Benign prostatic hypertrophy Parkinson disease Dementia Chronic heart failure without decubitus exacerbation Hearing difficulty History of osteoarthritis History of syncope Artificial eye on the left side Continue with aspirin and blood thinner Continue with statin Neurology and cardiology consult ophthalmology consut Follow-up echocardiogram Follow-up MRI of the brain and carotid duplex Labs and medication were reviewed.. Continue same treatment. Continue with symptomatic treatment. Resume home medication. Monitor labs and vitals. DVT and GI prophylaxis. Further recommendations as per clinical course of the patient DVT prophylaxis: eliquis GI Prophylaxis: Pepcid PT/OT: Pending Prognosis is guarded
[2023-04-20 20:05] LABS: Glucose,Whole Blood 191 mg/dL (70-110)
[2023-04-20] MEDS: ATORVASTATIN 40 MG TAB PO SCH (21:42)
[2023-04-20] MEDS: DONEPEZIL 10 MG TAB PO SCH (21:42)
[2023-04-21] MEDS: SODIUM CHLORIDE 0.9% 1,000 ML IV SCH ×2 (04:02→04:03)
[2023-04-21] MEDS ORDERED: ACETAMINOPHEN TAB 325 MG TAB PO PRN (05:42)
[2023-04-21 06:04] LABS: Glucose,Whole Blood 127 mg/dL (70-110)
[2023-04-21] MEDS: INSULIN ASPART (NovoLOG) 100 UNIT/ML VIAL SQ SCH ×2 (06:17→13:07)
[2023-04-21] MEDS: PANTOPRAZOLE 40 MG TABLET PO SCH (06:36)
--- NOTE | 2023-04-21 09:01 | P.PCN ---
Description of Procedure: CARDIOLOGY PROCEDURE NOTE Human Service Specialist: Dr. Bobby Coelho Procedure performed: Insertion dual chamber permanent pacemaker Site: Left subclavian Indications: Sick Sinus Syndrome, symptomatic bradycardia Date: 04/20/2023 Complications: None Blood Loss: Minimal Description of Procedure: After the risks, benefits, and alternatives of the above-mentioned procedure was explained in detail with the patient, informed consent was obtained. The patient was taken to the cardiac catheterization suite where the left subclavian area was sterily prepped and draped in the usual fashion. One percent lidocaine was used to anesthetize the left subclavian area. A 1.5 inch incision was made utilizing a #15 blade in the left subclavian site. Hemostasis was made complete. Electrocautery along with digital blunt dissection was utilized to dissect to the level of the pectoralis muscle fascia and create a pocket large enough to accommodate the generator. A thin walled micro puncuture needle was used to cannulate the left subclavian vein. A guide-wire was inserted through the needle into the vascular lumen under fluoroscopic guidance. The needle was removed. Another thin walled micr puncture needle was used to again cannulate the left subclavian vein. A guide-wire was inserted through the needle into the vascular lumen under fluoroscopic guidance. The needle was removed and both guide-wires were attached to the field. A venous sheath and dilator were advanced over the guidewire into the vascular lumen under fluoroscopic guidance. The dilator and guidewire were then removed. A right ventricular bipolar lead was inserted into the sheath and advanced under fluoroscopic guidance into the right ventricle under fluoroscopic guidance. Adequate sensing and pacing thresholds were achieved and the lead was screwed into place in the RV apex. The sheath was then torn away. The lead collar was advanced and anchored into place utilizing #0 silk suture. Next, another venous sheath and dilator were advanced under fluoroscopic guidance into the vascular lumen over the guidewire. After removal of the dilator and guidewire, a right atrial bipolar lead was inserted into this sheath and advanced under fluoroscopic guidance into the right atrium. The lead was positioned into the right atrial appendage. Adequate sensing and pacing thresholds were then achieved with patient being in Aflutter at the time and the lead was screwed into place. The sheath was then torn away. The lead collar was advanced and anchored into place utilizing #0 silk suture. The leads were then inserted into the appropriate position into the generator. They were then secured with the setscrew provided. The leads and generator were inserted into the pocket with the leads posterior. The subcutaneous tissue was approximated utilizing #2.0 and 3.0 vicryl in an interrupted stitch fashion. The dermal layer was approximated utilizing #4.0 vicryl. The area was cleansed with sterile saline and dried. A sterile 4x4 dressing was applied and the patient was transferred to the post catheterization holding area in stable and satisfactory condition. The patient tolerated the procedure well. Generator Data Cyber Forensics Analyst: [employer] Brand: [id number] Alpha XT DR MRI Model #: [id number] Serial#: [id number] Right Atrial Bipolar Lead Data: Type: Active fixation lead Cyber Forensics Analyst: [employer] Model#: 5076-52 Serial Number: [id number] Right Ventricular Bipolar Lead Data: Type: Active fixation lead Cyber Forensics Analyst: [employer] Model #: 5076-58 Serial #: [id number] Stimulation Thresholds: Right atrial bipolar lead pacing and sensing thresholds Voltage: Aflutter Impedance: 380 ohms P-wave sensin.6 mV Right Ventricular bipolar lead pacing and sensing thresholds Pulse Width: 0.4ms Voltage: 0.75 volts Impedance: 532 ohms R-wave sensin.6 mV Parameter Setting: Pacing mode is DDDR Lower rate 60 bpm Upper rate 130 bpm Impressions: 1. Successful implantation of a dual chamber permanent pacemaker in the left pectoral site. Plan: 1. Routine post procedure care will be instituted as well as outpatient follow- up surveillance.
[2023-04-21] MEDS: amLODIPine 5 MG TAB PO SCH (09:07)
[2023-04-21] MEDS: PREGABALIN 50 MG CAP PO SCH (09:07)
[2023-04-21] MEDS: SODIUM BICARBONATE TAB 650 MG TAB PO SCH ×2 (09:07→13:08)
[2023-04-21] MEDS: TAMSULOSIN 0.4 MG CAP.ER.24H PO SCH (09:07)
[2023-04-21] MEDS: CARBIDOPA-LEVODOPA 25-100 MG 1 EACH TAB PO SCH (09:07)
[2023-04-21] MEDS: APIXABAN 2.5 MG TABLET PO SCH (09:07)
[2023-04-21 10:55] LABS: Basophils % (A) 0 %; Eosinophils # (A) 0.1 k/uL (0-0.7); Eosinophils % (A) 1 %; HCT 31.2 % (39.0-53.0); HGB 10.2 gm/dL (13.0-17.5); Lymphocytes # (A) 1.1 k/uL (1.0-4.8); Lymphocytes % (A) 19 %; MCH 30.8 pg (25.0-35.0); MCHC 32.7 g/dL (31.0-37.0); MCV 94.1 fL (80.0-100.0); Mean Platelet Volume 8.7; Monocytes # (A) 0.5 k/uL (0-1.0); Monocytes % (A) 8 %; Neutrophils # (A) 4.2 k/uL (1.3-7.7); Neutrophils % (A) 70 %; Platelet Count 142 k/uL (150-450); RBC 3.32 m/uL (4.30-5.90); RDW 13.9 % (11.5-15.5); WBC 5.9 k/uL (3.8-10.6)
[2023-04-21 11:17] LABS: African American GFR (CKD) 51 (>60 ml/min/1.73 sqM); Anion Gap 5 mmol/L; Blood Urea Nitrogen 33 mg/dL (9-20); Carbon Dioxide 23 mmol/L (22-30); Chloride 108 mmol/L (98-107); Glucose 209 mg/dL (74-99); Non-African American GFR(CKD) 44 (>60 ml/min/1.73 sqM); Potassium 4.7 mmol/L (3.5-5.1); Sodium 136 mmol/L (137-145)
[2023-04-21 11:58] LABS: Glucose,Whole Blood 205 mg/dL (70-110)
--- NOTE | 2023-04-21 13:15 | P.PN ---
Subjective Progress Note Date: 04/21/23 Consult reason: other (bradycarida) Chief complaint: confusion History of present illness: History of present illness: Patient is a pleasant 83-year-old male with significant past medical history of diabetes, Parkinson's, dementia, atrial fibrillation, lymphoma, left CEA who presented with confusion, right eye vision loss, and bradycardia. He does follow with Dr. Leyva in the office. Patient does presently have some confus ion and is hard of hearing and is unable to provide clear history. No family present at bedside. He reports that he is feeling fine today, denies any chest pain or pressure. He denies any shortness of breath, dizziness, syncope. Telemetry reviewed and heart rates have been in the 30s. He is not on any AV ajzz blocking agents. Head CT was negative for any acute findings. Chest x- ray with no acute findings. Creatinine 1.8, potassium 4.6, sodium 136. 2/ Telemetry has been atrial flutter and bradycardia. Patient has been off Eliquis in anticipation of pacemaker implantation. Patient is scheduled for MRI which is going to be delayed until this weekend. Discussed with the patient and family the need for pacemaker implantation and they are in agreement. Will plan to do this once MRI is completed. Blood pressure 148/55, heart rate is in the 40s. Echocardiogram reveals EF of 55%. No significant valvular abnormality. RVSP 48 mmHg. 04/20 MRI was completed and reveals age-related changes, artifact. Patient is currently n.p.o. patient is agreeable to undergo pacemaker implantation later today. Heart rate is in the 40s to 60s, blood pressure 180/75, pulse ox 90% on room air. 04/21 Yesterday, patient underwent dual-chamber permanent pacemaker and plantation. Patient has had no problems overnight. Blood pressure 162/69, heart rate has been in the 60s. Repeat blood work reveals BUN 33 creatinine 1.47, potassium 4.7 and hemoglobin 10.2. PHYSICAL EXAMINATION: This is a 83 year-old male in no apparent distress at the time of my examination. HEENT: Head is atraumatic, normocephalic. Pupils are equal, round. Sclerae anicteric. Conjunctivae are clear. Mucous membranes of the mouth are moist. Neck is supple. There is no jugular venous distention. No carotid bruit is heard. CHEST EXAMINATION: Lungs are clear to auscultation. No chest wall tenderness is noted on palpation or with deep breathing. HEART EXAMINATION: Heart rate bradycardic. S1, S2 heard. No murmurs, gallops or rub. ABDOMEN: Soft, nontender. Bowel sounds are heard. EXTREMITIES: 2+ peripheral pulses with no evidence of peripheral edema and no calf tenderness noted. NEUROLOGIC EXAMINATION: Patient is awake, alert and oriented x3. IMPRESSION AND PLAN: Atrial fibrillation, paroxysmal Dementia Bradycardia Diabetes type 2 History of left CEA Possible TIA PLAN: Continue Eliquis Patient is cleared for discharge from cardiology and may follow-up with Dr. Leyva in 1 week Cardiology will sign off this case and follow on an as-needed basis. Please reconsult for any new concerns. Nurse practitioner note has been reviewed, I agree with documented findings and plan of care. Patient was seen and examined. Objective - Vital Signs Vital signs: Vital Signs Temp 98.5 F 04/21/23 04:00 Pulse 46 L 04/21/23 08:00 Resp 18 04/21/23 04:00 BP 162/69 04/21/23 04:00 Pulse Ox 98 04/21/23 04:00 FiO2 21 04/19/23 09:13 Intake & Output 04/20/23 04/21/23 04/21/23 18:59 06:59 18:59 Intake Total 100 240 240 Balance 100 240 240 Intake: IV 100 Oral 240 240 Other: Voiding Method Toilet # Voids 2 - Labs CBC & Chem 7: 04/21/23 10:01 04/21/23 10:01 Labs: Abnormal Lab Results - Last 24 Hours (Table) 04/20/23 04/21/23 04/21/23 Range/Units 20:03 06:02 10:01 RBC 3.32 L (4.30-5.90) m/uL Hgb 10.2 L (13.0-17.5) gm/dL Hct 31.2 L (39.0-53.0) % Plt Count 142 L (150-450) k/uL Sodium (137-145) mmol/L Chloride (98-107) mmol/L BUN (9-20) mg/dL Creatinine (0.66-1.25) mg/dL Glucose (74-99) mg/dL POC Glucose (mg/dL) 191 H 127 H (70-110) mg/dL Calcium (8.4-10.2) mg/dL 04/21/23 04/21/23 Range/Units 10:01 11:54 RBC (4.30-5.90) m/uL Hgb (13.0-17.5) gm/dL Hct (39.0-53.0) % Plt Count (150-450) k/uL Sodium 136 L (137-145) mmol/L Chloride 108 H (98-107) mmol/L BUN 33 H (9-20) mg/dL Creatinine 1.47 H (0.66-1.25) mg/dL Glucose 209 H (74-99) mg/dL POC Glucose (mg/dL) 205 H (70-110) mg/dL Calcium 8.0 L (8.4-10.2) mg/dL
[2023-04-21 15:39] VITALS: BP 122/53; PULSE 60; TEMP 98.4
== END 2023-04-21 15:05 | disposition home or self-care (01) | DRG 243 ==
LOC: EC 16:03 → 2CATHESU 20:18 → 3SCARD 22:09 → OBSVTOIN 04-19 07:44
PROVIDERS: ADMIT Hospitalist; ATTEND Hospitalist
PROC: 02H63JZ Insertion of Pacemaker Lead into Right Atrium, Percutaneous Approach (ICD-10-PCS; 2023-04-20)
PROC: 02HK3JZ Insertion of Pacemaker Lead into Right Ventricle, Percutaneous Approach (ICD-10-PCS; 2023-04-20)
PROC: 0JH606Z Insertion of Pacemaker, Dual Chamber into Chest Subcutaneous Tissue and Fascia, Open Approach (ICD-10-PCS; principal; 2023-04-20 15:30)
PROC: 4A10X4Z Monitoring of Central Nervous Electrical Activity, External Approach (ICD-10-PCS; 2023-04-21)
DX: R00.1 Bradycardia, unspecified (principal); I13.0 Hypertensive heart and chronic kidney disease with heart failure and stage 1 through stage 4 chronic kidney disease, or unspecified chronic kidney disease; E11.22 Type 2 diabetes mellitus with diabetic chronic kidney disease; R26.9 Unspecified abnormalities of gait and mobility; E11.42 Type 2 diabetes mellitus with diabetic polyneuropathy; I49.5 Sick sinus syndrome; Z79.01 Long term (current) use of anticoagulants; E78.5 Hyperlipidemia, unspecified; G25.0 Essential tremor; H54.8 Legal blindness, as defined in USA; H91.90 Unspecified hearing loss, unspecified ear; I48.0 Paroxysmal atrial fibrillation; F02.80 Dementia in other diseases classified elsewhere, unspecified severity, without behavioral disturbance, psychotic disturbance, mood disturbance, and anxiety; I48.92 Unspecified atrial flutter; I50.9 Heart failure, unspecified; I65.23 Occlusion and stenosis of bilateral carotid arteries; G20.A1 Parkinson's disease without dyskinesia, without mention of fluctuations; N18.30 Chronic kidney disease, stage 3 unspecified; K52.9 Noninfective gastroenteritis and colitis, unspecified; N40.0 Benign prostatic hyperplasia without lower urinary tract symptoms; Z79.4 Long term (current) use of insulin; Z79.82 Long term (current) use of aspirin; I08.1 Rheumatic disorders of both mitral and tricuspid valves; Z79.84 Long term (current) use of oral hypoglycemic drugs; Z79.899 Other long term (current) drug therapy; Z82.49 Family history of ischemic heart disease and other diseases of the circulatory system; Z85.72 Personal history of non-Hodgkin lymphomas; Z92.21 Personal history of antineoplastic chemotherapy; Z87.891 Personal history of nicotine dependence; Z87.19 Personal history of other diseases of the digestive system; Z88.0 Allergy status to penicillin; T67.5XXA Heat exhaustion, unspecified, initial encounter; X30.XXXA Exposure to excessive natural heat, initial encounter
CPT/HCPCS: 33208; 36415; 70450; 70551; 71046; 80048; 80053; 80061; 81001; 82140; 82607; 82746; 83735; 84443; 85025; 85610; 85652; 85730; 86140; 93005; 93306; 93880; 94760; 95816; 96360; 96361; 99285

== ENCOUNTER → 2024-07-16 | Outpatient (CLI) | payer MEDICARE, OTHER ==
[2024-07-16 15:45] LABS: ALT 18 U/L (10-49); AST 20 U/L (14-35); Albumin/Globulin Ratio 1.67 Ratio (1.60-3.17); Alkaline Phosphatase 95 U/L (41-126); BUN/Creat Ratio 22.56 Ratio (12.00-20.00); Blood Urea Nitrogen 36.1 mg/dL (9.0-27.0); Calcium 8.6 mg/dL (8.7-10.3); Carbon Dioxide 26.4 mmol/L (21.6-31.8); Chloride 106 mmol/L (96-109); Chol/HDL Ratio 2.13 Ratio; Globulin 2.4 g/dL (1.6-3.3); Glucose 84 mg/dL (70-110); LDL Cholesterol,Calculated 28.2 mg/dL (0.0-131.0); Potassium 4.4 mmol/L (3.5-5.5); Sodium 142 mmol/L (135-145); Total Bilirubin 0.5 mg/dL (0.3-1.2); Total Protein 6.4 g/dL (6.2-8.2)
== END | disposition home or self-care (01) ==
LOC: LABWHC1 08:37
PROVIDERS: ATTEND Internal Medicine Interventional Cardiology
DX: E78.2 Mixed hyperlipidemia (principal)
CPT/HCPCS: 36415; 80053; 80061

== ENCOUNTER 2024-07-27 12:19 | Emergency (ER) | payer MEDICARE, OTHER ==
[2024-07-27 12:35] VITALS: RESP 16
--- NOTE | 2024-07-27 13:08 | ED ---
General Adult HPI - General Chief complaint: Abdominal Pain Stated complaint: constipation Time Seen by Provider: 07/27/24 12:44 Source: patient, EMS, RN notes reviewed Mode of arrival: EMS Limitations: no limitations - History of Present Illness Initial comments: This is an 84-year-old male who presents to the emergency department for constipation and urinary retention. States that he has not had a bowel movement in 3 days. Constipation is a chronic and ongoing problem for him and states that he usually comes to the emergency department when he needs an enema. Denies any abdominal pain associated with this. Denies any nausea/vomiting. He is still passing gas. Additionally, patient states that he has been unable to urinate since yesterday which is a newer problem for him. However, when I went to evaluate the patient he advised that he went to the bathroom and had a very large bowel movement and urinated and overall felt much better. - Related Data Home Medications Medication Instructions Recorded Confirmed Multivitamins, Thera [Multivitamin 1 tab PO DAILY 11/07/15 04/17/23 (formulary)] Donepezil HCl [Aricept] 10 mg PO HS 02/26/20 04/17/23 Ferrous Sulfate [Feosol] 325 mg PO BID 02/26/20 04/17/23 Pantoprazole Sodium [Protonix] 40 mg PO DAILY 02/26/20 04/17/23 Tamsulosin HCl [Flomax] 0.4 mg PO DAILY 02/26/20 04/17/23 Atorvastatin Calcium [Lipitor] 40 mg PO HS 04/22/21 04/17/23 Ergocalciferol (Vitamin D2) 1,250 mcg PO TH 04/22/21 04/17/23 [Drisdol (50,000 Iu)] Empagliflozin [Jardiance] 25 mg PO DAILY 10/09/21 04/17/23 Pregabalin [Lyrica] 50 mg PO TID 10/09/21 04/17/23 amLODIPine [Norvasc] 5 mg PO DAILY 10/09/21 04/17/23 Calcium Citrate/Vitamin D3 1 tab PO DAILY 09/04/22 04/17/23 [Citracal + D Maximum Caplet] Furosemide [Lasix] 20 mg PO DAILY 09/04/22 04/17/23 Magnesium Oxide 420mg 420 mg PO DAILY 09/04/22 04/17/23 Sodium Bicarbonate Tab 650 mg PO QID 09/04/22 04/17/23 Apixaban [Eliquis] 2.5 mg PO BID 04/17/23 04/17/23 Carbidopa/Levodopa 1 tab PO BID 04/17/23 04/17/23 [Carbidopa/Levodopa 25-100 Tab] Insulin Glargine-Yfgn 32 units SQ DAILY 04/17/23 04/17/23 Loperamide [Imodium] 4 mg PO QID PRN 04/17/23 04/17/23 Pioglitazone [Actos] 15 mg PO DAILY 04/17/23 04/17/23 Previous Rx's Medication Instructions Recorded Aspirin 325 mg PO DAILY tab 04/21/23 Allergies Allergy/AdvReac Type Severity Reaction Status Date / Time Penicillins AdvReac Nausea & Verified 07/27/24 12:35 Vomiting Review of Systems ROS Statement: Those systems with pertinent positive or pertinent negative responses have been documented in the HPI. ROS Other: All systems not noted in ROS Statement are negative. 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 Past Anesthesia/Blood Transfusion Reactions: No Reported Reaction Additional Past Anesthesia/Blood Transfusion Reaction / Comment(s): HX OF BLOOD TRANSFUSION-NO REACTION. Past Psychological History: No Psychological Hx Reported Smoking Status: Former smoker Past Alcohol Use History: None Reported Past Drug Use History: None Reported - Past Family History Daughter(s) Family Medical History: Cancer Additional Family Medical History / Comment(s): BREAST , LIVER AND LUNG CANCER Father Family Medical History: Myocardial Infarction ([place]) Additional Family Medical History / Comment(s): Father at age 65yrs. Mother Family Medical History: Dementia Additional Family Medical History / Comment(s): Mother at about age 82yrs. Brother(s) Family Medical History: Cancer Additional Family Medical History / Comment(s): (2 BROTHERS) Sister(s) Family Medical History: Cancer General Exam Limitations: no limitations General appearance: alert, in no apparent distress Head exam: Present: atraumatic, normocephalic, normal inspection Respiratory exam: Present: normal lung sounds bilaterally. Absent: respiratory distress, wheezes, rales, rhonchi, stridor Cardiovascular Exam: Present: regular rate, normal rhythm GI/Abdominal exam: Present: soft. Absent: distended, tenderness Neurological exam: Present: alert, oriented X3, CN II-XII intact Psychiatric exam: Present: normal affect, normal mood Skin exam: Present: warm, dry, intact, normal color. Absent: rash Course Vital Signs 07/27/24 07/27/24 12:29 14:46 Temperature 97.5 F L 97.9 F Pulse Rate 57 L 71 Respiratory 16 16 Rate Blood Pressure 164/58 171/74 O2 Sat by Pulse 97 98 Oximetry Medical Decision Making - Medical Decision Making This is an 84 year old male who presents to the emergency department for constipation and urinary retention. Was pt. sent in by a medical professional or institution? @ -No Did you speak to anyone other than the patient for history? @ -No Did you review nursing and triage notes? @ -Yes, and I agree, it is accurate with regards to the patient's symptoms. Were old charts reviewed? @ -No Differential Diagnosis? @ -Medication induced, dietary intake, immobility, bowel obstruction, this is not meant to be an all-inclusive list. EKG interpreted by me (3pts min.)? @ -Not obtained X-rays interpreted by me (1pt min.)? @ -KUB x-ray obtained. My interpretation identifies no dilation of the bowel loops. CT interpreted by me (1pt min.)? @ -Not obtained U/S interpreted by me (1pt. min.)? @ -Not obtained What testing was considered but not performed? (CT, X-rays, U/S, labs)? Why? @ -None What meds were considered but not given? Why? @ -None Did you discuss the management of the patient with other professionals? @ -No Did you reconcile home meds? @ -No Was smoking cessation discussed for >3mins.? @ -No Was critical care preformed (if so, how long)? @ -No Were there social determinants of health that impacted care today? How? (Homelessness, low income, unemployed, alcoholism, drug addiction, transportation, low edu. Level, literacy, decrease access to med. care, senior living, rehab)? @ -No Was there de-escalation of care discussed even if they declined? (Discuss DNR or withdrawal of care, Hospice)? @ -No What co-morbidities impacted this encounter? (DM, HTN, Smoking, COPD, CAD, Cancer, CVA, Hep., AIDS, mental health diagnosis, sleep apnea, morbid obesity)? @ -Chronic constipation Was patient admitted / discharged? @ -Discharged. Patient had initially presented here for constipation and urinary retention hoping for an enema. However, shortly after he got here he had a very large bowel movement and also urinated and felt substantially better. He declined the need for an enema at that point. Urinalysis negative for signs of infection. Bladder scan performed as well revealing no signs of retention. KUB x-ray obtained revealing some gas and fecal material still present without other acute process. Advised he continue with a stool regimen. Patient discharged home in stable condition and advised to follow-up with his primary care provider. Case discussed with ED attending Dr. Bridges. Return precautions reviewed in depth, the patient is instructed to return to the emergency department with any new, worsening, or concerning symptoms. Patient verbalized understanding. Undiagnosed new problem with uncertain prognosis? @ -None Drug Therapy requiring intensive monitoring for toxicity (Heparin, Nitro, Insulin, Cardizem)? @ -None Were any procedures done? @ -None Diagnosis/symptom? @ -Constipation, urinary retention Acute, or Chronic, or Acute on Chronic? @ -Acute Uncomplicated (without systemic symptoms) or Complicated (systemic symptoms)? @ -Uncomplicated Side effects of treatment? @ -None Exacerbation, Progression, or Severe Exacerbation] @ -Not applicable Poses a threat to life or bodily function? @ -No - Lab Data Lab Results 07/27/24 Range/Units 13:19 Urine Color Colorless Urine Appearance Clear (Clear) Urine pH 6.5 (5.0-8.0) Ur Specific [place] 1.007 (1.001-1.035) Urine Protein Negative (Negative) Urine Glucose (UA) 4+ H (Negative) Urine Ketones Negative (Negative) Urine Blood Negative (Negative) Urine Nitrite Negative (Negative) Urine Bilirubin Negative (Negative) Urine Urobilinogen <2.0 (<2.0) mg/dL Ur Leukocyte Esterase Negative (Negative) - Radiology Data Radiology results: report reviewed, image reviewed Disposition Clinical Impression: Constipation, Urinary retention Disposition: HOME SELF-CARE Instructions (If sedation given, give patient instructions): Constipation (ED), Urinary Retention in Men (ED) Additional Instructions: Return to the emergency department with any new, worsening, or concerning symptoms. Follow up with your primary care provider in 1-2 days. Is patient prescribed a controlled substance at d/c from ED?: No Referrals: None,Stated [Primary Care Provider] - 1-2 days Time of Disposition: 14:14
[2024-07-27 13:30] LABS: Appearance,Urine Clear (Clear); Bilirubin,Urine Negative (Negative); Blood,Urine Negative (Negative); Color,Urine Colorless; Glucose,Urine (UA) 4+ (Negative); Ketones,Urine Negative (Negative); Leukocyte Esterase,Urine Negative (Negative); Nitrite,Urine Negative (Negative); PH, Urine 6.5 (5.0-8.0); Protein,Urine Negative (Negative); Specific Gravity,Urine 1.007 (1.001-1.035); Urobilinogen,Urine <2.0 mg/dL (<2.0)
--- NOTE | 2024-07-27 13:35 | XR ---
EXAMINATION TYPE: XR KUB DATE OF EXAM: 07/27/2024 1:16 PM COMPARISON: None. CLINICAL INDICATION: Male, 84 years old with history of Constipation; TECHNIQUE: One radiographic view of the abdomen was obtained. FINDINGS: The bowel gas pattern is nonspecific without dilated loops of small or large bowel. . Fecal material and gas are demonstrated throughout the colon and rectum. There is no evidence for organomegaly or pn eumoperitoneum. Degeneration changes of the spine. No acute osseous process. No abnormal calcificati ons are present. Cardiac conduction leads present. Right lower abdomen constipation correlates with calcified granuloma on CT. IMPRESSION: Nonspecific bowel gas pattern without radiographic evidence for acute process. [facility], , 07/27/2024 1:33 PM
[2024-07-27 14:48] VITALS: BP 171/74; PULSE 71; TEMP 97.9
== END 2024-07-27 14:47 | disposition home or self-care (01) ==
LOC: EC 12:19
DX: K59.00 Constipation, unspecified (principal); R33.9 Retention of urine, unspecified; Z87.891 Personal history of nicotine dependence; Z88.0 Allergy status to penicillin
CPT/HCPCS: 74018; 81003; 99284

== ENCOUNTER → 2024-09-02 | Outpatient (CLI) | payer MEDICARE, OTHER ==
[2024-09-02 18:29] LABS: ALT 20 U/L (10-49); AST 20 U/L (14-35); Albumin 4.2 g/dL (3.8-4.9); Albumin/Globulin Ratio 1.91 Ratio (1.60-3.17); Alkaline Phosphatase 105 U/L (41-126); Blood Urea Nitrogen 41.6 mg/dL (9.0-27.0); Calcium 8.6 mg/dL (8.7-10.3); Carbon Dioxide 25.3 mmol/L (21.6-31.8); Chloride 107 mmol/L (96-109); Chol/HDL Ratio 1.99 Ratio; Globulin 2.2 g/dL (1.6-3.3); Glucose 116 mg/dL (70-110); LDL Cholesterol,Calculated 29.6 mg/dL (0.0-131.0); Potassium 4.4 mmol/L (3.5-5.5); Sodium 142 mmol/L (135-145); Total Bilirubin 0.4 mg/dL (0.3-1.2); Total Protein 6.4 g/dL (6.2-8.2); VLDL Calculation 10.62 mg/dL (5.00-40.00)
[2024-09-02 18:31] LABS: Urine Creatinine 56.1 mg/dL (39.0-259.0)
== END | disposition home or self-care (01) ==
LOC: LABWHC1 11:18
PROVIDERS: ATTEND Nurse Practitioner Gerontology
DX: E11.65 Type 2 diabetes mellitus with hyperglycemia (principal)
CPT/HCPCS: 36415; 80053; 80061; 82043; 82570; 83036

== ENCOUNTER 2024-09-15 11:44 | Emergency (ER) | payer OTHER, MEDICARE ==
[2024-09-15 11:56] VITALS: RESP 18
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
[2024-09-15] MEDS: DIPH,PERTUS(ACELL)TETVAC-LF 0.5 ML VIAL IM ONE (12:59)
[2024-09-15 13:58] VITALS: BP 131/62; PULSE 68; TEMP 97.7
== END 2024-09-15 13:58 | disposition home or self-care (01) ==
LOC: EC 11:44
DX: S16.1XXA Strain of muscle, fascia and tendon at neck level, initial encounter (principal); Z87.891 Personal history of nicotine dependence; Z88.0 Allergy status to penicillin; Z23 Encounter for immunization; V49.40XA Driver injured in collision with unspecified motor vehicles in traffic accident, initial encounter
CPT/HCPCS: 72125; 90471; 90715; 99284